=== PATIENT | male | born 1935 | race African-American/Black ===

== ENCOUNTER → 2018-07-13 10:18 | Outpatient (CLI) | payer MEDICARE, SELFPAY ==
[2018-07-13 10:59] LABS: Alanine Aminotransferase 21 IU/L (21-72); Albumin 4.2 g/dL (3.5-5.0); Albumin Globulin Ratio 1.3 (1.0-2.8); Alkaline Phosphatase 84 U/L (38-126); Aspartate Aminotransferase 20 IU/L (17-59); BUN Creatinine Ratio 16.1 (6-22); Bilirubin Total 0.6 mg/dL (0.2-1.3); Blood Urea Nitrogen 29 mg/dL (9-20); Calcium 9.1 mg/dL (8.4-10.2); Carbon Dioxide 26 mmol/L (22-32); Chloride 106 mmol/L (98-107); Cholesterol 191 mg/dL (140-199); Estimated Glomerular Filt Rate 36.4 mL/min (>60); Globulin 3.2 g/dL (1.7-4.1); Glucose 88 mg/dL (80-110); HDL Cholesterol 38 mg/dL (40-60); HEMOLYSIS < 15 (0-50); LDL Cholesterol Calculated 137 mg/dL (<100); Sodium 144 mmol/L (137-145); Total Protein 7.4 g/dL (6.3-8.2); Triglycerides 80 mg/dL (35-150); Uric Acid 8.7 mg/dL (3.5-8.5)
[2018-07-13 11:28] LABS: Add Manual Diff / Slide Review NO; Basophils Percent Auto 0.4 % (0-2); Eosinophils Percent Auto 4.3 % (2-4); Hematocrit 38.1 % (41-53); Hemoglobin 12.6 g/dL (13.5-17.5); Lymphocytes Percent Auto 30.1 % (25-40); Mean Corpuscular HGB Conc 33.1 % (30-36); Mean Corpuscular Hemoglobin 29.8 PG (26-34); Mean Corpuscular Volume 89.9 fL (80-100); Monocytes Percent Auto 12.2 % (3-14); Neutrophils Absolute Auto 3900 /uL (3000-5900); Platelet Count 164 X10^3/uL (150-400); Red Blood Cell Count 4.24 X10^6/uL (4.5-5.9); Red Cell Distribution Width 15.8 % (11.6-14.8); White Blood Cell Count 7.3 X10^3/uL (4.5-11.0)
[2018-07-13 11:34] LABS: Hemoglobin A1C% w Est Avg Glu 6.6 % (4.0-6.0)
== END ==
PROVIDERS: PCP Internal Medicine; Visit Provider Internal Medicine
DX: I10 Essential (primary) hypertension (principal); E78.5 Hyperlipidemia, unspecified; E11.65 Type 2 diabetes mellitus with hyperglycemia; M10.00 Idiopathic gout, unspecified site; R53.83 Other fatigue; Z12.5 Encounter for screening for malignant neoplasm of prostate
CPT/HCPCS: 36415; 80053; 80061; 83036; 84153; 84443; 84550; 85025

== ENCOUNTER 2018-08-31 10:48 | Inpatient (IN) | payer MEDICARE, SELFPAY ==
[2018-08-31] VITALS (10 sets, daily range): BP systolic 135–181; BP diastolic 66–97; PULSE 57–105; RESP 13–18; TEMP 36.6–36.7; O2SAT 97–100; BMI 33.7
--- NOTE | 2018-08-31 | DI.RAD.S_ITS ---
PROCEDURE: XR CHEST 1V INDICATIONS: CONGESTIVE HEART FAILURE TECHNIQUE: One view of the chest was acquired. COMPARISON: [facility], RG, XR CXR 2 VIEW, 10/07/2002, 1:48. [facility], CR, CHEST 1 VIEW, 03/17/2011, 18:49. FINDINGS: Surgical changes and devices: None. Lungs and pleura: No pleural effusions or pneumothorax. There is slight elevation of the right hemidiaphragm redemonstrated. No definite radiographic evidence of pulmonary edema. No focal consolidation. There is a small nonspecific nodular opacity in the left upper lung zone peripherally measuring approximately 0.9 cm. Mediastinum: Mediastinal contours appear unchanged. Heart size is borderline enlarged. Bones and chest wall: No suspicious bony lesions. Overlying soft tissues appear unremarkable. IMPRESSION: 1. No definite radiographic evidence of pulmonary edema. 2. Small peripheral indistinct nodular opacity in the left upper lung zone may represent confluence of vascular and bony structures, atelectasis, or a nonspecific pulmonary nodule. Recommend a dedicated PA and lateral study when clinically feasible for further evaluation. Dictated by: Dangelo Denney M.D. on 08/31/2018 at 18:11 Approved by: Dangelo Denney M.D. on 08/31/2018 at 18:13
--- NOTE | 2018-08-31 | DI.ECHO.S_ITS ---
[facility] +---------+ : : [address] [place] : : : : [id number] : : : : Phone: [phone] Echocardiogram Report + + :Name: IZZY CONTRERAS Study Date: 09/01/2018 Height: 70 in : :[facility] Exam Location: IS Weight: 242 lb : : Gender: Male BSA: 2.3 m2 : :: 1935 Age: 83 yrs BP: 148/84 mmHg: :Reason For Study: CHF : :Ordering Physician: Marino : :Hospitalist Performed By: Fanta Gaona : :Referring: SUMANTH BANG : + + Interpretation Summary There is mild concentric left ventricular hypertrophy. Left ventricular size is at the upper limits of normal. Left ventricular systolic function is severely reduced. The ejection fraction is estimated to be 25%. There is moderate to severe global hypokinesis of the left ventricle. The anterior and anterolateral appear to have the best augmentation while the inferior wall appears to be almost akinetic. The right ventricle is grossly normal size. Right ventricular systolic function is borderline reduced. Pulmonary artery pressures cannot be estimated because of the lack of a measurable TR jet velocity. The left atrium is mildly dilated. The right atrium is normal in size. There is mild to moderate mitral regurgitation. There is no other significant valvular heart disease. The aortic root is normal size. Procedure: A two-dimensional transthoracic echocardiogram with color flow and Doppler was performed. The study quality was technically adequate. Most of the acoustic windows were suboptimal, but the best imaging was obtained from the parasternal window. There is no prior echocardiogram noted for this patient. (Patient reports having echocardiogram's done at another location). Left Ventricle: There is mild concentric left ventricular hypertrophy. Left ventricular size is at the upper limits of normal. Left ventricular systolic function is severely reduced. Left ventricular ejection fraction is estimated to be 25%. There is moderate to severe global hypokinesis of the left ventricle. Right Ventricle: The right ventricle is grossly normal size. Right ventricular systolic function is borderline reduced. Atria: The left atrium is mildly dilated. The right atrium is normal in size. Mitral Valve: The mitral valve leaflets appear borderline thickened, but open well. There is mild to moderate mitral regurgitation. Aortic Valve: The aortic valve is trileaflet. The aortic valve opens well. There is mild aortic valve sclerosis. There is no hemodynamically significant valvular aortic stenosis. There is trace aortic regurgitation. Tricuspid Valve: The tricuspid valve is normal in structure and function. There is a trace or physiologic amount of tricuspid regurgitation. Pulmonary artery pressures cannot be estimated because of the lack of a measurable TR jet velocity. Pulmonic Valve: The pulmonic valve is normal in structure and function. There is a trace or physiologic amount of pulmonic regurgitation. There is no other significant valvular heart disease. Great Vessels: The aortic root is normal size. The ascending aorta is normal in size. The inferior vena cava was not visualized. Pericardium/ Pleura There is no pericardial effusion. There is no pleural effusion. MMode/2D Measurements & Calculations LVIDd: 5.7 cm LVOT diam: 2.1 cm LVIDs: 5.0 cm Ao root diam: 3.1 cm FS: 12.4 % asc Aorta Diam: 3.2 cm EPSS: 1.8 cm IVSd: 1.4 cm LVPWd: 1.4 cm LV lopes. diameter/BSA (cm/m^2): 2.5 LV sys. diameter/BSA (cm/m^2): 2.2 LA A2 area: 22.0 cm2 RA long axis: 3.9 cm LA A4 area: 26.3 cm2 RA area: 12.4 cm2 LA length (vol): 5.3 cm RA vol: 33.5 ml LA vol: 92.7 ml RA : 14.8 ml/m2 LA vol index: 40.9 ml/m2 TAPSE: 1.6 cm Doppler Measurements & Calculations Ao V2 max: 111.1 cm/sec LVOT Max Jose: 92.0 cm/sec Ao V2 mean: 85.1 cm/sec LV V1 max P.4 mmHg Ao max P.9 mmHg LV V1 VTI: 19.4 cm Ao mean P.0 mmHg JANIS(I,D): 2.7 cm2 Ao V2 VTI: 25.5 cm JANIS(V,D): 2.9 cm2 sev ratio: 0.76 JANIS indexed to BSA (cm^2/m^2): 1.2 MV E max jose: 91.8 cm/sec PA V2 max: 48.7 cm/sec MV A max jose: 86.8 cm/sec PA V2 mean: 33.0 cm/sec MV E/A: 1.1 PA mean P.50 mmHg MV dec time: 0.13 sec PA pr(Accel): -3.3 mmHg Reading Physician:YUSUF
--- NOTE | 2018-08-31 | DI.CT.S_ITS ---
PROCEDURE: CT HEAD/BRAIN WO CON INDICATIONS: DIZZY TECHNIQUE: Noncontrast 4.5 mm thick angled axial sections acquired from the foramen magnum to the vertex, with coronal and sagittal reformats. For radiation dose reduction, the following was used: automated exposure control, adjustment of mA and/or kV according to patient size. COMPARISON: None. FINDINGS: Image quality: Excellent. CSF spaces: Basal cisterns are patent. No extra-axial fluid collections. The ventricles are symmetric in size and shape. Brain: No intracranial bleeds or masses. There is cerebral volume loss for age, with resultant ventricular and sulcal prominence. There are periventricular and deep white matter chronic small vessel ischemic changes. There is intracranial internal carotid artery atherosclerosis. Skull and face: Calvarium and visualized facial bones appear intact, without suspicious lesions. Sinuses: Visualized sinuses and mastoids are clear. IMPRESSION: Normal for age, source of current symptoms is not seen. Dictated by: Michael Muro M.D. on 08/31/2018 at 11:32 Approved by: Michael Muro M.D. on 08/31/2018 at 11:35
--- NOTE | 2018-08-31 | DI.MRI.S_ITS ---
PROCEDURE: MR STROKE Pre- and post-contrast brain MRI, non-contrast brain MR angiogram, pre- and postcontrast neck MR angiogram INDICATIONS: acute ataxia, r/o CVA TECHNIQUE: Brain: Noncontrast axial T1 spin echo, axial T2 fast spin echo, sagittal and axial FLAIR, coronal T2 fast spin echo, axial gradient echo, axial diffusion and ADC through the brain. After the administration of contrast, axial 3D VIBE of the cranial vasculature and brain. Brain MRA: Non-contrast 3-D time of flight MR angiogram, with multiple tgnklpo-isqqgxerm-igrbgqxtwh (MIP) reformats performed. Neck MRA: Axial and sagittal TruFISP through the neck. Coronal dynamic MR angiogram during administration of contrast in the arterial and venous phases, with 3-dimenstional dgtognm-qbdgdsfuc-ftlttiehcd (MIP) reformats constructed from subtraction images. COMPARISON: [facility], CT, CT HEAD/BRAIN WO CON, 08/31/2018, 11:16. FINDINGS: Image quality: There is motion artifact limiting evaluation. CSF spaces: There is moderate cerebral volume loss with prominence of the ventricles and sulci. Basal cisterns are patent. No extra-axial fluid collections. Brain: Diffusion weighted images demonstrate no acute infarcts. No intracranial hemorrhage, mass, or mass effect. There are subcortical and periventricular foci of white matter T2 hyperintensity consistent with mild to moderate chronic small vessel ischemic changes. Brainstem appears normal. Normal intravascular flow voids are present. No abnormal intracranial enhancement. Skull and face: Calvarial marrow signal is normal. Orbits appear normal. Sinuses: Sinuses and mastoids are clear. BRAIN MR ANGIOGRAM: Anterior circulation: Intracranial internal carotid arteries are normal in size and patent bilaterally. The flow within the paired anterior cerebral arteries is symmetric and patent bilaterally. There are focal stenoses within the M1 segment of the middle cerebral arteries bilaterally with approximately 60 to 70% narrowing bilaterally. The anterior communicating artery is patent. No occlusions or aneurysms. Posterior circulation: There is a focal stenosis in the distal left vertebral artery at its junction with the basilar artery of approximately 70% or greater. 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 The flow within the posterior cerebral arteries appears grossly patent bilaterally. No occlusions or aneurysms. NECK MR ANGIOGRAM: Carotids: Great vessels demonstrate conventional anatomy as they arise from the aortic arch. The origins of the common carotid arteries appear patent. The calibers and courses of both common carotid arteries are normal. There are bilateral stenoses in the proximal carotid bulbs of greater than 70% on the left and approximately 60-70% on the right. The subsequent internal carotid arteries demonstrate normal course and caliber. Posterior circulation: The origins of the vertebral arteries appear patent. More superior portions of both vertebral arteries demonstrate normal course and caliber, and join to form a normal appearing basilar artery. Miscellaneous: Subclavian arteries appear patent. 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 Pre-contrast images through the neck demonstrate no soft tissue abnormalities. IMPRESSION: BRAIN MRI: 1. No evidence of infarct or other definite acute intracranial abnormality. 2. Moderate cerebral volume loss and mild to moderate chronic white matter small vessel ischemic changes. BRAIN MR ANGIOGRAM: 1. 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 Further evaluation may be obtained with a CT angiogram if clinically indicated. 2. Focal stenosis in the distal left vertebral artery at its junction with the basilar artery of approximately 70%. NECK MR ANGIOGRAM: 1. Bilateral narrowing in the proximal carotid bulbs of greater than 70% on the left and approximately 60-70% on the right. 2. 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 Dictated by: Dangelo Denney M.D. on 08/31/2018 at 18:27 Approved by: Dangelo Denney M.D. on 08/31/2018 at 18:43
--- NOTE | 2018-08-31 10:49 | ED.GENADULT ---
HPI - General Adult General Chief complaint: Neuro Symptoms/Deficit Stated complaint: unsteady on feet, dizzy, high BP Time Seen by Provider: 08/31/18 10:49 Source: patient Mode of arrival: ambulatory Limitations: no limitations History of Present Illness HPI narrative: Patient is an 83-year-old male here for evaluation of what he describes as lightheadedness and walking funny. Patient states that on Friday of last week he was at his normal state health. Woke up and stated that he was ?dizzy ?up this was not vertigo however does lightheadedness. He states that as he was walking to the bathroom he noticed that he was ?walking funny? he stated that as the day went on all of his symptoms improved. States that the ?walking funny? has been off and on since then. He states that he did not have a return of the ?dizziness? until this morning. He denies any other symptoms. He states he has been taking his insulin. Related Data Home Medications Medication Instructions Recorded Confirmed DM HYDROBROM/GG/PSE HCL (#GUIATUSS) 1 cap PO PRN PRN #0 03/17/11 08/31/18 furosemide 20 mg PO QDAY #0 11/26/16 08/31/18 metoprolol tartrate 37.5 mg PO DAILY #0 11/26/16 08/31/18 insulin NPH-regular 70-30 U-100 1 dose SUBCUT BID 04/29/18 08/31/18 insulin 100 unit/mL subcutaneous pen CoQ-10 1 cap PO DAILY 08/31/18 08/31/18 Oil Of Oregano 1 cap PO DAILY 08/31/18 08/31/18 Probiotic 1 cap PO DAILY 08/31/18 08/31/18 aspirin 81 mg PO DAILY 08/31/18 08/31/18 ezetimibe 1 tab PO DAILY 08/31/18 08/31/18 losartan 1 tab PO QPM 08/31/18 08/31/18 olive leaf extract 1 cap PO DAILY 08/31/18 08/31/18 Previous Rx's Medication Instructions Recorded colchicine 0.6 mg tablet 0.6 mg PO Q OTHER DAY #20 tab 04/29/18 Allergies Allergy/AdvReac Type Severity Reaction Status Date / Time allopurinol Allergy Intermediate rash Verified 04/29/18 14:06 No Known Allergies Allergy Uncoded 04/11/18 11:54 Review of Systems Constitutional Denies fatigue, Denies fever(s), Denies frequent falls and Denies headache(s) Eyes Denies blurry vision and Denies diplopia ENT Ears, Nose, Mouth, and Throat: Denies vertigo, Reports dizziness, Denies headache(s), Denies neck pain and Reports disequilibrium Cardiovascular Denies chest pain, Denies palpitations and Denies dyspnea Respiratory Denies cough and Denies dyspnea Gastrointestinal Gastrointestinal: Denies abdominal pain, Denies nausea and Denies vomiting Musculoskeletal Reports abnormal gait, Denies myalgias, Denies arthralgias, Denies neck pain and Denies tingling Integumentary/Breasts Denies lesions and Denies rash Neurologic Reports abnormal gait, Denies confusion, Denies vertigo, Reports dizziness, Denies frequent falls, Denies headache(s), Reports lack of coordination, Denies focal weakness, Denies tingling, Denies paresthesias and Reports disequilibrium Psychiatric Denies confusion Endocrine Denies fatigue and Denies palpitations Hematologic/Lymphatic Denies easy bleeding and Denies easy bruising [facility] Medical History Congestive heart failure (Acute) Coronary artery disease (Acute) Diabetes (Acute) Hypertension (Acute) Surgical History No pertinent past surgical history (Acute) Social History Smoking Status: Former smoker Exam Initial Vital Signs Initial Vital Signs: Vital Signs Temperature 97.8 F 08/31/18 10:50 Pulse Rate 102 H 08/31/18 10:50 Respiratory Rate 13 08/31/18 10:50 Blood Pressure 173/92 H 08/31/18 10:50 Pulse Oximetry 100 08/31/18 10:50 Const General: cooperative, healthy appearing, comfortable, well developed, well groomed and No acute distress Orientation: alert, awake and oriented x3 HENMT Head: normal to inspection and normocephalic Ears: hearing grossly normal bilaterally Face and sinus: normal facial exam Eyes Pupils: PERRL EOM: EOM intact bilaterally Resp Effort & Inspection: normal respiratory effort Auscultation: clear to auscultation bilaterally Cardio Rate: regular rate Rhythm: regular rhythm Pulses: radial pulses present GI Inspection: non-distended Palpation: soft, No firm and No tender Skin Lesions: no lesions Rashes: no rashes Neuro General: alert, awake and oriented x3 Cranial Nerves: CN's II-XI intact bilaterally Cognition: normal cognition Speech: speech normal Motor: muscle tone normal throughout Sensory Exam: no sensory deficits noted Extrem General: normal to inspection and capillary refill normal Psych Appearance: grossly normal and well kempt Course Orders Ordered: ED Orders 08/31/18 10:50 EKG-12 Lead Stat 08/31/18 11:36 B Type Natriuretic Peptide Stat Complete Blood Count AUTO DIFF Stat Comprehensive Metabolic Panel Stat Troponin I Stat Discontinued Medications Aspirin (Aspirin Chew) 324 mg PO NOW ONE Stop: 08/31/18 12:13 Last Admin: 08/31/18 12:22 Dose: 324 mg Vital Signs - 8 hr 08/31/18 10:50 08/31/18 11:24 08/31/18 11:58 Temperature 97.8 F Pulse Rate 102 H 105 H 92 H Respiratory Rate 13 18 18 Blood Pressure 173/92 H Blood Pressure [Left Arm] 173/92 H 163/97 H Pulse Oximetry 100 98 Medical Decision Making Lab Data Lab results reviewed: Yes I reviewed the patient's lab results. Result diagrams: 08/31/18 11:36 08/31/18 11:36 Lab Results 08/31/18 08/31/18 Range/Units 11:36 11:36 WBC 6.2 (4.5-11.0) X10^3/uL RBC 4.29 L (4.5-5.9) X10^6/uL Hgb 12.7 L (13.5-17.5) g/dL Hct 38.7 L (41-53) % MCV 90.3 (80-100) fL MCH 29.6 (26-34) PG MCHC 32.8 (30-36) % RDW 15.3 H (11.6-14.8) % Plt Count 144 L (150-400) X10^3/uL Neut % (Auto) 52.9 (50-75) % Lymph % (Auto) 30.3 (25-40) % Whitman % (Auto) 12.0 (3-14) % Eos % (Auto) 4.4 H (2-4) % Baso % (Auto) 0.4 (0-2) % Neut # (Auto) 3300 (5603-9180) /uL Sodium 141 (137-145) mmol/L Potassium 4.0 (3.4-5.1) mmol/L Chloride 103 (98-107) mmol/L Carbon Dioxide 25 (22-32) mmol/L BUN 26 H (9-20) mg/dL Creatinine 1.80 H (0.66-1.25) mg/dL Estimated GFR 36.4 L (>60) mL/min BUN/Creatinine Ratio 14.4 (6-22) Glucose 171 H (80-110) mg/dL Calcium 8.9 (8.4-10.2) mg/dL Total Bilirubin 0.6 (0.2-1.3) mg/dL AST 26 (17-59) IU/L ALT 25 (21-72) IU/L Alkaline Phosphatase 88 (38-126) U/L Troponin I 0.193 H* (0.01-0.034) ng/mL B-Natriuretic Peptide 691.0 H (<100) Total Protein 7.4 (6.3-8.2) g/dL Albumin 4.1 (3.5-5.0) g/dL Globulin 3.3 (1.7-4.1) g/dL Albumin/Globulin Ratio 1.2 (1.0-2.8) Point of Care Testing Glucose POC 136 Point of care testing: Point of Care Testing Glucose POC [address] scan - head: Radiologist's impression: [address] [address] [address] Scan Report Signed Patient: Thaddeus Chilel BMR#: [id number] : 7Acct:[id number] Age/Sex: 83 / MDate of Service: 08/31/18 Loc: ED Accession Number: [id number] Procedure: CT head/brain wo con Ordering Provider: James Buenrostro D.O. PROCEDURE: CT HEAD/BRAIN WO CON INDICATIONS: DIZZY TECHNIQUE: Noncontrast 4.5 mm thick angled axial sections acquired from the foramen magnum to the vertex, with coronal and sagittal reformats. For radiation dose reduction, the following was used: automated exposure control, adjustment of mA and/or kV according to patient size. COMPARISON: None. FINDINGS: Image quality: Excellent. CSF spaces: Basal cisterns are patent. No extra-axial fluid collections. The ventricles are symmetric in size and shape. Brain: No intracranial bleeds or masses. There is cerebral volume loss for age, with resultant ventricular and sulcal prominence. There are periventricular and deep white matter chronic small vessel ischemic changes. There is intracranial internal carotid artery atherosclerosis. Skull and face: Calvarium and visualized facial bones appear intact, without suspicious lesions. Sinuses: Visualized sinuses and mastoids are clear. IMPRESSION: Normal for age, source of current symptoms is not seen. Dictated by: Michael Muro M.D. on 08/31/2018 at 11:32 Approved by: Michael Muro M.D. on 08/31/2018 at 11:35 ECG Data Attestation: I personally reviewed and interpreted this ECG as follows: Prior ECG tracings: not available for review Interpretation: Sinus tachycardia Ventricular rate of 102 Normal axis Normal QRS Normal QTC Nonspecific ST T wave changes MDM Narrative Medical decision making narrative: Patient's head CT is unremarkable. He has a normal neurologic exam here in the emergency department. He was able to walk up and down the halls and did lean somewhat to the left while he walked but stated that he feels a whole lot better than when he did earlier today and has been feeling off and on for the past several days. He denies any chest pain. He is not clinically in heart failure. He does have an elevated troponin. He has never complained of any chest pain. I do not have an old troponin to compare this to. No fevers. Discussed the case with Dr. Fragoso with Internal Medicine who will admit the patient for continued workup of his lightheadedness to include an MRI stroke protocol and also trending of the troponins. I discussed the plan for admission with the patient. He expressed understanding and agreement with plan. Discharge Plan Departure Patient Disposition: Admitted As Inpatient Clinical Impression: Lightheadedness, Ataxia, Elevated troponin
[2018-08-31 11:45] LABS: Add Manual Diff / Slide Review NO; Basophils Percent Auto 0.4 % (0-2); Eosinophils Percent Auto 4.4 % (2-4); Hematocrit 38.7 % (41-53); Hemoglobin 12.7 g/dL (13.5-17.5); Lymphocytes Percent Auto 30.3 % (25-40); Mean Corpuscular HGB Conc 32.8 % (30-36); Mean Corpuscular Hemoglobin 29.6 PG (26-34); Mean Corpuscular Volume 90.3 fL (80-100); Neutrophils Absolute Auto 3300 /uL (3000-5900); Neutrophils Percent Auto 52.9 % (50-75); Platelet Count 144 X10^3/uL (150-400); Red Blood Cell Count 4.29 X10^6/uL (4.5-5.9); Red Cell Distribution Width 15.3 % (11.6-14.8); White Blood Cell Count 6.2 X10^3/uL (4.5-11.0)
[2018-08-31 11:58] LABS: Alanine Aminotransferase 25 IU/L (21-72); Albumin 4.1 g/dL (3.5-5.0); Albumin Globulin Ratio 1.2 (1.0-2.8); Alkaline Phosphatase 88 U/L (38-126); Aspartate Aminotransferase 26 IU/L (17-59); BUN Creatinine Ratio 14.4 (6-22); Bilirubin Total 0.6 mg/dL (0.2-1.3); Blood Urea Nitrogen 26 mg/dL (9-20); Calcium 8.9 mg/dL (8.4-10.2); Carbon Dioxide 25 mmol/L (22-32); Chloride 103 mmol/L (98-107); Estimated Glomerular Filt Rate 36.4 mL/min (>60); Globulin 3.3 g/dL (1.7-4.1); Glucose 171 mg/dL (80-110); HEMOLYSIS < 15 (0-50); Sodium 141 mmol/L (137-145); Total Protein 7.4 g/dL (6.3-8.2)
[2018-08-31 12:12] LABS: Troponin I 0.193 ng/mL (0.01-0.034)
[2018-08-31] MEDS: ASPIRIN 81 MG TAB 324 MG PO (12:22)
--- NOTE | 2018-08-31 16:48 | PM.HP.1 ---
History of Present Illness Date Patient Seen: 08/31/18 Time Patient Seen: 16:48 Chief complaint: dizzy,unsteady on feat,high blood pressure Narrative: Patient is an 83-year-old male with history of diabetes, hypertension, congestive heart failure presented to our emergency department with complaints of feeling dizzy and off-balance often on for the past 5 days. On last week he 1st noticed that he was dizzy and had difficulty maintaining his balance while walking. Symptoms have been intermittent since that time but worse today. He also noticed brief episode of shortness of breath and cough. He denies fever, chest pain, headache, loss of vision or double vision, unilateral weakness or numbness. He checked his blood sugar and it was running in his usual range. Head CT in the ER read as normal for age. However, his troponin was significantly elevated at 0.193. In regards to his CHF, patient states that it was diagnosed back in 2010 when he presented with a tachycardia but not atrial fibrillation. Symptoms have been well controlled since he was started on combination of diuretic, losartan and metoprolol. He denies history of [place]. He was set up to have a follow-up carotid duplex ultrasound in a couple of weeks ordered by his vacuum cleaner operator. He does report one important piece of history and that he realized he ran out of his metoprolol about 1 week ago. Patient History Medical History Congestive heart failure (Acute) Coronary artery disease (Acute) Diabetes (Acute) Hypertension (Acute) Surgical History No pertinent past surgical history (Acute) Family & Social History Family History: Reviewed 08/31/18 by Ulysses Fragoso MD Social History: household members spouse Prior Living Arrangements House Safety & Behavioral: Feels Safe in Current Yes Environment Been Physically Hurt or No Threatened By a Person Suicidal Ideation Description None Suicide Plan Description No Plan Tobacco & Substance use: Smoking Status Former smoker alcohol intake frequency other Substance Use Type does not use Meds Home Medications Medication Instructions Recorded Confirmed Type DM HYDROBROM/GG/PSE HCL (#GUIATUSS) 1 cap PO PRN PRN #0 03/17/11 08/31/18 History furosemide 20 mg PO QDAY #0 11/26/16 08/31/18 History metoprolol tartrate 37.5 mg PO DAILY #0 11/26/16 08/31/18 History colchicine 0.6 mg tablet 0.6 mg PO Q OTHER DAY #20 tab 04/29/18 08/31/18 Rx insulin NPH-regular 70-30 U-100 1 dose SUBCUT BID 04/29/18 08/31/18 History insulin 100 unit/mL subcutaneous pen CoQ-10 1 cap PO DAILY 08/31/18 08/31/18 History Oil Of Oregano 1 cap PO DAILY 08/31/18 08/31/18 History Probiotic 1 cap PO DAILY 08/31/18 08/31/18 History aspirin 81 mg PO DAILY 08/31/18 08/31/18 History ezetimibe 1 tab PO DAILY 08/31/18 08/31/18 History losartan 1 tab PO QPM 08/31/18 08/31/18 History olive leaf extract 1 cap PO DAILY 08/31/18 08/31/18 History Allergies Allergy/AdvReac Type Severity Reaction Status Date / Time allopurinol Allergy Intermediate rash Verified 04/29/18 14:06 No Known Allergies Allergy Uncoded 02/11/18 11:54 Review of Systems Review of Systems All systems reviewed & are unremarkable except as noted in HPI and below Exam Vital Signs (past 8 hours): - 08/31/18 10:50 08/31/18 11:24 08/31/18 11:58 Temperature 97.8 F Pulse Rate 102 H 105 H 92 H Respiratory Rate 13 18 18 Blood Pressure 173/92 H Blood Pressure [Left Arm] 173/92 H 163/97 H Pulse Oximetry 100 98 08/31/18 13:16 08/31/18 13:23 08/31/18 13:33 Temperature Pulse Rate 97 H 89 96 H Respiratory Rate 15 18 13 Blood Pressure Blood Pressure [Left Arm] 181/96 H 181/91 H 162/76 H Pulse Oximetry 100 100 100 08/31/18 15:28 Temperature 98.0 F Pulse Rate 57 L Respiratory Rate 18 Blood Pressure 135/71 Blood Pressure [Left Arm] Pulse Oximetry 97 Oxygen Delivery Method Room Air Narrative Exam Narrative: GENERAL: Alert, very cooperative male in no acute distress HEAD: Atraumatic. Normocephalic. EYES: Pupils equal, round and reactive. Extraocular motions intact. No nystagmus. No scleral icterus. No injection or drainage. OROPHARYNX: moist mucosa NECK: Trachea midline. No JVD or lymphadenopathy. No carotid bruit. CARDIOVASCULAR: Regular rate and rhythm without murmurs, gallops, or rubs. RESPIRATORY: Clear to auscultation bilaterally. GASTROINTESTINAL: Abdomen obese, soft, non-tender. No hepato-splenomegaly, or palpable masses. EXTREMITIES: No pretibial edema. NEUROLOGICAL: Fully oriented, speech is completely intact, normal bilateral upper and lower extremity strength and sensation, normal [id number] bilaterally, normal heel to li bilaterally, however he is mildly ataxic with ambulation SKIN: warm, dry, no rash Objective Imaging CT scan - head: Radiologist's impression: Normal for age, source of current symptoms is not seen. ECG: My impression: Sinus tachycardia, anteroseptal MN unlikely old, possible old inferior [place], nonspecific T-wave abnormality, no change verses EKG 03/07/2011 Labs Result Diagrams: 08/31/18 11:36 08/31/18 11:36 Labs: Laboratory Results - last 24 hr 08/31/18 08/31/18 11:36 11:36 WBC 6.2 RBC 4.29 L Hgb 12.7 L Hct 38.7 L MCV 90.3 MCH 29.6 MCHC 32.8 RDW 15.3 H Plt Count 144 L Neut % (Auto) 52.9 Lymph % (Auto) 30.3 [place] % (Auto) 12.0 Eos % (Auto) 4.4 H Baso % (Auto) 0.4 Neut # (Auto) 3300 Sodium 141 Potassium 4.0 Chloride 103 Carbon Dioxide 25 BUN 26 H Creatinine 1.80 H Estimated GFR 36.4 L BUN/Creatinine Ratio 14.4 Glucose 171 H Calcium 8.9 Total Bilirubin 0.6 AST 26 ALT 25 Alkaline Phosphatase 88 Troponin I 0.193 H* B-Natriuretic Peptide 691.0 H Total Protein 7.4 Albumin 4.1 Globulin 3.3 Albumin/Globulin Ratio 1.2 Assessment & Plan Plan: Assessment/Plan Narrative: 1. Acute ataxia suspicious for evolving stroke: Patient presents with several days of new ataxia. He has multiple stroke risk factors. Plan: Brain MR stroke protocol, transthoracic echo, telemetry, allow permissive hypertension, neuro check q.4 hours, PT consult 2. Acute [place]: Admission troponin 0.193 above acute [place] cut off. Likely this is type 2 or demand related ischemia due to history of running out of his metoprolol 1 week prior to admission. He did have a brief episode of shortness of breath a couple of days prior to admission. Plan: Repeat troponin at 8:00 p.m., telemetry. He is already on daily aspirin and metoprolol, resumed. 3. Congestive heart failure, chronic, unknown type: Note elevated BNP above 600 with stated history of CHF. Patient does not appear in overt heart failure. Check chest x-ray. He is followed by vacuum cleaner operator, Dr. Carla Lemus, at [facility] 4. Diabetes, insulin requiring: Stable, continue insulin similar to home routine 5. Chronic kidney disease, stage III: Creatinine 1.8 it appears at his baseline. Quality VTE Deep Vein Thrombosis/Pulmonary Embolism Present on Admission: No
--- NOTE | 2018-08-31 17:08 | P.HP_ITS ---
History of Present Illness Date Patient Seen: 08/31/18 Time Patient Seen: 16:48 Chief complaint: dizzy,unsteady on feat,high blood pressure Narrative: Patient is an 83-year-old male with history of diabetes, hypertension , congestive heart failure presented to our emergency department with complaints of feeling dizzy and off-balance often on for the past 5 days. On last week he 1st noticed that he was dizzy and had difficulty maintaining his balance while walking. Symptoms have been intermittent since that time but worse today. He also noticed brief episode of shortness of breath and cough. He denies fever, chest pain, headache, loss of vision or double vision, unilateral weakness or numbness. He checked his blood sugar and it was running in his usual range. Head CT in the ER read as normal for age. However, his troponin was significantly elevated at 0.193. In regards to his CHF, patient states that it was diagnosed back in 2010 when he presented with a tachycardia but not atrial fibrillation. Symptoms have been well controlled since he was started on combination of diuretic, losartan and metoprolol. He denies history of [place]. He was set up to have a follow-up carotid duplex ultrasound in a couple of weeks ordered by his geospatial intelligence analyst. He does report one important piece of history and that he realized he ran out of his metoprolol about 1 week ago. Patient History Medical History Congestive heart failure (Acute) Coronary artery disease (Acute) Diabetes (Acute) Hypertension (Acute) Surgical History No pertinent past surgical history (Acute) Family & Social History Family History: Reviewed 08/31/18 by Ulysses Fragoso MD Social History: household members spouse Prior Living Arrangements House Safety & Behavioral: Feels Safe in Current Yes Environment Been Physically Hurt or No Threatened By a Person Suicidal Ideation Description None Suicide Plan Description No Plan Tobacco & Substance use: Smoking Status Former smoker alcohol intake frequency other Substance Use Type does not use Meds Home Medications Medication Instructions Recorded Confirmed Type DM HYDROBROM/GG/PSE HCL (#GUIATUSS) 1 cap PO PRN PRN #0 03/17/11 08/31/18 History furosemide 20 mg PO QDAY #0 11/26/16 08/31/18 History metoprolol tartrate 37.5 mg PO DAILY #0 11/26/16 08/31/18 History colchicine 0.6 mg tablet 0.6 mg PO Q OTHER DAY #20 tab 04/29/18 08/31/18 Rx insulin NPH-regular 70-30 U-100 1 dose SUBCUT BID 04/29/18 08/31/18 History insulin 100 unit/mL subcutaneous pen CoQ-10 1 cap PO DAILY 08/31/18 08/31/18 History Oil Of Oregano 1 cap PO DAILY 08/31/18 08/31/18 History Probiotic 1 cap PO DAILY 08/31/18 08/31/18 History aspirin 81 mg PO DAILY 08/31/18 08/31/18 History ezetimibe 1 tab PO DAILY 08/31/18 08/31/18 History losartan 1 tab PO QPM 08/31/18 08/31/18 History olive leaf extract 1 cap PO DAILY 08/31/18 08/31/18 History Allergies Allergy/AdvReac Type Severity Reaction Status Date / Time allopurinol Allergy Intermediate rash Verified 04/29/18 14:06 No Known Allergies Allergy Uncoded 02/11/18 11:54 Review of Systems Review of Systems All systems reviewed & are unremarkable except as noted in HPI and below Exam Vital Signs (past 8 hours): - 08/31/18 10:50 08/31/18 11:24 08/31/18 11:58 Temperature 97.8 F Pulse Rate 102 H 105 H 92 H Respiratory Rate 13 18 18 Blood Pressure 173/92 H Blood Pressure [Left Arm] 173/92 H 163/97 H Pulse Oximetry 100 98 08/31/18 13:16 08/31/18 13:23 08/31/18 13:33 Temperature Pulse Rate 97 H 89 96 H Respiratory Rate 15 18 13 Blood Pressure Blood Pressure [Left Arm] 181/96 H 181/91 H 162/76 H Pulse Oximetry 100 100 100 08/31/18 15:28 Temperature 98.0 F Pulse Rate 57 L Respiratory Rate 18 Blood Pressure 135/71 Blood Pressure [Left Arm] Pulse Oximetry 97 Oxygen Delivery Method Room Air Narrative Exam Narrative: GENERAL: Alert, very cooperative male in no acute distress HEAD: Atraumatic. Normocephalic. EYES: Pupils equal, round and reactive. Extraocular motions intact. No nystagmus. No scleral icterus. No injection or drainage. OROPHARYNX: moist mucosa NECK: Trachea midline. No JVD or lymphadenopathy. No carotid bruit. CARDIOVASCULAR: Regular rate and rhythm without murmurs, gallops, or rubs. RESPIRATORY: Clear to auscultation bilaterally. GASTROINTESTINAL: Abdomen obese, soft, non-tender. No hepato-splenomegaly, or palpable masses. EXTREMITIES: No pretibial edema. NEUROLOGICAL: Fully oriented, speech is completely intact, normal bilateral upper and lower extremity strength and sensation, normal [id number] bilaterally, normal heel to li bilaterally, however he is mildly ataxic with ambulation SKIN: warm, dry, no rash Objective Imaging CT scan - head: Radiologist's impression: Normal for age, source of current symptoms is not seen. ECG: My impression: Sinus tachycardia, anteroseptal [place] unlikely old, possible old inferior [place], nonspecific T-wave abnormality, no change verses EKG 03/07/2011 Labs Result Diagrams: 08/31/18 11:36 08/31/18 11:36 Labs: Laboratory Results - last 24 hr 08/31/18 08/31/18 11:36 11:36 WBC 6.2 RBC 4.29 L Hgb 12.7 L Hct 38.7 L MCV 90.3 MCH 29.6 MCHC 32.8 RDW 15.3 H Plt Count 144 L Neut % (Auto) 52.9 Lymph % (Auto) 30.3 [place] % (Auto) 12.0 Eos % (Auto) 4.4 H Baso % (Auto) 0.4 Neut # (Auto) 3300 Sodium 141 Potassium 4.0 Chloride 103 Carbon Dioxide 25 BUN 26 H Creatinine 1.80 H Estimated GFR 36.4 L BUN/Creatinine Ratio 14.4 Glucose 171 H Calcium 8.9 Total Bilirubin 0.6 AST 26 ALT 25 Alkaline Phosphatase 88 Troponin I 0.193 H* B-Natriuretic Peptide 691.0 H Total Protein 7.4 Albumin 4.1 Globulin 3.3 Albumin/Globulin Ratio 1.2 Assessment & Plan Plan: Assessment/Plan Narrative: 1. Acute ataxia suspicious for evolving stroke: Patient presents with several days of new ataxia. He has multiple stroke risk factors. Plan: Brain MR stroke protocol, transthoracic echo, telemetry, allow permissive hypertension, neuro check q.4 hours, PT consult 2. Acute [place]: Admission troponin 0.193 above acute [place] cut off. Likely this is type 2 or demand related ischemia due to history of running out of his metoprolol 1 week prior to admission. He did have a brief episode of shortness of breath a couple of days prior to admission. Plan: Repeat troponin at 8:00 p.m., telemetry. He is already on daily aspirin and metoprolol, resumed. 3. Congestive heart failure, chronic, unknown type: Note elevated BNP above 600 with stated history of CHF. Patient does not appear in overt heart failure. Check chest x-ray. He is followed by geospatial intelligence analyst, Dr. Carla Lemus, at [facility] 4. Diabetes, insulin requiring: Stable, continue insulin similar to home routine 5. Chronic kidney disease, stage III: Creatinine 1.8 it appears at his baseline. Quality VTE Deep Vein Thrombosis/Pulmonary Embolism Present on Admission: No
[2018-08-31] MEDS: METOPROLOL IR 12.5 MG TABLET 37.5 MG PO (17:19)
[2018-08-31] MEDS: LOSARTAN 25 MG TABLET PO (17:20)
[2018-08-31] MEDS: INSULIN ASPART 100 UNIT/ML INSULN PEN SUBCUT ×3 (17:27→20:44)
[2018-08-31] MEDS: INSULIN GLARGINE 100 UNIT/ML 3ML PEN 18 UNIT SUBCUT (21:00)
[2018-08-31 21:18] LABS: Troponin I 0.208 ng/mL (0.01-0.034)
[2018-09-01] VITALS (7 sets, daily range): BP systolic 131–149; BP diastolic 60–84; PULSE 70–79; RESP 16–18; TEMP 36.6–37; O2SAT 97–100
--- NOTE | 2018-09-01 02:32 | PC.NURSE ---
Patient is alert and oriented. Breath sounds CTA with RA sat of 100%. HRR with telemetry reading of SR. Denies nausea. BT present and abdomen is soft. Denies dysuria, frequency, urgency or incontinence. Independent with bed mobility. NIH score is 0. Denies pain. Fall risk score is high related to hx of recent fall so bed alarm is activated; patient is calling for assistance appropriately.
[2018-09-01] MEDS: FUROSEMIDE 20 MG TABLET PO (08:09)
[2018-09-01] MEDS: INSULIN GLARGINE 100 UNIT/ML 3ML PEN 18 UNIT SUBCUT ×2 (08:09→21:36)
[2018-09-01] MEDS: EZETIMIBE 10 MG TABLET PO (08:09)
[2018-09-01] MEDS: ASPIRIN EC 81 MG TABLET PO (08:09)
[2018-09-01] MEDS: SODIUM CHLORIDE 0.9% FLUSH 10 ML IV ×2 (08:13→21:35)
[2018-09-01] MEDS: METOPROLOL 12.5 MG TABLET 37.5 MG PO (09:43)
[2018-09-01 10:11] LABS: Troponin I 0.186 ng/mL (0.01-0.034)
--- NOTE | 2018-09-01 10:15 | PC.NURSE ---
Pt up to chair from bed with RN at standby. Pt states he felt a little bit dizzy when he first stood up but denies dizziness at this time. 0800 BP was 131/71. Waited about 4-5 minutes and checked bp with Pt sitting with result of 138/76 hr 76. Had Pt stand and rechecked bp with result of 150/70 hr 88. Pt denies dizziness, headache, numbness, tingling, or pain at this time.
[2018-09-01] MEDS: INSULIN ASPART 100 UNIT/ML INSULN PEN SUBCUT ×5 (12:13→21:38)
--- NOTE | 2018-09-01 15:03 | CM.DANOTE ---
Discharge Planning/Care Management DCP: assessment: case received, EMR reviewed and spoke with PT Linsey. She had just worked with pt and had many concerns re his functional mobility needs. She recommended OT order/obtained. Met now with pt, briefly. Introduced self and role. Pt is an 83 year old male who admitted to care of the hospitalist team 08/31. Payer[facility] Medicare [facility] PCP: Dr. Tracy Cottrell/Gisella. Admission Status: changed form OBS to INPT: 09/01: confirmed by UR RAEANN Pierson. P: agreed to check in with pt as POC unfolds and d/c needs are identied. The expresses thankfulness for same. CM Discharge Assessment Start: 09/01/18 15:01 Freq: Status: Active Protocol: Document 09/01/18 15:02 ITV (Rec: 09/01/18 15:03 ITV [id number]) Discharge Planning Assessment Advance Directives? No History Provided By Patient Medical Record Prior Living Arrangements House Household Members spouse Is patient alert and oriented? Yes Whiteboard Updated in Patient Room with Yes name and ext. # of Track Repair Supervisor Review Status In Process Next Review Type Continued Stay Review
[2018-09-01] MEDS: LOSARTAN 25 MG TABLET PO (17:05)
--- NOTE | 2018-09-01 17:21 | PT.IPTN ---
Physical Therapy Treatment Note M2 PT-IP Current Condition Start: 09/01/18 12:59 Freq: Status: Active Protocol: Document 09/01/18 11:16 AB (Rec: 09/01/18 13:21 AB [id number]) Physical Therapy Current Condition Current Condition Evaluation Date 09/01/18 Treatment Diagnosis acute VT; difficulties in walking Onset Date 08/31/18 Precautions Other Precautions falls M3 PT-IP Subjective Start: 09/01/18 12:59 Freq: Status: Active Protocol: Document 09/01/18 17:20 AB (Rec: 09/01/18 17:21 AB [id number]) Subjective Physical Therapy Visit Type Type Patient Unavailable Notes Checked on pt for afternoon tx session but pt unavailable. pt having a procedure done with gis technician and nurses in room. will f/u tomorrow.
--- NOTE | 2018-09-01 18:11 | PM.PN.1 ---
Subjective Date Patient Seen: 09/01/18 Interval history: Patient has persistent ataxia with no improvement in gait since admission. Denies chest pain. Exam Vital Signs (past 8 hours): - 09/01/18 11:00 09/01/18 16:23 Temperature 97.9 F 98.6 F Pulse Rate 70 79 Respiratory Rate 16 18 Blood Pressure 148/84 H 136/70 Pulse Oximetry 97 100 Oxygen Delivery Method Room Air Oxygen Flow Rate 7 Narrative Exam Narrative: General: Alert, pleasant and in no acute distress Lungs: Breathing nonlabored Neurological: Fully oriented, speech normal, upper and lower extremity strength intact, however gait ataxic Skin: No rash Objective Labs Result Diagrams: 08/31/18 11:36 08/31/18 11:36 Labs: Laboratory Results - last 24 hr 08/31/18 09/01/18 20:21 08:28 Troponin I 0.208 H* 0.186 H* Assessment & Plan Plan: Assessment/Plan Narrative: 1. Acute ataxia suspicious for evolving ischemic stroke: Patient presented with several days of new ataxia. He has multiple stroke risk factors. Brain MRI showed chronic small vessel disease changes but no acute stroke. However, clinically he very much presents as acute posterior CVA and should be treated as such. 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 Plan: Continue PT. Carotid duplex ultrasound ordered. Continue daily 81 mg aspirin, metoprolol and losartan per home routine. BP is well controlled. He takes Zetia for cholesterol control. LDL is 154. He has history of statin intolerance. 2. Acute [place]: Admission troponin 0.193 above acute [place] cut off. Likely this is type 2 or demand related ischemia due to history of running out of his metoprolol 1 week prior to admission. He did have a brief episode of shortness of breath a couple of days prior to admission. Plan: Repeat troponin trending down. He is already on daily aspirin and metoprolol, resumed. Lexiscan MIBI arranged for tomorrow. 3. Congestive heart failure, chronic, unknown type: Note elevated BNP above 600 with stated history of CHF. Patient does not appear in overt heart failure. Echo ordered. He is followed by director of strategic marketing, Dr. Carla Lemus, at [facility] 4. Diabetes, insulin requiring: Stable, glucose 130-190 range, continue insulin similar to home routine 5. Chronic kidney disease, stage III: Creatinine 1.8 it appears at his baseline. Records are reviewed from his cardiology office. He had carotid duplex 07/22/2017 which showed moderate 50-69% right ICA stenosis and 50-69% left ICA stenosis. He had nuclear stress test 09/05/2016 which showed large inferior [place], no significant ischemia. He had echo 12/26/2015 which showed LV EF 45%, mild LVH, normal valve function. Back in 2010 he had severe LV systolic dysfunction with LV EF 17%, diffuse infarction on nuclear imaging, but no evidence of coronary occlusion. His metoprolol succinate ER dose is actually 75 mg twice daily. Reel Hooker started him on rosuvastatin 10 mg at bedtime at last visit. Not clear he is taking that. Also supposed to be on niacin 500 mg twice daily. I will discuss with patient whether he is willing to go back on statin therapy as most effective agent for his atherosclerotic disease. Quality VTE Deep Vein Thrombosis/Pulmonary Embolism Present on Admission: No
--- NOTE | 2018-09-01 18:38 | P.PN_ITS ---
Subjective Date Patient Seen: 09/01/18 Interval history: Patient has persistent ataxia with no improvement in gait since admission. Denies chest pain. Exam Vital Signs (past 8 hours): - 09/01/18 11:00 09/01/18 16:23 Temperature 97.9 F 98.6 F Pulse Rate 70 79 Respiratory Rate 16 18 Blood Pressure 148/84 H 136/70 Pulse Oximetry 97 100 Oxygen Delivery Method Room Air Oxygen Flow Rate 7 Narrative Exam Narrative: General: Alert, pleasant and in no acute distress Lungs: Breathing nonlabored Neurological: Fully oriented, speech normal, upper and lower extremity strength intact, however gait ataxic Skin: No rash Objective Labs Result Diagrams: 08/31/18 11:36 08/31/18 11:36 Labs: Laboratory Results - last 24 hr 08/31/18 09/01/18 20:21 08:28 Troponin I 0.208 H* 0.186 H* Assessment & Plan Plan: Assessment/Plan Narrative: 1. Acute ataxia suspicious for evolving ischemic stroke: Patient presented with several days of new ataxia. He has multiple stroke risk factors. Brain MRI showed chronic small vessel disease changes but no acute stroke. However, clinically he very much presents as acute posterior CVA and should be treated as such. 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 Plan: Continue PT. Carotid duplex ultrasound ordered. Continue daily 81 mg aspirin, metoprolol and losartan per home routine. BP is well controlled. He takes Zetia for cholesterol control. LDL is 154. He has history of statin intolerance. 2. Acute [place]: Admission troponin 0.193 above acute [place] cut off. Likely this is type 2 or demand related ischemia due to history of running out of his metoprolol 1 week prior to admission. He did have a brief episode of shortness of breath a couple of days prior to admission. Plan: Repeat troponin trending down. He is already on daily aspirin and metoprolol, resumed. Lexiscan MIBI arranged for tomorrow. 3. Congestive heart failure, chronic, unknown type: Note elevated BNP above 600 with stated history of CHF. Patient does not appear in overt heart failure. Echo ordered. He is followed by hardening machine operator helper, Dr. Carla Lemus, at [facility] 4. Diabetes, insulin requiring: Stable, glucose 130-190 range, continue insulin similar to home routine 5. Chronic kidney disease, stage III: Creatinine 1.8 it appears at his baseline. Records are reviewed from his cardiology office. He had carotid duplex 2016 which showed moderate 50-69% right ICA stenosis and 50-69% left ICA stenosis. He had nuclear stress test 09/05/2016 which showed large inferior [place] , no significant ischemia. He had echo 12/26/2015 which showed LV EF 45%, mild LVH, normal valve function. Back in 2010 he had severe LV systolic dysfunction with LV EF 17%, diffuse infarction on nuclear imaging, but no evidence of coronary occlusion. His metoprolol succinate ER dose is actually 75 mg twice daily. Railroad Car Checker started him on rosuvastatin 10 mg at bedtime at last visit. Not clear he is taking that. Also supposed to be on niacin 500 mg twice daily. I will discuss with patient whether he is willing to go back on statin therapy as most effective agent for his atherosclerotic disease. Quality VTE Deep Vein Thrombosis/Pulmonary Embolism Present on Admission: No
--- NOTE | 2018-09-01 20:19 | PC.NURSE ---
Student Nurse Note: Patient has adhered to bedrest order during shift. He is a high fall risk. I reminded him to call for a GIS ANALYST DEVELOPER to assist in ambulation to and from the bathroom but he doesn't seem to do that. He ate most of his evening meal. A physical assessment was performed by this student nurse. Exceptions to be noted: Fine crackles in the bilateral posterior lower lung sierra. Patient has DX of CHF. Also noted were hard to find pedal pulses. Patient was alert and oriented and in an upbeat mood. He went to sleep around 6:30pm and falls asleep easily. Patient had family visit and they brought him food because he told them when he was chatting with them on the phone that the food was crap. I informed the patient that the food was in the fridge for him and he acknowledged that and went back to sleep.
[2018-09-01] MEDS: METOPROLOL ER 25 MG TABLET 75 MG PO (21:35)
[2018-09-02] VITALS (9 sets, daily range): BP systolic 106–147; BP diastolic 53–75; PULSE 18–76; RESP 16–74; TEMP 36.3–36.7; O2SAT 96–99
--- NOTE | 2018-09-02 | DI.US.S_ITS ---
PROCEDURE: US CAROTID DOPPLER BI INDICATIONS: CVA, carotid stenosis TECHNIQUE: Color and pulse Doppler interrogation was performed of both carotid systems, with image documentation and velocity measurements. COMPARISON: None. FINDINGS: Stenosis calculations are based on SRU (Society of Radiologists in Ultrasound) criteria. Right side: Brachial blood pressure: n.a.. Common carotid artery peak systolic velocity: 83 cm/sec. Internal carotid artery peak systolic velocity: 103 cm/sec. Internal carotid artery end diastolic velocity: 16 cm/sec. External carotid artery peak systolic velocity: 71 cm/sec. ICA/CCA peak systolic ratio: 1.24. Nice scale imaging description: Density calcified plaques at the bifurcation Percent internal carotid artery stenosis: Less than 50%. Vertebral artery: Flow direction is antegrade. Left side: Brachial blood pressure: 139/73 mm Hg. Common carotid artery peak systolic velocity: 75 cm/sec. Internal carotid artery peak systolic velocity: 167 cm/sec. Internal carotid artery end diastolic velocity: 32 cm/sec. External carotid artery peak systolic velocity: 100 cm/sec. ICA/CCA peak systolic ratio: 2.23. Nice scale imaging description: 50-69% Percent internal carotid artery stenosis: Density calcified plaques in the bifurcation. Vertebral artery: Flow direction is antegrade. IMPRESSION: 1. 50-69% left internal carotid artery stenosis. 2. Less than 50% the right internal carotid artery stenosis. 3. Antegrade vertebral artery flow bilaterally. Dictated by: Heike Sumner M.D. on 09/02/2018 at 10:48 Approved by: Heike Sumner M.D. on 09/02/2018 at 10:51
--- NOTE | 2018-09-02 | DI.CT.S_ITS ---
PROCEDURE: CT HEAD/BRAIN WO CON INDICATIONS: POSSIBLE STROKE TECHNIQUE: Noncontrast 4.5 mm thick angled axial sections acquired from the foramen magnum to the vertex, with coronal and sagittal reformats. For radiation dose reduction, the following was used: automated exposure control, adjustment of mA and/or kV according to patient size. COMPARISON: [facility], CT, CT HEAD/BRAIN WO CON, 08/31/2018, 11:16. FINDINGS: Image quality: Excellent. CSF spaces: Basal cisterns are patent. No extra-axial fluid collections. The ventricles are symmetric in size and shape. Brain: No intracranial bleeds or masses. There is cerebral volume loss for age, with resultant ventricular and sulcal prominence. There are periventricular and deep white matter chronic small vessel ischemic changes. There is intracranial internal carotid artery atherosclerosis. Skull and face: Calvarium and visualized facial bones appear intact, without suspicious lesions. Sinuses: Visualized sinuses and mastoids are clear. IMPRESSION: Moderate microvascular atherosclerotic change the deep white matter of each hemisphere, but no evidence of mass or hemorrhage is found. An acute or subacute stroke is not seen. Dictated by: Michael Muro M.D. on 09/02/2018 at 15:01 Approved by: Michael Muro M.D. on 09/02/2018 at 15:01
--- NOTE | 2018-09-02 | DI.NM.S_ITS ---
PROCEDURE: NM DANIELA PERF SPECT R&S PHARM Rest and pharmacological stress myocardial perfusion SPECT with gated imaging and ejection fraction RADIOPHARMACEUTICAL: 25.2 mCi Tc-99m tetrafosmin IV at rest and 27.1 mCi Tc-99m tetrafosmin IV at peak effect of pharmacological stress. Oyj-nhw-grrznzwf was performed. INDICATIONS: myocardial infarction TECHNIQUE: Radiopharmaceutical was injected at peak stress test, and also at rest. SPECT images were obtained. SPECT myocardial perfusion images were displayed in short axis, horizontal long axis, and vertical long axis views. Gated images were reviewed using [email or web address] software. COMPARISON: None. CARDIAC STRESS: A pharmacologic stress test was performed under the supervision of an attending staff, using an infusion of lexiscan 0.4mg IV X1. Hemodynamic data: There is normal blood pressure and heart rate response to pharmacologic stress. Symptoms: The patient denied anginal chest pain. Aminophylline: none EKG: Resting ECG shows sinus rhythm with T wave inversions in the inferior and anterolateral leads. No diagnostic changes of ischemia with lexiscan; no ectopy. FINDINGS: Raw data: There is good myocardial uptake of radiotracer. No significant motion artifacts. Iepp-ba-wziab ratio is 0.45 (normal is less than 0.38 for tetrafosmin tracer). Left ventricle function: Gated images demonstrate global hypokinesis that is worse in the inferior wall and akinesis of the apical 1/3 of the myocardium. No transient ischemic dilation; TID is 1.04 (normal less than 1.3). Left ventricle resting end diastolic volume is 210 mL. Left ventricle stress ejection fraction is 20%; normal range is above 45%. Myocardial perfusion: There is fixed defect in the inferior wall. There is a moderately intense defect at the true apex that worsens in intensity and extends to the entire apical cap suggesting prior infarction with significant ischemia. SSS 23, SRS 11. No prone images obtained. IMPRESSION: Abnormal lexiscan nuclear stress test consistent with prior infarction and ischemia. 1) Abnormal nuclear stress consistent with prior infarction of the inferior wall and the apex and significant ischemia of the apical cap (apical inferior wall, apical septum, apical anterior wall, and the apical lateral wall). SSS 23, SRS 11. 2) Enlarged left ventricle with severely reduced systolic function (EF post stress 20%). Global hypokinesis that is worse in the inferior wall and akinesis of the apical 1/3 of the myocardium. 3) ECG non-diagnostic with lexiscan. 4) No angina during the study. 5) No prior nuclear stress test available for comparison. Dictated by: Kilo Connor MD on 09/03/2018 at 18:43 Approved by: Kilo Connor MD on 09/03/2018 at 18:51
[2018-09-02] MEDS: EZETIMIBE 10 MG TABLET PO (10:11)
[2018-09-02] MEDS: ASPIRIN EC 81 MG TABLET PO (10:11)
[2018-09-02] MEDS: FUROSEMIDE 20 MG TABLET PO (10:11)
[2018-09-02] MEDS: INSULIN GLARGINE 100 UNIT/ML 3ML PEN 18 UNIT SUBCUT ×2 (10:11→20:34)
[2018-09-02] MEDS: METOPROLOL ER 25 MG TABLET 75 MG PO ×2 (10:12→20:34)
[2018-09-02] MEDS: SODIUM CHLORIDE 0.9% FLUSH 10 ML IV ×2 (10:13→20:34)
--- NOTE | 2018-09-02 11:35 | PT.IPTN ---
Current Diagnoses Cerebral infarction, unspecified (08/31/18) Physical Therapy Treatment Note M2 PT-IP Current Condition Start: 09/01/18 12:59 Freq: Status: Active Protocol: Document 09/01/18 11:16 AB (Rec: 09/01/18 13:21 AB [id number]) Physical Therapy Current Condition Current Condition Evaluation Date 09/01/18 Treatment Diagnosis acute MN; difficulties in walking Onset Date 08/31/18 Precautions Other Precautions falls M3 PT-IP Subjective Start: 09/01/18 12:59 Freq: Status: Active Protocol: Document 09/02/18 11:41 GGD (Rec: 09/02/18 12:06 GGD [id number]) Subjective Physical Therapy Visit Type Type Treatment Note Visit Start Time 11:20 Visit Stop Time 11:35 Total Visit Minutes 15 Number of BEVERAGE SERVER Visits 1 Physical Therapy Visit Comments Patient Comments Pt states he willing to get up . M4 PT-IP Mobility and Gait Start: 09/01/18 12:59 Freq: Status: Active Protocol: Document 09/02/18 11:41 GGD (Rec: 09/02/18 12:06 GGD [id number]) PT-Bed Mobility Assessment Supine to Sit Supine to Sit Standby Assistance Sit to Supine Sit to Supine Standby Assistance Scooting Scooting to Edge of Bed Independent Scooting Up and Down in Bed Independent PT-Transfer Assessment Sit to and From Stand Sit to and from Stand Standby Assistance Equipment Transfer Assistive Device Gait Belt Orthotic/Prosthetic Devices or Brace: No Transfers Transfer Destination Bed Transfer Ability Level of Assist Standby Assistance Use of Upper Extremities Gait Assessment Gait Gait Assistance Required: Contact Guard Assist Minimum Assistance Distance (Feet) 140 Able to Maintain Weight Bearing Status Yes During Gait Assistive Devices Assistive Device None Gait Belt Front Wheeled Walker Orthotic/Prosthetic Devices or Brace: No Gait Deviations General Gait Pattern Wide Based Gait Factors Limiting Gait Function Factors Limiting Gait Function Decreased Activity Tolerance Decreased Strength Poor Balance Poor Safety Awareness Comments Gait Comments Ambulated with FWW x 100 feet with SBA, then 40 feet without assistive device with iNcole. M5 PT-IP Objective Assessments Start: 09/01/18 12:59 Freq: Status: Active Protocol: Document 09/01/18 11:16 AB (Rec: 09/01/18 13:21 AB [id number]) Orientation Orientation/Cognition Level of Alertness Alert Orientation Name Age Birthday Month Date Year Day of Week Place Situation Safety Awareness Decreased Safety Awareness Gross Range of Motion Lower Extremity ROM Assessment Within Functional Limits Strength Lower Extremity Strength Assessment Within Functional Limits Sensation Assessment Sensation Gross Sensation WNL Muscle Tone Muscle Tone WNL Yes M6 PT-IP Treatment Start: 09/01/18 12:59 Freq: Status: Active Protocol: Document 09/01/18 11:16 AB (Rec: 09/01/18 13:21 AB [id number]) Physical Therapy Treatment Education Education Provided Safety M7 PT-IP Assessment and Plan Start: 09/01/18 12:59 Freq: Status: Active Protocol: Document 09/02/18 11:41 GGD (Rec: 09/02/18 12:06 GGD [id number]) PT Summary Assessment and Plan Summary Assessment Summary Pt has improved stable with gait with FWW. He had mild unsteadiness and LOB with gait without AD. He is impulsive with mobility and need cues. Frequency of Treatment Frequency Of Treatment Twice a Day Treatment Plan Physical Therapy Treatment Plan Bed Mobility Training Transfer Training Gait Training Therapeutic Exercise Balance Retraining Discharge Planning Neuromuscular Re-ed Coordination Retraining Manual Therapy Other Recommendations and Next Treatment ambulation with SPC; standing Focus bal/debra Recommendations To Nursing Amount of Assist Needed 1 Person Assist Discharge Recommendations PT Discharge Recommendations Home with Assistance Home with 26/05 Assist Outpatient PT
--- NOTE | 2018-09-02 14:00 | OT.IP.TRT ---
Current Diagnoses Cerebral infarction, unspecified (08/31/18) Occupational Therapy Treatment Note M3 OT- IP Subjective and Pain Start: 09/02/18 14:49 Freq: Status: Active Protocol: Document 09/02/18 14:00 MARISSA (Rec: 09/02/18 14:50 PJ [id number]) OT- Subjective Occupational Therapy Visit Type Type Administrative Note Visit Start Time 14:00 Notes OT referral received. Attempted to see pt x2, but pt off floor both times at testing. Will attempt again as schedule permits. No charge.
--- NOTE | 2018-09-02 15:51 | CM.DPC ---
DCP Cont: Checked in with patient. Spouse in room. Patient awaiting results of his stress test. Patient could be discharged today. P: Patient could be discharged today. Marilyn Cheung RN/[place]
--- NOTE | 2018-09-02 16:06 | ED_ITS ---
HPI - Neuro Symptoms/Deficit General Chief Complaint: Neuro Symptoms/Deficit Stated Complaint: unsteady on feet, dizzy, high BP Time Seen by Provider: 08/31/18 10:49 Source: other ( nuclear medicine RN) Mode of arrival: other ( gurney) Limitations: altered mental status History of Present Illness HPI Narrative: This is an ER consult. The patient is inpatient under the care of Dr. Houston Fragoso. the patient was admitted 2 days ago with acute weakness. There was concern of an evolving stroke. Today, he was in nuclear Medicine for a nuclear cardiac evaluation. He had received contrast. Shortly after the nurse noted he was struggling. He complained of weakness. He was initially responsive, but collapsed and was unresponsive. Before going on conscious the nurse noted right -sided flaccidity. The ER was called. A gurney was taken he was rushed to the ER. I saw him in the nuclear medicine suite. He was unresponsive and flaccid at that time, but breathing. He was transferred [place] and brought to the ER. More months after arriving in the ER as I was evaluated him he awoke in greeted me. When he awoke he was oriented x3. He has no visual deficits, no slurred speech, and no motor or sensory deficits. He knows me personally from prior interactions. He greeted me by name. a head CT was obtained which shows no acute changes. Glucose was evaluated is normal. bradycardia occurred briefly while and nuclear medicine. He is normotensive, and a normal sinus rhythm here in the ER. His hospitalist physician, Dr. Fragoso was contacted and came to the ER to assume care of his patient. On Anticoagulants: No Related Data Home Medications Medication Instructions Recorded Confirmed DM HYDROBROM/GG/PSE HCL (#GUIATUSS) 1 cap PO PRN PRN #0 03/17/11 08/31/18 furosemide 20 mg PO QDAY #0 11/26/16 08/31/18 insulin NPH-regular 70-30 U-100 1 dose SUBCUT BID 04/29/18 08/31/18 insulin 100 unit/mL subcutaneous pen CoQ-10 1 cap PO DAILY 08/31/18 08/31/18 Oil Of Oregano 1 cap PO DAILY 08/31/18 08/31/18 Probiotic 1 cap PO DAILY 08/31/18 08/31/18 aspirin 81 mg PO DAILY 08/31/18 08/31/18 ezetimibe 1 tab PO DAILY 08/31/18 08/31/18 losartan 1 tab PO QPM 08/31/18 08/31/18 olive leaf extract 1 cap PO DAILY 08/31/18 08/31/18 metoprolol succinate 75 mg PO BID 09/01/18 09/01/18 Previous Rx's Medication Instructions Recorded colchicine 0.6 mg tablet 0.6 mg PO Q OTHER DAY #20 tab 04/29/18 Allergies Allergy/AdvReac Type Severity Reaction Status Date / Time allopurinol Allergy Intermediate rash Verified 04/29/18 14:06 Review of Systems Review of Systems unobtainable due to mental condition [facility] Medical History Congestive heart failure (Acute) Coronary artery disease (Acute) Diabetes (Acute) Hypertension (Acute) Surgical History No pertinent past surgical history (Acute) Social History household members: spouse Smoking Status: Former smoker Exam Initial Vital Signs Initial Vital Signs: Vital Signs Temperature 97.8 F 08/31/18 10:50 Pulse Rate 102 H 08/31/18 10:50 Respiratory Rate 13 08/31/18 10:50 Blood Pressure 173/92 H 08/31/18 10:50 Pulse Oximetry 100 08/31/18 10:50 Const General: other ( Initially obtained, but quickly alert and oriented without deficits. See HPI.) [facility] Head: normocephalic and atraumatic Mouth: oral mucosae normal and moist mucous membranes Teeth and gingiva: dentition normal Throat: posterior oropharynx normal Eyes General: appearance normal, both eyes and all related structures Eyelids: eyelids normal Conjunctivae: conjunctivae normal Sclera: sclerae normal Pupils: PERRL EOM: EOM intact bilaterally Neck Carotids: no bruits Resp Effort & Inspection: normal respiratory effort, able to speak in complete sentences, no respiratory distress and no use of accessory muscles Auscultation: clear to auscultation bilaterally, no rales, no rhonchi and no wheezes Cardio Rate: regular rate Rhythm: regular rhythm Heart Sounds: no click, no gallops, no murmurs and no rubs Pulses: normal peripheral pulses Skin General: no rashes or lesions noted, No jaundice and No petechiae Neuro General: alert, oriented x3 and gait normal Speech: speech normal Motor: muscle tone normal throughout Sensory Exam: no sensory deficits noted and other ( Cerebellar exam is intact. NIHSS is 0.) Course Orders Ordered: Aspirin (Aspirin Ec) 81 mg PO DAILY [facility] Last Admin: 09/02/18 10:11 Dose: 81 mg Admin: 09/01/18 08:09 Dose: 81 mg Dextrose (D50w) 25 gm IV PRN PRN; Protocol PRN Reason: Hypoglycemia Ezetimibe (Zetia) 10 mg PO DAILY [facility] Last Admin: 09/02/18 10:11 Dose: 10 mg Admin: 09/01/18 08:09 Dose: 10 mg Furosemide (Lasix) 20 mg PO DAILY [facility] Last Admin: 09/02/18 10:11 Dose: 20 mg Admin: 09/01/18 08:09 Dose: 20 mg Admin: 08/31/18 17:32 Dose: Not Given Insulin Aspart (Novolog Flexpen) 5 unit SUBCUT AC [facility] Last Admin: 09/02/18 13:19 Dose: Admin: 09/02/18 08:09 Dose: Admin: 09/01/18 17:07 Dose: 5 unit Admin: 09/01/18 12:13 Dose: 5 unit Admin: 08/31/18 20:44 Dose: 5 unit Admin: 08/31/18 17:27 Dose: 5 unit Insulin Aspart (Novolog Flexpen) 0 unit SUBCUT ACHS [facility]; Protocol Last Admin: 09/02/18 13:20 Dose: Not Given Admin: 09/02/18 08:05 Dose: Not Given Admin: 09/01/18 21:38 Dose: 2 unit Admin: 09/01/18 17:06 Dose: 3 unit Admin: 09/01/18 12:14 Dose: 1 unit Admin: 09/01/18 08:06 Dose: Not Given Admin: 08/31/18 20:42 Dose: Not Given Admin: 08/31/18 17:27 Dose: 3 unit Insulin Glargine (Lantus Solostar (Pen)) 18 unit SUBCUT BID [facility] Last Admin: 09/02/18 10:11 Dose: 18 unit Admin: 09/01/18 21:36 Dose: 18 unit Admin: 09/01/18 08:09 Dose: 18 unit Admin: 08/31/18 21:00 Dose: 18 unit Losartan Potassium (Cozaar) 25 mg PO QPM [facility] Last Admin: 09/01/18 17:05 Dose: 25 mg Admin: 08/31/18 17:20 Dose: 25 mg Metoprolol Succinate (Toprol Xl) 75 mg PO BID [facility] Last Admin: 09/02/18 10:12 Dose: 75 mg Admin: 09/01/18 21:35 Dose: 75 mg Stored In Pharmacy 0 each PO . [facility] Sodium Chloride (Normal Saline 0.9% Flush) 10 ml IV BID [facility] Last Admin: 09/02/18 10:13 Dose: 10 ml Admin: 09/01/18 21:35 Dose: 10 ml Admin: 09/01/18 08:13 Dose: 10 ml Sodium Chloride (Normal Saline 0.9% Flush) 10 ml IV PRN PRN PRN Reason: Flush Discontinued Medications Aspirin (Aspirin Chew) 324 mg PO NOW ONE Stop: 08/31/18 12:13 Last Admin: 08/31/18 12:22 Dose: 324 mg Metoprolol Tartrate (Lopressor) 37.5 mg PO DAILY [facility] Last Admin: 09/01/18 09:43 Dose: 37.5 mg Metoprolol Tartrate (Lopressor) 37.5 mg PO NOW ONE Stop: 08/31/18 16:29 Last Admin: 08/31/18 17:19 Dose: 37.5 mg Metoprolol Tartrate (Lopressor) 75 mg PO BID [facility] Vital Signs - 8 hr 09/02/18 08:27 09/02/18 15:22 Temperature 97.3 F L Respiratory Rate 20 Blood Pressure 126/53 L Pulse Oximetry 96 97 MDM - Neuro Symptoms/Deficit Lab Data Result diagrams: 08/31/18 11:36 08/31/18 11:36 Lab Results 08/31/18 08/31/18 08/31/18 Range/Units 11:36 11:36 20:21 WBC 6.2 (4.5-11.0) X10^3/uL RBC 4.29 L (4.5-5.9) X10^6/uL Hgb 12.7 L (13.5-17.5) g/dL Hct 38.7 L (41-53) % MCV 90.3 (80-100) fL MCH 29.6 (26-34) PG MCHC 32.8 (30-36) % RDW 15.3 H (11.6-14.8) % Plt Count 144 L (150-400) X10^3/uL Neut % (Auto) 52.9 (50-75) % Lymph % (Auto) 30.3 (25-40) % [place] % (Auto) 12.0 (3-14) % Eos % (Auto) 4.4 H (2-4) % Baso % (Auto) 0.4 (0-2) % Neut # (Auto) 3300 (7892-6423) /uL Sodium 141 (137-145) mmol/L Potassium 4.0 (3.4-5.1) mmol/L Chloride 103 (98-107) mmol/L Carbon Dioxide 25 (22-32) mmol/L BUN 26 H (9-20) mg/dL Creatinine 1.80 H (0.66-1.25) mg/dL Estimated GFR 36.4 L (>60) mL/min BUN/Creatinine Ratio 14.4 (6-22) Glucose 171 H (80-110) mg/dL Calcium 8.9 (8.4-10.2) mg/dL Total Bilirubin 0.6 (0.2-1.3) mg/dL AST 26 (17-59) IU/L ALT 25 (21-72) IU/L Alkaline Phosphatase 88 (38-126) U/L Troponin I 0.193 H* 0.208 H* (0.01-0.034) ng/mL B-Natriuretic Peptide 691.0 H (<100) Total Protein 7.4 (6.3-8.2) g/dL Albumin 4.1 (3.5-5.0) g/dL Globulin 3.3 (1.7-4.1) g/dL Albumin/Globulin Ratio 1.2 (1.0-2.8) 09/01/18 Range/Units 08:28 WBC (4.5-11.0) X10^3/uL RBC (4.5-5.9) X10^6/uL Hgb (13.5-17.5) g/dL Hct (41-53) % MCV (80-100) fL MCH (26-34) PG MCHC (30-36) % RDW (11.6-14.8) % Plt Count (150-400) X10^3/uL Neut % (Auto) (50-75) % Lymph % (Auto) (25-40) % [place] % (Auto) (3-14) % Eos % (Auto) (2-4) % Baso % (Auto) (0-2) % Neut # (Auto) (2903-3333) /uL Sodium (137-145) mmol/L Potassium (3.4-5.1) mmol/L Chloride (98-107) mmol/L Carbon Dioxide (22-32) mmol/L BUN (9-20) mg/dL Creatinine (0.66-1.25) mg/dL Estimated GFR (>60) mL/min BUN/Creatinine Ratio (6-22) Glucose (80-110) mg/dL Calcium (8.4-10.2) mg/dL Total Bilirubin (0.2-1.3) mg/dL AST (17-59) IU/L ALT (21-72) IU/L Alkaline Phosphatase (38-126) U/L Troponin I 0.186 H* (0.01-0.034) ng/mL B-Natriuretic Peptide (<100) Total Protein (6.3-8.2) g/dL Albumin (3.5-5.0) g/dL Globulin (1.7-4.1) g/dL Albumin/Globulin Ratio (1.0-2.8) Point of Care Testing Glucose POC [address] scan - head: Radiologist's impression: Moderate microvascular atherosclerotic changes in the deep white matter of each hemisphere but no evidence of mass or hemorrhage is found. There is no evidence of acute or subacute stroke. MDM Narrative Medical decision making narrative: Patient is already in an in-patient status. He was rushed to the ER following what appears to be a TIA a suffered during a nuclear stress test. He is now neurologically intact, and clinically stable. he will be returned to his inpatient room in the care of his attending , Dr. Fragoso. Discharge Plan Departure Patient Disposition: Admitted As Inpatient Clinical Impression: TIA (transient ischemic attack) Discharge Date/Time: 08/31/18 14:13 Interventions: ED Discharge Assessment Last Done: 08/31/18 14:11 Admit Date/Time: 08/31/18 13:14 Admit Provider: Ulysses Fragoso
--- NOTE | 2018-09-02 16:07 | PT.IPTN ---
Current Diagnoses Cerebral infarction, unspecified (08/31/18) Physical Therapy Treatment Note M2 PT-IP Current Condition Start: 09/01/18 12:59 Freq: Status: Active Protocol: Document 09/01/18 11:16 AB (Rec: 09/01/18 13:21 AB [id number]) Physical Therapy Current Condition Current Condition Evaluation Date 09/01/18 Treatment Diagnosis acute AR; difficulties in walking Onset Date 08/31/18 Precautions Other Precautions falls M3 PT-IP Subjective Start: 09/01/18 12:59 Freq: Status: Active Protocol: Document 09/02/18 16:06 GGD (Rec: 09/02/18 16:07 GGD [id number]) Subjective Physical Therapy Visit Type Notes Hold per RN, pt had a medical event during stress test. Discharge Recommendations PT Discharge Recommendations Home with Assistance Home with 24/ Assist Outpatient PT
--- NOTE | 2018-09-02 17:02 | SLP.IPNOTE ---
Patient has been an in-patient x 2 days for possible stroke/TIA. He was rushed to the ER following what appears to be a TIA a suffered during a nuclear stress test. He was seen in his room after after returning from the ER. He is now neurologically intact, and clinically stable. Nursing requested a speech swallow screen to determine if the pt needs a further evaluation. The pt was seated in his room with his present. his speech was clear without s/sx of dysarthria. He related the events of his stress test until he passed out. He reported no difficulty with word-finding nor inability to say his thoughts. he did report that his head felt fuzzy. His agreed that he seems to be back to himself. The pt was observed to swallow thin liquids without difficulty. He was encouraged to let nursing know immediately if he notices change in his speech/language or swallowing. Less that 15 minutes were spent with the pt. Non billable screen
[2018-09-02] MEDS: LOSARTAN 25 MG TABLET PO (18:02)
--- NOTE | 2018-09-02 19:06 | PM.PN.1 ---
Subjective Date Patient Seen: 09/02/18 Interval history: Patient had episode of unresponsiveness just after completion of his nuclear scan while still in the radiology department. He became acutely bradycardic. He was taken to the emergency department and ER doctor consulted until I arrived. His head CT showed nothing acute. Glucose was normal. Patient stated he needed to have a bowel movement just before he passed out. We decided it was vasovagal. He quickly recovered and has been fine since then. His post-stress imaging does show inferior wall and apex ischemia. The inferior wall abnormality is old and was noted on his previous outside stress test in September 2016. In regards to probable acute CVA, he remains very ataxic. Exam Vital Signs (past 8 hours): - 09/02/18 15:22 09/02/18 16:13 Temperature 97.3 F L Respiratory Rate 20 Blood Pressure 126/53 L Pulse Oximetry 97 96 Oxygen Delivery Method Room Air Oxygen Flow Rate 0 Narrative Exam Narrative: General: Alert, pleasant and in no acute distress Lungs: Breathing nonlabored Neurological: Fully oriented, speech normal, upper and lower extremity strength intact, however gait ataxic Skin: No rash Objective Labs Result Diagrams: 08/31/18 11:36 08/31/18 11:36 Assessment & Plan Plan: Assessment/Plan Narrative: 1. Acute ataxia suspicious for evolving ischemic stroke: Patient presented with several days of new ataxia. He has multiple stroke risk factors. Brain MRI showed chronic small vessel disease changes but no acute stroke. However, clinically he very much presents as acute posterior CVA and should be treated as such. 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 However, his carotid duplex study showed moderate bilateral ICA stenosis. Plan: Continue PT. Continue daily 81 mg aspirin, metoprolol and losartan per home routine. BP is well controlled. He has history of statin intolerance, refuses statin therapy, and takes Zetia for cholesterol control. LDL is 154. Most likely he will be able to discharge home with outpatient rehab. 2. Acute [place]: Lexiscan post-stress imaging shows inferior wall and apex defect. The large inferior wall defect was seen on his outside stress MIBI in September 2016. The apical defect may be new. He does not have history of cardiac catheterization. Admission troponin 0.193 above acute [place] cut off. Troponin trending down. Likely this is type 2 or demand related ischemia due to history of running out of his metoprolol 1 week prior to admission. He has not had any chest pain at any time. He did have a brief episode of shortness of breath a couple of days prior to admission. Plan: He is already on daily aspirin and metoprolol, resumed. Lexiscan resting study scheduled for a.m.. 3. Congestive heart failure, chronic systolic: Echo this admission with LVEF 25%. His LVEF was 45% on last outside echo 12/26/2015. Patient does not appear in overt heart failure. He is followed by software analyst, Dr. Carla Lemus, at [facility]. Consider increasing losartan for more afterload reduction with close monitoring of his serum potassium closely monitored with his renal disease. 4. Diabetes, insulin requiring: Stable, glucose 130-190 range, continue insulin similar to home routine 5. Chronic kidney disease, stage III: Creatinine 1.8 it appears at his baseline. 6. Vasovagal syncope on 09/02/2018: Monitor on telemetry. Records are reviewed from his cardiology office. He had carotid duplex 07/22/2017 which showed moderate 50-69% right ICA stenosis and 50-69% left ICA stenosis. He had nuclear stress test 09/05/2016 which showed large inferior [place], no significant ischemia. He had echo 12/26/2015 which showed LV EF 45%, mild LVH, normal valve function. Back in 2010 he had severe LV systolic dysfunction with LV EF 17%, diffuse infarction on nuclear imaging, but no evidence of coronary occlusion. His metoprolol succinate ER dose is actually 75 mg twice daily. Cushion Stuffer started him on rosuvastatin 10 mg at bedtime at last visit but patient has declined to take. Also supposed to be on niacin 500 mg twice daily which he states he has been taking. Quality VTE Deep Vein Thrombosis/Pulmonary Embolism Present on Admission: No
--- NOTE | 2018-09-02 19:19 | P.PN_ITS ---
Subjective Date Patient Seen: 09/02/18 Interval history: Patient had episode of unresponsiveness just after completion of his nuclear scan while still in the radiology department. He became acutely bradycardic. He was taken to the emergency department and ER doctor consulted until I arrived. His head CT showed nothing acute. Glucose was normal. Patient stated he needed to have a bowel movement just before he passed out. We decided it was vasovagal. He quickly recovered and has been fine since then. His post-stress imaging does show inferior wall and apex ischemia. The inferior wall abnormality is old and was noted on his previous outside stress test in September 2016. In regards to probable acute CVA, he remains very ataxic. Exam Vital Signs (past 8 hours): - 09/02/18 15:22 09/02/18 16:13 Temperature 97.3 F L Respiratory Rate 20 Blood Pressure 126/53 L Pulse Oximetry 97 96 Oxygen Delivery Method Room Air Oxygen Flow Rate 0 Narrative Exam Narrative: General: Alert, pleasant and in no acute distress Lungs: Breathing nonlabored Neurological: Fully oriented, speech normal, upper and lower extremity strength intact, however gait ataxic Skin: No rash Objective Labs Result Diagrams: 08/31/18 11:36 08/31/18 11:36 Assessment & Plan Plan: Assessment/Plan Narrative: 1. Acute ataxia suspicious for evolving ischemic stroke: Patient presented with several days of new ataxia. He has multiple stroke risk factors. Brain MRI showed chronic small vessel disease changes but no acute stroke. However, clinically he very much presents as acute posterior CVA and should be treated as such. 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 However, his carotid duplex study showed moderate bilateral ICA stenosis. Plan : Continue PT. Continue daily 81 mg aspirin, metoprolol and losartan per home routine. BP is well controlled. He has history of statin intolerance, refuses statin therapy, and takes Zetia for cholesterol control. LDL is 154. Most likely he will be able to discharge home with outpatient rehab. 2. Acute [place]: Lexiscan post-stress imaging shows inferior wall and apex defect. The large inferior wall defect was seen on his outside stress MIBI in September 2016. The apical defect may be new. He does not have history of cardiac catheterization. Admission troponin 0.193 above acute [place] cut off. Troponin trending down. Likely this is type 2 or demand related ischemia due to history of running out of his metoprolol 1 week prior to admission. He has not had any chest pain at any time. He did have a brief episode of shortness of breath a couple of days prior to admission. Plan: He is already on daily aspirin and metoprolol, resumed. Lexiscan resting study scheduled for a.m.. 3. Congestive heart failure, chronic systolic: Echo this admission with LVEF 25%. His LVEF was 45% on last outside echo 12/26/2015. Patient does not appear in overt heart failure. He is followed by appraiser personal property, Dr. Carla Lemus , at [facility]. Consider increasing losartan for more afterload reduction with close monitoring of his serum potassium closely monitored with his renal disease. 4. Diabetes, insulin requiring: Stable, glucose 130-190 range, continue insulin similar to home routine 5. Chronic kidney disease, stage III: Creatinine 1.8 it appears at his baseline. 6. Vasovagal syncope on 09/02/2018: Monitor on telemetry. Records are reviewed from his cardiology office. He had carotid duplex 2016 which showed moderate 50-69% right ICA stenosis and 50-69% left ICA stenosis. He had nuclear stress test 09/05/2016 which showed large inferior [place] , no significant ischemia. He had echo 12/26/2015 which showed LV EF 45%, mild LVH, normal valve function. Back in 2010 he had severe LV systolic dysfunction with LV EF 17%, diffuse infarction on nuclear imaging, but no evidence of coronary occlusion. His metoprolol succinate ER dose is actually 75 mg twice daily. Director Motion Picture started him on rosuvastatin 10 mg at bedtime at last visit but patient has declined to take. Also supposed to be on niacin 500 mg twice daily which he states he has been taking. Quality VTE Deep Vein Thrombosis/Pulmonary Embolism Present on Admission: No
[2018-09-02] MEDS: INSULIN ASPART 100 UNIT/ML INSULN PEN SUBCUT (20:37)
[2018-09-03] VITALS: BP 150/68; PULSE 76; RESP 20; TEMP 36.9; O2SAT 98
[2018-09-03 00:40] VITALS: O2SAT 98
[2018-09-03 02:35] VITALS: PULSE 68; RESP 18; TEMP 36.9; O2SAT 96
[2018-09-03 08:00] VITALS: BP 146/61; PULSE 71; RESP 17; TEMP 36.8; O2SAT 97
[2018-09-03 08:18] VITALS: O2SAT 97
--- NOTE | 2018-09-03 10:20 | PT.IPTN ---
Current Diagnoses Cerebral infarction, unspecified (08/31/18) Physical Therapy Treatment Note M2 PT-IP Current Condition Start: 09/01/18 12:59 Freq: Status: Active Protocol: Document 09/01/18 11:16 AB (Rec: 09/01/18 13:21 AB [id number]) Physical Therapy Current Condition Current Condition Evaluation Date 09/01/18 Treatment Diagnosis acute IL; difficulties in walking Onset Date 08/31/18 Precautions Other Precautions falls M3 PT-IP Subjective Start: 09/01/18 12:59 Freq: Status: Active Protocol: Document 09/03/18 10:20 GGD (Rec: 09/03/18 12:09 GGD [email or web address]) Subjective Physical Therapy Visit Type Type Treatment Note Visit Start Time 10:00 Visit Stop Time 10:20 Total Visit Minutes 20 Number of SECURITY COMPLIANCE ENGINEER Visits 2 Physical Therapy Visit Comments Patient Comments Pt states he is feeling better . M4 PT-IP Mobility and Gait Start: 09/01/18 12:59 Freq: Status: Active Protocol: Document 09/03/18 10:20 GGD (Rec: 09/03/18 12:09 GGD [email or web address]) PT-Transfer Assessment Sit to and From Stand Sit to and from Stand Standby Assistance Equipment Transfer Assistive Device Gait Belt Orthotic/Prosthetic Devices or Brace: No Transfers Transfer Destination Bed Transfer Ability Level of Assist Standby Assistance Use of Upper Extremities Comments Mobility Comments Pt stood at sink for self care and need UE support for balance. Gait Assessment Gait Gait Assistance Required: Contact Guard Assist Minimum Assistance Distance (Feet) 140 Able to Maintain Weight Bearing Status Yes During Gait Assistive Devices Assistive Device Gait Belt Small Based Quad Cane Front Wheeled Walker Orthotic/Prosthetic Devices or Brace: No Gait Deviations General Gait Pattern Ataxic Wide Based Gait Factors Limiting Gait Function Factors Limiting Gait Function Decreased Activity Tolerance Decreased Strength Poor Balance Poor Safety Awareness Comments Gait Comments Ambulated with FWW x 120 feet with SBA, then 20 feet with quad cane with min A. M5 PT-IP Objective Assessments Start: 09/01/18 12:59 Freq: Status: Active Protocol: Document 09/01/18 11:16 AB (Rec: 09/01/18 13:21 AB [id number]) Orientation Orientation/Cognition Level of Alertness Alert Orientation Name Age Birthday Month Date Year Day of Week Place Situation Safety Awareness Decreased Safety Awareness Gross Range of Motion Lower Extremity ROM Assessment Within Functional Limits Strength Lower Extremity Strength Assessment Within Functional Limits Sensation Assessment Sensation Gross Sensation WNL Muscle Tone Muscle Tone WNL Yes M6 PT-IP Treatment Start: 09/01/18 12:59 Freq: Status: Active Protocol: Document 09/01/18 11:16 AB (Rec: 09/01/18 13:21 AB [email or web address]) Physical Therapy Treatment Education Education Provided Safety M7 PT-IP Assessment and Plan Start: 09/01/18 12:59 Freq: Status: Active Protocol: Document 09/03/18 10:20 GGD (Rec: 09/03/18 12:09 GGD [email or web address]) PT Summary Assessment and Plan Summary Assessment Summary Pt unstable with quad cane, more stable with FWW. He had good safety awareness, will need a FWW at home. Frequency of Treatment Frequency Of Treatment Twice a Day Treatment Plan Physical Therapy Treatment Plan Bed Mobility Training Transfer Training Gait Training Therapeutic Exercise Balance Retraining Discharge Planning Neuromuscular Re-ed Coordination Retraining Manual Therapy Other Recommendations and Next Treatment ambulation; standing bal/debra Focus Recommendations To Nursing Amount of Assist Needed 1 Person Assist Discharge Recommendations PT Discharge Recommendations Home with Assistance Home with 26/05 Assist Outpatient PT
--- NOTE | 2018-09-03 10:37 | PM.DS.1 ---
History of Present Illness Date Patient Seen: 09/03/18 Time Patient Seen: 10:38 Chief complaint: dizzy,unsteady on feat,high blood pressure Narrative: He presented with subacute ataxia symptoms Discharge Providers Date of admission: 08/31/18 13:14 Primary care physician: Tracy Cottrell Consults: 08/31/18 17:01 Consult to Physical Therapy Evaluate & Treat Comment: Physician Instructions: Evaluate and Treat 09/01/18 15:00 Consult to Occupational Therapy Evaluate & Treat Comment: Physician Instructions: Evaluate and treat Discharge provider: Jessee Liao MD Discharge Date: 09/03/18 Summary Discharge Diagnosis: One. Acute CVA with new onset ataxia 2. Acute type 2 myocardial infarction 3. Chronic systolic heart failure 4. Diabetes type 2 5. Chronic kidney disease Six. Vasovagal syncope episode Seven. Nonsustained ventricular tachycardia Hospital Course: Patient initially admitted presented with new onset of ataxia the brain MRI showed chronic small vessel disease but no acute stroke. The patient had persistent symptoms and despite having no confirmation on imaging it was felt that he probably did have acute posterior CVA and was treated with physical therapy and we switched him from aspirin to clot clopidogrel. He does have moderate bilateral internal carotid artery stenosis by carotid duplex. And he has extensive cerebral and neck artery atherosclerosis by MRA. He was switched from aspirin to clopidogrel. Blood pressures been stable as diabetes has been stable. He is has been unable to take statin therapy so he is on Zetia for cholesterol. He seems to be a stable as far as mobility he is going to be needing a walker and I would suggest he see Neurology as an outpatient. Certainly possible that something else besides acute CVA could be causing this ataxia. The troponin had a mild elevation up to 0.2 and then came back down so probably type 2 myocardial infarction. He had run out of his metoprolol 1 week prior to coming in the hospital and this has been resumed. His heart failure seemed to be stable his ejection fraction was 25% on this admission he is followed by cardiology Dr. Lemus at [facility] and is instructed to follow up with him in the next week or 2 He did have an episode of syncope this was actually while he was doing the nuclear imaging for the stress test he was lying prone and he the patient described he had strong urge for using the restroom during the test and it was felt that he had a vasovagal episode the rhythm went bradycardic otherwise was stable. He has had no more symptoms since that episode on the . Telemetry of reports 1 episode of nonsustained ventricular tachycardia of about 7 or 8 beats that was of from last evening while the patient was resting comfortably. The patient has many chronic medical problems he needs close follow-up he will see his primary care physician this week and cardiology thereafter and then possibly referral to Neurology. Status at Discharge Cognitive/behavioral status at discharge: Awake alert Functional status at discharge: uses cane/walker Overall status at discharge: patient is progressing back to baseline Time Spent with Patient Greater than 30 minutes Exam Vital Signs (past 8 hours): - 09/03/18 08:00 09/03/18 08:18 Temperature 98.2 F Pulse Rate 71 Respiratory Rate 17 Blood Pressure 146/61 H Pulse Oximetry 97 97 Oxygen Delivery Method Room Air Oxygen Flow Rate 0 Narrative Exam Narrative: He is resting comfortably Lungs are clear Heart regular rhythm sinus rhythm by telemetry Neuro exam there is still some difficulty with balance and gait otherwise no focal deficits Objective Labs Result Diagrams: 08/31/18 11:36 08/31/18 11:36 Discharge Plan Discharge Plan Patient Disposition: Home Discharge comment: follow up with PCP next week. Discharge Med Rec/Prescriptions Prescriptions: New clopidogrel [Plavix] 75 mg Tablet 75 mg PO DAILY Qty: 30 RF: 6 Continue insulin NPH and regular human 100 unit/mL (70-30) Insulin Pen 1 dose SUBCUT BID RF: 0 colchicine 0.6 mg tablet 0.6 mg PO Q OTHER DAY Qty: 20 RF: 0 DM HYDROBROM/GG/PSE HCL (#GUIATUSS) 1 cap PO PRN PRN (Reason: Cough) Qty: 0 RF: 0 furosemide 20 MG tablet 20 mg PO QDAY Qty: 0 RF: 0 losartan 25 mg tablet 1 tab PO QPM RF: 0 ezetimibe 10 mg tablet 1 tab PO DAILY RF: 0 CoQ-10 1 cap PO DAILY RF: 0 Oil Of Oregano 1 cap PO DAILY RF: 0 Probiotic 1 cap PO DAILY RF: 0 olive leaf extract 1 cap PO DAILY RF: 0 metoprolol succinate 50 MG 75 mg PO BID RF: 0 Discontinued aspirin 81 mg Tablet,Delayed Release (Dr/Ec) 81 mg PO DAILY RF: 0 Follow up/Referrals: Tracy Sanchez [Primary Care Provider] - 3-5 Days Provider Discharge Instructions Diet: Carb-consistent/Diabetic, Low-sodium and Low-cholesterol Discharge Data Primary Care Provider: Tracy Sanchez Attending Provider: Ulysses Fragoso Admit Date/Time: 08/31/18 13:14 Quality VTE Deep Vein Thrombosis/Pulmonary Embolism Present on Admission: No
[2018-09-03 10:44] VITALS: BP 123/57; PULSE 68
[2018-09-03] MEDS: INSULIN GLARGINE 100 UNIT/ML 3ML PEN 18 UNIT SUBCUT (11:01)
[2018-09-03] MEDS: FUROSEMIDE 20 MG TABLET PO (11:04)
[2018-09-03] MEDS: CLOPIDOGREL 75 MG TABLET PO (11:04)
[2018-09-03] MEDS: METOPROLOL ER 25 MG TABLET 75 MG PO (11:04)
[2018-09-03] MEDS: EZETIMIBE 10 MG TABLET PO (11:05)
--- NOTE | 2018-09-03 11:25 | OT.IP.EVAL ---
Current Diagnoses Cerebral infarction, unspecified (08/31/18) Past Medical History (Last Reviewed 09/02/18 @ 16:23 by Osmin Esteves MD) Congestive heart failure (Acute) Coronary artery disease (Acute) Diabetes (Acute) Hypertension (Acute) Surgical History (Last Reviewed 09/02/18 @ 16:23 by Osmin Esteves MD) No pertinent past surgical history (Acute) Occupational Therapy Inpatient Evaluation/Re-Eval M1 PT/OT-IP Prior Functional Status Start: 09/01/18 12:59 Freq: Status: Active Protocol: Document 09/03/18 11:25 PJM (Rec: 09/03/18 17:22 [facility] [id number]) Medical Review Prior Functional Status Medical History Reviewed Yes Diet/Fluid Consistency Regular Communication WNL Mobility and Gait Pt stated that he is independent with all mobilities and ambulation without AD Activities of Daily Living and IADL's Pt independent with all self care, IADLS, drives to [place] daily for work. 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 Additional Social History Comment works M2 OT-IP Current Condition Start: 09/02/18 14:49 Freq: Status: Active Protocol: Document 09/03/18 11:25 PJM (Rec: 09/03/18 17:22 [facility] [id number]) Occupational Therapy Current Condition Current Condition Evaluation Date 09/03/18 Treatment Diagnosis assess self care for d/c after admit for ND, presumed [employer] stroke w/gait ataxia Diagnosis Onset Date 08/31/18 Post Operative Precautions Other Precautions fall risk M3 OT- IP Subjective and Pain Start: 09/02/18 14:49 Freq: Status: Active Protocol: Document 09/03/18 11:25 PJM (Rec: 09/03/18 17:22 [facility] [id number]) OT- Subjective Occupational Therapy Visit Type Type Initial Evaluation Visit Start Time 10:58 Visit Stop Time 11:25 Total Visit Minutes 28 Occupational Therapy Visit Comments Patient Comments My balance is still off, but everything else seems fine. Patient/Caregiver Goals to go home today and be able to drive and go back to work next week OT Pain Assessment Pain When Pain Assessed At Rest Pain Present Pain Present Denied Pain M4 OT- IP ADL's Start: 09/02/18 14:49 Freq: Status: Active Protocol: Document 09/03/18 11:25 PJM (Rec: 09/03/18 17:22 PJ [id number]) OT WAK-Ciwl-Clbivyq General Evaluation Diet Level for Self-Feeding regular Self-Feeding Ability Independent OT ADL-Grooming General Evaluation Grooming Ability Standby Assistance Comments OT Grooming Comments standing at sink with P.T. by pt report; pt leans on counter for stability OT ADL-Oral Care General Eval Oral Care Ability Standby Assistance Comments Oral Care Comments standing at sink with P.T. by pt report; pt leans on counter for stability OT ADL-Dressing General Eval Upper Body Dressing Ability Independent Lower Body Dressing Ability Independent Comments OT Dressing Comments pt seated in chair except when standing to pull pants over hips with no loss of balance noted; FWW in place but not used for standing balance during dressing OT ADL-Toileting General Evaluation Toileting Ability Independent OT ADL-Bathing Comments OT Bathing Comments Pt declined to shower here. Strongly recommended to pt that he sit to shower on built in seat, and use grab bars for standing. Recommend provide SBA initially. M5 OT- IP IADL's Start: 09/02/18 14:49 Freq: Status: Active Protocol: Document 09/03/18 11:25 PJM (Rec: 09/03/18 17:22 [facility] [id number]) OT-Instrumental Activities of Daily Living Deficits IADL Deficits Identified Deficits Home Safety Awareness Awareness of Need for Assistance at Home Good Awareness Ability to Problem Solve Emergency Able to Problem Solve Situations Medication Management Medication Management No Deficits Identified Money Management Money Management No Deficits Identified Meal Preparation Meal Preparation Caregiver Provides Assist Meal Preparation Comments to assist PRN; pt may have difficulty with standing meal prep due to decreased balance Surveillance Supervisor Surveillance Supervisor Caregiver Provides Assist Surveillance Supervisor Comments can assist until pt able Driving Driving Comments recommend pt have MD clearance before resuming driving M6 OT- IP Functional Cognition Start: 09/02/18 14:49 Freq: Status: Active Protocol: Document 09/03/18 11:25 PJM (Rec: 09/03/18 17:22 P[facility] [id number]) Cognitive Factors Limiting Selfcare Function Cognitive Ability Level of Alertness Alert Patient Orientation Name Age Birthday Month Date Year Day of Week Place Situation Attention Span Ability Capable of Focused Attention Capable of Sustained Attention Ability to Follow Commands Able to Follow One Step Commands Memory Description No Deficits Noted Safety Awareness Underestimates Need for Assistance Problem Solving Ability No deficits Noted Cognitive Comments Cognitive Assessment Comments Cognition appears WFL, but pt tends to minimize gait impairment and how it may affect function at home. OT- Vision and Hearing OT- Hearing Assessment OT- Hearing Assessment WFL OT- Vision Assessment Visual Acuity WFL Glasses All The Time Visual Attentiveness WFL Occular Pursuits WFL Visual [place] WFL Visual Spacial Neglect Not Applicable Vision Assessment Comments No new vision deficits identified. M7 OT- IP Mobility and Balance Start: 09/02/18 14:49 Freq: Status: Active Protocol: Document 09/03/18 11:25 PJM (Rec: 09/03/18 17:22 P[facility] [id number]) OT-Transfer Assessment Sit to and From Stand Sit to and from Stand Independent Devices Transfer Assistive Devices Front Wheeled Walker Comments Mobility Comments sit to stand for lower body dressing with FWW in front of pt but not needed for balance OT- Gait Assessment Comments Gait Ability Comments see P.T. notes OT- Balance Assessment Sitting Balance and Reactions Static Sitting Balance Ability Good Dynamic Sitting Balance Ability Good Comments Other Balance Tests/Deviations/Treatment see P.T. notes for further : details M8 OT- IP Objective Assessments Start: 09/02/18 14:49 Freq: Status: Active Protocol: Document 09/03/18 11:25 PJM (Rec: 09/03/18 17:22 PJM [id number]) OT Gross Range of Motion Upper Extremity Range of Motion Assessment Within Functional Limits OT Strength Upper Extremity Strength Assessment Within Functional Limits Hand Iap Displays Analyst Strength Hand Dominance Right Comments Strength Comments No focal weakness noted. OT- Coordination Assessment Comments Coordination Comments BUE WFL OT-Muscle Tone Assessment Muscle Tone WNL Yes OT Sensation Assessment Comments Summary Comments BUE sensation intact Edema Edema Absent M9 OT- IP Assessment and Plan Start: 09/02/18 14:49 Freq: Status: Active Protocol: Document 09/03/18 11:25 PJM (Rec: 09/03/18 17:22 [id number]) OT Summary Assessment and Plan Potential Rehabilitation Potential Good Analytic Complexity at Evaluation Low Summary OT Impairments Balance Progress Towards Goals Safe For Discharge Assessment Summary Low complexity OT assessment completed on this pt admitted with ND and presumed E[employer] stroke with primary residual deficit of decreased balance and gait ataxia. No new deficits identified in vision or BUE sensorimotor function. Pt independent in seated self care tasks,and with gait with FWW per discussion with P.T. not here for education as she is working per pt. Provided education to pt re: showering safety and he agreed to to shower seated on built in seat and has grab bars. Recommend pt not drive until clears pt. No OT goals identified for this admission. Frequency of Treatment Frequency Of Treatment Discharge Discharge Recommendations OT Discharge Recommendations Home with Assistance, out pt P.T. for balance Other Discharge Recommendations working can assist with IADLS and shower PRN per pt
--- NOTE | 2018-09-03 14:33 | PC.NURSE ---
Discharge pt denied pain. spoke with PT and they were able to provide pt with a FWW to take home with him at d/c. Family friend, Umu was present for d/c instructions. Notified to contact PCP and pharmacy analyst for f/u apts. aware to contact MD for any additional questions or concerns. PIV removed prior to d/c. pt states he took all belongings with him including his insulin from pharmacy, belongings from safe, and cell phone. pt left in w/c with RN escort to car.
== END 2018-09-03 14:25 | disposition home or self-care (01) | DRG 64 ==
LOC: ED 13:10 → AC 13:16
PROVIDERS: Admitting Provider Internal Medicine; Emergency Provider Emergency Medicine; PCP Internal Medicine; Visit Provider Internal Medicine
DX: I63.9 Cerebral infarction, unspecified (principal); I21.A1 Myocardial infarction type 2; I13.0 Hypertensive heart and chronic kidney disease with heart failure and stage 1 through stage 4 chronic kidney disease, or unspecified chronic kidney disease; I50.22 Chronic systolic (congestive) heart failure; I47.2 Ventricular tachycardia; R27.0 Ataxia, unspecified; N18.3 Chronic kidney disease, stage 3 (moderate); E11.22 Type 2 diabetes mellitus with diabetic chronic kidney disease; Z79.4 Long term (current) use of insulin; R55 Syncope and collapse; I67.2 Cerebral atherosclerosis; I65.23 Occlusion and stenosis of bilateral carotid arteries
CPT/HCPCS: 36415; 70450; 70553; 71045; 78452; 80053; 82962; 83880; 84484; 85025; 93005; 93016; 93017; 93018; 93306; 93880; 97116; 97162; 97165; 99283; 99285; 99291; A9502; A9579; J2785

== ENCOUNTER 2018-10-22 08:30 | Outpatient (RCR) | payer MEDICARE, SELFPAY ==
[2018-08-31 14:24] VITALS: BMI 33.7
== END 2018-10-22 14:29 ==
LOC: CAR 08:30
PROVIDERS: PCP Internal Medicine; Visit Provider Internal Medicine
DX: I21.4 Non-ST elevation (NSTEMI) myocardial infarction (principal)
CPT/HCPCS: 93798

== ENCOUNTER 2018-10-24 15:00 | Emergency (ER) | payer MEDICARE, SELFPAY ==
[2018-08-31 14:24] VITALS: BMI 33.7
[2018-10-24 15:16] VITALS: BP 153/75; PULSE 112; RESP 30; TEMP 36.6; O2SAT 93; BMI 32.9
--- NOTE | 2018-10-24 15:16 | DI.RAD.S_ITS ---
PROCEDURE: XR CHEST 1V INDICATIONS: SOB TECHNIQUE: One view of the chest was acquired. COMPARISON: [facility], CR, XR CHEST 1V, 08/31/2018, 17:01. FINDINGS: Surgical changes and devices: None. Lungs and pleura: There is an overall appearance of increased pulmonary vascularity. Patchy opacities are present within the lungs bilaterally. Mediastinum: Mediastinal contours appear normal. Heart size is normal. Bones and chest wall: No suspicious bony lesions. Overlying soft tissues appear unremarkable. IMPRESSION: Increased vascularity with bilateral patchy pulmonary opacities. This is suspected to represent widespread edema. However, underlying areas of pneumonia and/or atelectasis cannot be excluded. Dictated by: Ashley Da Silva M.D. on 10/24/2018 at 16:47 Approved by: Ashley Da Silva M.D. on 10/24/2018 at 16:48
--- NOTE | 2018-10-24 15:24 | ED_ITS ---
HPI - SOB/Dyspnea General Chief Complaint: Shortness of Breath/Dyspnea Stated Complaint: SOB,SENT BY WALK IN WITH VAGUE INFO Time Seen by Provider: 10/24/18 15:19 Source: patient and family Mode of arrival: ambulatory Limitations: no limitations History of Present Illness 83-year-old male with extensive medical history including myocardial infarction , stroke, kidney disease presents with his for evaluation of shortness of breath and fatigue for the past 2 days. He is significantly short of breath with any exertion and this improves with rest. He denies any chest pain and is not dizzy or lightheaded. He denies orthopnea or swelling of his lower extremities. She initially went to the walk-in clinic but was sent here due to the complexity of his medical history. He was recently admitted for generalized weakness and was discharged with diagnosis of TIA, NSTEMI (max 0.208 on 08/31) and echo noting EF 25%. His mortgage protection specialist is in [place] and just saw him on Friday, increasing his Metoprolol. MD Complaint: shortness of breath Onset (ago): day(s) Severity: moderate Consistency/Duration: constant Relieving factors: rest Exacerbating factors: movement Known history of: congestive heart failure and diabetes Treatment prior to arrival: none Related Data Home oxygen amount: none Home Medications Medication Instructions Recorded Confirmed DM HYDROBROM/GG/PSE HCL (#GUIATUSS) 1 cap PO PRN PRN #0 03/17/11 08/31/18 furosemide 20 mg PO QDAY #0 11/26/16 08/31/18 insulin NPH-regular 70-30 U-100 1 dose SUBCUT BID 04/29/18 08/31/18 insulin 100 unit/mL subcutaneous pen CoQ-10 1 cap PO DAILY 08/31/18 08/31/18 Oil Of Oregano 1 cap PO DAILY 08/31/18 08/31/18 Probiotic 1 cap PO DAILY 08/31/18 08/31/18 ezetimibe 1 tab PO DAILY 08/31/18 08/31/18 losartan 1 tab PO QPM 08/31/18 08/31/18 olive leaf extract 1 cap PO DAILY 08/31/18 08/31/18 metoprolol succinate 75 mg PO BID 09/01/18 09/01/18 Previous Rx's Medication Instructions Recorded colchicine 0.6 mg tablet 0.6 mg PO Q OTHER DAY #20 tab 04/29/18 clopidogrel [Plavix] 75 mg PO DAILY #30 tab 09/03/18 Allergies Allergy/AdvReac Type Severity Reaction Status Date / Time allopurinol Allergy Intermediate rash Verified 10/24/18 15:15 Review of Systems Review of Systems All systems reviewed & are unremarkable except as noted in HPI and below Constitutional Denies chills, Denies fever(s), Denies lethargy and Denies weakness Eyes Denies change in vision, Denies eye discharge, Denies irritation and Denies loss of vision ENT Ears, Nose, Mouth, and Throat: Denies change in voice, Denies neck pain and Denies sore throat Cardiovascular Denies chest pain, Denies irregular heart rhythm, Denies lightheadedness, Denies palpitations, Reports dyspnea, Reports dyspnea on exertion and Denies orthopnea Respiratory Denies cough, Reports dyspnea, Reports dyspnea on exertion and Denies wheezing Gastrointestinal Gastrointestinal: Denies abdominal pain, Denies change in bowel habits, Denies diarrhea, Denies nausea and Denies vomiting Genitourinary Denies hematuria, Denies flank pain, Denies urinary incontinence and Denies urinary urgency Musculoskeletal Denies neck pain Integumentary/Breasts Denies pruritus, Denies erythema, Denies rash and Denies wounds Neurologic Denies confusion, Denies loss of vision and Denies weakness Psychiatric Denies anxiety, Denies confusion, Denies depression, Denies homicidal ideation and Denies suicidal ideation Endocrine Denies palpitations Hematologic/Lymphatic Denies easy bruising Allergic/Immunologic Denies wheezing PFSH Medical History Congestive heart failure (Acute) Coronary artery disease (Acute) Diabetes (Acute) Hypertension (Acute) Surgical History No pertinent past surgical history (Acute) Social History household members: spouse Smoking Status: Former smoker Exam Narrative Exam Narrative: Chronically ill 83-year-old male presents with and is in obvious moderate distress, visibly short of breath, belly breathing Initial Vital Signs Initial Vital Signs: Vital Signs Temperature 97.9 F 10/24/18 15:16 Pulse Rate 112 H 10/24/18 15:16 Respiratory Rate 30 H 10/24/18 15:16 Blood Pressure 153/75 H 10/24/18 15:16 Pulse Oximetry 93 10/24/18 15:16 Const General: cooperative Nutritional Appearance: obese Orientation: alert, awake and oriented x3 HENMT Head: normocephalic and atraumatic Ears: external ears normal Nose: external nose normal Face and sinus: sinuses nontender, face symmetric and no sinus tenderness Mouth: moist mucous membranes Teeth and gingiva: dentition normal Throat: tonsils normal and uvula midline Eyes General: appearance normal, both eyes and all related structures Eyelids: eyelids normal Conjunctivae: conjunctivae normal Sclera: sclerae normal Pupils: PERRL EOM: EOM intact bilaterally Neck Neck: normal visual inspection, trachea midline, No lymphadenopathy, No midline deformity and No JVD Lymphatic: No lymphedema Chest Chest: normal inspection of the chest Resp Effort & Inspection: normal respiratory effort, able to speak in complete sentences, respiratory distress and uses accessory muscles Auscultation: crackles, diminished lung sounds, rales, no rhonchi and no wheezes Cardio Rate: tachycardic Rhythm: regular rhythm Heart Sounds: no click, no gallops, no murmurs and no rubs Pulses: normal peripheral pulses GI Inspection: non-distended Palpation: soft, no hepatosplenomegaly, No guarding, No pulsatile mass and No tender Auscultation: normal bowel sounds Back/Spine/Pelvis Back: No CVA tenderness Cervical Spine: cervical ROM normal and No pain with cervical ROM Thoracic/Lumbar Spine: thoracic and lumbar spine normal to inspection Skin General: no rashes or lesions noted, No jaundice and No petechiae Neuro General: alert, awake and oriented x3 Cranial Nerves: CN's II-XI intact bilaterally Sensory Exam: no sensory deficits noted Extrem Right lower extremity: no edema Left lower extremity: no edema Psych Appearance: grossly normal and well kempt Course Orders Ordered: ED Orders 10/24/18 15:00 EKG-12 Lead Stat 10/24/18 15:16 XR chest 1V Stat 10/24/18 15:55 B Type Natriuretic Peptide Stat Basic Metabolic Panel Stat Blood Culture Stat Complete Blood Count AUTO DIFF Stat Lactate (Lactic Acid) Stat Magnesium Stat Procalcitonin Stat Troponin & CK Cardiac Panel Stat 10/24/18 16:58 EKG-12 Lead Stat Discontinued Medications Furosemide (Lasix) 40 mg IV NOW ONE Stop: 10/24/18 16:50 Last Admin: 10/24/18 17:07 Dose: Furosemide (Lasix) 80 mg IV NOW ONE Stop: 10/24/18 17:25 Last Admin: 10/24/18 17:28 Dose: 80 mg Consultations Consultation #1: discussion with Dr. Lund ([facility]) whom recommends medical management and focus on CHF with large doses of IV lasix and likely DC transition to Torsemide. Call to local hospitalist whom suggests that this is not appropriate facility given lack of cardiology, true ICU, access to Echo. She requests transfer Call to hospitalist at [facility] (Dr. Hubbard) whom is happy to accept. Vital Signs - 8 hr 10/24/18 15:16 10/24/18 16:01 10/24/18 16:37 Temperature 97.9 F Pulse Rate 112 H 108 H 108 H Respiratory Rate 30 H 28 H 27 H Blood Pressure 153/75 H Blood Pressure [Right Arm] 156/77 H 151/69 H Pulse Oximetry 93 100 99 10/24/18 17:33 10/24/18 18:02 Temperature Pulse Rate 112 H 112 H Respiratory Rate 24 14 Blood Pressure Blood Pressure [Right Arm] 168/93 H 157/72 H Pulse Oximetry 92 MDM - SOB/Dyspnea Medical Records Attestation: I reviewed the patient's medical records. Lab Data Attestation: I reviewed the patient's lab results. Result diagrams: 10/24/18 15:55 10/24/18 15:55 Lab Results 10/24/18 10/24/18 10/24/18 Range/Units 15:55 15:55 15:55 WBC 11.5 H (4.5-11.0) X10^3/uL RBC 3.74 L (4.5-5.9) X10^6/uL Hgb 11.1 L (13.5-17.5) g/dL Hct 34.0 L (41-53) % MCV 90.9 (80-100) fL MCH 29.7 (26-34) PG MCHC 32.6 (30-36) % RDW 14.8 (11.6-14.8) % Plt Count 190 (150-400) X10^3/uL Neut % (Auto) 68.6 (50-75) % Lymph % (Auto) 16.9 L (25-40) % [place] % (Auto) 13.7 (3-14) % Eos % (Auto) 0.2 L (2-4) % Baso % (Auto) 0.6 (0-2) % Neut # (Auto) 7900 H (5905-5136) /uL Sodium 141 (137-145) mmol/L Potassium 4.5 (3.4-5.1) mmol/L Chloride 104 (98-107) mmol/L Carbon Dioxide 23 (22-32) mmol/L BUN 34 H (9-20) mg/dL Creatinine 2.00 H (0.66-1.25) mg/dL Estimated GFR 32.2 L (>60) mL/min BUN/Creatinine Ratio 17.0 (6-22) Glucose 208 H (80-110) mg/dL Lactate (0.7-2.1) mmol/L Calcium 8.8 (8.4-10.2) mg/dL Magnesium 1.9 (1.6-2.3) mg/dL Total Creatine Kinase 190 H (55-170) U/L CK-MB (CK-2) 5.53 H (<2.37) ng/mL CK-MB (CK-2) Rel Index 2.9 (1.5-5.0) % Troponin I 1.440 H* (0.01-0.034) ng/mL B-Natriuretic Peptide (<100) Procalcitonin 0.64 H (<0.5) ng/mL 10/24/18 Range/Units 15:55 WBC (4.5-11.0) X10^3/uL RBC (4.5-5.9) X10^6/uL Hgb (13.5-17.5) g/dL Hct (41-53) % MCV (80-100) fL MCH (26-34) PG MCHC (30-36) % RDW (11.6-14.8) % Plt Count (150-400) X10^3/uL Neut % (Auto) (50-75) % Lymph % (Auto) (25-40) % [place] % (Auto) (3-14) % Eos % (Auto) (2-4) % Baso % (Auto) (0-2) % Neut # (Auto) (6880-7928) /uL Sodium (137-145) mmol/L Potassium (3.4-5.1) mmol/L Chloride (98-107) mmol/L Carbon Dioxide (22-32) mmol/L BUN (9-20) mg/dL Creatinine (0.66-1.25) mg/dL Estimated GFR (>60) mL/min BUN/Creatinine Ratio (6-22) Glucose (80-110) mg/dL Lactate 1.4 (0.7-2.1) mmol/L Calcium (8.4-10.2) mg/dL Magnesium (1.6-2.3) mg/dL Total Creatine Kinase (55-170) U/L CK-MB (CK-2) (<2.37) ng/mL CK-MB (CK-2) Rel Index (1.5-5.0) % Troponin I (0.01-0.034) ng/mL B-Natriuretic Peptide (<100) Procalcitonin (<0.5) ng/mL Discharge Plan Departure Patient Disposition: [facility] Clinical Impression: CHF exacerbation Prescriptions: No Action insulin NPH and regular human 100 unit/mL (70-30) Insulin Pen 1 dose SUBCUT BID RF: 0 colchicine 0.6 mg tablet 0.6 mg PO Q OTHER DAY Qty: 20 RF: 0 DM HYDROBROM/GG/PSE HCL (#GUIATUSS) 1 cap PO PRN PRN (Reason: Cough) Qty: 0 RF: 0 furosemide 20 MG tablet 20 mg PO QDAY Qty: 0 RF: 0 losartan 25 mg tablet 1 tab PO QPM RF: 0 ezetimibe 10 mg tablet 1 tab PO DAILY RF: 0 CoQ-10 1 cap PO DAILY RF: 0 Oil Of Oregano 1 cap PO DAILY RF: 0 Probiotic 1 cap PO DAILY RF: 0 olive leaf extract 1 cap PO DAILY RF: 0 metoprolol succinate 50 MG 75 mg PO BID RF: 0 clopidogrel [Plavix] 75 mg Tablet 75 mg PO DAILY Qty: 30 RF: 6
[2018-10-24 16:01] VITALS: BP 156/77; PULSE 108; RESP 28; O2SAT 100
[2018-10-24 16:08] LABS: Add Manual Diff / Slide Review NO; Basophils Percent Auto 0.6 % (0-2); Eosinophils Percent Auto 0.2 % (2-4); Hemoglobin 11.1 g/dL (13.5-17.5); Lymphocytes Percent Auto 16.9 % (25-40); Mean Corpuscular HGB Conc 32.6 % (30-36); Mean Corpuscular Hemoglobin 29.7 PG (26-34); Mean Corpuscular Volume 90.9 fL (80-100); Monocytes Percent Auto 13.7 % (3-14); Neutrophils Absolute Auto 7900 /uL (1500-7000); Neutrophils Percent Auto 68.6 % (50-75); Platelet Count 190 X10^3/uL (150-400); Red Blood Cell Count 3.74 X10^6/uL (4.5-5.9); Red Cell Distribution Width 14.8 % (11.6-14.8); White Blood Cell Count 11.5 X10^3/uL (4.5-11.0)
[2018-10-24 16:37] VITALS: BP 151/69; PULSE 108; RESP 27; O2SAT 99
[2018-10-24 16:42] LABS: Blood Urea Nitrogen 34 mg/dL (9-20); Calcium 8.8 mg/dL (8.4-10.2); Carbon Dioxide 23 mmol/L (22-32); Chloride 104 mmol/L (98-107); Creatine Kinase 190 U/L (55-170); Estimated Glomerular Filt Rate 32.2 mL/min (>60); Glucose 208 mg/dL (80-110); HEMOLYSIS < 15 (0-50); Magnesium 1.9 mg/dL (1.6-2.3); Potassium 4.5 mmol/L (3.4-5.1); Sodium 141 mmol/L (137-145)
[2018-10-24 16:57] LABS: CKMB % Relative Index 2.9 % (1.5-5.0); Creatine Kinase MB 5.53 ng/mL (<2.37)
[2018-10-24 17:02] LABS: Lactate (Lactic Acid) 1.4 mmol/L (0.7-2.1)
[2018-10-24 17:24] LABS: Procalcitonin 0.64 ng/mL (<0.5)
[2018-10-24] MEDS: FUROSEMIDE 100 MG/10 ML VIAL 80 MG IV (17:28)
[2018-10-24 17:33] VITALS: BP 168/93; PULSE 112; RESP 24; O2SAT 92
[2018-10-24 18:02] VITALS: BP 157/72; PULSE 112; RESP 14
[2018-10-24 18:30] VITALS: BP 183/83; PULSE 124; PULSE 126; RESP 20; RESP 34; O2SAT 97
[2018-10-24 19:30] LABS: Bacteria Urine Moderate (10-30); Culture Indicated Urine Specimen Cultured; RBC Urine 0-1/HPF (0-5/HPF); Squamous Epithelial Cell Urine None Seen; WBC Urine 10-30/HPF (0-5/HPF)
== END 2018-10-24 19:31 | disposition short-term general hospital (02) ==
PROVIDERS: Emergency Provider Emergency Medicine; PCP Internal Medicine
DX: I50.9 Heart failure, unspecified (principal)
CPT/HCPCS: 36591; 71045; 80048; 81003; 81015; 82550; 82553; 83605; 83735; 83880; 84145; 84484; 85025; 87040; 87077; 87086; 87186; 93005; 93041; 96374; 99285; J1940

== ENCOUNTER → 2018-11-04 08:54 | Outpatient (CLI) | payer MEDICARE, SELFPAY ==
[2018-08-31 14:24] VITALS: BMI 33.7
[2018-11-04 09:43] LABS: BUN Creatinine Ratio 19.3 (6-22); Blood Urea Nitrogen 52 mg/dL (9-20); Calcium 9.3 mg/dL (8.4-10.2); Carbon Dioxide 26 mmol/L (22-32); Chloride 103 mmol/L (98-107); Estimated Glomerular Filt Rate 22.8 mL/min (>60); Glucose 112 mg/dL (80-110); HEMOLYSIS < 15 (0-50); Potassium 4.7 mmol/L (3.4-5.1); Sodium 140 mmol/L (137-145)
[2018-11-04 09:55] LABS: B Type Natriuretic Peptide 1040 (<100)
== END ==
PROVIDERS: PCP Internal Medicine; Visit Provider Internal Medicine Cardiovascular Disease
DX: I50.23 Acute on chronic systolic (congestive) heart failure (principal); N18.3 Chronic kidney disease, stage 3 (moderate)
CPT/HCPCS: 36415; 80048; 83880

== ENCOUNTER → 2018-11-12 13:24 | Outpatient (CLI) | payer MEDICARE, SELFPAY ==
[2018-08-31 14:24] VITALS: BMI 33.7
[2018-11-12 14:35] LABS: Albumin 3.9 g/dL (3.5-5.0); Blood Urea Nitrogen 44 mg/dL (9-20); Calcium 9.2 mg/dL (8.4-10.2); Carbon Dioxide 19 mmol/L (22-32); Chloride 102 mmol/L (98-107); Estimated Glomerular Filt Rate 30.5 mL/min (>60); Glucose 177 mg/dL (80-110); HEMOLYSIS 25 (0-50); Potassium 5.2 mmol/L (3.4-5.1); Sodium 135 mmol/L (137-145)
[2018-11-12 14:36] LABS: B Type Natriuretic Peptide 734 (<100)
== END ==
PROVIDERS: Family Provider Internal Medicine Endocrinology, Diabetes & Metabolism; PCP Internal Medicine; Visit Provider Internal Medicine Cardiovascular Disease
DX: N18.3 Chronic kidney disease, stage 3 (moderate) (principal)
CPT/HCPCS: 36415; 80069; 83880

== ENCOUNTER → 2018-12-01 08:22 | Outpatient (CLI) | payer MEDICARE, SELFPAY ==
[2018-08-31 14:24] VITALS: BMI 33.7
[2018-12-01 09:24] LABS: Albumin 4.1 g/dL (3.5-5.0); Blood Urea Nitrogen 48 mg/dL (9-20); Calcium 9.1 mg/dL (8.4-10.2); Carbon Dioxide 26 mmol/L (22-32); Chloride 100 mmol/L (98-107); Estimated Glomerular Filt Rate 26.1 mL/min (>60); Glucose 90 mg/dL (80-110); HEMOLYSIS < 15 (0-50); Phosphorous 4.1 mg/dL (2.3-3.7); Potassium 4.6 mmol/L (3.4-5.1); Sodium 138 mmol/L (137-145)
[2018-12-01 09:56] LABS: B Type Natriuretic Peptide 917 (<100)
== END ==
PROVIDERS: Family Provider Internal Medicine Endocrinology, Diabetes & Metabolism; PCP Internal Medicine; Visit Provider Internal Medicine Cardiovascular Disease
DX: I50.22 Chronic systolic (congestive) heart failure (principal); N18.3 Chronic kidney disease, stage 3 (moderate)
CPT/HCPCS: 36415; 80048; 80069; 83880

== ENCOUNTER → 2019-02-05 11:34 | Outpatient (CLI) | payer MEDICARE, SELFPAY ==
[2018-08-31 14:24] VITALS: BMI 33.7
[2019-02-05 13:03] LABS: BUN Creatinine Ratio 19.6 (6-22); Blood Urea Nitrogen 51 mg/dL (9-20); Calcium 9.6 mg/dL (8.4-10.2); Carbon Dioxide 24 mmol/L (22-32); Chloride 107 mmol/L (98-107); Estimated Glomerular Filt Rate 23.8 mL/min (>60); Glucose 193 mg/dL (80-110); HEMOLYSIS < 15 (0-50); Sodium 144 mmol/L (137-145)
[2019-02-05 13:05] LABS: Potassium 5.6 mmol/L (3.4-5.1)
== END ==
PROVIDERS: Family Provider Internal Medicine Endocrinology, Diabetes & Metabolism; PCP Internal Medicine; Visit Provider Internal Medicine Cardiovascular Disease
DX: E11.9 Type 2 diabetes mellitus without complications (principal); I50.22 Chronic systolic (congestive) heart failure; I25.5 Ischemic cardiomyopathy
CPT/HCPCS: 36415; 80048; 83036

== ENCOUNTER → 2019-11-24 14:56 | Outpatient (CLI) | payer MEDICARE, SELFPAY ==
[2018-08-31 14:24] VITALS: BMI 33.7
--- NOTE | 2019-11-24 | DI.ECHO.S_ITS ---
[place] [facility]---------+ [facility] +---------+ : : [address] : : : : [id number] : : : : Phone: [phone] Echocardiogram Report + + :Name: IZZY CONTRERAS Study Date: 11/24/2019 Height: 71 in : :[facility] Weight: 238 lb : : Gender: Male BSA: 2.3 m2 : :: 1935 Age: 84 yrs BP: 140/78 mmHg: :Reason For Study: CHF : :Ordering Physician: Carla LemusPerformed By: Jose Ritter : :Referring: CARLA LEMUS : + + Interpretation Summary 1) Normal left ventricular size with severely reduced systolic function (EF 20-25%). 2) Normal right ventricular size and function. 3) No significant valvular abnormalities. 4) Compared to the Echo done 09/01/2018, LVEF remains reduced on this study. Procedure: A two-dimensional transthoracic echocardiogram with color flow and Doppler was performed. The study quality was technically difficult. The apical views were difficult to obtain and are suboptimal in quality. Prior echo performed 09/01/18. Left Ventricle: The left ventricle is normal in size. There is mild concentric left ventricular hypertrophy. Left ventricular systolic function is severely reduced. The ejection fraction is estimated to be 20-25%. There is severe global hypokinesis of the left ventricle. Right Ventricle: The right ventricle is normal in size and function. Atria: The left atrium is not well visualized. Right atrium not well visualized. The interatrial septum is intact with no evidence for an atrial septal defect. Mitral Valve: The mitral valve leaflets appear mildly thickened, but open well. There is trace mitral regurgitation. Aortic Valve: There is mild aortic valve sclerosis. The aortic valve is trileaflet. The aortic valve opens well. No aortic regurgitation is present. Tricuspid Valve: The tricuspid valve is normal in structure and function. There is trace tricuspid regurgitation. Pulmonary artery pressures cannot be estimated because of the lack of a measurable TR jet velocity. Pulmonic Valve: The pulmonic valve is not well visualized. There is trace pulmonic regurgitation. Great Vessels: The aortic root is normal size. The dimensions of the ascending aorta are normal. The pulmonary artery is normal size. The inferior vena cava was not visualized. Pericardium/ Pleura There is no pericardial effusion. There is no pleural effusion. MMode/2D Measurements & Calculations LVIDd: 4.8 cm LVOT diam: 2.2 cm LVIDs: 4.1 cm Ao root diam: 2.9 cm FS: 14.1 % asc Aorta Diam: 3.1 cm EPSS: 1.4 cm IVSd: 1.3 cm LVPWd: 1.2 cm LV lopes. diameter/BSA (cm/m^2): 2.1 LV sys. diameter/BSA (cm/m^2): 1.8 Doppler Measurements & Calculations PA V2 max: 66.0 cm/sec PA V2 mean: 50.5 cm/sec PA mean P.1 mmHg PA Accel Time: 0.10 sec Reading Physician:04:07 PM
== END ==
PROVIDERS: Family Provider Internal Medicine Endocrinology, Diabetes & Metabolism; PCP Internal Medicine; Visit Provider Internal Medicine Cardiovascular Disease
DX: I35.8 Other nonrheumatic aortic valve disorders (principal); I50.22 Chronic systolic (congestive) heart failure
CPT/HCPCS: 93306

== ENCOUNTER → 2020-04-17 08:18 | Outpatient (CLI) | payer MEDICARE, SELFPAY ==
[2018-08-31 14:24] VITALS: BMI 33.7
[2020-04-17 09:51] LABS: Add Manual Diff / Slide Review NO; Basophils Absolute Auto 0 /uL (0-100); Basophils Percent Auto 0.4 % (0-2); Eosinophils Absolute Auto 300 /uL (0-450); Eosinophils Percent Auto 4.5 % (2-4); Hematocrit 34.5 % (41-53); Hemoglobin 11.5 g/dL (13.5-17.5); Lymphocytes Absolute Auto 2500 /uL (1100-4500); Lymphocytes Percent Auto 34.1 % (25-40); Mean Corpuscular HGB Conc 33.2 % (30-36); Mean Corpuscular Hemoglobin 30.3 PG (26-34); Mean Corpuscular Volume 91.2 fL (80-100); Monocytes Absolute Auto 900 /uL (0-900); Monocytes Percent Auto 12.2 % (3-14); Neutrophils Absolute Auto 3600 /uL (1500-7000); Neutrophils Percent Auto 48.8 % (50-75); Platelet Count 159 X10^3/uL (150-400); Red Blood Cell Count 3.78 X10^6/uL (4.5-5.9); Red Cell Distribution Width 15.1 % (11.6-14.8); White Blood Cell Count 7.3 X10^3/uL (4.5-11.0)
[2020-04-17 10:02] LABS: Alanine Aminotransferase 9 IU/L (<50); Albumin 3.9 g/dL (3.5-5.0); Albumin Globulin Ratio 1.2 (1.0-2.8); Alkaline Phosphatase 77 U/L (38-126); Aspartate Aminotransferase 20 IU/L (17-59); BUN Creatinine Ratio 17.6 (6-22); Bilirubin Total 0.4 mg/dL (0.2-1.3); Blood Urea Nitrogen 36 mg/dL (9-20); Carbon Dioxide 25 mmol/L (22-32); Chloride 107 mmol/L (98-107); Cholesterol 186 mg/dL (140-199); Estimated Glomerular Filt Rate 31.4 mL/min (>60); Globulin 3.3 g/dL (1.7-4.1); Glucose 94 mg/dL (80-110); HDL Cholesterol 27 mg/dL (40-60); HEMOLYSIS < 15 (0-50); LDL Cholesterol Calculated 128 mg/dL (<100); Potassium 4.1 mmol/L (3.4-5.1); Sodium 139 mmol/L (137-145); Total Protein 7.2 g/dL (6.3-8.2); Triglycerides 153 mg/dL (35-150); VLDL Cholesterol Calculated 31 mg/dL (2-30)
[2020-04-17 10:03] LABS: Hemoglobin A1C% w Est Avg Glu 7.7 % (4.0-6.0)
[2020-04-17 10:32] LABS: Prostate Specific Antigen 1.73 ng/mL (0.10-4.00)
[2020-04-17 10:34] LABS: Testosterone 256 ng/dL (71.8-623)
[2020-04-17 11:09] LABS: Thyroid Stimulating Hormone 4.86 uIU/mL (0.47-4.68)
== END ==
PROVIDERS: Family Provider Internal Medicine Endocrinology, Diabetes & Metabolism; PCP Internal Medicine; Referring Provider Internal Medicine; Visit Provider Internal Medicine
DX: Z12.5 Encounter for screening for malignant neoplasm of prostate (principal); E11.65 Type 2 diabetes mellitus with hyperglycemia; I10 Essential (primary) hypertension; E78.5 Hyperlipidemia, unspecified; N18.9 Chronic kidney disease, unspecified; D64.9 Anemia, unspecified; R35.1 Nocturia; R53.83 Other fatigue
CPT/HCPCS: 36415; 80053; 80061; 83036; 84153; 84403; 84443; 85025

== ENCOUNTER → 2020-09-23 10:03 | Outpatient (CLI) | payer MEDICARE, SELFPAY ==
[2018-08-31 14:24] VITALS: BMI 33.7
[2020-09-23 11:37] LABS: Add Manual Diff / Slide Review NO; Basophils Absolute Auto 0 /uL (0-100); Basophils Percent Auto 0.6 % (0-2); Eosinophils Absolute Auto 300 /uL (0-450); Eosinophils Percent Auto 5.4 % (2-4); Hemoglobin 12.1 g/dL (13.5-17.5); Lymphocytes Absolute Auto 2500 /uL (1100-4500); Lymphocytes Percent Auto 39.5 % (25-40); Mean Corpuscular HGB Conc 32.7 % (30-36); Mean Corpuscular Hemoglobin 30.1 PG (26-34); Mean Corpuscular Volume 92.1 fL (80-100); Monocytes Absolute Auto 700 /uL (0-900); Monocytes Percent Auto 11.5 % (3-14); Neutrophils Absolute Auto 2700 /uL (1500-7000); Platelet Count 145 X10^3/uL (150-400); Red Blood Cell Count 4.01 X10^6/uL (4.5-5.9); Red Cell Distribution Width 14.8 % (11.6-14.8); White Blood Cell Count 6.3 X10^3/uL (4.5-11.0)
[2020-09-23 11:42] LABS: Hemoglobin A1C% w Est Avg Glu 8.5 % (4.0-6.0)
[2020-09-23 12:11] LABS: Alanine Aminotransferase 12 IU/L (<50); Albumin 4.1 g/dL (3.5-5.0); Albumin Globulin Ratio 1.2 (1.0-2.8); Alkaline Phosphatase 78 U/L (38-126); Aspartate Aminotransferase 23 IU/L (17-59); BUN Creatinine Ratio 17.6 (6-22); Bilirubin Total 0.4 mg/dL (0.2-1.3); Blood Urea Nitrogen 37 mg/dL (9-20); Calcium 9.4 mg/dL (8.4-10.2); Carbon Dioxide 28 mmol/L (22-32); Chloride 108 mmol/L (98-107); Estimated Glomerular Filt Rate 30.3 mL/min (>60); Globulin 3.5 g/dL (1.7-4.1); Glucose 130 mg/dL (80-110); HEMOLYSIS < 15 (0-50); Potassium 4.7 mmol/L (3.4-5.1); Sodium 142 mmol/L (137-145); Total Protein 7.6 g/dL (6.3-8.2)
[2020-09-23 12:12] LABS: Free T3, Triiodothyronine Free 3.64 pg/mL (2.77-5.27); Free T4, Direct Thyroxine 0.88 ng/dL (0.78-2.19)
[2020-09-23 12:14] LABS: High Sensitivity CRP - Cardiac 3.1 mg/L (1.0-3.0)
[2020-09-23 12:26] LABS: Thyroid Stimulating Hormone 3.98 uIU/mL (0.47-4.68)
== END ==
PROVIDERS: Family Provider Internal Medicine Endocrinology, Diabetes & Metabolism; PCP Internal Medicine; Referring Provider Internal Medicine; Visit Provider Internal Medicine
DX: N18.9 Chronic kidney disease, unspecified (principal); E11.65 Type 2 diabetes mellitus with hyperglycemia; E78.5 Hyperlipidemia, unspecified; D68.9 Coagulation defect, unspecified; E03.9 Hypothyroidism, unspecified
CPT/HCPCS: 36415; 80053; 83036; 84439; 84443; 84481; 85025; 86140

== ENCOUNTER → 2021-02-06 13:28 | Outpatient (CLI) | payer MEDICARE, SELFPAY ==
[2018-08-31 14:24] VITALS: BMI 33.7
[2021-02-06 14:56] LABS: Add Manual Diff / Slide Review NO; Basophils Absolute Auto 0 /uL (0-100); Basophils Percent Auto 0.4 % (0-2); Eosinophils Absolute Auto 500 /uL (0-450); Eosinophils Percent Auto 6.8 % (2-4); Hemoglobin 11.5 g/dL (13.5-17.5); Lymphocytes Absolute Auto 2400 /uL (1100-4500); Lymphocytes Percent Auto 36.7 % (25-40); Mean Corpuscular HGB Conc 32.8 % (30-36); Mean Corpuscular Hemoglobin 30.6 PG (26-34); Mean Corpuscular Volume 93.2 fL (80-100); Monocytes Absolute Auto 800 /uL (0-900); Neutrophils Absolute Auto 2900 /uL (1500-7000); Neutrophils Percent Auto 44.1 % (50-75); Platelet Count 137 X10^3/uL (150-400); Red Blood Cell Count 3.75 X10^6/uL (4.5-5.9); Red Cell Distribution Width 15.4 % (11.6-14.8); White Blood Cell Count 6.7 X10^3/uL (4.5-11.0)
[2021-02-06 17:15] LABS: HEMOLYSIS < 15 (0-50)
[2021-02-06 17:24] LABS: Alanine Aminotransferase 12 IU/L (<50); Albumin 4.1 g/dL (3.5-5.0); Albumin Globulin Ratio 1.2 (1.0-2.8); Alkaline Phosphatase 78 U/L (38-126); Aspartate Aminotransferase 28 IU/L (17-59); BUN Creatinine Ratio 14.1 (6-22); Bilirubin Total 0.4 mg/dL (0.2-1.3); Blood Urea Nitrogen 28 mg/dL (9-20); Calcium 9.4 mg/dL (8.4-10.2); Carbon Dioxide 21 mmol/L (22-32); Chloride 112 mmol/L (98-107); Cholesterol 216 mg/dL (140-199); Estimated Glomerular Filt Rate 32.3 mL/min (>60); Globulin 3.3 g/dL (1.7-4.1); Glucose 147 mg/dL (80-110); HDL Cholesterol 39 mg/dL (40-60); Potassium 4.2 mmol/L (3.4-5.1); Sodium 143 mmol/L (137-145); Total Protein 7.4 g/dL (6.3-8.2); Triglycerides 170 mg/dL (35-150)
[2021-02-06 17:25] LABS: LDL Cholesterol Calculated 143 mg/dL (<100)
[2021-02-06 17:27] LABS: High Sensitivity CRP - Cardiac 9.6 mg/L (1.0-3.0)
[2021-02-06 17:54] LABS: Thyroid Stimulating Hormone 3.33 uIU/mL (0.47-4.68)
[2021-02-06 18:28] LABS: Folate 11.6 ng/mL (2.76-20.0); Vitamin B12 366 pg/mL (239-931)
[2021-02-07 14:12] LABS: Homocysteine 23.1 umol/L (0.0-21.3)
[2021-02-08 13:36] LABS: Lipoprotein (a) 338.1 nmol/L (<75.0)
== END ==
PROVIDERS: Family Provider Internal Medicine Endocrinology, Diabetes & Metabolism; PCP Internal Medicine; Referring Provider Internal Medicine; Visit Provider Internal Medicine
DX: E11.65 Type 2 diabetes mellitus with hyperglycemia (principal); R94.6 Abnormal results of thyroid function studies; E78.5 Hyperlipidemia, unspecified; D51.8 Other vitamin B12 deficiency anemias; R53.83 Other fatigue; N18.9 Chronic kidney disease, unspecified; I12.9 Hypertensive chronic kidney disease with stage 1 through stage 4 chronic kidney disease, or unspecified chronic kidney disease; D64.9 Anemia, unspecified
CPT/HCPCS: 36415; 80053; 80061; 82607; 82746; 83036; 83090; 83695; 84443; 85025; 86140

== ENCOUNTER 2021-03-29 13:49 | Emergency (ER) | payer MEDICARE, SELFPAY ==
[2018-08-31 14:24] VITALS: BMI 33.7
[2021-03-29] VITALS (29 sets, daily range): BP systolic 115–216; BP diastolic 55–103; PULSE 91–134; RESP 5–48; TEMP 31–36.9; O2SAT 80–100; BMI 34.9
--- NOTE | 2021-03-29 14:42 | ED_ITS ---
HPI - General Adult General Chief complaint: Shortness of Breath/Dyspnea Stated complaint: Brought Down By [facility], Cough Time Seen by Provider: 03/29/21 14:34 Source: patient Mode of arrival: Family Vehicle Limitations: no limitations History of Present Illness HPI narrative: Patient is an 85-year-old male with a history of ischemic cardiomyopathy and CHF. Was sent to the emergency department from the walk-in clinic after he went to the facility for an increase in shortness of breath and cough. No fevers. He is not on anticoagulation. He is an insulin-dependent diabetic. He is on 20 mg of Lasix on a daily basis. He denies any chest discomfort. No fevers. It is a productive cough. No abdominal pain. No rashes. Does have a chronic cough however his symptoms have started to worsen over the past day or so. He is not on oxygen at baseline. Related Data Home Medications Medication Instructions Recorded Confirmed DM HYDROBROM/GG/PSE HCL (#GUIATUSS) 1 cap PO PRN PRN #0 03/17/11 08/31/18 furosemide 20 mg PO QDAY #0 11/26/16 08/31/18 insulin NPH-regular 70-30 U-100 1 dose SUBCUT BID 04/29/18 08/31/18 insulin 100 unit/mL subcutaneous pen CoQ-10 1 cap PO DAILY 08/31/18 08/31/18 Oil Of Oregano 1 cap PO DAILY 08/31/18 08/31/18 Probiotic 1 cap PO DAILY 08/31/18 08/31/18 ezetimibe 1 tab PO DAILY 08/31/18 08/31/18 losartan 1 tab PO QPM 08/31/18 08/31/18 olive leaf extract 1 cap PO DAILY 08/31/18 08/31/18 metoprolol succinate 75 mg PO BID 09/01/18 09/01/18 Previous Rx's Medication Instructions Recorded colchicine 0.6 mg tablet 0.6 mg PO Q OTHER DAY #20 tab 04/29/18 clopidogrel [Plavix] 75 mg PO DAILY #30 tab 09/03/18 Allergies Allergy/AdvReac Type Severity Reaction Status Date / Time allopurinol Allergy Intermediate rash Verified 03/29/21 19:06 Review of Systems Constitutional Constitutional: Denies fever(s) and Denies headache(s) Eyes Eyes: Reports system reviewed and no additional complaints, except as documented ENT Ears, Nose, Mouth, and Throat: Denies headache(s) and Denies sore throat Cardiovascular Cardiovascular: Denies chest pain and Reports dyspnea Respiratory Respiratory: Reports cough and Reports dyspnea Gastrointestinal Gastrointestinal: Denies abdominal pain, Denies nausea and Denies vomiting Genitourinary Genitourinary: Denies dysuria Genitourinary: Denies dysuria Musculoskeletal Musculoskeletal: Reports system reviewed and no additional complaints, except as documented Integumentary/Breasts Skin/Breast: Denies lesions and Denies rash Neurologic Neurologic: Reports system reviewed and no additional complaints, except as documented and Denies headache(s) Psychiatric Psychiatric: Reports system reviewed and no additional complaints, except as documented Endocrine Endocrine: Reports system reviewed and no additional complaints, except as documented Hematologic/Lymphatic On Anticoagulants: No Allergic/Immunologic Allergic/Immunologic: Reports system reviewed and no additional complaints, except as documented Patient History Medical History (Updated 03/29/21 @ 19:22 by James Buenrostro DO) Congestive heart failure Coronary artery disease Diabetes Hypertension Surgical History No pertinent past surgical history Social History household members: spouse Smoking Status: Former smoker Smoking Status: Former smoker alcohol intake frequency: other Substance Use Type: does not use Exam Initial Vital Signs Initial Vital Signs: Vital Signs Pulse Rate 116 H 03/29/21 14:13 Blood Pressure 133/99 H 03/29/21 14:13 Pulse Oximetry 87 L 03/29/21 14:13 Const General: ill appearing Limitations: mental status not altered [facility] Head: normal to inspection and normocephalic Ears: hearing grossly normal bilaterally Eyes General: appearance normal, both eyes and all related structures Chest Chest: No tenderness Resp Effort & Inspection: respiratory distress and tachypneic Auscultation: rales and rhonchi Cardio Rate: tachycardic Rhythm: regular rhythm GI Inspection: non-distended Palpation: soft External: normal external exam Back/Spine/Pelvis Back: normal to inspection Skin Lesions: no lesions Rashes: no rashes Neuro General: patient alert, patient awake and patient oriented x3 Cognition: normal cognition Speech: speech normal Extrem General: normal to inspection and capillary refill normal Psych Appearance: grossly normal and well kempt Scores GCS Wilberto coma scale eye opening: Spontaneous Wilberto coma scale verbal response: Orientated [place] coma scale motor response: Obey commands Wilberto coma scale total score: 15 Course Orders Ordered: ED Orders 03/29/21 14:23 EKG-12 Lead Stat 03/29/21 14:40 XR chest 1V Stat 03/29/21 14:50 Complete Blood Count AUTO DIFF Stat Comprehensive Metabolic Panel Stat Lactate (Lactic Acid) Stat NT-proBNP (BNP-Adult 18+) Stat Procalcitonin Stat Troponin & CK Cardiac Panel Stat 03/29/21 15:00 COVID19 - ADMIT ([employer] swab/PCR) Stat 03/29/21 15:35 CT angio chest PE protocol Stat 03/29/21 15:54 Blood Culture Stat 03/29/21 17:44 Arterial Blood Gas Routine Heparin Sodium/Dextrose (Heparin Drip) 25,000 unit in 500 mls @ 27.226 mls/hr IV CONT LEWIS; Protocol Last Admin: 03/29/21 17:27 Dose: 12 units/kg/hr, 27.226 mls/hr Documented by: DIDI Discontinued Medications Diltiazem HCl (Diltiazem 5 Mg/Ml Sdv) 10 mg IV NOW ONE Stop: 03/29/21 15:56 Last Admin: 03/29/21 16:14 Dose: 10 mg Documented by: DIDI Furosemide (Furosemide 100 Mg/10 Ml Vial) 60 mg IV NOW ONE Stop: 03/29/21 14:42 Last Admin: 03/29/21 15:02 Dose: 60 mg Documented by: DIDI Heparin Sodium (Porcine) (Heparin 5,000 Unit/Ml Vial) 5,000 unit IV NOW ONE Stop: 03/29/21 16:30 Last Admin: 03/29/21 17:23 Dose: 5,000 unit Documented by: DIDI Levofloxacin (Levaquin) 500 mg in 100 mls @ 100 mls/hr IV NOW ONE Stop: 03/29/21 16:31 Last Infusion: 03/29/21 17:23 Dose: 0 mls/hr Documented by: Admin: 03/29/21 16:18 Dose: 100 mls/hr Documented by: DIDI Nitroglycerin (Nitroglycerin Oint 1 Inch/Gm Oint...G.) 1 inch TOP NOW ONE Stop: 03/29/21 16:44 Last Admin: 03/29/21 17:05 Dose: 1 inch Documented by: DIDI Vital Signs Vital signs: Vital Signs - 8 hr 03/29/21 14:13 03/29/21 14:15 03/29/21 14:30 Temperature 98.4 F Pulse Rate 116 H 116 H 109 H Respiratory Rate 29 H 33 H Blood Pressure 133/99 H 133/99 H Pulse Oximetry 87 L 88 L 96 03/29/21 15:00 03/29/21 15:13 03/29/21 15:30 Temperature Pulse Rate 119 H 127 H 129 H Respiratory Rate 32 H 48 H 35 H Blood Pressure 215/100 H Pulse Oximetry 91 80 L 90 L 03/29/21 16:00 03/29/21 16:01 03/29/21 16:14 Temperature Pulse Rate 132 H 132 H 134 H Respiratory Rate 40 H 37 H Blood Pressure 216/103 H 216/103 H Pulse Oximetry 91 91 03/29/21 16:22 03/29/21 16:30 03/29/21 17:00 Temperature Pulse Rate 110 H 105 H 97 H Respiratory Rate 35 H 35 H 31 H Blood Pressure 173/81 H 163/74 H Pulse Oximetry 88 L 93 95 03/29/21 17:01 03/29/21 17:05 03/29/21 17:30 Temperature Pulse Rate 96 H 93 H 91 H Respiratory Rate 30 H 27 H Blood Pressure 115/55 L 115/55 L Pulse Oximetry 95 99 03/29/21 17:46 03/29/21 18:00 03/29/21 18:30 Temperature Pulse Rate 92 H 96 H 94 H Respiratory Rate 28 H 5 L 23 Blood Pressure 119/63 131/65 131/67 Pulse Oximetry 83 L 100 99 03/29/21 19:00 Temperature Pulse Rate 96 H Respiratory Rate 23 Blood Pressure 134/76 Pulse Oximetry 98 Medical Decision Making Medical Records Medical records reviewed: Yes I reviewed the patient's medical records. Lab Data Lab results reviewed: Yes I reviewed the patient's lab results. Result diagrams: 03/29/21 14:50 03/29/21 14:50 Labs: Lab Results 03/29/21 03/29/21 03/29/21 Range/Units 14:50 14:50 14:50 WBC 9.9 (4.5-11.0) X10^3/uL RBC 3.62 L (4.5-5.9) X10^6/uL Hgb 11.3 L (13.5-17.5) g/dL Hct 34.0 L (41-53) % MCV 94.0 (80-100) fL MCH 31.2 (26-34) PG MCHC 33.2 (30-36) % RDW 15.3 H (11.6-14.8) % Plt Count 177 (150-400) X10^3/uL Neut % (Auto) 77.0 H (50-75) % Lymph % (Auto) 11.2 L (25-40) % [place] % (Auto) 11.4 (3-14) % Eos % (Auto) 0.1 L (2-4) % Baso % (Auto) 0.3 (0-2) % Neut # (Auto) 7600 H (6995-4786) /uL Lymph # (Auto) 1100 (0961-1952) /uL [place] # (Auto) 1100 H (0-900) /uL Eos # (Auto) 0 (0-450) /uL Baso # (Auto) 0 (0-100) /uL ABG pH (7.35-7.45) ABG pCO2 (35-45) mmHg ABG pO2 (80-100) mmHg ABG HCO3 (22-26) mmol/L ABG Total CO2 (21-31) mmol/L ABG O2 Saturation (95-100) % ABG Base Excess (-2-2) mmol/L FiO2 Sodium 140 (137-145) mmol/L Potassium 4.9 (3.4-5.1) mmol/L Chloride 108 H (98-107) mmol/L Carbon Dioxide 22 (22-32) mmol/L BUN 47 H (9-20) mg/dL Creatinine 2.40 H (0.66-1.25) mg/dL Estimated GFR 26.0 L (>60) mL/min BUN/Creatinine Ratio 19.6 (6-22) Glucose 194 H (80-110) mg/dL Lactate 1.8 (0.7-2.1) mmol/L Calcium 9.9 (8.4-10.2) mg/dL Total Bilirubin 0.7 (0.2-1.3) mg/dL AST 60 H (17-59) IU/L ALT 15 (<50) IU/L Alkaline Phosphatase 67 (38-126) U/L Total Creatine Kinase (55-170) U/L CK-MB (CK-2) (<2.37) ng/mL CK-MB (CK-2) Rel Index (1.5-5.0) % Troponin I (0.01-0.034) ng/mL NT-Pro-B Natriuret Pep (<450) pg/mL Total Protein 7.9 (6.3-8.2) g/dL Albumin 4.2 (3.5-5.0) g/dL Globulin 3.7 (1.7-4.1) g/dL Albumin/Globulin Ratio 1.1 (1.0-2.8) Procalcitonin (<0.5) ng/mL SARS-CoV-2 (PCR) (Negative) 03/29/21 03/29/21 03/29/21 Range/Units 14:50 14:50 14:50 WBC (4.5-11.0) X10^3/uL RBC (4.5-5.9) X10^6/uL Hgb (13.5-17.5) g/dL Hct (41-53) % MCV (80-100) fL MCH (26-34) PG MCHC (30-36) % RDW (11.6-14.8) % Plt Count (150-400) X10^3/uL Neut % (Auto) (50-75) % Lymph % (Auto) (25-40) % [place] % (Auto) (3-14) % Eos % (Auto) (2-4) % Baso % (Auto) (0-2) % Neut # (Auto) (9008-0286) /uL Lymph # (Auto) (2368-0847) /uL [place] # (Auto) (0-900) /uL Eos # (Auto) (0-450) /uL Baso # (Auto) (0-100) /uL ABG pH (7.35-7.45) ABG pCO2 (35-45) mmHg ABG pO2 (80-100) mmHg ABG HCO3 (22-26) mmol/L ABG Total CO2 (21-31) mmol/L ABG O2 Saturation (95-100) % ABG Base Excess (-2-2) mmol/L FiO2 Sodium (137-145) mmol/L Potassium (3.4-5.1) mmol/L Chloride (98-107) mmol/L Carbon Dioxide (22-32) mmol/L BUN (9-20) mg/dL Creatinine (0.66-1.25) mg/dL Estimated GFR (>60) mL/min BUN/Creatinine Ratio (6-22) Glucose (80-110) mg/dL Lactate (0.7-2.1) mmol/L Calcium (8.4-10.2) mg/dL Total Bilirubin (0.2-1.3) mg/dL AST (17-59) IU/L ALT (<50) IU/L Alkaline Phosphatase (38-126) U/L Total Creatine Kinase 566 H (55-170) U/L CK-MB (CK-2) 24.30 H (<2.37) ng/mL CK-MB (CK-2) Rel Index 4.3 (1.5-5.0) % Troponin I 3.890 H* (0.01-0.034) ng/mL NT-Pro-B Natriuret Pep 97470 H (<450) pg/mL Total Protein (6.3-8.2) g/dL Albumin (3.5-5.0) g/dL Globulin (1.7-4.1) g/dL Albumin/Globulin Ratio (1.0-2.8) Procalcitonin 0.15 (<0.5) ng/mL SARS-CoV-2 (PCR) (Negative) 03/29/21 03/29/21 Range/Units 15:00 17:44 WBC (4.5-11.0) X10^3/uL RBC (4.5-5.9) X10^6/uL Hgb (13.5-17.5) g/dL Hct (41-53) % MCV (80-100) fL MCH (26-34) PG MCHC (30-36) % RDW (11.6-14.8) % Plt Count (150-400) X10^3/uL Neut % (Auto) (50-75) % Lymph % (Auto) (25-40) % [place] % (Auto) (3-14) % Eos % (Auto) (2-4) % Baso % (Auto) (0-2) % Neut # (Auto) (6974-0992) /uL Lymph # (Auto) (4576-7409) /uL [place] # (Auto) (0-900) /uL Eos # (Auto) (0-450) /uL Baso # (Auto) (0-100) /uL ABG pH 7.34 L (7.35-7.45) ABG pCO2 33.3 L (35-45) mmHg ABG pO2 82 (80-100) mmHg ABG HCO3 18 L (22-26) mmol/L ABG Total CO2 19 L (21-31) mmol/L ABG O2 Saturation 95 (95-100) % ABG Base Excess -8.0 L (-2-2) mmol/L FiO2 50 Sodium (137-145) mmol/L Potassium (3.4-5.1) mmol/L Chloride (98-107) mmol/L Carbon Dioxide (22-32) mmol/L BUN (9-20) mg/dL Creatinine (0.66-1.25) mg/dL Estimated GFR (>60) mL/min BUN/Creatinine Ratio (6-22) Glucose (80-110) mg/dL Lactate (0.7-2.1) mmol/L Calcium (8.4-10.2) mg/dL Total Bilirubin (0.2-1.3) mg/dL AST (17-59) IU/L ALT (<50) IU/L Alkaline Phosphatase (38-126) U/L Total Creatine Kinase (55-170) U/L CK-MB (CK-2) (<2.37) ng/mL CK-MB (CK-2) Rel Index (1.5-5.0) % Troponin I (0.01-0.034) ng/mL NT-Pro-B Natriuret Pep (<450) pg/mL Total Protein (6.3-8.2) g/dL Albumin (3.5-5.0) g/dL Globulin (1.7-4.1) g/dL Albumin/Globulin Ratio (1.0-2.8) Procalcitonin (<0.5) ng/mL SARS-CoV-2 (PCR) Negative (Negative) Imaging Data Chest x-ray: Radiologist's Impression: [facility] [place] [id number] ReportSigned Patient: Thaddeus Chilel BMR#: [id number]: [id number]/Sex: 85 / MDate of Service: 03/29/21Loc: EDAccession Number: [id number] Procedure: XR chest 1V Ordering Provider: James Buenrostro D.O. PROCEDURE: XR CHEST 1V INDICATIONS: SOB TECHNIQUE: One view of the chest was acquired. COMPARISON: [facility], CR, XR CHEST 1V, 10/24/2018, 16:52. [facility], CR, XR CHEST 1V, 08/31/2018, 17:01. FINDINGS: Surgical changes and devices: None. Lungs and pleura: There is moderate multifocal patchy bilateral upper lung and right lower lung airspace opacity. No pleural effusions or pneumothorax. Mediastinum: Mediastinal contours appear normal. Heart size is normal. Bones and chest wall: No suspicious bony lesions. Overlying soft tissues appear unremarkable. IMPRESSION: Bilateral multifocal pneumonia. Dictated by: Coy Montoya M.D. on 03/29/2021 at 15:17 Approved by: Coy Montoya M.D. on 03/29/2021 at 15:17 ECG Data Attestation: I personally reviewed and interpreted this ECG as follows: Prior ECG tracings: not available for review Interpretation: Sinus tachycardia Ventricular rate of 109 Frequent PVCs QRS 116 milliseconds QTC 479 milliseconds Left bundle branch block appearing changes Comparison EKG from 2018 appears similar to today's [facility] Narrative Medical decision making narrative: Upon arrival patient was hypoxic. He is placed on 2 L of nasal cannula which did increase his oxygen saturations. He has crackles bilaterally. Patient tachycardic. Appears to be sinus tachycardi a. EKG appears similar to prior. I did discuss the case with Dr. beckman with Cardiology was able to review today's EKG in prior EKG who agrees that it was a left bundle-branch block appearing not a ST-elevation LA. patient denies chest pain. Chest x-ray is concerning for pneumonia so patient was given antibiotics given his presentation and also his increased sputum production. However I feel that his symptoms more likely related to CHF rather than pneumonia given his lack of leukocytosis, normal procalcitonin, normal lactate and his other physical exam presentation. His BNP also elevated. Troponin is elevated. He was started on heparin. He was given Lasix and eventually did start to diurese. His kidney function is at baseline. Patient's respiratory status started to decrease. He was placed on non-rebreather. Was given nitro paste. Had multiple discussions with him regarding his wishes with regard to intubation in he clearly stated that he did not want intubated. He did express that this could potentially lead to his and he expressed understanding of this. He is placed on BiPAP. Afterwards patient's respiratory status improved and he stated that he felt much better. Our hospital does not have any ICU beds. Contacted [facility], [facility], [facility] and there were no bed availability. I did discuss the case with Dr. Alvarez with Internal Medicine at [facility] who accepts the patient for transport. Patient is stable for transfer. I did discuss with him the need for transport and he expressed understanding of that. Critical Care Time Critical Care Time Critical Care Time: Yes Total Critical Care Time: 45 Attestation: The high probability of a clinically significant, sudden or life threatening deterioration of the respiratory, cardiovascular system(s) required my full and direct attention, intervention and personal management. The aggregate critical c are time was 45 minutes. This time is in addition to time spent performing reported procedures but includes the following: [X] Data Review and interpretation [X] Patient assessment and monitoring of vital signs [X] Documentation [X] Medication orders and management Discharge Plan Departure Patient Disposition: [facility] Clinical Impression: Acute exacerbation of CHF (congestive heart failure), Hypoxia, Non-ST elevation LA (NSTEMI) Prescriptions: No Action insulin NPH and regular human 100 unit/mL (70-30) Insulin Pen 1 dose SUBCUT BID RF: 0 colchicine 0.6 mg tablet 0.6 mg PO Q OTHER DAY Qty: 20 RF: 0 DM HYDROBROM/GG/PSE HCL (#GUIATUSS) 1 cap PO PRN PRN (Reason: Cough) Qty: 0 RF: 0 furosemide 20 MG tablet 20 mg PO QDAY Qty: 0 RF: 0 losartan 25 mg tablet 1 tab PO QPM RF: 0 ezetimibe 10 mg tablet 1 tab PO DAILY RF: 0 CoQ-10 1 cap PO DAILY RF: 0 Oil Of Oregano 1 cap PO DAILY RF: 0 Probiotic 1 cap PO DAILY RF: 0 olive leaf extract 1 cap PO DAILY RF: 0 metoprolol succinate 50 MG 75 mg PO BID RF: 0 clopidogrel [Plavix] 75 mg Tablet 75 mg PO DAILY Qty: 30 RF: 6 Referrals: Tracy Sanchez MD [Primary Care Provider] -
[2021-03-29 14:59] LABS: Add Manual Diff / Slide Review NO; Basophils Absolute Auto 0 /uL (0-100); Basophils Percent Auto 0.3 % (0-2); Eosinophils Absolute Auto 0 /uL (0-450); Eosinophils Percent Auto 0.1 % (2-4); Hemoglobin 11.3 g/dL (13.5-17.5); Lymphocytes Absolute Auto 1100 /uL (1100-4500); Lymphocytes Percent Auto 11.2 % (25-40); Mean Corpuscular HGB Conc 33.2 % (30-36); Mean Corpuscular Hemoglobin 31.2 PG (26-34); Monocytes Absolute Auto 1100 /uL (0-900); Monocytes Percent Auto 11.4 % (3-14); Neutrophils Absolute Auto 7600 /uL (1500-7000); Platelet Count 177 X10^3/uL (150-400); Red Blood Cell Count 3.62 X10^6/uL (4.5-5.9); Red Cell Distribution Width 15.3 % (11.6-14.8); White Blood Cell Count 9.9 X10^3/uL (4.5-11.0)
[2021-03-29] MEDS: FUROSEMIDE 100 MG/10 ML VIAL 60 MG IV (15:02)
[2021-03-29 15:18] LABS: Alanine Aminotransferase 15 IU/L (<50); Albumin 4.2 g/dL (3.5-5.0); Albumin Globulin Ratio 1.1 (1.0-2.8); Alkaline Phosphatase 67 U/L (38-126); Aspartate Aminotransferase 60 IU/L (17-59); BUN Creatinine Ratio 19.6 (6-22); Bilirubin Total 0.7 mg/dL (0.2-1.3); Blood Urea Nitrogen 47 mg/dL (9-20); Calcium 9.9 mg/dL (8.4-10.2); Carbon Dioxide 22 mmol/L (22-32); Chloride 108 mmol/L (98-107); Globulin 3.7 g/dL (1.7-4.1); Glucose 194 mg/dL (80-110); HEMOLYSIS < 15 (0-50); Lactate (Lactic Acid) 1.8 mmol/L (0.7-2.1); Potassium 4.9 mmol/L (3.4-5.1); Sodium 140 mmol/L (137-145); Total Protein 7.9 g/dL (6.3-8.2)
--- NOTE | 2021-03-29 15:30 | PC.NURSE ---
CALL CENTER RECRUITER notified me of patient feeling worse, nauseated, o2 sat dropping. arrived in room with dr. montague to find patient sitting up with oxygen disconnected. patient sats 80%, placed on non rebreather at 15l.
[2021-03-29 15:49] LABS: Creatine Kinase 566 U/L (55-170)
[2021-03-29 16:05] LABS: Procalcitonin 0.15 ng/mL (<0.5)
[2021-03-29 16:09] LABS: COVID19 - ADMIT (NP swab/PCR) Negative (Negative)
[2021-03-29] MEDS: dilTIAZem 5 MG/ML SDV 10 MG IV (16:14)
[2021-03-29] MEDS: ONDANSETRON 4 MG/2 ML INJ (16:15)
[2021-03-29] MEDS: levoFLOXacin 500 MG/100 ML PIGGYBACK 100 MG IV (16:18)
[2021-03-29 16:19] LABS: CKMB % Relative Index 4.3 % (1.5-5.0)
[2021-03-29] MEDS: NITROGLYCERIN OINT 1 INCH/GM OINT...G. TOP (17:05)
[2021-03-29] MEDS: HEPARIN 5,000 UNIT/ML VIAL 5000 UNIT IV (17:23)
[2021-03-29] MEDS: HEPARIN DRIP 25,000 UNIT/500 ML IV.SOLN 27.226 UNIT IV (17:27)
--- NOTE | 2021-03-29 17:31 | PC.NURSE ---
called to place line for pt via US. [employer] Midline 20g 8cm cath placed upper rt arm basilic veil, good blood return and flushes well. Report to Flores CARY.
[2021-03-29 17:36] LABS: NT-proBNP (BNP-Adult 18+) 24800 pg/mL (<450)
[2021-03-29 17:51] LABS: Fractionated Inspired Oxygen 50; HCO3 ABG 18 mmol/L (22-26); Oxygen Saturation ABG 95 % (95-100); PCO2 ABG 33.3 mmHg (35-45); PO2 ABG 82 mmHg (80-100); TCO2 ABG 19 mmol/L (21-31); pH ABG 7.34 (7.35-7.45)
--- NOTE | 2021-03-29 18:46 | PC.NURSE ---
bipap 12/6, 50 percent Fio2. after abg drawn and pt stood up. right midline cath. occluded . would not flush. pt was holding his arm flexed after abg.multiple attempts to reposition, flush, change dressing. midline remained occluded. removed. dressing applied. heparin switched to left ac peripheral heplock
[2021-03-29] MEDS: FUROSEMIDE 40 MG/4 ML VIAL IV (19:45)
== END 2021-03-29 21:45 | disposition short-term general hospital (02) ==
PROVIDERS: Emergency Provider Emergency Medicine; Family Provider Internal Medicine; PCP Internal Medicine
DX: I50.9 Heart failure, unspecified (principal); I21.4 Non-ST elevation (NSTEMI) myocardial infarction; R09.02 Hypoxemia; R05 Cough; Z20.822 Contact with and (suspected) exposure to COVID-19
CPT/HCPCS: 36415; 36600; 51798; 71045; 80053; 82550; 82553; 82805; 83605; 83880; 84145; 84484; 85025; 87040; 87635; 93005; 94660; 96365; 96366; 96367; 96375; 96376; 99285; 99291; C9803; J1644; J1940; J1956; J2405

== ENCOUNTER → 2021-07-16 09:13 | Outpatient (CLI) | payer MEDICARE, SELFPAY ==
[2018-08-31 14:24] VITALS: BMI 33.7
[2021-03-29 18:59] VITALS: PULSE 96; RESP 24; O2SAT 99
[2021-07-16 10:59] LABS: Add Manual Diff / Slide Review NO; Basophils Absolute Auto 0 /uL (0-100); Basophils Percent Auto 0.5 % (0-2); Eosinophils Absolute Auto 300 /uL (0-450); Hematocrit 33.5 % (41-53); Lymphocytes Absolute Auto 1600 /uL (1100-4500); Lymphocytes Percent Auto 25.8 % (25-40); Mean Corpuscular HGB Conc 32.9 % (30-36); Mean Corpuscular Hemoglobin 30.6 PG (26-34); Mean Corpuscular Volume 92.9 fL (80-100); Monocytes Absolute Auto 700 /uL (0-900); Monocytes Percent Auto 11.6 % (3-14); Neutrophils Absolute Auto 3700 /uL (1500-7000); Neutrophils Percent Auto 58.1 % (50-75); Platelet Count 147 X10^3/uL (150-400); Red Blood Cell Count 3.61 X10^6/uL (4.5-5.9); Red Cell Distribution Width 16.4 % (11.6-14.8); White Blood Cell Count 6.4 X10^3/uL (4.5-11.0)
[2021-07-16 11:12] LABS: Hemoglobin A1C% w Est Avg Glu 6.7 % (4.0-6.0)
[2021-07-16 11:30] LABS: Albumin 3.8 g/dL (3.5-5.0); BUN Creatinine Ratio 22.1 (6-22); Blood Urea Nitrogen 53 mg/dL (9-20); Calcium 9.3 mg/dL (8.4-10.2); Carbon Dioxide 15 mmol/L (22-32); Chloride 118 mmol/L (98-107); Estimated Glomerular Filt Rate 25.9 mL/min (>60); Glucose 139 mg/dL (80-110); HEMOLYSIS < 15 (0-50); Phosphorous 3.4 mg/dL (2.3-3.7); Sodium 141 mmol/L (137-145)
[2021-07-16 11:38] LABS: Potassium 5.8 mmol/L (3.4-5.1)
[2021-07-16 13:04] LABS: Appearance Urine UA CLEAR; Bilirubin Urine UA NEGATIVE (NEGATIVE); Color Urine UA YELLOW; Glucose Urine UA NEGATIVE (Negative); Ketones Urine UA NEGATIVE (NEGATIVE); Leukocyte Esterase Urine UA TRACE (NEGATIVE); Nitrite Urine UA NEGATIVE (Negative); Occult Blood Urine UA TRACE-LYSED (Negative); Protein Urine UA NEGATIVE (Negative); Specific Gravity Urine UA 1.015 (1.000-1.035); Urobilinogen Urine UA 0.2 E.U./dL (0.2)
[2021-07-16 13:22] LABS: RBC Urine 0-1/HPF (0-5/HPF); WBC Urine 1-5/HPF (0-5/HPF)
[2021-07-16 13:23] LABS: Amorphous Sediment Urine 1+; Bacteria Urine Occasional (0-1); Culture Indicated Urine Specimen Cultured; Squamous Epithelial Cell Urine 0-1 /HPF (0-5/HPF)
[2021-07-16 15:49] LABS: Creatinine Urine Random 96.7 mg/dL; Protein (Total) Urine Random 13 mg/dL (0-12); Protein Creatinine Ratio Urine 0.13 GRAM/24H
== END ==
PROVIDERS: Family Provider Internal Medicine; PCP Family Medicine; Referring Provider Physician Assistant; Visit Provider Physician Assistant
DX: E11.9 Type 2 diabetes mellitus without complications (principal); N18.32 Chronic kidney disease, stage 3b; R06.02 Shortness of breath; Z82.49 Family history of ischemic heart disease and other diseases of the circulatory system
CPT/HCPCS: 36415; 80069; 81001; 82570; 83036; 84156; 85025; 87086

== ENCOUNTER 2021-07-18 08:30 | Outpatient (RCR) | payer MEDICARE, SELFPAY ==
[2018-08-31 14:24] VITALS: BMI 33.7
== END 2021-07-18 10:30 ==
LOC: CAR 08:30
PROVIDERS: Family Provider Internal Medicine; PCP Internal Medicine; Referring Provider Internal Medicine Cardiovascular Disease; Visit Provider Internal Medicine Cardiovascular Disease
DX: I50.22 Chronic systolic (congestive) heart failure (principal)
CPT/HCPCS: 93798

== ENCOUNTER 2021-08-10 19:00 | Emergency (ER) | payer MEDICARE, SELFPAY ==
[2018-08-31 14:24] VITALS: BMI 33.7
[2021-03-29 18:59] VITALS: PULSE 96; RESP 24; O2SAT 99
--- NOTE | 2021-08-10 19:14 | DI.RAD.S_ITS ---
PROCEDURE: XR CHEST 2V INDICATIONS: SOB last night TECHNIQUE: 2 views of the chest were acquired. COMPARISON: [facility], CR, XR CHEST 1V, 03/29/2021, 14:57. FINDINGS: Surgical changes and devices: None. Lungs and pleura: Moderate diffuse reticulonodular pulmonary opacity. No pleural effusions or pneumothorax. Mediastinum: Mediastinal contours are normal. Heart size is normal. Bones and chest wall: No suspicious bony abnormalities. Soft tissues appear unremarkable. IMPRESSION: Moderate bilateral pneumonia. Dictated by: Coy Montoya M.D. on 08/10/2021 at 20:11 Approved by: Coy Montoya M.D. on 08/10/2021 at 20:12
[2021-08-10 19:17] VITALS: BP 199/85; PULSE 87; RESP 22; TEMP 36.7; O2SAT 98; BMI 33.5
--- NOTE | 2021-08-10 19:38 | ED.URI ---
HPI - URI/Sore Throat General Chief Complaint: Shortness of Breath/Dyspnea Stated Complaint: CHF EXCERBATION Time Seen by Provider: 08/10/21 19:31 Source: patient and RN notes reviewed Mode of arrival: Family Vehicle Limitations: no limitations History of Present Illness HPI Narrative: Patient sent here from urgent care for evaluation for congestive heart failure/dyspnea. However, patient states he is here because of productive white cough the started yesterday. Last night. He could not sleep. Denies denies any chest pain. Denies any swelling to his limbs or chest or abdomen or face. He states does not feel like congestive heart failure. He did have COVID vaccine with the booster as well. Denies any sick contacts. However complains of chills, no fever. Patient had taken off of his diuretic by his pigs feet cleaner July 16, 2021. About 2 or 3 weeks ago. Has been doing well. It was removed due to high creatinine levels. No changes in urination. Patient denies any leg pain or chest pain or palpitations. Denies any worsening with walking or lying flat. COVID swab was done at Urgent Care in is negative. He is agreeable for respiratory panel swab. Denies any weight gain. He states his weight is actually down. Related Data Home Medications Medication Instructions Recorded Confirmed insulin NPH-regular 70-30 U-100 1 dose SUBCUT BID 04/29/18 07/11/21 insulin 100 unit/mL subcutaneous pen CoQ-10 1 cap PO DAILY 08/31/18 07/11/21 Oil Of Oregano 1 cap PO DAILY 08/31/18 07/11/21 Probiotic 1 cap PO DAILY 08/31/18 07/11/21 olive leaf extract 1 cap PO DAILY 08/31/18 07/11/21 metoprolol succinate 75 mg PO BID 09/01/18 07/11/21 magnesium PO 07/11/21 sacubitril 24 mg-valsartan 26 mg 1 tab PO BID 07/11/21 07/11/21 tablet (Entresto) Previous Rx's Medication Instructions Recorded colchicine 0.6 mg tablet 0.6 mg PO Q OTHER DAY #20 tab 04/29/18 clopidogrel 75 mg tablet (Plavix) 75 mg PO DAILY #30 tab 09/03/18 Allergies Allergy/AdvReac Type Severity Reaction Status Date / Time allopurinol Allergy Intermediate rash Verified 08/10/21 19:21 Review of Systems Review of Systems Narrative: GENERAL: Denies chills, fatigue, malaise, fever, sweats. HEENT: Denies sinus pain, ear pain, sore throat RESPIRATORY: Denies dyspnea, positive for productive cough CARDIOVASCULAR: Denies chest pain, palpitations, denies any peripheral edema GASTROINTESTINAL: Denies nausea, vomiting, abdominal pain : Denies dysuria, frequency, hematuria MUSCULOSKELETAL: denies muscle or bony pain SKIN: Denies rash, skin lesions NEUROLOGIC: Denies weakness, numbness ROS Unobtainable: All systems reviewed & are unremarkable except as noted in HPI and below Patient History Medical History CKD (chronic kidney disease) Congestive heart failure Coronary artery disease Diabetes Hypertension Surgical History No pertinent past surgical history Social History household members: spouse Smoking Status: Former smoker Smoking Status: Former smoker alcohol intake frequency: other Substance Use Type: does not use Exam Narrative Exam Narrative: GENERAL: in no distress, not toxic not dyspneic HEAD: Normocephalic. EYES: Pupils equal round No scleral icterus. No injection no discharge ENT: Mucous membranes moist. NECK: Trachea midline. CARDIOVASCULAR: Regular rate and rhythm without murmurs RESPIRATORY: Clear to auscultation. Breath sounds equal bilaterally. No wheezes, rales, or rhonchi. No respiratory distress. Speaking full sentences. GASTROINTESTINAL: Abdomen soft, non-tender EXTREMITIES: No gross deformities. 1+ edema at the sock line. Bilateral. No calf tenderness. BACK: No flank tenderness. NEURO: AOx4. SKIN: Warm and dry PSYCH: Not anxious, is cooperative Initial Vital Signs Initial Vital Signs: Vital Signs Temperature 98.0 F 08/10/21 19:17 Pulse Rate 87 08/10/21 19:17 Respiratory Rate 22 08/10/21 19:17 Blood Pressure 199/85 H 08/10/21 19:17 Pulse Oximetry 98 08/10/21 19:17 Course Course Course Narrative: No new issues during course of stay Orders Ordered: Discontinued Medications Benzonatate (Benzonatate 100 Mg Capsule) 100 mg PO NOW ONE Stop: 08/10/21 19:44 Last Admin: 08/10/21 19:48 Dose: 100 mg Documented by: CHERYLE Reevaluation(s) Reevaluation #1: Reviewed with patient laboratory studies and imaging. They are concerning abnormal results for troponin and renal function. As well as BNP. Being off of the diuretics could be helping the kidneys however at the cause of the heart and lungs. Implored with patient stay. He states he has to go to work tomorrow morning. He refuses stay. Reviewed with patient risk of leaving against medical advice including heart attack kidney failure respiratory failure per min injury. Benefits include for observation and Cardiology consult and services. He is awake alert or x4. Symptoms and x-ray results could be pneumonia however could also be CHF Time: 21:39 Vital Signs Vital signs: Vital Signs - 8 hr 08/10/21 19:17 08/10/21 21:43 08/10/21 21:47 Temperature 98.0 F Pulse Rate 87 105 H 97 H Respiratory Rate 22 26 H 28 H Blood Pressure 199/85 H 197/84 H Pulse Oximetry 98 98 MDM - URI/Sore Throat Differential Diagnosis Differential diagnosis: Likely upper respiratory infection and other (Non-STEMI/STEMI/CHF exacerbation/pneumonia/acute on chronic renal injury) Lab Data Result diagrams: 08/10/21 20:01 08/10/21 20:01 Labs: Lab Results 08/10/21 08/10/21 08/10/21 Range/Units 19:41 20:01 20:01 WBC 9.4 (4.5-11.0) X10^3/uL RBC 3.38 L (4.5-5.9) X10^6/uL Hgb 10.4 L (13.5-17.5) g/dL Hct 31.7 L (41-53) % MCV 93.9 (80-100) fL MCH 30.7 (26-34) PG MCHC 32.7 (30-36) % RDW 16.4 H (11.6-14.8) % Plt Count 143 L (150-400) X10^3/uL Neut % (Auto) 59.7 (50-75) % Lymph % (Auto) 22.8 L (25-40) % [place] % (Auto) 12.4 (3-14) % Eos % (Auto) 4.4 H (2-4) % Baso % (Auto) 0.7 (0-2) % Neut # (Auto) 5600 (6343-7638) /uL Lymph # (Auto) 2200 (9489-0847) /uL [place] # (Auto) 1200 H (0-900) /uL Eos # (Auto) 400 (0-450) /uL Baso # (Auto) 100 (0-100) /uL Sodium 137 (137-145) mmol/L Potassium 5.2 H (3.4-5.1) mmol/L Chloride 110 H (98-107) mmol/L Carbon Dioxide 20 L (22-32) mmol/L BUN 28 H (9-20) mg/dL Creatinine 2.12 H (0.66-1.25) mg/dL Estimated GFR 29.9 L (>60) mL/min BUN/Creatinine Ratio 13.2 (6-22) Glucose 72 L (80-110) mg/dL Calcium 9.2 (8.4-10.2) mg/dL Magnesium 1.5 L (1.6-2.3) mg/dL Total Bilirubin 0.7 (0.2-1.3) mg/dL AST 39 (17-59) IU/L ALT 13 (<50) IU/L Alkaline Phosphatase 64 (38-126) U/L Total Creatine Kinase 312 H (55-170) U/L CK-MB (CK-2) 5.32 H (<2.37) ng/mL CK-MB (CK-2) Rel Index 1.7 (1.5-5.0) % Troponin I 1.420 H* (0.01-0.034) ng/mL NT-Pro-B Natriuret Pep 44769 H (<450) pg/mL Total Protein 7.6 (6.3-8.2) g/dL Albumin 4.1 (3.5-5.0) g/dL Globulin 3.5 (1.7-4.1) g/dL Albumin/Globulin Ratio 1.2 (1.0-2.8) Lipase 39 (23-300) U/L Chlamy pneumoniae PCR Not detected (Not Detect) Adenovirus (PCR) Not detected (Not Detect) B. pertussis DNA (PCR) Not detected (Not Detecte) B.parapertussis DNA PCR Not detected (Not Detecte) Coronavirus OC43 (PCR) Not detected (Not Detect) Coronavirus HKU1 (PCR) Not detected (Not Detect) Coronavirus 229E (PCR) Not detected (Not Detect) SARS-CoV-2 (PCR) Not detected (Not Detecte) Coronavirus NL63 (PCR) Not detected (Not Detect) Human Metapneumovir PCR Not detected (Not Detect) Influenza Type A (PCR) Not detected (Not Detect) Influenza Type B (PCR) Not detected (Not Detect) M. pneumoniae (PCR) Not detected (Not Detect) Parainfluenza 1 (PCR) Not detected (Not Detect) Parainfluenza 2 (PCR) Not detected (Not Detect) Parainfluenza 3 (PCR) Not detected (Not Detect) Parainfluenza 4 (PCR) Not detected (Not Detect) RSV (PCR) Not detected (Not Detect) Entero/Rhino (PCR) Not detected (Not Detect) Imaging Data Chest x-ray: Radiologist's Impression: [address] [address] XRay Report Signed Patient: Thaddeus Chilel MR#: [id number] : 1935 Acct:[id number] Age/Sex: 86 / M Date of Service: 08/10/21 Loc: Accession Number: [id number] ?? Procedure: XR chest 2V Ordering Provider: Eitan Patton MD PROCEDURE:? XR CHEST 2V ? INDICATIONS:? SOB last night ? TECHNIQUE:? 2 views of the chest were acquired.? ? COMPARISON:? [facility], , XR CHEST 1V, 03/29/2021, 14:57. ? FINDINGS:? ? Surgical changes and devices:? None.? ? Lungs and pleura:? Moderate diffuse reticulonodular pulmonary opacity.? No pleural effusions or pneumothorax.? ? Mediastinum:? Mediastinal contours are normal.? Heart size is normal.? ? Bones and chest wall:? No suspicious bony abnormalities.? Soft tissues appear unremarkable.? ? IMPRESSION:? Moderate bilateral pneumonia. ? ? Dictated by: Coy Montoya M.D. on 08/10/2021 at 20:11 ? ? Approved by: Coy Montoya M.D. on 08/10/2021 at 20:12 ? ECG Data Interpretation: Sinus rhythm with occasional PVC. Rate 98. Possible lateral subendocardial injury. MDM Narrative Medical decision making narrative: Implored with patient to be admitted or transferred for findings on x-ray as well as blood studies. Reviewed with patient risk of leaving against medical advise including heart attack permanent injury kidney failure/CHF exacerbation/respiratory failure. He is awake alert oriented x4. Discharge Plan Departure Patient Disposition: Left Against Medical Advice Clinical Impression: Cough, Non-ST elevated myocardial infarction (non-STEMI) CKD (chronic kidney disease) Qualifiers: Chronic kidney disease stage: unspecified stage Qualified Code(s): N18.9 - Chronic kidney disease, unspecified Congestive heart failure Qualifiers: Heart failure type: unspecified Heart failure chronicity: unspecified Qualified Code(s): I50.9 - Heart failure, unspecified Activity Restrictions/Additional Instructions: Return immediately if you change your mind to be admitted Prescriptions: No Action insulin NPH and regular human 100 unit/mL (70-30) Insulin Pen 1 dose SUBCUT BID RF: 0 colchicine 0.6 mg tablet 0.6 mg PO Q OTHER DAY Qty: 20 RF: 0 magnesium PO RF: 0 Entresto 24-26 mg tablet 1 tab PO BID RF: 0 CoQ-10 1 cap PO DAILY RF: 0 Oil Of Oregano 1 cap PO DAILY RF: 0 Probiotic 1 cap PO DAILY RF: 0 olive leaf extract 1 cap PO DAILY RF: 0 metoprolol succinate 50 MG 75 mg PO BID RF: 0 clopidogrel [Plavix] 75 mg Tablet 75 mg PO DAILY Qty: 30 RF: 6 Referrals: Henrik Salcedo MD [Primary Care Provider] - Stand Alone Forms: Against Medical Advice
[2021-08-10] MEDS: BENZONATATE 100 MG CAPSULE PO (19:48)
[2021-08-10 20:17] LABS: Add Manual Diff / Slide Review NO; Basophils Absolute Auto 100 /uL (0-100); Basophils Percent Auto 0.7 % (0-2); Eosinophils Absolute Auto 400 /uL (0-450); Eosinophils Percent Auto 4.4 % (2-4); Hematocrit 31.7 % (41-53); Hemoglobin 10.4 g/dL (13.5-17.5); Lymphocytes Absolute Auto 2200 /uL (1100-4500); Lymphocytes Percent Auto 22.8 % (25-40); Mean Corpuscular HGB Conc 32.7 % (30-36); Mean Corpuscular Hemoglobin 30.7 PG (26-34); Mean Corpuscular Volume 93.9 fL (80-100); Monocytes Absolute Auto 1200 /uL (0-900); Monocytes Percent Auto 12.4 % (3-14); Neutrophils Absolute Auto 5600 /uL (1500-7000); Neutrophils Percent Auto 59.7 % (50-75); Platelet Count 143 X10^3/uL (150-400); Red Blood Cell Count 3.38 X10^6/uL (4.5-5.9); Red Cell Distribution Width 16.4 % (11.6-14.8); White Blood Cell Count 9.4 X10^3/uL (4.5-11.0)
[2021-08-10 20:21] LABS: Alanine Aminotransferase 13 IU/L (<50); Albumin 4.1 g/dL (3.5-5.0); Albumin Globulin Ratio 1.2 (1.0-2.8); Alkaline Phosphatase 64 U/L (38-126); Aspartate Aminotransferase 39 IU/L (17-59); BUN Creatinine Ratio 13.2 (6-22); Bilirubin Total 0.7 mg/dL (0.2-1.3); Blood Urea Nitrogen 28 mg/dL (9-20); Calcium 9.2 mg/dL (8.4-10.2); Carbon Dioxide 20 mmol/L (22-32); Chloride 110 mmol/L (98-107); Creatine Kinase 312 U/L (55-170); Estimated Glomerular Filt Rate 29.9 mL/min (>60); Globulin 3.5 g/dL (1.7-4.1); Glucose 72 mg/dL (80-110); Lipase 39 U/L (23-300); Magnesium 1.5 mg/dL (1.6-2.3); Sodium 137 mmol/L (137-145); Total Protein 7.6 g/dL (6.3-8.2)
[2021-08-10 20:22] LABS: HEMOLYSIS 87 (0-50); Potassium 5.2 mmol/L (3.4-5.1)
[2021-08-10 20:36] LABS: CKMB % Relative Index 1.7 % (1.5-5.0); Creatine Kinase MB 5.32 ng/mL (<2.37)
[2021-08-10 20:46] LABS: NT-proBNP (BNP-Adult 18+) 40900 pg/mL (<450)
[2021-08-10 21:07] LABS: Adenovirus Not Detected (Not Detect); B. parapertussis Not Detected (Not Detecte); Bordetella pertussis Not Detected (Not Detecte); Chlamydophila pneumoniae Not Detected (Not Detect); Coronavirus 229E Not Detected (Not Detect); Coronavirus HKU1 Not Detected (Not Detect); Coronavirus NL 63 Not Detected (Not Detect); Coronavirus OC43 Not Detected (Not Detect); Human Metapneumovirus Not Detected (Not Detect); Human Rhinovirus/Enterovirus Not Detected (Not Detect); Influenza A Not Detected (Not Detect); Influenza B Not Detected (Not Detect); Mycoplasma pneumoniae Not Detected (Not Detect); Parainfluenza Virus 1 Not Detected (Not Detect); Parainfluenza Virus 2 Not Detected (Not Detect); Parainfluenza Virus 3 Not Detected (Not Detect); Parainfluenza Virus 4 Not Detected (Not Detect); Respiratory Syncytial Virus Not Detected (Not Detect); SARS- CoV-2 Not Detected (Not Detecte)
[2021-08-10 21:43] VITALS: PULSE 105; RESP 26
[2021-08-10 21:47] VITALS: BP 197/84; PULSE 97; RESP 28; O2SAT 98
== END 2021-08-10 21:59 | disposition left against medical advice (07) ==
PROVIDERS: Emergency Provider Emergency Medicine; Family Provider Internal Medicine; PCP Family Medicine
DX: I21.4 Non-ST elevation (NSTEMI) myocardial infarction (principal); N18.9 Chronic kidney disease, unspecified; I50.9 Heart failure, unspecified; R05.9 Cough, unspecified; R06.00 Dyspnea, unspecified; Z20.822 Contact with and (suspected) exposure to COVID-19
CPT/HCPCS: 36415; 71046; 80053; 82550; 82553; 83690; 83735; 83880; 84484; 85025; 87633; 87635; 93005; 99283; 99284

== ENCOUNTER 2021-08-11 15:09 | Emergency (ER) | payer MEDICARE, SELFPAY ==
[2018-08-31 14:24] VITALS: BMI 33.7
[2021-03-29 18:59] VITALS: PULSE 96; RESP 24; O2SAT 99
[2021-08-11] VITALS (31 sets, daily range): BP systolic 150–183; BP diastolic 74–86; PULSE 85–102; RESP 20–30; TEMP 36.6; O2SAT 98–100; BMI 33.5
--- NOTE | 2021-08-11 15:29 | ED_ITS ---
HPI - SOB/Dyspnea <Amelia Palumbo, - Last Filed: 08/16/21 00:08> General Chief Complaint: Shortness of Breath/Dyspnea Stated Complaint: pneumonia/told to check back in Time Seen by Provider: 08/11/21 15:11 Source: patient and family () Mode of arrival: Ambulatory Limitations: no limitations History of Present Illness HPI Narrative: This is a 86-year-old male who comes emergency department with complaint of shortness of breath. Patient has had shortness of breath for several days. He has had a cough with some clearish whitish sputum. He has been afebrile. He has shortness for breath particularly with exertion but even when seated. He has mild shortness of breath at this time. He denies any chest pain or pressure at any point. Patient states he has had swelling in his lower extremities and he had increasing weight gain from 229 lb to 140 lb over approximately 3 weeks from July 16 2 about a week ago. He does have a known cardiac history he has known cardiomyopathy with a prior EF of 20-25% severe global hypokinesis on echo in November of 2019. Patient states he has never had a cardiac catheterization he was transferred in March to [facility] he states that was not offered but they did adjust his medications. He recently had his medications adjusted secondary to decrease in his renal function including sacubitril/valsartan and torsemide. Patient states as when he developed his weight gain. He is on Plavix daily, he takes metoprolol, he use an injectable statin, he is on insulin for his glucose and notes his sugar is elevated today. He has an allergy to allopurinol. Quit smoking in 1984, rare alcohol, no illicit. His PCP is Dr. Cherry and his capacity planning manager is Dr. Aguirre with [facility] [place]. Related Data Home Medications Medication Instructions Recorded Confirmed insulin NPH-regular 70-30 U-100 See Rx Instructions .ROUTE .COMPLEX 04/29/18 08/11/21 insulin 100 unit/mL subcutaneous pen sacubitril 24 mg-valsartan 26 mg 1 tab PO BID 07/11/21 08/11/21 tablet (Entresto) Lactobacillus 1 cap PO DAILY 08/11/21 08/11/21 acidophilus-Bifidobac.animalis 2.5 billion cell capsule (Daily Probiotic) alirocumab 75 mg/mL subcutaneous 75 mg SUBCUT Q2W 08/11/21 08/11/21 pen injector (Praluent Pen) coQ10 (ubiquinol) 100 mg capsule 100 mg PO DAILY 08/11/21 08/11/21 metoprolol succinate 100 mg 100 mg PO DAILY 08/11/21 08/11/21 tablet,extended release 24 hr Previous Rx's Medication Instructions Recorded clopidogrel 75 mg tablet (Plavix) 75 mg PO DAILY #30 tab 09/03/18 Allergies Allergy/AdvReac Type Severity Reaction Status Date / Time allopurinol Allergy Intermediate rash Verified 08/11/21 15:24 Review of Systems <Amelia Palumbo DO - Last Filed: 08/16/21 00:08> Review of Systems ROS Unobtainable: All systems reviewed & are unremarkable except as noted in HPI and below Patient History <Amelia Palumbo DO - Last Filed: 08/16/21 00:08> Medical History CKD (chronic kidney disease) Congestive heart failure Coronary artery disease Diabetes Hypertension Surgical History No pertinent past surgical history Social History household members: spouse Smoking Status: Former smoker Smoking Status: Former smoker alcohol intake frequency: other Substance Use Type: does not use Exam <Amelia Palumbo DO - Last Filed: 08/16/21 00:08> Narrative Exam Narrative: GENERAL: Alert and oriented x three, male in mild distress HEENT: Head normocephalic, atraumatic, EOMI, pupils reactive, face symmetric, moist mucous membranes NECK: Supple, full range of motion CARDIOVASCULAR: Regular rate and rhythm without murmurs, rubs or gallops. RESPIRATORY: Breath sounds equal bilaterally, no wheezes rales or rhonchi. ABDOMEN: Soft, nontender. Normoactive bowel sounds all 4 quadrants. No guarding or rebound, rigidity, no mass : No CVA tenderness EXTREMITIES: Normal range of motion, no clubbing or edema. Neurovascularly intact NEUROLOGICAL: Cranial nerves II through XII grossly intact. Moving all extremities SKIN: Warm, dry, no petechiae, no rashes or lesions. Initial Vital Signs Initial Vital Signs: Vital Signs Blood Pressure 158/74 H 08/11/21 15:19 <Edmund Schmitt DO - Last Filed: 08/11/21 22:47> Initial Vital Signs Initial Vital Signs: Vital Signs Blood Pressure 158/74 H 08/11/21 15:19 Course <Amelia C DO [place] - Last Filed: 08/16/21 00:08> Orders Ordered: Discontinued Medications Aspirin (Aspirin 81 Mg Chew Tab) 324 mg PO NOW ONE Stop: 08/11/21 15:31 Last Admin: 08/11/21 16:05 Dose: 324 mg Documented by: JR Atorvastatin Calcium (Atorvastatin 20 Mg Tablet) 80 mg PO NOW ONE Stop: 08/11/21 17:50 Last Admin: 08/11/21 18:14 Dose: 80 mg Documented by: JR Furosemide (Furosemide 100 Mg/10 Ml Vial) 80 mg IV NOW ONE Stop: 08/11/21 17:15 Last Admin: 08/11/21 17:23 Dose: 80 mg Documented by: JR Heparin Sodium (Porcine) (Heparin 5,000 Unit/Ml Vial) 5,000 unit IV NOW ONE Stop: 08/11/21 17:15 Last Admin: 08/11/21 17:23 Dose: 5,000 unit Documented by: JR Heparin Sodium/Dextrose (Heparin Drip) 25,000 unit in 500 mls @ 26.127 mls/hr IV CONT LEWIS; Protocol Last Infusion: 08/11/21 23:19 Dose: 0 units/kg/hr, 0 mls/hr Documented by: Admin: 08/11/21 17:29 Dose: 12 units/kg/hr, 26.127 mls/hr Documented by: JR Nitroglycerin (Nitroglycerin) 50 mg in 250 mls @ 1.5 mls/hr IV TITRATE LEWIS; Protocol Last Titration: 08/11/21 23:20 Dose: 0 mcg/min, 0 mls/hr Documented by: Titration: 08/11/21 21:17 Dose: 15 mcg/min, 4.5 mls/hr Documented by: Titration: 08/11/21 19:50 Dose: 10 mcg/min, 3 mls/hr Documented by: Titration: 08/11/21 18:49 Dose: 7.5 mcg/min, 2.25 mls/hr Documented by: Admin: 08/11/21 18:00 Dose: 5 mcg/min, 1.5 mls/hr Documented by: JR Reevaluation(s) Reevaluation #1: Patient is chest pain free. Time: 17:46 Consultations Consultation #1: Cardiology in [place], [facility]. Consultation #2: Dr. Cash, [facility] cardiology. Recommend continue heparin, nitro, diuresis despite renal function. Beta-juan, aspirin 325 mg. Plavix 75 mg but without loading dose and a statin. Time: 17:49 Vital Signs Vital signs: Vital Signs - 8 hr 08/11/21 15:19 08/11/21 15:20 08/11/21 15:24 Temperature 97.8 F Pulse Rate 102 H Respiratory Rate 26 H Blood Pressure 158/74 H 158/74 H Pulse Oximetry 98 99 08/11/21 15:30 08/11/21 16:00 08/11/21 16:01 Temperature Pulse Rate 96 H 92 H 92 H Respiratory Rate 30 H 28 H 28 H Blood Pressure 152/74 H 150/76 H Pulse Oximetry 100 100 100 08/11/21 16:30 08/11/21 16:45 08/11/21 17:00 Temperature Pulse Rate 90 88 88 Respiratory Rate 26 H 25 H 26 H Blood Pressure 171/86 H 174/83 H Pulse Oximetry 100 100 100 08/11/21 17:15 08/11/21 17:30 08/11/21 17:45 Temperature Pulse Rate 85 91 H 88 Respiratory Rate 26 H 27 H 24 Blood Pressure 183/83 H 176/81 H Pulse Oximetry 100 100 100 08/11/21 18:00 08/11/21 18:15 08/11/21 18:30 Temperature Pulse Rate 87 91 H 91 H Respiratory Rate 27 H 20 24 Blood Pressure 168/77 H 169/79 H 172/79 H Pulse Oximetry 100 100 100 08/11/21 18:45 08/11/21 19:00 08/11/21 19:15 Temperature Pulse Rate 90 90 85 Respiratory Rate 26 H 23 24 Blood Pressure 170/75 H 174/80 H 165/75 H Pulse Oximetry 100 100 100 08/11/21 19:30 08/11/21 19:45 08/11/21 20:00 Temperature Pulse Rate 87 86 91 H Respiratory Rate 21 26 H 28 H Blood Pressure 173/80 H 169/79 H 173/77 H Pulse Oximetry 100 100 100 08/11/21 20:15 08/11/21 20:30 08/11/21 20:45 Temperature Pulse Rate 93 H 91 H 92 H Respiratory Rate 27 H 22 23 Blood Pressure 183/82 H 181/80 H 183/81 H Pulse Oximetry 100 100 100 08/11/21 21:01 08/11/21 21:15 08/11/21 21:25 Temperature Pulse Rate 96 H 93 H 91 H Respiratory Rate 30 H 25 H 25 H Blood Pressure 162/74 H Pulse Oximetry 100 100 100 <Edmund Schmitt DO - Last Filed: 08/11/21 22:47> Course Course Narrative: Patient signed out to me from Dr. Palumbo, I performed an independent history and physical exam and have no significant additions. The patient continues to rest comfortably and shows no sign of pain or increasing shortness of breath. He requires no supplemental oxygen and is resting comfortably. He understands the need and agrees with transfer Orders Ordered: Discontinued Medications Aspirin (Aspirin 81 Mg Chew Tab) 324 mg PO NOW ONE Stop: 08/11/21 15:31 Last Admin: 08/11/21 16:05 Dose: 324 mg Documented by: JR Atorvastatin Calcium (Atorvastatin 20 Mg Tablet) 80 mg PO NOW ONE Stop: 08/11/21 17:50 Last Admin: 08/11/21 18:14 Dose: 80 mg Documented by: JR Furosemide (Furosemide 100 Mg/10 Ml Vial) 80 mg IV NOW ONE Stop: 08/11/21 17:15 Last Admin: 08/11/21 17:23 Dose: 80 mg Documented by: JR Heparin Sodium (Porcine) (Heparin 5,000 Unit/Ml Vial) 5,000 unit IV NOW ONE Stop: 08/11/21 17:15 Last Admin: 08/11/21 17:23 Dose: 5,000 unit Documented by: JR Heparin Sodium/Dextrose (Heparin Drip) 25,000 unit in 500 mls @ 26.127 mls/hr IV CONT LEWIS; Protocol Last Infusion: 08/11/21 23:19 Dose: 0 units/kg/hr, 0 mls/hr Documented by: Admin: 08/11/21 17:29 Dose: 12 units/kg/hr, 26.127 mls/hr Documented by: JR Nitroglycerin (Nitroglycerin) 50 mg in 250 mls @ 1.5 mls/hr IV TITRATE LEWIS; Protocol Last Titration: 08/11/21 23:20 Dose: 0 mcg/min, 0 mls/hr Documented by: Titration: 08/11/21 21:17 Dose: 15 mcg/min, 4.5 mls/hr Documented by: Titration: 08/11/21 19:50 Dose: 10 mcg/min, 3 mls/hr Documented by: Titration: 08/11/21 18:49 Dose: 7.5 mcg/min, 2.25 mls/hr Documented by: Admin: 08/11/21 18:00 Dose: 5 mcg/min, 1.5 mls/hr Documented by: JR Consultations Consultation #3: cardiology from [place] has called back and very quick to accept patient Vital Signs Vital signs: Vital Signs - 8 hr 08/11/21 15:19 08/11/21 15:20 08/11/21 15:24 Temperature 97.8 F Pulse Rate 102 H Respiratory Rate 26 H Blood Pressure 158/74 H 158/74 H Pulse Oximetry 98 99 08/11/21 15:30 08/11/21 16:00 08/11/21 16:01 Temperature Pulse Rate 96 H 92 H 92 H Respiratory Rate 30 H 28 H 28 H Blood Pressure 152/74 H 150/76 H Pulse Oximetry 100 100 100 08/11/21 16:30 08/11/21 16:45 08/11/21 17:00 Temperature Pulse Rate 90 88 88 Respiratory Rate 26 H 25 H 26 H Blood Pressure 171/86 H 174/83 H Pulse Oximetry 100 100 100 08/11/21 17:15 08/11/21 17:30 08/11/21 17:45 Temperature Pulse Rate 85 91 H 88 Respiratory Rate 26 H 27 H 24 Blood Pressure 183/83 H 176/81 H Pulse Oximetry 100 100 100 08/11/21 18:00 08/11/21 18:15 08/11/21 18:30 Temperature Pulse Rate 87 91 H 91 H Respiratory Rate 27 H 20 24 Blood Pressure 168/77 H 169/79 H 172/79 H Pulse Oximetry 100 100 100 08/11/21 18:45 08/11/21 19:00 08/11/21 19:15 Temperature Pulse Rate 90 90 85 Respiratory Rate 26 H 23 24 Blood Pressure 170/75 H 174/80 H 165/75 H Pulse Oximetry 100 100 100 08/11/21 19:30 08/11/21 19:45 08/11/21 20:00 Temperature Pulse Rate 87 86 91 H Respiratory Rate 21 26 H 28 H Blood Pressure 173/80 H 169/79 H 173/77 H Pulse Oximetry 100 100 100 08/11/21 20:15 08/11/21 20:30 08/11/21 20:45 Temperature Pulse Rate 93 H 91 H 92 H Respiratory Rate 27 H 22 23 Blood Pressure 183/82 H 181/80 H 183/81 H Pulse Oximetry 100 100 100 08/11/21 21:01 08/11/21 21:15 08/11/21 21:25 Temperature Pulse Rate 96 H 93 H 91 H Respiratory Rate 30 H 25 H 25 H Blood Pressure 162/74 H Pulse Oximetry 100 100 100 MDM - SOB/Dyspnea <Amelia Palumbo, - Last Filed: 08/16/21 00:08> Lab Data Result diagrams: 08/11/21 16:10 08/11/21 16:10 Labs: Lab Results 08/11/21 08/11/21 08/11/21 Range/Units 15:51 16:10 16:10 WBC 10.1 (4.5-11.0) X10^3/uL RBC 3.12 L (4.5-5.9) X10^6/uL Hgb 9.6 L (13.5-17.5) g/dL Hct 29.5 L (41-53) % MCV 94.4 (80-100) fL MCH 30.8 (26-34) PG MCHC 32.6 (30-36) % RDW 16.2 H (11.6-14.8) % Plt Count 148 L (150-400) X10^3/uL Neut % (Auto) 71.7 (50-75) % Lymph % (Auto) 14.0 L (25-40) % [place] % (Auto) 12.7 (3-14) % Eos % (Auto) 0.2 L (2-4) % Baso % (Auto) 1.4 (0-2) % Neut # (Auto) 7200 H (0991-7079) /uL Lymph # (Auto) 1400 (0922-3407) /uL [place] # (Auto) 1300 H (0-900) /uL Eos # (Auto) 0 (0-450) /uL Baso # (Auto) 100 (0-100) /uL PT 13.7 H (10.1-12.7) SECONDS INR 1.2 (0.9-1.3) APTT 34 (26.4-36.2) SECONDS Sodium (137-145) mmol/L Potassium (3.4-5.1) mmol/L Chloride (98-107) mmol/L Carbon Dioxide (22-32) mmol/L BUN (9-20) mg/dL Creatinine (0.66-1.25) mg/dL Estimated GFR (>60) mL/min BUN/Creatinine Ratio (6-22) Glucose (80-110) mg/dL Calcium (8.4-10.2) mg/dL Total Bilirubin (0.2-1.3) mg/dL AST (17-59) IU/L ALT (<50) IU/L Alkaline Phosphatase (38-126) U/L Total Creatine Kinase (55-170) U/L CK-MB (CK-2) (<2.37) ng/mL CK-MB (CK-2) Rel Index (1.5-5.0) % Troponin I (0.01-0.034) ng/mL NT-Pro-B Natriuret Pep (<450) pg/mL Total Protein (6.3-8.2) g/dL Albumin (3.5-5.0) g/dL Globulin (1.7-4.1) g/dL Albumin/Globulin Ratio (1.0-2.8) Lipase (23-300) U/L SARS-CoV-2 (PCR) Negative (Negative) 08/11/21 Range/Units 16:10 WBC (4.5-11.0) X10^3/uL RBC (4.5-5.9) X10^6/uL Hgb (13.5-17.5) g/dL Hct (41-53) % MCV (80-100) fL MCH (26-34) PG MCHC (30-36) % RDW (11.6-14.8) % Plt Count (150-400) X10^3/uL Neut % (Auto) (50-75) % Lymph % (Auto) (25-40) % [place] % (Auto) (3-14) % Eos % (Auto) (2-4) % Baso % (Auto) (0-2) % Neut # (Auto) (2885-8313) /uL Lymph # (Auto) (7617-4656) /uL [place] # (Auto) (0-900) /uL Eos # (Auto) (0-450) /uL Baso # (Auto) (0-100) /uL PT (10.1-12.7) SECONDS INR (0.9-1.3) APTT (26.4-36.2) SECONDS Sodium 135 L (137-145) mmol/L Potassium 5.8 H (3.4-5.1) mmol/L Chloride 106 (98-107) mmol/L Carbon Dioxide 20 L (22-32) mmol/L BUN 35 H (9-20) mg/dL Creatinine 2.72 H (0.66-1.25) mg/dL Estimated GFR 22.4 L (>60) mL/min BUN/Creatinine Ratio 12.9 (6-22) Glucose 236 H D (80-110) mg/dL Calcium 9.0 (8.4-10.2) mg/dL Total Bilirubin 1.0 (0.2-1.3) mg/dL AST 83 H (17-59) IU/L ALT 17 (<50) IU/L Alkaline Phosphatase 64 (38-126) U/L Total Creatine Kinase 670 H D (55-170) U/L CK-MB (CK-2) 30.80 H D (<2.37) ng/mL CK-MB (CK-2) Rel Index 4.6 (1.5-5.0) % Troponin I 15.000 H* (0.01-0.034) ng/mL NT-Pro-B Natriuret Pep 02443 H (<450) pg/mL Total Protein 7.2 (6.3-8.2) g/dL Albumin 4.0 (3.5-5.0) g/dL Globulin 3.2 (1.7-4.1) g/dL Albumin/Globulin Ratio 1.3 (1.0-2.8) Lipase 25 (23-300) U/L SARS-CoV-2 (PCR) (Negative) Imaging Data Chest x-ray: Radiologist's Impression: [facility] [place] [id number] ReportSigned Patient: Thaddeus Chilel BMR#: [id number]: 1935cct:[id number]/Sex: 86 / MDate of Service: 08/11/21Loc: EDAccession Number: [id number] Procedure: XR chest 1V Ordering Provider: Amelia Palumbo D.O. PROCEDURE: XR CHEST 1V INDICATIONS: nstemi yesterday. TECHNIQUE: One view of the chest was acquired. COMPARISON: [facility], CR, XR CHEST 1V, 10/24/2018, 16:52. [facility], CR, XR CHEST 1V, 03/29/2021, 14:57. [facility], CR, XR CHEST 2V, 08/10/2021, 19:10. FINDINGS: Surgical changes and devices: None. Lungs and pleura: Low lung volumes are noted. This causes a crowded appearance to the lung markings and limits evaluation. Mild generalized interstitial prominence can be seen. No large pneumothorax or large pleural effusions are seen. Mediastinum: Mediastinal contours appear normal. Heart size is mildly enlarged. Atherosclerotic calcification of the aortic arch is noted. Bones and chest wall: No suspicious bony lesions. Age-appropriate bony degenerative changes are seen. Overlying soft tissues appear unremarkable. IMPRESSION: Generalized interstitial prominence can be seen, which is improved compared to the prior examination. Given the history, mild, improving pulmonary edema is suspected. There is mild cardiomegaly. Dictated by: Peter Riggs M.D. on 08/11/2021 at 14:40 Approved by: Peter Riggs M.D. on 08/11/2021 at 14:42 ECG Data Attestation: I personally reviewed and interpreted this ECG as follows: Prior ECG tracings: available for review Interpretation: Sinus rhythm occasional PVCs. ST changes with persistent elevation depression in 2 3 AVF with depression in lateral leads and V1 through 3. Changes are actually noted on EKG from yesterday when patient is here as well as prior EKGs from March. Patient had positive troponins on both of those visits as well. MDM Narrative Medical decision making narrative: This is an 86-year-old male who comes in after leaving Against Medical Advice yesterday with an STEMI. Patient has elevations on his EKG but these are persistent over several months to years. With no acute new EKG changes his troponin was 1.4 yesterday. In March was 3.9. Patient did have adjustment of his medications leading to weight gain and likely worsening of his known congestive heart failure. He has an EF of 20 25% but per patient and family he has never had a heart catheterization. No prior stents. Patient's chest x-ray was also concerning for possible pneumonia although he seems to be more fluid overloaded. Patient does have known CKD with mild improvement from priors yesterday. Aspirin, heparin initiated. Patient given aspirin 324. High-dose atorvastatin given. Spoke with cardiology at [facility] they gave their recommendations which were relayed to Dr. Schmitt. Page out to cardiology at [place] is pending. Plan for transfer we are currently searching for bed. Signed out to Dr. Schmitt while awaiting. <Edmund Schmitt DO - Last Filed: 08/11/21 22:47> Lab Data Labs: Lab Results 08/11/21 08/11/21 08/11/21 Range/Units 15:51 16:10 16:10 WBC 10.1 (4.5-11.0) X10^3/uL RBC 3.12 L (4.5-5.9) X10^6/uL Hgb 9.6 L (13.5-17.5) g/dL Hct 29.5 L (41-53) % MCV 94.4 (80-100) fL MCH 30.8 (26-34) PG MCHC 32.6 (30-36) % RDW 16.2 H (11.6-14.8) % Plt Count 148 L (150-400) X10^3/uL Neut % (Auto) 71.7 (50-75) % Lymph % (Auto) 14.0 L (25-40) % [place] % (Auto) 12.7 (3-14) % Eos % (Auto) 0.2 L (2-4) % Baso % (Auto) 1.4 (0-2) % Neut # (Auto) 7200 H (8379-6999) /uL Lymph # (Auto) 1400 (6106-3515) /uL [place] # (Auto) 1300 H (0-900) /uL Eos # (Auto) 0 (0-450) /uL Baso # (Auto) 100 (0-100) /uL PT 13.7 H (10.1-12.7) SECONDS INR 1.2 (0.9-1.3) APTT 34 (26.4-36.2) SECONDS Sodium (137-145) mmol/L Potassium (3.4-5.1) mmol/L Chloride (98-107) mmol/L Carbon Dioxide (22-32) mmol/L BUN (9-20) mg/dL Creatinine (0.66-1.25) mg/dL Estimated GFR (>60) mL/min BUN/Creatinine Ratio (6-22) Glucose (80-110) mg/dL Calcium (8.4-10.2) mg/dL Total Bilirubin (0.2-1.3) mg/dL AST (17-59) IU/L ALT (<50) IU/L Alkaline Phosphatase (38-126) U/L Total Creatine Kinase (55-170) U/L CK-MB (CK-2) (<2.37) ng/mL CK-MB (CK-2) Rel Index (1.5-5.0) % Troponin I (0.01-0.034) ng/mL NT-Pro-B Natriuret Pep (<450) pg/mL Total Protein (6.3-8.2) g/dL Albumin (3.5-5.0) g/dL Globulin (1.7-4.1) g/dL Albumin/Globulin Ratio (1.0-2.8) Lipase (23-300) U/L SARS-CoV-2 (PCR) Negative (Negative) 08/11/21 Range/Units 16:10 WBC (4.5-11.0) X10^3/uL RBC (4.5-5.9) X10^6/uL Hgb (13.5-17.5) g/dL Hct (41-53) % MCV (80-100) fL MCH (26-34) PG MCHC (30-36) % RDW (11.6-14.8) % Plt Count (150-400) X10^3/uL Neut % (Auto) (50-75) % Lymph % (Auto) (25-40) % [place] % (Auto) (3-14) % Eos % (Auto) (2-4) % Baso % (Auto) (0-2) % Neut # (Auto) (6575-2382) /uL Lymph # (Auto) (4538-0308) /uL [place] # (Auto) (0-900) /uL Eos # (Auto) (0-450) /uL Baso # (Auto) (0-100) /uL PT (10.1-12.7) SECONDS INR (0.9-1.3) APTT (26.4-36.2) SECONDS Sodium 135 L (137-145) mmol/L Potassium 5.8 H (3.4-5.1) mmol/L Chloride 106 (98-107) mmol/L Carbon Dioxide 20 L (22-32) mmol/L BUN 35 H (9-20) mg/dL Creatinine 2.72 H (0.66-1.25) mg/dL Estimated GFR 22.4 L (>60) mL/min BUN/Creatinine Ratio 12.9 (6-22) Glucose 236 H D (80-110) mg/dL Calcium 9.0 (8.4-10.2) mg/dL Total Bilirubin 1.0 (0.2-1.3) mg/dL AST 83 H (17-59) IU/L ALT 17 (<50) IU/L Alkaline Phosphatase 64 (38-126) U/L Total Creatine Kinase 670 H D (55-170) U/L CK-MB (CK-2) 30.80 H D (<2.37) ng/mL CK-MB (CK-2) Rel Index 4.6 (1.5-5.0) % Troponin I 15.000 H* (0.01-0.034) ng/mL NT-Pro-B Natriuret Pep 11438 H (<450) pg/mL Total Protein 7.2 (6.3-8.2) g/dL Albumin 4.0 (3.5-5.0) g/dL Globulin 3.2 (1.7-4.1) g/dL Albumin/Globulin Ratio 1.3 (1.0-2.8) Lipase 25 (23-300) U/L SARS-CoV-2 (PCR) (Negative) Critical Care Time <Amelia Mariya Shermansherrie, DO - Last Filed: 08/16/21 00:08> Critical Care Time Critical Care Time: Yes Attestation: The high probability of a clinically significant, sudden or life threatening d eterioration of the [cardiac, pulm] system(s) required my full and direct attention, intervention and personal management. The aggregate critical care time was [] minutes. This time is in addition to time spent performing reported procedures but includes the following: [x] Data Review and interpretation [x] Patient assessment and monitoring of vital signs [x] Documentation [x] Medication orders and management <Edmund Schmitt, DO - Last Filed: 08/11/21 22:47> Critical Care Time Total Critical Care Time: 45 Attestation: The high probability of a clinically significant, sudden or life threatening deterioration of the [cardiac, pulm] system(s) required my full and direct attention, intervention and personal management. The aggregate critical care time was [45] minutes. This time is in addition to time spent performing reported procedures but includes the following: [x] Data Review and interpretation [x] Patient assessment and monitoring of vital signs [x] Documentation [x] Medication orders and management Discharge Plan Departure Patient Disposition: [facility] Clinical Impression: Non-ST elevation [place] (NSTEMI) Prescriptions: No Action insulin NPH and regular human 100 unit/mL (70-30) Insulin Pen See Rx Instructions .ROUTE .COMPLEX RF: 0 Entresto 24-26 mg tablet 1 tab PO BID RF: 0 clopidogrel [Plavix] 75 mg Tablet 75 mg PO DAILY Qty: 30 RF: 6 metoprolol succinate 100 mg tablet extended release 24 hr 100 mg PO DAILY RF: 0 coQ10 (ubiquinol) 100 mg capsule 100 mg PO DAILY RF: 0 Praluent Pen 75 mg/mL pen injector 75 mg SUBCUT Q2W RF: 0 Daily Probiotic 2.5 billion cell Capsule 1 cap PO DAILY RF: 0 Referrals: Henrik Salcedo MD [Primary Care Provider] -
[2021-08-11] MEDS: ASPIRIN 81 MG CHEW TAB 324 MG PO (16:05)
[2021-08-11 16:29] LABS: Add Manual Diff / Slide Review NO; Basophils Absolute Auto 100 /uL (0-100); Basophils Percent Auto 1.4 % (0-2); Eosinophils Absolute Auto 0 /uL (0-450); Eosinophils Percent Auto 0.2 % (2-4); Hematocrit 29.5 % (41-53); Hemoglobin 9.6 g/dL (13.5-17.5); Lymphocytes Absolute Auto 1400 /uL (1100-4500); Mean Corpuscular HGB Conc 32.6 % (30-36); Mean Corpuscular Hemoglobin 30.8 PG (26-34); Mean Corpuscular Volume 94.4 fL (80-100); Monocytes Absolute Auto 1300 /uL (0-900); Monocytes Percent Auto 12.7 % (3-14); Neutrophils Absolute Auto 7200 /uL (1500-7000); Neutrophils Percent Auto 71.7 % (50-75); Platelet Count 148 X10^3/uL (150-400); Red Blood Cell Count 3.12 X10^6/uL (4.5-5.9); Red Cell Distribution Width 16.2 % (11.6-14.8); White Blood Cell Count 10.1 X10^3/uL (4.5-11.0)
[2021-08-11 16:35] LABS: INR 1.2 (0.9-1.3); Prothrombin Time 13.7 SECONDS (10.1-12.7)
[2021-08-11 16:37] LABS: PTT Partial Thromboplastin Tim 34 SECONDS (26.4-36.2)
[2021-08-11 16:50] LABS: COVID19 - ADMIT (NP swab/PCR) Negative (Negative)
[2021-08-11 16:59] LABS: Alanine Aminotransferase 17 IU/L (<50); Albumin Globulin Ratio 1.3 (1.0-2.8); Alkaline Phosphatase 64 U/L (38-126); Aspartate Aminotransferase 83 IU/L (17-59); BUN Creatinine Ratio 12.9 (6-22); Blood Urea Nitrogen 35 mg/dL (9-20); Carbon Dioxide 20 mmol/L (22-32); Chloride 106 mmol/L (98-107); Creatine Kinase 670 U/L (55-170); Estimated Glomerular Filt Rate 22.4 mL/min (>60); Globulin 3.2 g/dL (1.7-4.1); Glucose 236 mg/dL (80-110); HEMOLYSIS < 15 (0-50); Lipase 25 U/L (23-300); Sodium 135 mmol/L (137-145); Total Protein 7.2 g/dL (6.3-8.2)
[2021-08-11 17:10] LABS: Potassium 5.8 mmol/L (3.4-5.1)
[2021-08-11 17:14] LABS: CKMB % Relative Index 4.6 % (1.5-5.0)
[2021-08-11] MEDS: HEPARIN 5,000 UNIT/ML VIAL 5000 UNIT IV (17:23)
[2021-08-11] MEDS: FUROSEMIDE 100 MG/10 ML VIAL 80 MG IV (17:23)
[2021-08-11 17:24] LABS: NT-proBNP (BNP-Adult 18+) 85300 pg/mL (<450)
[2021-08-11] MEDS: HEPARIN DRIP 25,000 UNIT/500 ML IV.SOLN 26.127 UNIT IV (17:29)
[2021-08-11] MEDS: NITROGLYCERIN 50 MG/250 ML INFUS..BTL IV (18:00)
[2021-08-11] MEDS: ATORVASTATIN 20 MG TABLET 80 MG PO (18:14)
--- NOTE | 2021-08-11 18:46 | PC.NURSE ---
Addendum entered by Lita Nagel CNA 08/11/21 21:58: [facility] accepted pt at 2020, EMS eta 2250 Called all hospitals to remove him from wait list Original Note: Patient was needing to be transferred. Notified by provider at 17:25 Called [facility] at 17:30 for cardiology consult and placed patient on wait list. Called [facility] at 17:45 and placed patient on waiting list Called [facility] at 17:51 and placed on waiting list Called [facility] at 18:05 and placed on waiting list Called [facility] 18:10 they are not accepting patients from non critical access hospitals. Called [facility] at 18:18 and placed patient on wait list. Called [facility] at 18:[address] patient on their list to look placement of this patient.
--- NOTE | 2021-08-12 10:05 | PC.NURSE ---
Pt's called and was updated on transfer and reason for transfer to higher level of care.
== END 2021-08-11 23:02 | disposition short-term general hospital (02) ==
PROVIDERS: Emergency Medicine; Emergency Provider Emergency Medicine; Family Provider Internal Medicine; PCP Family Medicine
DX: I21.4 Non-ST elevation (NSTEMI) myocardial infarction (principal); R05.9 Cough, unspecified; Z20.822 Contact with and (suspected) exposure to COVID-19
CPT/HCPCS: 36415; 71045; 80053; 82550; 82553; 83690; 83880; 84484; 85025; 85610; 85730; 87635; 93005; 96365; 96366; 96368; 96375; 99284; 99291; C9803; J1644; J1940

== ENCOUNTER → 2021-08-23 10:21 | Outpatient (CLI) | payer MEDICARE, SELFPAY ==
[2018-08-31 14:24] VITALS: BMI 33.7
[2021-03-29 18:59] VITALS: PULSE 96; RESP 24; O2SAT 99
[2021-08-23 12:54] LABS: Alanine Aminotransferase 17 IU/L (<50); Albumin 3.6 g/dL (3.5-5.0); Albumin Globulin Ratio 1.2 (1.0-2.8); Alkaline Phosphatase 61 U/L (38-126); Aspartate Aminotransferase 24 IU/L (17-59); BUN Creatinine Ratio 17.8 (6-22); Bilirubin Total 0.6 mg/dL (0.2-1.3); Blood Urea Nitrogen 55 mg/dL (9-20); Calcium 9.3 mg/dL (8.4-10.2); Carbon Dioxide 21 mmol/L (22-32); Chloride 111 mmol/L (98-107); Estimated Glomerular Filt Rate 19.4 mL/min (>60); Globulin 2.9 g/dL (1.7-4.1); Glucose 85 mg/dL (80-110); HEMOLYSIS < 15 (0-50); Potassium 4.8 mmol/L (3.4-5.1); Sodium 144 mmol/L (137-145); Total Protein 6.5 g/dL (6.3-8.2)
== END ==
PROVIDERS: Family Provider Internal Medicine; PCP Family Medicine; Referring Provider Family Medicine; Visit Provider Family Medicine
DX: I10 Essential (primary) hypertension (principal); I21.4 Non-ST elevation (NSTEMI) myocardial infarction; I50.9 Heart failure, unspecified; N18.9 Chronic kidney disease, unspecified
CPT/HCPCS: 36415; 80053

== ENCOUNTER → 2021-09-13 09:39 | Outpatient (CLI) | payer MEDICARE, SELFPAY ==
[2021-09-07 12:39] VITALS: PULSE 96; RESP 24; O2SAT 99; BMI 33.7
--- NOTE | 2021-09-13 09:40 | DI.RAD.S_ITS ---
PROCEDURE: XR CHEST 2V INDICATIONS: cough, SOB TECHNIQUE: 2 views of the chest were acquired. COMPARISON: [facility], CR, XR CHEST 1V, 08/11/2021, 15:34. FINDINGS: Surgical changes and devices: None. Lungs and pleura: No consolidation, pleural effusions or pneumothorax. No overt pulmonary edema. Mediastinum: Mediastinal contours are normal. Heart size is normal. Bones and chest wall: No suspicious bony abnormalities. Soft tissues appear unremarkable. Persistent elevation of the right diaphragm. IMPRESSION: No acute cardiopulmonary abnormality. Dictated by: Shai Murphy M.D. on 09/13/2021 at 12:08 Approved by: Shai Murphy M.D. on 09/13/2021 at 12:11
[2021-09-13 10:52] LABS: Hematocrit 31.2 % (41-53); Hemoglobin 10.1 g/dL (13.5-17.5); Mean Corpuscular HGB Conc 32.3 % (30-36); Mean Corpuscular Hemoglobin 31.4 PG (26-34); Mean Corpuscular Volume 97.2 fL (80-100); Red Blood Cell Count 3.21 X10^6/uL (4.5-5.9); Red Cell Distribution Width 15.3 % (11.6-14.8); White Blood Cell Count 10.7 X10^3/uL (4.5-11.0)
[2021-09-13 10:53] LABS: Add Manual Diff / Slide Review YES
[2021-09-13 11:03] LABS: Albumin 4.3 g/dL (3.5-5.0); Albumin Globulin Ratio 1.3 (1.0-2.8); Alkaline Phosphatase 174 U/L (38-126); Aspartate Aminotransferase 639 IU/L (17-59); Bilirubin Total 1.3 mg/dL (0.2-1.3); Blood Urea Nitrogen 105 mg/dL (9-20); Calcium 9.2 mg/dL (8.4-10.2); Carbon Dioxide 16 mmol/L (22-32); Chloride 103 mmol/L (98-107); Estimated Glomerular Filt Rate 10.5 mL/min (>60); Globulin 3.4 g/dL (1.7-4.1); Glucose 115 mg/dL (80-110); Potassium 5.2 mmol/L (3.4-5.1); Sodium 139 mmol/L (137-145); Total Protein 7.7 g/dL (6.3-8.2)
[2021-09-13 11:17] LABS: Macrocytosis 2+; Neutrophils Absolute Manual 7062 /uL (3000-5900); Nucleated Red Blood Cells 9 #/Diff; Polychromasia 2+; Total Cells Counted 100
[2021-09-13 11:19] LABS: Platelet Count 114 X10^3/uL (150-400)
[2021-09-13 11:23] LABS: HEMOLYSIS 30 (0-50)
[2021-09-13 11:30] LABS: Alanine Aminotransferase 938 IU/L (<50)
== END ==
PROVIDERS: Family Provider Internal Medicine; PCP Family Medicine; Referring Provider Family Medicine; Visit Provider Family Medicine
DX: N18.9 Chronic kidney disease, unspecified (principal); I12.9 Hypertensive chronic kidney disease with stage 1 through stage 4 chronic kidney disease, or unspecified chronic kidney disease; I25.10 Atherosclerotic heart disease of native coronary artery without angina pectoris; R06.02 Shortness of breath; R05.9 Cough, unspecified
CPT/HCPCS: 36415; 71046; 80053; 85007; 85025

== ENCOUNTER 2021-09-13 12:40 | Inpatient (IN) | payer MEDICARE, SELFPAY ==
[2021-09-07 12:39] VITALS: PULSE 96; RESP 24; O2SAT 99; BMI 33.7
[2021-09-13] VITALS (23 sets, daily range): BP systolic 127–169; BP diastolic 57–73; PULSE 49–62; RESP 12–28; TEMP 36.1; O2SAT 90–100; BMI 32.1
--- NOTE | 2021-09-13 12:59 | ED.RECABL ---
HPI - Recheck/Abnormal Lab/Rx General Chief Complaint: Weakness Stated Complaint: Sent by after lab results Time Seen by Provider: 09/13/21 12:57 Source: patient and family Mode of arrival: Wheelchair Limitations: no limitations History of Present Illness HPI narrative: Patient is a 86-year-old male with history of chronic kidney disease, and STEMI in August 2021, diabetes, hypertension presenting today with generalized weakness and abnormal blood work Ms. primary care provider. He was diagnosed with congestive heart failure an NSTEMI back in August transfer to [facility] [place]. He was released from hospital says that he was doing okay until about 2 weeks ago he has had a slow and steady decline is since then. He just feels generally weak and fatigued. He is having some increasing shortness of breath as well as which is worse with exertion and lying down. He denies any fever or chills. He has also started having multiple episodes of loose watery diarrhea daily in fact yesterday he had 7. He has no abdominal pain no nausea or vomiting. He had outpatient blood work today which showed an elevation in creatinine 5.25, baseline is previously 2-3. He is also noted to have elevated liver enzymes. He does weigh himself daily he says his weight has been steady he is right around 230 which is what he was when he was released from hospital. also states that he was unable to urinate this morning. He has no suprapubic pain. Related Data Home Medications Medication Instructions Recorded Confirmed Lactobacillus 1 cap PO DAILY 08/11/21 08/11/21 acidophilus-Bifidobac.animalis 2.5 billion cell capsule (Daily Probiotic) alirocumab 75 mg/mL subcutaneous 75 mg SUBCUT Q2W 08/11/21 08/11/21 pen injector (Praluent Pen) coQ10 (ubiquinol) 100 mg capsule 100 mg PO DAILY 08/11/21 08/11/21 metoprolol succinate 100 mg 100 mg PO DAILY 08/11/21 08/11/21 tablet,extended release 24 hr insulin NPH-regular 70-30 U-100 See Rx Instructions .ROUTE .COMPLEX 09/13/21 09/13/21 insulin 100 unit/mL subcutaneous pen Previous Rx's Medication Instructions Recorded clopidogrel 75 mg tablet (Plavix) 75 mg PO DAILY #30 tab 09/03/18 sacubitril 24 mg-valsartan 26 mg 1 tab PO BID #180 tab 09/13/21 tablet (Entresto) torsemide 5 mg tablet 5 mg PO DAILY #60 tab 09/13/21 Allergies Allergy/AdvReac Type Severity Reaction Status Date / Time allopurinol Allergy Intermediate rash Verified 08/11/21 15:24 Review of Systems Review of Systems ROS Unobtainable: All systems reviewed & are unremarkable except as noted in HPI and below Constitutional Constitutional: Denies body ache(s), Denies chills, Reports fatigue, Denies fever(s), Denies headache(s) and Reports weakness Eyes Eyes: Denies blurry vision ENT Ears, Nose, Mouth, and Throat: Denies headache(s) and Denies neck pain Cardiovascular Cardiovascular: Denies chest pain, Denies syncope, Denies irregular heart rhythm, Reports dyspnea on exertion and Reports orthopnea Respiratory Respiratory: Denies as per HPI, Reports cough, Denies hemoptysis, Denies pain with cough and Reports dyspnea on exertion Gastrointestinal Gastrointestinal: Reports loose stools, Denies nausea and Denies vomiting Musculoskeletal Musculoskeletal: Denies back pain and Denies neck pain Integumentary/Breasts Skin/Breast: Denies rash Neurologic Neurologic: Denies syncope, Denies headache(s) and Reports weakness Endocrine Endocrine: Reports fatigue Patient History Medical History CKD (chronic kidney disease) Congestive heart failure Coronary artery disease Diabetes Hypertension Surgical History No pertinent past surgical history Social History household members: spouse Smoking Status: Former smoker Smoking Status: Former smoker alcohol intake frequency: other Substance Use Type: does not use Exam Initial Vital Signs Initial Vital Signs: Vital Signs Temperature 96.9 F L 09/13/21 12:55 Pulse Rate 52 L 09/13/21 12:55 Respiratory Rate 18 09/13/21 12:55 Blood Pressure 153/60 H 09/13/21 12:55 Pulse Oximetry 97 09/13/21 12:55 GENERAL: Very pleasant alert 86-year-old male appears not feel well but no acute distress HEENT: Head atraumatic,EOMI, pupils reactive, face symmetric, moist mucous membranes CARDIOVASCULAR: Regular rate and rhythm without murmurs, rubs or gallops. RESPIRATORY: Breath sounds equal bilaterally, no wheezes rales or rhonchi. ABDOMEN: Soft, nontender. Normoactive bowel sounds all 4 quadrants. No guarding or rebound. No right upper quadrant pain : No CVA tenderness EXTREMITIES: Normal range of motion, no clubbing or edema. Neurovascularly intact NEUROLOGICAL: Alert and oriented x4.Normal gait and speech. Cranial nerves II through XII grossly intact. SKIN: Warm, dry, no laceration, no petechiae, no rashes or lesions. Course Orders Ordered: ED Orders 09/13/21 13:12 EKG-12 Lead Stat 09/13/21 13:29 Respiratory Panel (Film Array) Stat 09/13/21 13:44 US abdomen limited Stat 09/13/21 14:32 Complete Blood Count AUTO DIFF Stat Comprehensive Metabolic Panel Stat Lactate (Lactic Acid) Stat Magnesium Stat NT-proBNP (BNP-Adult 18+) Stat Troponin & CK Cardiac Panel Stat 09/13/21 15:25 Blood Culture Stat 09/13/21 16:56 Arterial Blood Gas Routine 09/13/21 18:08 US renal complete Stat 09/13/21 18:24 Basic Metabolic Panel Stat Sodium Chloride (Normal Saline 0.9%) 1,000 mls @ 100 mls/hr IV CONT LEWIS Last Infusion: 09/13/21 16:55 Dose: 100 mls/hr Documented by: Infusion: 09/13/21 15:20 Dose: 0 mls/hr Documented by: Admin: 09/13/21 14:48 Dose: 100 mls/hr Documented by: JR Discontinued Medications Dextrose (Dextrose 50 % In Water 25 Gm/50 Ml Syringe) 25 gm IV NOW ONE Stop: 09/13/21 15:53 Last Admin: 09/13/21 17:01 Dose: 25 gm Documented by: JR Insulin Human Regular (Insulin Regular 100 Unit/Ml 3 Ml Vial) 5 unit IV NOW ONE Stop: 09/13/21 15:53 Last Admin: 09/13/21 16:59 Dose: 5 unit Documented by: JR Cosigned by: DAPHNE Insulin Human Regular (Insulin Regular 100 Unit/Ml 3 Ml Vial) 5 unit SUBCUT NOW ONE Stop: 09/13/21 16:00 Last Admin: 09/13/21 16:04 Dose: 5 unit Documented by: JR Cosigned by: CHESTER Vital Signs Vital signs: Vital Signs - 8 hr 09/13/21 12:55 09/13/21 13:34 09/13/21 14:00 Temperature 96.9 F L Pulse Rate 52 L 51 L 50 L Respiratory Rate 18 22 22 Blood Pressure 153/60 H Pulse Oximetry 97 96 09/13/21 14:30 09/13/21 15:00 09/13/21 15:30 Temperature Pulse Rate 50 L 50 L 49 L Respiratory Rate 19 25 H 13 Blood Pressure Pulse Oximetry 93 99 92 09/13/21 16:00 09/13/21 16:30 09/13/21 16:40 Temperature Pulse Rate 49 L 49 L 49 L Respiratory Rate 20 16 26 H Blood Pressure 150/64 H Pulse Oximetry 99 99 96 09/13/21 17:00 09/13/21 17:02 09/13/21 17:30 Temperature Pulse Rate 49 L 49 L 49 L Respiratory Rate 27 H 20 26 H Blood Pressure 169/73 H Pulse Oximetry 90 L 93 95 09/13/21 17:31 09/13/21 18:00 09/13/21 18:01 Temperature Pulse Rate 49 L 50 L 50 L Respiratory Rate 24 28 H 19 Blood Pressure 163/68 H 136/60 Pulse Oximetry 95 97 100 09/13/21 18:30 Temperature Pulse Rate 49 L Respiratory Rate 22 Blood Pressure Pulse Oximetry MDM - Recheck/Abnormal Lab/Rx Lab Data Result diagrams: 09/13/21 14:32 09/13/21 18:24 Labs: Lab Results 09/13/21 09/13/21 09/13/21 Range/Units 13:29 14:32 14:32 WBC 8.6 (4.5-11.0) X10^3/uL RBC 2.89 L (4.5-5.9) X10^6/uL Hgb 9.1 L (13.5-17.5) g/dL Hct 27.7 L (41-53) % MCV 95.9 (80-100) fL MCH 31.3 (26-34) PG MCHC 32.6 (30-36) % RDW 15.4 H (11.6-14.8) % Plt Count 104 L (150-400) X10^3/uL Neut % (Auto) Not Reportable Lymph % (Auto) Not Reportable [place]verick % (Auto) Not Reportable Eos % (Auto) Not Reportable Baso % (Auto) Not Reportable Lymph # (Auto) Not Reportable [place] # (Auto) Not Reportable Baso # (Auto) Not Reportable Total Counted 100 Seg Neutrophils % 59.0 (38-70) % Band Neutrophils % 7.0 (3-7) % Lymphocytes % (Manual) 23.0 L (25-45) % Atypical Lymphs % 1.0 H ( - 0) % Monocytes % (Manual) 9.0 (2-11) % Eosinophils % (Manual) 1.0 L (2-4) % Neutrophils # (Manual) 5676 (7708-0558) /uL Nucleated RBCs 9 H ( - 0) #/Diff RBC Morphology Not Reportable Polychromasia 2+ H Macrocytosis 2+ H ABG pH (7.35-7.45) ABG pCO2 (35-45) mmHg ABG pO2 (80-100) mmHg ABG HCO3 (22-26) mmol/L ABG Total CO2 (21-31) mmol/L ABG O2 Saturation (95-100) % ABG Base Excess (-2-2) mmol/L FiO2 Sodium (137-145) mmol/L Potassium (3.4-5.1) mmol/L Chloride (98-107) mmol/L Carbon Dioxide (22-32) mmol/L BUN (9-20) mg/dL Creatinine (0.66-1.25) mg/dL Estimated GFR (>60) mL/min BUN/Creatinine Ratio (6-22) Glucose (80-110) mg/dL Lactate (0.7-2.1) mmol/L Calcium (8.4-10.2) mg/dL Magnesium 2.5 H (1.6-2.3) mg/dL Total Bilirubin (0.2-1.3) mg/dL AST (17-59) IU/L ALT (<50) IU/L Alkaline Phosphatase (38-126) U/L Total Creatine Kinase 276 H (55-170) U/L CK-MB (CK-2) 2.60 H (<2.37) ng/mL CK-MB (CK-2) Rel Index 0.9 L (1.5-5.0) % Troponin I 0.344 H* (0.01-0.034) ng/mL NT-Pro-B Natriuret Pep 45962 H (<450) pg/mL Total Protein (6.3-8.2) g/dL Albumin (3.5-5.0) g/dL Globulin (1.7-4.1) g/dL Albumin/Globulin Ratio (1.0-2.8) Chlamy pneumoniae PCR Not detected (Not Detect) Adenovirus (PCR) Not detected (Not Detect) B. pertussis DNA (PCR) Not detected (Not Detecte) B.parapertussis DNA PCR Not detected (Not Detecte) Coronavirus OC43 (PCR) Not detected (Not Detect) Coronavirus HKU1 (PCR) Not detected (Not Detect) Coronavirus 229E (PCR) Not detected (Not Detect) SARS-CoV-2 (PCR) Detected H (Not Detecte) Coronavirus NL63 (PCR) Not detected (Not Detect) Human Metapneumovir PCR Not detected (Not Detect) Influenza Type A (PCR) Not detected (Not Detect) Influenza Type B (PCR) Not detected (Not Detect) M. pneumoniae (PCR) Not detected (Not Detect) Parainfluenza 1 (PCR) Not detected (Not Detect) Parainfluenza 2 (PCR) Not detected (Not Detect) Parainfluenza 3 (PCR) Not detected (Not Detect) Parainfluenza 4 (PCR) Not detected (Not Detect) RSV (PCR) Not detected (Not Detect) Entero/Rhino (PCR) Not detected (Not Detect) 09/13/21 09/13/21 09/13/21 Range/Units 14:32 14:32 16:56 WBC (4.5-11.0) X10^3/uL RBC (4.5-5.9) X10^6/uL Hgb (13.5-17.5) g/dL Hct (41-53) % MCV (80-100) fL MCH (26-34) PG MCHC (30-36) % RDW (11.6-14.8) % Plt Count (150-400) X10^3/uL Neut % (Auto) Lymph % (Auto) Maverick % (Auto) Eos % (Auto) Baso % (Auto) Lymph # (Auto) [place] # (Auto) Baso # (Auto) Total Counted Seg Neutrophils % (38-70) % Band Neutrophils % (3-7) % Lymphocytes % (Manual) (25-45) % Atypical Lymphs % ( - 0) % Monocytes % (Manual) (2-11) % Eosinophils % (Manual) (2-4) % Neutrophils # (Manual) (0228-8694) /uL Nucleated RBCs ( - 0) #/Diff RBC Morphology Polychromasia Macrocytosis ABG pH 7.46 H (7.35-7.45) ABG pCO2 23.1 L* (35-45) mmHg ABG pO2 83 (80-100) mmHg ABG HCO3 16 L (22-26) mmol/L ABG Total CO2 17 L (21-31) mmol/L ABG O2 Saturation 97 (95-100) % ABG Base Excess -7.0 L (-2-2) mmol/L FiO2 21 Sodium 137 (137-145) mmol/L Potassium 5.7 H (3.4-5.1) mmol/L Chloride 102 (98-107) mmol/L Carbon Dioxide 20 L (22-32) mmol/L BUN 104 H (9-20) mg/dL Creatinine 5.29 H (0.66-1.25) mg/dL Estimated GFR 10.4 L (>60) mL/min BUN/Creatinine Ratio 19.7 (6-22) Glucose 175 H (80-110) mg/dL Lactate 2.5 H (0.7-2.1) mmol/L Calcium 9.3 (8.4-10.2) mg/dL Magnesium (1.6-2.3) mg/dL Total Bilirubin 1.1 (0.2-1.3) mg/dL AST 575 H (17-59) IU/L ALT 851 H (<50) IU/L Alkaline Phosphatase 167 H (38-126) U/L Total Creatine Kinase (55-170) U/L CK-MB (CK-2) (<2.37) ng/mL CK-MB (CK-2) Rel Index (1.5-5.0) % Troponin I (0.01-0.034) ng/mL NT-Pro-B Natriuret Pep (<450) pg/mL Total Protein 7.0 (6.3-8.2) g/dL Albumin 3.9 (3.5-5.0) g/dL Globulin 3.1 (1.7-4.1) g/dL Albumin/Globulin Ratio 1.3 (1.0-2.8) Chlamy pneumoniae PCR (Not Detect) Adenovirus (PCR) (Not Detect) B. pertussis DNA (PCR) (Not Detecte) B.parapertussis DNA PCR (Not Detecte) Coronavirus OC43 (PCR) (Not Detect) Coronavirus HKU1 (PCR) (Not Detect) Coronavirus 229E (PCR) (Not Detect) SARS-CoV-2 (PCR) (Not Detecte) Coronavirus NL63 (PCR) (Not Detect) Human Metapneumovir PCR (Not Detect) Influenza Type A (PCR) (Not Detect) Influenza Type B (PCR) (Not Detect) M. pneumoniae (PCR) (Not Detect) Parainfluenza 1 (PCR) (Not Detect) Parainfluenza 2 (PCR) (Not Detect) Parainfluenza 3 (PCR) (Not Detect) Parainfluenza 4 (PCR) (Not Detect) RSV (PCR) (Not Detect) Entero/Rhino (PCR) (Not Detect) 09/13/21 09/13/21 Range/Units 18:24 18:24 WBC (4.5-11.0) X10^3/uL RBC (4.5-5.9) X10^6/uL Hgb (13.5-17.5) g/dL Hct (41-53) % MCV (80-100) fL MCH (26-34) PG MCHC (30-36) % RDW (11.6-14.8) % Plt Count (150-400) X10^3/uL Neut % (Auto) Lymph % (Auto) Maverick % (Auto) Eos % (Auto) Baso % (Auto) Lymph # (Auto) Maverick # (Auto) Baso # (Auto) Total Counted Seg Neutrophils % (38-70) % Band Neutrophils % (3-7) % Lymphocytes % (Manual) (25-45) % Atypical Lymphs % ( - 0) % Monocytes % (Manual) (2-11) % Eosinophils % (Manual) (2-4) % Neutrophils # (Manual) (6616-7544) /uL Nucleated RBCs ( - 0) #/Diff RBC Morphology Polychromasia Macrocytosis ABG pH (7.35-7.45) ABG pCO2 (35-45) mmHg ABG pO2 (80-100) mmHg ABG HCO3 (22-26) mmol/L ABG Total CO2 (21-31) mmol/L ABG O2 Saturation (95-100) % ABG Base Excess (-2-2) mmol/L FiO2 Sodium 140 (137-145) mmol/L Potassium 4.8 (3.4-5.1) mmol/L Chloride 105 (98-107) mmol/L Carbon Dioxide 18 L (22-32) mmol/L BUN 105 H (9-20) mg/dL Creatinine 5.20 H (0.66-1.25) mg/dL Estimated GFR 10.6 L (>60) mL/min BUN/Creatinine Ratio 20.2 (6-22) Glucose 156 H (80-110) mg/dL Lactate 4.3 H* (0.7-2.1) mmol/L Calcium 9.1 (8.4-10.2) mg/dL Magnesium (1.6-2.3) mg/dL Total Bilirubin (0.2-1.3) mg/dL AST (17-59) IU/L ALT (<50) IU/L Alkaline Phosphatase (38-126) U/L Total Creatine Kinase (55-170) U/L CK-MB (CK-2) (<2.37) ng/mL CK-MB (CK-2) Rel Index (1.5-5.0) % Troponin I (0.01-0.034) ng/mL NT-Pro-B Natriuret Pep (<450) pg/mL Total Protein (6.3-8.2) g/dL Albumin (3.5-5.0) g/dL Globulin (1.7-4.1) g/dL Albumin/Globulin Ratio (1.0-2.8) Chlamy pneumoniae PCR (Not Detect) Adenovirus (PCR) (Not Detect) B. pertussis DNA (PCR) (Not Detecte) B.parapertussis DNA PCR (Not Detecte) Coronavirus OC43 (PCR) (Not Detect) Coronavirus HKU1 (PCR) (Not Detect) Coronavirus 229E (PCR) (Not Detect) SARS-CoV-2 (PCR) (Not Detecte) Coronavirus NL63 (PCR) (Not Detect) Human Metapneumovir PCR (Not Detect) Influenza Type A (PCR) (Not Detect) Influenza Type B (PCR) (Not Detect) M. pneumoniae (PCR) (Not Detect) Parainfluenza 1 (PCR) (Not Detect) Parainfluenza 2 (PCR) (Not Detect) Parainfluenza 3 (PCR) (Not Detect) Parainfluenza 4 (PCR) (Not Detect) RSV (PCR) (Not Detect) Entero/Rhino (PCR) (Not Detect) Point of Care Testing Glucose POC 160 Urine Dip Bedside Urine Glucose Negative Bedside Urine Bilirubin - Negative Bedside Urine Ketone - Negative Urine Specific [place] 1.025 Bedside Urine Occult Blood - Negative Bedside Urine pH 5.5 Bedside Urine Protein - Negative Bedside Urine Urobilinogen - Negative Bedside Urine Nitrite - Negative Bedside Urine Leukocytes - Negative Esterase Imaging Data Chest x-ray: Radiologist's Impression: PROCEDURE:? XR CHEST 2V ? INDICATIONS:? cough, SOB ? TECHNIQUE:? 2 views of the chest were acquired.? ? COMPARISON:? [facility], CR, XR CHEST 1V, 08/11/2021, 15:34. ? FINDINGS:? ? Surgical changes and devices:? None.? ? Lungs and pleura:? No consolidation, pleural effusions or pneumothorax.? No overt pulmonary edema. ? Mediastinum:? Mediastinal contours are normal.? Heart size is normal.? ? Bones and chest wall:? No suspicious bony abnormalities.? Soft tissues appear unremarkable.? Persistent elevation of the right diaphragm. ? IMPRESSION:? No acute cardiopulmonary abnormality. ? ? Dictated by: Shai Murphy M.D. on 09/13/2021 at 12:08 ?? US - abdomen: Radiologist's Impression: PROCEDURE: US ABDOMEN LIMITED ? INDICATIONS:? RUQ PAIN ? TECHNIQUE:? Real-time focused scanning was performed of the abdomen, with image documentation.? ? COMPARISON:? None. ? FINDINGS:? The liver is poorly seen, yet grossly appears unremarkable, with normal size. ? The gallbladder is also poorly seen.? No findings of gallstones or sludge are seen.? The gallbladder wall is not thickened, measuring 3 mm or less.? No specific pericholecystic fluid is seen.? The sonographic Wakefield sign is negative. ? There is no biliary dilatation, the common bile duct measures 5 mm.? ? This study is limited by body habitus.? ? ? IMPRESSION:? Limited study, without significant abnormality of the gallbladder or biliary ducts seen. ? ? Dictated by: Peter Riggs M.D. on 09/13/2021 at 13:08? US Renal: Radiologist's Impression: PROCEDURE:? US RENAL COMPLETE ? INDICATIONS:? acute renal failure ? TECHNIQUE:? Real-time scanning was performed of the kidneys and bladder, with image documentation.? ? COMPARISON:? [facility], , RENAL COMPLETE, 01/05/2013, 10:19. ? FINDINGS:? ? Kidneys:? Kidneys are normal in size.? Right kidney measures 8.1 cm long; left kidney measures 9.1 cm long.? Right renal cortical thickness is 1.2 cm; left renal cortical thickness is 1.1 cm.? Renal cortical echotexture is normal.? No hydronephrosis or nephrolithiasis.? No suspicious solid mass lesions.? ? Bladder:? Pre-void bladder volume is 591 mL.? Post-void residual is not obtainable at the time of the examination.? Pre-void images demonstrate no intraluminal masses or stones.? On pre-void images, neither of the ureteral jets are noted with color Doppler interrogation.? (Of note, ureteral jets may not be detectable in up to 25% of cases due to insufficient differences in specific gravity between ureteral and bladder urine).? ? Miscellaneous:? No free pelvic fluid.? ? IMPRESSION:? ? Distended bladder ? No hydronephrosis ? Dictated by: Mikhail Longo M.D. on 09/13/2021 at 18:59? ECG Data Attestation: I personally reviewed and interpreted this ECG as follows: Interpretation: Sinus rhythm rate 52 DE interval 198 QRS [address] changes MDM Narrative Medical decision making narrative: Patient is having episodes of diarrhea and shortness of breath. He actually does not sound wet he is currently not hypoxic. He is found to be COVID positive. His creatinine is also found to be elevated from his baseline at 5.29 potassium is rising up from 5.3 to 5.7. He is treated for hyperkalemia with IV fluids and insulin and dextrose. He has a continuous glucose monitor and he has been monitoring his glucose in the ED. initially tried to transfer patient to [facility] for acute on chronic renal failure and COVID however patient actually does not want dialysis. His potassium has improved with treatment. He is not requiring oxygen at this time for his COVID pneumonia, at this time does not necessarily meet criteria for transfer. I have discussed at length with patient capabilities of this hospital. We do not have Cardiology bleeding not Nephrology. Very limited intervention at this time which would be monitoring his renal function slow IV rehydration. He is grateful for that. He continues to be D and are he indicates possible intubation. I reviewed records from [place] which are scanned in to this EMR she those records report no invasive procedures and DNR as well. Patient had Gregg catheter placed 700 mL of urine out. Acute on chronic renal failure may be both pre and post renal. Dr. Curry updated on patients code status, symptoms and test results. Discharge Plan Departure Patient Disposition: Admitted As Inpatient Clinical Impression: Acute on chronic kidney failure, COVID-19
--- NOTE | 2021-09-13 13:44 | DI.US.S_ITS ---
PROCEDURE: US ABDOMEN LIMITED INDICATIONS: RUQ PAIN TECHNIQUE: Real-time focused scanning was performed of the abdomen, with image documentation. COMPARISON: None. FINDINGS: The liver is poorly seen, yet grossly appears unremarkable, with normal size. The gallbladder is also poorly seen. No findings of gallstones or sludge are seen. The gallbladder wall is not thickened, measuring 3 mm or less. No specific pericholecystic fluid is seen. The sonographic Wakefield sign is negative. There is no biliary dilatation, the common bile duct measures 5 mm. This study is limited by body habitus. IMPRESSION: Limited study, without significant abnormality of the gallbladder or biliary ducts seen. Dictated by: ePter Riggs M.D. on 09/13/2021 at 13:08 Approved by: Peter Riggs M.D. on 09/13/2021 at 13:09
[2021-09-13 14:34] LABS: Adenovirus Not Detected (Not Detect); B. parapertussis Not Detected (Not Detecte); Bordetella pertussis Not Detected (Not Detecte); Chlamydophila pneumoniae Not Detected (Not Detect); Coronavirus 229E Not Detected (Not Detect); Coronavirus HKU1 Not Detected (Not Detect); Coronavirus NL 63 Not Detected (Not Detect); Coronavirus OC43 Not Detected (Not Detect); Human Metapneumovirus Not Detected (Not Detect); Human Rhinovirus/Enterovirus Not Detected (Not Detect); Influenza A Not Detected (Not Detect); Influenza B Not Detected (Not Detect); Mycoplasma pneumoniae Not Detected (Not Detect); Parainfluenza Virus 1 Not Detected (Not Detect); Parainfluenza Virus 2 Not Detected (Not Detect); Parainfluenza Virus 3 Not Detected (Not Detect); Parainfluenza Virus 4 Not Detected (Not Detect); Respiratory Syncytial Virus Not Detected (Not Detect)
[2021-09-13 14:35] LABS: SARS- CoV-2 Detected (Not Detecte)
[2021-09-13] MEDS: SODIUM CHLORIDE 0.9% 1,000 ML 100 ML IV (14:48)
[2021-09-13 15:13] LABS: Add Manual Diff / Slide Review YES; Hematocrit 27.7 % (41-53); Hemoglobin 9.1 g/dL (13.5-17.5); Mean Corpuscular HGB Conc 32.6 % (30-36); Mean Corpuscular Hemoglobin 31.3 PG (26-34); Mean Corpuscular Volume 95.9 fL (80-100); Platelet Count 104 X10^3/uL (150-400); Red Blood Cell Count 2.89 X10^6/uL (4.5-5.9); Red Cell Distribution Width 15.4 % (11.6-14.8); Total Cells Counted 100
[2021-09-13 15:14] LABS: Neutrophils Absolute Manual 5676 /uL (3000-5900); Nucleated Red Blood Cells 9 #/Diff; Polychromasia 2+
[2021-09-13 15:15] LABS: Macrocytosis 2+; White Blood Cell Count 8.6 X10^3/uL (4.5-11.0)
[2021-09-13 15:26] LABS: Lactate (Lactic Acid) 2.5 mmol/L (0.7-2.1)
[2021-09-13 15:27] LABS: Creatine Kinase 276 U/L (55-170); Magnesium 2.5 mg/dL (1.6-2.3)
[2021-09-13 15:28] LABS: Albumin 3.9 g/dL (3.5-5.0); Albumin Globulin Ratio 1.3 (1.0-2.8); Alkaline Phosphatase 167 U/L (38-126); Aspartate Aminotransferase 575 IU/L (17-59); BUN Creatinine Ratio 19.7 (6-22); Bilirubin Total 1.1 mg/dL (0.2-1.3); Blood Urea Nitrogen 104 mg/dL (9-20); Calcium 9.3 mg/dL (8.4-10.2); Carbon Dioxide 20 mmol/L (22-32); Chloride 102 mmol/L (98-107); Estimated Glomerular Filt Rate 10.4 mL/min (>60); Globulin 3.1 g/dL (1.7-4.1); Glucose 175 mg/dL (80-110); HEMOLYSIS < 15 (0-50); Sodium 137 mmol/L (137-145)
[2021-09-13 15:36] LABS: Potassium 5.7 mmol/L (3.4-5.1)
[2021-09-13 15:37] LABS: Alanine Aminotransferase 851 IU/L (<50)
[2021-09-13 15:42] LABS: CKMB % Relative Index 0.9 % (1.5-5.0)
[2021-09-13 15:52] LABS: NT-proBNP (BNP-Adult 18+) 92900 pg/mL (<450)
[2021-09-13] MEDS: INSULIN REGULAR 100 UNIT/ML 3 ML VIAL SUBCUT (16:04)
[2021-09-13 16:07] LABS: Troponin I 0.344 ng/mL (0.01-0.034)
[2021-09-13 16:18] LABS: pH ABG 7.46 (7.35-7.45)
[2021-09-13 16:19] LABS: Fractionated Inspired Oxygen 21; HCO3 ABG 16 mmol/L (22-26); Oxygen Saturation ABG 97 % (95-100); PCO2 ABG 23.1 mmHg (35-45); PO2 ABG 83 mmHg (80-100); TCO2 ABG 17 mmol/L (21-31)
[2021-09-13] MEDS: INSULIN REGULAR 100 UNIT/ML 3 ML VIAL IV (16:59)
[2021-09-13 17:01] LABS: Reflexed Lactate in 2 Hours Y
[2021-09-13] MEDS: DEXTROSE 50 % IN WATER 25 GM/50 ML SYRINGE IV (17:01)
--- NOTE | 2021-09-13 18:08 | DI.US.S_ITS ---
PROCEDURE: US RENAL COMPLETE INDICATIONS: acute renal failure TECHNIQUE: Real-time scanning was performed of the kidneys and bladder, with image documentation. COMPARISON: [facility], , RENAL COMPLETE, 01/05/2013, 10:19. FINDINGS: Kidneys: Kidneys are normal in size. Right kidney measures 8.1 cm long; left kidney measures 9.1 cm long. Right renal cortical thickness is 1.2 cm; left renal cortical thickness is 1.1 cm. Renal cortical echotexture is normal. No hydronephrosis or nephrolithiasis. No suspicious solid mass lesions. Bladder: Pre-void bladder volume is 591 mL. Post-void residual is not obtainable at the time of the examination. Pre-void images demonstrate no intraluminal masses or stones. On pre-void images, neither of the ureteral jets are noted with color Doppler interrogation. (Of note, ureteral jets may not be detectable in up to 25% of cases due to insufficient differences in specific gravity between ureteral and bladder urine). Miscellaneous: No free pelvic fluid. IMPRESSION: Distended bladder No hydronephrosis Dictated by: Mikhail Longo M.D. on 09/13/2021 at 18:59 Approved by: Mikhail Longo M.D. on 09/13/2021 at 19:00
[2021-09-13 18:45] LABS: BUN Creatinine Ratio 20.2 (6-22); Blood Urea Nitrogen 105 mg/dL (9-20); Calcium 9.1 mg/dL (8.4-10.2); Carbon Dioxide 18 mmol/L (22-32); Chloride 105 mmol/L (98-107); Estimated Glomerular Filt Rate 10.6 mL/min (>60); Glucose 156 mg/dL (80-110); HEMOLYSIS < 15 (0-50); Potassium 4.8 mmol/L (3.4-5.1); Sodium 140 mmol/L (137-145)
[2021-09-13 18:56] LABS: Lactate 2HR (Lactic Acid Rflx) 4.3 mmol/L (0.7-2.1)
--- NOTE | 2021-09-13 22:08 | P.HP_ITS ---
History of Present Illness History of Present Illness Date Patient Seen: 09/13/21 Time Patient Seen: 22:08 Chief complaint: Sent by after lab results Narrative: The patient is an 86-year-old male with a history of chronic kidney disease, congestive heart failure, coronary artery disease, status post recent NSTEMI, type 2 diabetes, and hypertension who reports feeling ill for the past week. Patient reported feelings of shortness of breath, cough, difficulty sleeping. He was COVID tested by Dr. Cherry which was initially negative. The patient has been vaccinated and also has received his booster. He noted about 6 days ago developing diarrhea. He had up to 6 loose stools per day. He had no nausea vomiting hematemesis or melena. Patient states he has been urinating as normal. Today however he noted decreased urine output. In addition he co mplains of decreased taste and smell. He notes that since arriving to the hospital his shortness of breath has improved. He has had a cough with productive sputum. He has had no chest pain. And no palpitations. The patient was feeling poorly and went to see Dr. tavarez today for evaluation. Laboratory studies were significant for worsening renal insufficiency. Patient does have baseline chronic renal failure with a creatinine of around 2.5. Today he was found to have a markedly elevated creatinine of 5.2 with a BUN of 105. In addition the patient had an elevated lactate of 4.3. His LFTs were elevated including an AST of 575 ALT of 851 alk-phos of 167. His CPK MB was 2.6. Troponin I was 0.3 [place] [address]. Patient is SARs COVID 2 positive. Patient further workup in the emergency room which included a renal ultrasound. This revealed a distended bladder but no hydronephrosis. Bladder volume was calculated at 591. The catheter was placed and 700 cc of urine was obtained. The patient also underwent an abdominal ultrasound, the results revealed no significant abnormality of the gallbladder or biliary system. The patient is not hypoxic. He is admitted to the hospital for evaluation of 1. Acute renal failure, diarrhea, elevated troponin, and COVID pneumonia. Patient reports he is DNR DNI. He would like treatment including IV fluids. The patient is clear he would not want hemodialysis if indicated. Patient is admitted to the hospital at this time for further evaluation and treatment of his medical conditions as outlined above. Patient History Medical History CKD (chronic kidney disease) Congestive heart failure Coronary artery disease Diabetes Hypertension Surgical History No pertinent past surgical history Family & Social History Family History (Updated 09/13/21 @ 22:29 by Padmini Curry MD) Father Diabetes mellitus Sister CAD (coronary artery disease) Son Myocardial infarction Brother Myocardial infarction Social History: household members spouse Safety & Behavioral: Feels Safe in Current Yes Environment Been Physically Hurt or No Threatened By a Person Tobacco & Substance use: Smoking Status Former smoker alcohol intake frequency other Substance Use Type does not use Meds Home Medications and Allergies Home Medications Medication Instructions Recorded Confirmed Type clopidogrel 75 mg tablet (Plavix) 75 mg PO DAILY #30 tab 09/03/18 08/11/21 Rx Lactobacillus 1 cap PO DAILY 08/11/21 08/11/21 History acidophilus-Bifidobac.animalis 2.5 billion cell capsule (Daily Probiotic) alirocumab 75 mg/mL subcutaneous 75 mg SUBCUT Q2W 08/11/21 08/11/21 History pen injector (Praluent Pen) coQ10 (ubiquinol) 100 mg capsule 100 mg PO DAILY 08/11/21 08/11/21 History metoprolol succinate 100 mg 100 mg PO DAILY 08/11/21 08/11/21 History tablet,extended release 24 hr insulin NPH-regular 70-30 U-100 See Rx Instructions .ROUTE .COMPLEX 09/13/21 09/13/21 History insulin 100 unit/mL subcutaneous pen sacubitril 24 mg-valsartan 26 mg 1 tab PO BID #180 tab 09/13/21 09/13/21 Rx tablet (Entresto) torsemide 5 mg tablet 5 mg PO DAILY #60 tab 09/13/21 09/13/21 Rx Allergies Allergy/AdvReac Type Severity Reaction Status Date / Time allopurinol Allergy Intermediate rash Verified 08/11/21 15:24 Review of Systems Review of Systems Narrative: 10 point review of systems is negative except as above Exam Vital Signs (past 8 hours): - 09/13/21 14:30 09/13/21 15:00 09/13/21 15:30 Pulse Rate 50 L 50 L 49 L Respiratory Rate 19 25 H 13 Blood Pressure Pulse Oximetry 93 99 92 09/13/21 16:00 09/13/21 16:30 09/13/21 16:40 Pulse Rate 49 L 49 L 49 L Respiratory Rate 20 16 26 H Blood Pressure 150/64 H Pulse Oximetry 99 99 96 09/13/21 17:00 09/13/21 17:02 09/13/21 17:30 Pulse Rate 49 L 49 L 49 L Respiratory Rate 27 H 20 26 H Blood Pressure 169/73 H Pulse Oximetry 90 L 93 95 09/13/21 17:31 09/13/21 18:00 09/13/21 18:01 Pulse Rate 49 L 50 L 50 L Respiratory Rate 24 28 H 19 Blood Pressure 163/68 H 136/60 Pulse Oximetry 95 97 100 09/13/21 18:30 09/13/21 18:56 09/13/21 19:00 Pulse Rate 49 L 50 L 51 L Respiratory Rate 22 19 28 H Blood Pressure 154/68 H Pulse Oximetry 98 96 09/13/21 19:30 09/13/21 20:00 09/13/21 20:30 Pulse Rate 50 L 50 L 49 L Respiratory Rate 28 H 12 27 H Blood Pressure Pulse Oximetry 98 95 94 Oxygen Delivery Method Room Air Narrative Exam Narrative: Pleasant elderly male lying in bed in no obvious distress [facility] Other: HEENT: Normocephalic atraumatic, extraocular muscles are intact, oropharynx reveals moist mucous membranes neck is supple without adenopathy or thyromegaly Eyes Other: Sclerae anicteric, extraocular muscles are intact no conjunctival injection Resp Other: Lungs decreased breath sounds but otherwise clear to auscultation Cardio Other: Cardiac exam: Regular rate rhythm normal S1-S2 GI Other: Abdomen: Soft nontender nondistended no hepatosplenomegaly Other: No tenderness over the urinary bladder Skin Other: No lesions noted Neuro Other: Cranial nerves 2-12 are intact, strength is symmetric and equal, sensation is grossly intact, reflexes are equal, gait is not assessed Extrem Other: 1+ pedal edema bilaterally Psych Other: Patient has no evidence of confusion, thought disorder, or abnormal thought content, he has normal judgment, no evidence of hallucinations, no abnormalities of speech or movement Objective ECG Impression: Sinus bradycardia, no acute ST T wave abnormalities Labs Result Diagrams: 09/13/21 14:32 09/13/21 18:24 Labs: Laboratory Results - last 24 hr 09/13/21 09/13/21 09/13/21 13:29 14:32 14:32 WBC 8.6 RBC 2.89 L Hgb 9.1 L Hct 27.7 L MCV 95.9 MCH 31.3 MCHC 32.6 RDW 15.4 H Plt Count 104 L Neut % (Auto) Not Reportable Lymph % (Auto) Not Reportable Jennings % (Auto) Not Reportable Eos % (Auto) Not Reportable Baso % (Auto) Not Reportable Lymph # (Auto) Not Reportable Jennings # (Auto) Not Reportable Baso # (Auto) Not Reportable Total Counted 100 Seg Neutrophils % 59.0 Band Neutrophils % 7.0 Lymphocytes % (Manual) 23.0 L Atypical Lymphs % 1.0 H Monocytes % (Manual) 9.0 Eosinophils % (Manual) 1.0 L Neutrophils # (Manual) 5676 Nucleated RBCs 9 H RBC Morphology Not Reportable Polychromasia 2+ H Macrocytosis 2+ H ABG pH ABG pCO2 ABG pO2 ABG HCO3 ABG Total CO2 ABG O2 Saturation ABG Base Excess FiO2 Sodium Potassium Chloride Carbon Dioxide BUN Creatinine Estimated GFR BUN/Creatinine Ratio Glucose Lactate Calcium Magnesium 2.5 H Total Bilirubin AST ALT Alkaline Phosphatase Total Creatine Kinase 276 H CK-MB (CK-2) 2.60 H CK-MB (CK-2) Rel Index 0.9 L Troponin I 0.344 H* NT-Pro-B Natriuret Pep 11264 H Total Protein Albumin Globulin Albumin/Globulin Ratio Chlamy pneumoniae PCR Not detected Adenovirus (PCR) Not detected B. pertussis DNA (PCR) Not detected B.parapertussis DNA PCR Not detected Coronavirus OC43 (PCR) Not detected Coronavirus HKU1 (PCR) Not detected Coronavirus 229E (PCR) Not detected SARS-CoV-2 (PCR) Detected H Coronavirus NL63 (PCR) Not detected Human Metapneumovir PCR Not detected Influenza Type A (PCR) Not detected Influenza Type B (PCR) Not detected M. pneumoniae (PCR) Not detected Parainfluenza 1 (PCR) Not detected Parainfluenza 2 (PCR) Not detected Parainfluenza 3 (PCR) Not detected Parainfluenza 4 (PCR) Not detected RSV (PCR) Not detected Entero/Rhino (PCR) Not detected 09/13/21 09/13/21 09/13/21 14:32 14:32 16:56 WBC RBC Hgb Hct MCV MCH MCHC RDW Plt Count Neut % (Auto) Lymph % (Auto) Jennings % (Auto) Eos % (Auto) Baso % (Auto) Lymph # (Auto) Jennings # (Auto) Baso # (Auto) Total Counted Seg Neutrophils % Band Neutrophils % Lymphocytes % (Manual) Atypical Lymphs % Monocytes % (Manual) Eosinophils % (Manual) Neutrophils # (Manual) Nucleated RBCs RBC Morphology Polychromasia Macrocytosis ABG pH 7.46 H ABG pCO2 23.1 L* ABG pO2 83 ABG HCO3 16 L ABG Total CO2 17 L ABG O2 Saturation 97 ABG Base Excess -7.0 L FiO2 21 Sodium 137 Potassium 5.7 H Chloride 102 Carbon Dioxide 20 L BUN 104 H Creatinine 5.29 H Estimated GFR 10.4 L BUN/Creatinine Ratio 19.7 Glucose 175 H Lactate 2.5 H Calcium 9.3 Magnesium Total Bilirubin 1.1 AST 575 H ALT 851 H Alkaline Phosphatase 167 H Total Creatine Kinase CK-MB (CK-2) CK-MB (CK-2) Rel Index Troponin I NT-Pro-B Natriuret Pep Total Protein 7.0 Albumin 3.9 Globulin 3.1 Albumin/Globulin Ratio 1.3 Chlamy pneumoniae PCR Adenovirus (PCR) B. pertussis DNA (PCR) B.parapertussis DNA PCR Coronavirus OC43 (PCR) Coronavirus HKU1 (PCR) Coronavirus 229E (PCR) SARS-CoV-2 (PCR) Coronavirus NL63 (PCR) Human Metapneumovir PCR Influenza Type A (PCR) Influenza Type B (PCR) M. pneumoniae (PCR) Parainfluenza 1 (PCR) Parainfluenza 2 (PCR) Parainfluenza 3 (PCR) Parainfluenza 4 (PCR) RSV (PCR) Entero/Rhino (PCR) 09/13/21 09/13/21 18:24 18:24 WBC RBC Hgb Hct MCV MCH MCHC RDW Plt Count Neut % (Auto) Lymph % (Auto) Jennings % (Auto) Eos % (Auto) Baso % (Auto) Lymph # (Auto) Jennings # (Auto) Baso # (Auto) Total Counted Seg Neutrophils % Band Neutrophils % Lymphocytes % (Manual) Atypical Lymphs % Monocytes % (Manual) Eosinophils % (Manual) Neutrophils # (Manual) Nucleated RBCs RBC Morphology Polychromasia Macrocytosis ABG pH ABG pCO2 ABG pO2 ABG HCO3 ABG Total CO2 ABG O2 Saturation ABG Base Excess FiO2 Sodium 140 Potassium 4.8 Chloride 105 Carbon Dioxide 18 L BUN 105 H Creatinine 5.20 H Estimated GFR 10.6 L BUN/Creatinine Ratio 20.2 Glucose 156 H Lactate 4.3 H* Calcium 9.1 Magnesium Total Bilirubin AST ALT Alkaline Phosphatase Total Creatine Kinase CK-MB (CK-2) CK-MB (CK-2) Rel Index Troponin I NT-Pro-B Natriuret Pep Total Protein Albumin Globulin Albumin/Globulin Ratio Chlamy pneumoniae PCR Adenovirus (PCR) B. pertussis DNA (PCR) B.parapertussis DNA PCR Coronavirus OC43 (PCR) Coronavirus HKU1 (PCR) Coronavirus 229E (PCR) SARS-CoV-2 (PCR) Coronavirus NL63 (PCR) Human Metapneumovir PCR Influenza Type A (PCR) Influenza Type B (PCR) M. pneumoniae (PCR) Parainfluenza 1 (PCR) Parainfluenza 2 (PCR) Parainfluenza 3 (PCR) Parainfluenza 4 (PCR) RSV (PCR) Entero/Rhino (PCR) Assessment & Plan Assessment & Plan narrative: 86-year-old male admitted to the hospital with a history of NSTEMI, ischemic heart disease, chronic systolic heart failure, chronic kidney disease stage 3, type 2 diabetes, and gout admitted to the hospital with: * Acute renal failure * Patient's baseline creatinine is 2.5, current BUN 105, creatinine 5.25 * Acute renal failure likely multifactorial -patient with urinary retention, Gregg catheter placed and 700 cc of urine output noted-post renal cause -patient also with an element of prerenal azotemia likely related to diarrhea and continued diuretics and Entresto use -suspect diarrhea related to new diagnosis of [id number] however this is leading to increasing dehydration, will check Cdiff for completeness * Patient is clear he would not want hemodialysis, also reports he is DNR DNI * Will continue gentle IV hydration, discontinue Entresto at this time, follow renal function closely * Repeat electrolytes in the morning * Avoid nephrotoxic agents * Monitor pulmonary status closely Chronic congestive heart failure secondary to systolic dysfunction * Patient reports shortness of breath earlier this week, he is no longer short of breath * Patient had oxygen saturation of 90%, now on room air 95% or higher * Despite known systolic dysfunction will need to hold torsemide given his pre renal azotemia * Will hold Entresto at this time, resume once renal function improved * Patient reiterates he does not want intubation, will manage volume status closely * ProBNP markedly elevated at 92,000, echocardiogram November 2019 reveals an ejection fraction of 20-25% Ischemic heart disease * Patient with an elevated troponin of 0.344, patient denies chest pain, EKG reveals no evidence of ST T wave abnormality * Patient declined cardiac catheterization during prior hospitalization for NSTEMI * Will follow serial troponins, continue Plavix, defer heparinization at this time suspect this is related to demand ischemia but will follow troponins and clinical symptoms closely Anemia * Suspect anemia of chronic disease, secondary to chronic renal failure * Hemoglobin 9, HCT 27/7 no indication for transfusion * Will check iron studies * Consider IV iron, EPO Metabolic acidosis * Multifactorial, likely related to underlying renal failure, and lactic acidosis * Despite serum lactate of 4, no evidence to suggest sepsis * Will continue to trend lactate closely Elevated liver function tests * Abdominal ultrasound negative * Suspect passive congestion of the liver related to chronic systolic heart failure * Will continue to monitor LFTs closely Type 2 diabetes * Will continue usual home insulin dose Hypertension * Continue metoprolol Patient will be placed on subcu heparin for DVT prophylaxis He reports his is his surrogate decision maker Patient indicates he wishes to be DNR DNI and will note that his record accordingly I have used all available resources to review update and confirm current medications Patient will be admitted to the hospital as an inpatient COVID-19 COVID-19 status: Positive Result date/Date tested (Pos, Neg/Pending): 09/13/21 Time Spent With Patient Critical Care time: I spent a total of [] minutes of critical care time on this patient's care today; this time is exclusive of procedural time.
[2021-09-14] VITALS (8 sets, daily range): BP systolic 126–159; BP diastolic 43–60; PULSE 52–74; RESP 20–24; TEMP 36.2–36.4; O2SAT 95–100
[2021-09-14] MEDS: LACTATED RINGERS 1,000 ML 100 ML IV (00:25)
[2021-09-14] MEDS: HEPARIN 5,000 UNIT/ML VIAL 5000 UNIT SUBCUT ×3 (00:26→21:59)
[2021-09-14] MEDS: INSULIN NPH/REG 70-30 100 UNIT/ML 3ML VIAL 25 UNIT SUBCUT (09:51)
[2021-09-14] MEDS: INSULIN LISPRO 100 UNIT/ML 3ML VIAL SUBCUT ×2 (09:51→12:48)
[2021-09-14] MEDS: CLOPIDOGREL 75 MG TABLET PO (09:54)
--- NOTE | 2021-09-14 17:00 | P.PN_ITS ---
Subjective Subjective Date Patient Seen: 09/14/21 Time Patient Seen: 17:00 Interval history: Denies shortness of breath, chest pain. Feels weak, tired. Falls asleep easily. Exam Vital Signs (past 8 hours): - 09/14/21 09:13 09/14/21 12:37 09/14/21 15:00 Temperature 97.5 F L 97.2 F L Pulse Rate 53 L 74 Respiratory Rate 21 20 Blood Pressure 159/54 H 126/43 L Pulse Oximetry 96 100 100 Oxygen Delivery Method Nasal Cannula Oxygen Flow Rate 2 Narrative Exam Narrative: ?Pleasant elderly male lying in bed in no obvious distress [facility] Other:?HEENT:? Normocephalic atraumatic, extraocular muscles are intact, oropharynx reveals moist mucous membranes neck is supple without adenopathy or thyromegaly Eyes Other:?Sclerae anicteric, extraocular muscles are intact no conjunctival injection Resp Other:?Lungs decreased breath sounds but otherwise clear to auscultation Cardio Other:?Cardiac exam:? Regular rate rhythm normal S1-S2 GI Other:?Abdomen:? Soft nontender nondistended no hepatosplenomegaly Skin Other:?No lesions noted Neuro Other:?Cranial nerves 2-12 are intact, strength is symmetric and equal, gait is not assessed. Awake, falls asleep easily. Extrem Other:?1+ pedal edema bilaterally, no joint effusions Objective Labs Result Diagrams: 09/13/21 14:32 09/13/21 18:24 Labs: Laboratory Results - last 24 hr 09/13/21 09/13/21 18:24 18:24 Sodium 140 Potassium 4.8 Chloride 105 Carbon Dioxide 18 L BUN 105 H Creatinine 5.20 H Estimated GFR 10.6 L BUN/Creatinine Ratio 20.2 Glucose 156 H Lactate 4.3 H* Calcium 9.1 PFSH Medical History CKD (chronic kidney disease) Congestive heart failure Coronary artery disease Diabetes Hypertension Surgical History No pertinent past surgical history Family History (Updated 09/13/21 @ 22:29 by Padmini Curry MD) Father Diabetes mellitus Sister CAD (coronary artery disease) Son Myocardial infarction Brother Myocardial infarction Social History household members: spouse Smoking Status: Former smoker Assessment & Plan Assessment & Plan narrative: 86-year-old male admitted to the hospital with a history of NSTEMI, ischemic heart disease, chronic systolic heart failure, chronic kidney disease stage 3, type 2 diabetes, and gout admitted to the hospital with 1. Acute renal failure -Patient's baseline creatinine is 2.5, current BUN 105, creatinine around 5.2. Repeat labs today have been difficult to obtain. -Acute renal failure likely multifactorial -patient with urinary retention, Gregg catheter placed and 700 cc of urine output noted-post renal cause -patient also with an element of prerenal azotemia likely related to diarrhea and continued diuretics and Entresto use -suspect diarrhea related to new diagnosis of [id number] however this is leading to increasing dehydration, Cdiff ordered for completeness however no further diarrhea today. -Patient is clear he would not want hemodialysis, also reports he is DNR DNI -developed mild hypoxia with IVF, will discontinue. Continue to check electro lytes daily. - Avoid nephrotoxic agents - Monitor pulmonary status closely 2. Chronic congestive heart failure secondary to systolic dysfunction -Despite known systolic dysfunction will need to hold torsemide given his pre renal azotemia -Will hold Entresto at this time, resume once renal function improved -Patient reiterates he does not want intubation, will manage volume status closely -ProBNP markedly elevated at 92,000, echocardiogram November 2019 reveals an ejection fraction of 20-25% 3. Ischemic heart disease -Patient with an elevated troponin of 0.344, patient denies chest pain, EKG reveals no evidence of ST T wave abnormality -Patient declined cardiac catheterization during prior hospitalization for NSTEMI -Will follow serial troponins, continue Plavix, defer heparinization at this time suspect this is related to demand ischemia but will follow troponins and clinical symptoms closely 4. Anemia -Suspect anemia of chronic disease, secondary to chronic renal failure -Hemoglobin 9, HCT 27/7 no indication for transfusion -Will check iron studies -Consider IV iron, EPO 5. Metabolic acidosis -Multifactorial, likely related to underlying renal failure, and lactic aci dosis -Despite serum lactate of 4, no evidence to suggest sepsis -Will continue to trend lactate closely 6. Elevated liver function tests - Abdominal ultrasound negative - Suspect passive congestion of the liver related to chronic systolic heart failure or possibly hypoperfusion in setting of dehydration from diarrhea. - Will continue to monitor LFTs closely 7. Type 2 diabetes - Will continue usual home insulin dose 8. Hypertension - Continue metoprolol 9. Hypoxia, resolved - patient with transient hypoxia this AM after IV fluids. Suspect related to heart failure. Improved later in the day quickly without need for active diuresis. subcu heparin for DVT prophylaxis He reports his is his surrogate decision maker Patient indicates he wishes to be DNR DNI and will note that his record accordingly Time Spent With Patient Critical Care time: I spent a total of [] minutes of critical care time on this patient's care today; this time is exclusive of procedural time. Quality VTE Deep Vein Thrombosis/Pulmonary Embolism Present on Admission: No
--- NOTE | 2021-09-14 17:06 | CM.DANOTE ---
DCP Assessment: patient is a 86 yr old male who was for Covid +, Vaccinated, CHF, now on 2L per NC. called room PT unavailable at time of CM call patients room but patient was did not answered- brief assessment done from records. Cm attempted to call patients and LVM- I: [employer] and self pay Plan: DC home with when medically stable- Vs home with HH or SNF- unable to reach family or patient to disscuss plan however per MD note patient is a DNR, DNI but is oxygenating well so home is most likely the plan. CM departement to follow and will attempt to contact patient again via phone tomorrow. Fernanda Lemus RNmanager search engine Discharge Planning/Care Management CM Discharge Assessment Start: 09/14/21 16:45 Freq: Status: Active Protocol: Document 09/14/21 16:45 HS (Rec: 09/14/21 17:02 HS [id number]) Discharge Planning Assessment Assigned Hand Blocker Fernanda Lemus RNroll former DPOA/Assigned Designee Name Kirk Chilel () Contact Information [phone] Advance Directives? No History Provided By Patient,Medical Record Has Patient been admitted in last 30 Yes days? Prior Living Arrangements House Household Members spouse Independent with ADL's Yes Is patient alert and oriented? Yes Barriers to Discharge No Discharge Plan Home Whiteboard Updated in Patient Room with Yes name and ext. # of Hand Blocker Review Status In Process Next Review Type Continued Stay Review
--- NOTE | 2021-09-14 18:33 | PC.NURSE ---
Pt received lying in bed on 2 L 02 saturation 90's improving to 100%, weaned to RA. He is A&OX3, very poor intake not able to eat more than a few bites of each meal. Aggreeable to ice tea. Gregg catheter with 375 medium clear yellow urine this shift. Midline infiltrated and DI nurse notified, he was able to replace L UE and place RUE midline 20 gauge. However neither would draw, lab notified of RN inablity to draw. Phlebotomy attempted to draw patient x1, then patient declined lab draw. MD aware. He tolerates RA well however remains in bed and becomes hypoxic with SOB with minimal activity of repositioning. He denies any pain. Metoprolol held due to bradycardia on telemetry. Pt wanting to rest today. Declines out of bed. VSS, afebrile.
[2021-09-15] VITALS (8 sets, daily range): BP systolic 103–143; BP diastolic 44–97; PULSE 53–61; RESP 16–22; TEMP 35.9–36.4; O2SAT 92–100
[2021-09-15] MEDS: CLOPIDOGREL 75 MG TABLET PO (10:03)
[2021-09-15] MEDS: METOPROLOL ER 50 MG TABLET 100 MG PO (10:03)
[2021-09-15] MEDS: HEPARIN 5,000 UNIT/ML VIAL 5000 UNIT SUBCUT ×2 (10:04→20:28)
[2021-09-15] MEDS: INSULIN NPH/REG 70-30 100 UNIT/ML 3ML VIAL 25 UNIT SUBCUT (10:05)
[2021-09-15] MEDS: INSULIN LISPRO 100 UNIT/ML 3ML VIAL SUBCUT (13:05)
--- NOTE | 2021-09-15 13:54 | PC.NURSE ---
Noted 1153 tele reading was V-tach. Called ICU and spoke with Aura CARY who states the patient had 9 beats of V-tach and Dr Jackson is aware. No further orders received at this time.
--- NOTE | 2021-09-15 16:27 | PM.PN.1 ---
Subjective Subjective Date Patient Seen: 09/15/21 Time Patient Seen: 16:27 Interval history: Denies shortness of breath, chest pain. No complaints today, feels improved. Exam Vital Signs (past 8 hours): - 09/15/21 11:00 09/15/21 13:32 09/15/21 15:00 Temperature 96.6 F L 97.6 F Pulse Rate 57 L 55 L Respiratory Rate 20 16 Blood Pressure 133/49 L 103/54 L Pulse Oximetry 100 99 98 Oxygen Delivery Method Nasal Cannula Oxygen Flow Rate 0 Narrative Exam Narrative: ?Pleasant elderly male lying in bed in no obvious distress [facility] Other:?HEENT:? Normocephalic atraumatic, extraocular muscles are intact, oropharynx reveals moist mucous membranes neck is supple without adenopathy or thyromegaly Eyes Other:?Sclerae anicteric, extraocular muscles are intact no conjunctival injection Resp Other:?Lungs decreased breath sounds but otherwise clear to auscultation Cardio Other:?Cardiac exam:? Regular rate rhythm normal S1-S2 GI Other:?Abdomen:? Soft nontender nondistended no hepatosplenomegaly Skin Other:?No lesions noted Neuro Other:?Cranial nerves 2-12 are intact, strength is symmetric and equal, gait is not assessed. Awake, falls asleep easily. Extrem Other:?1+ pedal edema bilaterally, no joint effusions Objective Labs Result Diagrams: 09/13/21 14:32 09/15/21 16:00 [facility] Medical History CKD (chronic kidney disease) Congestive heart failure Coronary artery disease Diabetes Hypertension Surgical History No pertinent past surgical history Family History (Updated 09/13/21 @ 22:29 by Padmini Curry MD) Father Diabetes mellitus Sister CAD (coronary artery disease) Son Myocardial infarction Brother Myocardial infarction Social History household members: spouse Smoking Status: Former smoker Assessment & Plan Assessment & Plan narrative: 86-year-old male admitted to the hospital with a history of NSTEMI, ischemic heart disease, chronic systolic heart failure, chronic kidney disease stage 3, type 2 diabetes, and gout admitted to the hospital with 1. Acute renal failure ?-Patient's baseline creatinine is 2.5, current BUN 105, creatinine around 5.2. Repeat labs today have been difficult to obtain but finally showed improvment to 4 today. ?-Acute renal failure likely multifactorial -patient with urinary retention, Gregg catheter placed and 700 cc of urine output noted-post renal cause -patient also with an element of prerenal azotemia likely related to diarrhea and continued diuretics and Entresto use -suspect diarrhea related to new diagnosis of [id number] however this is leading to increasing dehydration, Cdiff ordered for completeness however no further diarrhea today. ?-Patient is clear he would not want hemodialysis, also reports he is DNR DNI ?-developed mild hypoxia with IVF, which was then discontinued. - Avoid nephrotoxic agents - Monitor pulmonary status closely 2. Chronic congestive heart failure secondary to systolic dysfunction ?-Despite known systolic dysfunction will need to hold torsemide given his pre renal azotemia. Still appears euvolemic at this time. ?-Will hold Entresto at this time, resume once renal function improved ?-Patient reiterates he does not want intubation, will manage volume status closely ?-ProBNP markedly elevated at 92,000, echocardiogram November 2019 reveals an ejection fraction of 20-25% 3. Ischemic heart disease ?-Patient with an elevated troponin of 0.344, patient denies chest pain, EKG reveals no evidence of ST T wave abnormality ?-Patient declined cardiac catheterization during prior hospitalization for NSTEMI ?- deferred heparinization at this time suspect this is related to demand ischemia but will depend on repeat result currently pending. 4. Anemia ?-Suspect anemia of chronic disease, secondary to chronic renal failure ?-Hemoglobin 9, HCT 27/7 no indication for transfusion ?-Will check iron studies ?-Consider IV iron, EPO 5. Metabolic acidosis ?-Multifactorial, likely related to underlying renal failure, and lactic acidosis ?-Despite serum lactate of 4, no evidence to suggest sepsis -consider oral bicarb tomorrow if CO2 remains low despite improved creatinine. 6. Elevated liver function tests - Abdominal ultrasound negative - Suspect passive congestion of the liver related to chronic systolic heart failure or possibly hypoperfusion in setting of dehydration from diarrhea. - labs have been difficult to 7. Type 2 diabetes ?- Will continue usual home insulin dose 8. Hypertension ?- Continue metoprolol 9. Hypoxia, resolved ?- patient with transient hypoxia this AM after IV fluids. Suspect related to heart failure. Improved later in the day quickly without need for active diuresis. subcu heparin for DVT prophylaxis He reports his is his surrogate decision maker Patient indicates he wishes to be DNR DNI and will note that his record accordingly Time Spent With Patient Critical Care time: I spent a total of [] minutes of critical care time on this patient's care today; this time is exclusive of procedural time. Quality VTE Deep Vein Thrombosis/Pulmonary Embolism Present on Admission: No
[2021-09-15 16:38] LABS: BUN Creatinine Ratio 25.4 (6-22); Blood Urea Nitrogen 105 mg/dL (9-20); Calcium 8.7 mg/dL (8.4-10.2); Carbon Dioxide 17 mmol/L (22-32); Chloride 110 mmol/L (98-107); Estimated Glomerular Filt Rate 13.9 mL/min (>60); Glucose 84 mg/dL (80-110); HEMOLYSIS 34 (0-50); Potassium 5.4 mmol/L (3.4-5.1); Sodium 142 mmol/L (137-145)
[2021-09-15 16:52] LABS: Troponin I 0.178 ng/mL (0.01-0.034)
--- NOTE | 2021-09-15 18:20 | PC.NURSE ---
Patient is doing well, he denies pain and has no complaints this evening. His troponin level was 0.179 and is aware.
[2021-09-16] VITALS (8 sets, daily range): BP systolic 125–147; BP diastolic 33–78; PULSE 55–72; RESP 18–22; TEMP 35.6–36.6; O2SAT 90–100
[2021-09-16 06:35] LABS: Hematocrit 29.8 % (41-53); Hemoglobin 9.5 g/dL (13.5-17.5); Mean Corpuscular HGB Conc 31.9 % (30-36); Mean Corpuscular Hemoglobin 31.5 PG (26-34); Platelet Count 109 X10^3/uL (150-400); Red Blood Cell Count 3.01 X10^6/uL (4.5-5.9); Red Cell Distribution Width 15.9 % (11.6-14.8); White Blood Cell Count 8.9 X10^3/uL (4.5-11.0)
[2021-09-16 06:37] LABS: Add Manual Diff / Slide Review YES
[2021-09-16 06:41] LABS: Alanine Aminotransferase 606 IU/L (<50); Albumin 3.4 g/dL (3.5-5.0); Albumin Globulin Ratio 1.1 (1.0-2.8); Alkaline Phosphatase 153 U/L (38-126); Aspartate Aminotransferase 264 IU/L (17-59); BUN Creatinine Ratio 24.5 (6-22); Blood Urea Nitrogen 97 mg/dL (9-20); Calcium 8.5 mg/dL (8.4-10.2); Carbon Dioxide 22 mmol/L (22-32); Chloride 111 mmol/L (98-107); Estimated Glomerular Filt Rate 14.5 mL/min (>60); Globulin 3.1 g/dL (1.7-4.1); Glucose 140 mg/dL (80-110); HEMOLYSIS < 15 (0-50); Potassium 5.7 mmol/L (3.4-5.1); Sodium 146 mmol/L (137-145); Total Protein 6.5 g/dL (6.3-8.2)
[2021-09-16 06:51] LABS: Neutrophils Absolute Manual 6052 /uL (3000-5900); Nucleated Red Blood Cells 1 #/Diff; Total Cells Counted 100
[2021-09-16 06:52] LABS: Anisocytosis 1+
[2021-09-16] MEDS: METOPROLOL ER 50 MG TABLET 100 MG PO (08:23)
[2021-09-16] MEDS: CLOPIDOGREL 75 MG TABLET PO (08:23)
[2021-09-16] MEDS: HEPARIN 5,000 UNIT/ML VIAL 5000 UNIT SUBCUT ×2 (08:23→22:54)
[2021-09-16] MEDS: SODIUM CHLORIDE 0.9% 500 ML 1000 ML IV (08:26)
[2021-09-16] MEDS: INSULIN LISPRO 100 UNIT/ML 3ML VIAL SUBCUT ×3 (09:12→16:37)
[2021-09-16] MEDS: INSULIN NPH/REG 70-30 100 UNIT/ML 3ML VIAL 25 UNIT SUBCUT (09:14)
--- NOTE | 2021-09-16 12:08 | PM.PN.1 ---
Subjective Subjective Date Patient Seen: 09/16/21 Time Patient Seen: 12:08 Interval history: Denies shortness of breath, chest pain. No complaints today, feels improved. Exam Vital Signs (past 8 hours): - 09/16/21 05:40 09/16/21 08:53 09/16/21 08:59 Temperature 96.7 F L Pulse Rate 61 58 L 59 L Respiratory Rate 18 22 Blood Pressure 125/44 L 139/43 L Pulse Oximetry 98 100 Oxygen Delivery Method Room Air Oxygen Flow Rate 0 Narrative Exam Narrative: Pleasant elderly male lying in bed in no obvious distress [facility] Other:?HEENT:? Normocephalic atraumatic, extraocular muscles are intact, oropharynx reveals moist mucous membranes neck is supple without adenopathy or thyromegaly Eyes Other:?Sclerae anicteric, extraocular muscles are intact no conjunctival injection Resp Other:?Lungs decreased breath sounds but otherwise clear to auscultation Cardio Other:?Cardiac exam:? Regular rate rhythm normal S1-S2 GI Other:?Abdomen:? Soft nontender nondistended no hepatosplenomegaly Skin Other:?No lesions noted Neuro Other:?Cranial nerves 2-12 are intact, strength is symmetric and equal, gait is not assessed. Extrem Other:?trace pedal edema bilaterally, no joint effusions Objective Labs Result Diagrams: 09/16/21 06:14 09/16/21 06:14 Labs: Laboratory Results - last 24 hr 09/15/21 09/15/21 09/16/21 16:00 16:00 06:14 WBC 8.9 RBC 3.01 L Hgb 9.5 L Hct 29.8 L MCV 99.0 D MCH 31.5 MCHC 31.9 RDW 15.9 H Plt Count 109 L Neut % (Auto) Not Reportable Lymph % (Auto) Not Reportable [place] % (Auto) Not Reportable Eos % (Auto) Not Reportable Baso % (Auto) Not Reportable Lymph # (Auto) Not Reportable [place] # (Auto) Not Reportable Baso # (Auto) Not Reportable Total Counted 100 Seg Neutrophils % 68.0 Lymphocytes % (Manual) 20.0 L Monocytes % (Manual) 9.0 Eosinophils % (Manual) 3.0 Neutrophils # (Manual) 6052 H Nucleated RBCs 1 H Plt Morphology Comment . RBC Morphology See below Anisocytosis 1+ H Sodium 142 Potassium 5.4 H Chloride 110 H Carbon Dioxide 17 L BUN 105 H Creatinine 4.13 H Estimated GFR 13.9 L BUN/Creatinine Ratio 25.4 H Glucose 84 Calcium 8.7 Total Bilirubin AST ALT Alkaline Phosphatase Troponin I 0.178 H* Total Protein Albumin Globulin Albumin/Globulin Ratio 09/16/21 06:14 WBC RBC Hgb Hct MCV MCH MCHC RDW Plt Count Neut % (Auto) Lymph % (Auto) [place] % (Auto) Eos % (Auto) Baso % (Auto) Lymph # (Auto) [place] # (Auto) Baso # (Auto) Total Counted Seg Neutrophils % Lymphocytes % (Manual) Monocytes % (Manual) Eosinophils % (Manual) Neutrophils # (Manual) Nucleated RBCs Plt Morphology Comment RBC Morphology Anisocytosis Sodium 146 H Potassium 5.7 H Chloride 111 H Carbon Dioxide 22 BUN 97 H Creatinine 3.96 H Estimated GFR 14.5 L BUN/Creatinine Ratio 24.5 H Glucose 140 H Calcium 8.5 Total Bilirubin 1.0 AST 264 H ALT 606 H Alkaline Phosphatase 153 H Troponin I Total Protein 6.5 Albumin 3.4 L Globulin 3.1 Albumin/Globulin Ratio 1.1 PFSH Medical History CKD (chronic kidney disease) Congestive heart failure Coronary artery disease Diabetes Hypertension Surgical History No pertinent past surgical history Family History (Updated 09/13/21 @ 22:29 by Padmini Curry MD) Father Diabetes mellitus Sister CAD (coronary artery disease) Son Myocardial infarction Brother Myocardial infarction Social History household members: spouse Smoking Status: Former smoker Assessment & Plan Assessment & Plan narrative: 86-year-old male admitted to the hospital with a history of NSTEMI, ischemic heart disease, chronic systolic heart failure, chronic kidney disease stage 3, type 2 diabetes, and gout admitted to the hospital with 1. Acute renal failure with hyperkalemia ?-Patient's baseline creatinine is 2.5, current BUN 105, creatinine >5 on admit, but now improved creatinine at 3.96, only slightly better than yesterday. ?-Acute renal failure likely multifactorial -patient with urinary retention, Gregg catheter placed and 700 cc of urine output noted-post renal cause -patient also with an element of prerenal azotemia likely related to diarrhea and continued diuretics and Entresto use -suspect diarrhea related to new diagnosis of [id number] however this is leading to increasing dehydration, Cdiff ordered for completeness however no further diarrhea today. ?-Patient is clear he would not want hemodialysis, also reports he is DNR DNI ?-developed mild hypoxia with IVF, which was then discontinued. - Avoid nephrotoxic agents - Monitor pulmonary status closely - developed hyperkalemia, continue telemetry, mild and asymptomatic. No EKG T wave abnormalities. Gave 1x dose kayexalate. 2. Chronic congestive heart failure secondary to systolic dysfunction ?-Despite known systolic dysfunction will need to hold torsemide given his pre renal azotemia. Still appears euvolemic at this time. ?-Will hold Entresto at this time, resume once renal function improved ?-Patient reiterates he does not want intubation, will manage volume status closely ?-ProBNP markedly elevated at 92,000, echocardiogram November 2019 reveals an ejection fraction of 20-25%. 3. Ischemic heart disease ?-Patient with an elevated troponin of 0.344 which improved yesterday to 0.178. patient denies chest pain, EKG reveals no evidence of ST T wave abnormality ?-Patient declined cardiac catheterization during prior hospitalization for NSTEMI ?- deferred heparinization at this time suspect this is related to demand ischemia 4. Anemia ?-Suspect anemia of chronic disease, secondary to chronic renal failure ?-Hemoglobin 9, HCT 27/7 no indication for transfusion -hg has been stable, no need to follow further at this imte. 5. Metabolic acidosis, resolved ?-Multifactorial, likely related to underlying renal failure, and lactic acidosis ?-Despite serum lactate of 4, no evidence to suggest sepsis ?-improved today. 6. Elevated liver function tests - Abdominal ultrasound negative - Suspect hypoperfusion in setting of dehydration from diarrhea. - gradual improvement thus far. 7. Type 2 diabetes ?- Will continue usual home insulin dose 8. Hypertension ?- Continue metoprolol 9. Hypoxia, resolved ?- patient with transient hypoxia this AM after IV fluids. Suspect related to heart failure. Improved later in the day quickly without need for active diuresis. subcu heparin for DVT prophylaxis He reports his is his surrogate decision maker Patient indicates he wishes to be DNR DNI and will note that his record accordingly Time Spent With Patient Critical Care time: I spent a total of [] minutes of critical care time on this patient's care today; this time is exclusive of procedural time. Quality VTE Deep Vein Thrombosis/Pulmonary Embolism Present on Admission: No
[2021-09-17] VITALS (12 sets, daily range): BP systolic 100–167; BP diastolic 51–76; PULSE 64–72; RESP 16–25; TEMP 36.4–37.3; O2SAT 94–100
--- NOTE | 2021-09-17 06:54 | PC.NURSE ---
alert, oriented. voices needs. 1pa bed mobility, able to pull self up in bed w/ verbal cues. smith patent, draining clear seha urine to gravity. HS snacks offered, accepted. desats occassionaly after exertion, down to 88%, recovers fairly quickly. IS brought to room, reviewed w/ patient how to use this. NPC, hacking, dry. tolerating RA. patient verbalized how he would like to get OOB today, im bored in this room. anticipate PT/OT to get OOB. continues w/ isolation. 0630: lab attempted to draw his CBC via hand, unable to do so. gonsalo is on the floor, asked him to try to get CBC. call light w/in reach.
[2021-09-17 07:31] LABS: Alanine Aminotransferase 477 IU/L (<50); Albumin 3.4 g/dL (3.5-5.0); Albumin Globulin Ratio 1.1 (1.0-2.8); Alkaline Phosphatase 138 U/L (38-126); Aspartate Aminotransferase 168 IU/L (17-59); BUN Creatinine Ratio 26.3 (6-22); Bilirubin Total 1.1 mg/dL (0.2-1.3); Blood Urea Nitrogen 85 mg/dL (9-20); Calcium 8.2 mg/dL (8.4-10.2); Carbon Dioxide 19 mmol/L (22-32); Chloride 110 mmol/L (98-107); Estimated Glomerular Filt Rate 18.4 mL/min (>60); Globulin 3.2 g/dL (1.7-4.1); Glucose 218 mg/dL (80-110); Sodium 139 mmol/L (137-145); Total Protein 6.6 g/dL (6.3-8.2)
[2021-09-17 07:33] LABS: HEMOLYSIS 55 (0-50)
[2021-09-17] MEDS: CLOPIDOGREL 75 MG TABLET PO (10:08)
[2021-09-17] MEDS: METOPROLOL ER 50 MG TABLET 100 MG PO (10:08)
[2021-09-17] MEDS: HEPARIN 5,000 UNIT/ML VIAL 5000 UNIT SUBCUT ×2 (10:09→21:59)
[2021-09-17] MEDS: INSULIN NPH/REG 70-30 100 UNIT/ML 3ML VIAL 25 UNIT SUBCUT (10:10)
[2021-09-17] MEDS: INSULIN LISPRO 100 UNIT/ML 3ML VIAL SUBCUT ×2 (12:22→18:57)
--- NOTE | 2021-09-17 12:43 | PM.PN.1 ---
Subjective Subjective Interval history: The patient reports feeling overall well this morning. He denies any continued episodes of diarrhea. He inquired when his indwelling Gregg catheter can be removed. He denies having issues with urination currently or in the past. Exam Vital Signs (past 8 hours): - 09/17/21 06:04 09/17/21 08:26 09/17/21 08:50 Temperature 97.5 F L 97.5 F L Pulse Rate 66 69 72 Respiratory Rate 18 21 20 Blood Pressure 132/65 139/55 L Pulse Oximetry 98 97 98 09/17/21 10:08 09/17/21 11:25 Temperature Pulse Rate 72 Respiratory Rate Blood Pressure 139/55 L 139/55 L Pulse Oximetry Oxygen Delivery Method Room Air Oxygen Flow Rate 0 Const Other: Patient sitting up in bed upon my entering the room, in no apparent acute distress. Eyes Other: No scleral icterus appreciated. Resp Other: Diminished breath sounds bilaterally and no adventitious breath sounds appreciated. Cardio Other: Regular rate and rhythm. S1 and S2 heart sounds auscultated, with no extra heart sounds or murmurs appreciated. No peripheral edema noted. GI Other: Soft, non-distended, non-tender. Bowel sounds present. Skin Other: No gross skin lesions appreciated throughout body habitus. Objective Labs Result Diagrams: 09/16/21 06:14 09/17/21 07:05 Labs: Laboratory Results - last 24 hr 09/17/21 07:05 Sodium 139 Potassium 6.0 H Chloride 110 H Carbon Dioxide 19 L BUN 85 H Creatinine 3.23 H Estimated GFR 18.4 L BUN/Creatinine Ratio 26.3 H Glucose 218 H Calcium 8.2 L Total Bilirubin 1.1 AST 168 H ALT 477 H Alkaline Phosphatase 138 H Total Protein 6.6 Albumin 3.4 L Globulin 3.2 Albumin/Globulin Ratio 1.1 [facility] Medical History CKD (chronic kidney disease) Congestive heart failure Coronary artery disease Diabetes Hypertension Surgical History No pertinent past surgical history Family History (Updated 09/13/21 @ 22:29 by Padmini Curry MD) Father Diabetes mellitus Sister CAD (coronary artery disease) Son Myocardial infarction Brother Myocardial infarction Social History household members: spouse Smoking Status: Former smoker Assessment & Plan Assessment & Plan narrative: Assessment: 1. COVID-19 related diarrhea, resolved 2. JESS on CKD, likely pre-renal, improving 3. Hx of CKD stage III, stable 4. Hyperkalemia, likely due to JESS on CKD 5. Anemia of CKD, stable 6. Metabolic acidosis, likely due to progressing renal failure 7. Type II DM 8. HFrEF (EF 20-25%), likely ischemic etiology 9. Hx of CAD 10. Hx of hyperlipidemia Plan: 1. Diarrhea has since resolved since admission. Respiratory status is at baseline. 2. Likely brought on by problem 1. Cr continues to improve with holding of nephrotoxic medications, along with interruption of diuresis. 3. Baseline Cr appears to be around 2. Patient improving toward baseline. He is DNR/DNI, and does not wish to pursue dialysis in the long-term. 4. No EKG changes appreciated. Holding home Entresto for now. Will likely have to hold on discharge as well. Patient will need close PCP follow-up, with likely repeat BMP. Will give another dose of Kayexalate today. 5. Hemoglobin is holding stable. Patient will need close PCP follow-up, and likely nephrology referral by PCP if he does not have one already. 6. As per problem 5. 7. Patient taking insulin at home. It is likely contributing greatly to his worsening renal status. 8. No deshawn signs of decompensation as of now, likely due to volume losses from diarrhea. Holding home torsemide for now, given problem 1. Can likely resume tomorrow. Holding Entresto due to problem 2 and 4. Toprol on-board. 9. Patient on Plavix for cardioprotection, and outpatient IV injections for problem 10. 10. On outpatient alirocumab bi-weekly. VTE prophylaxis: Heparin 5000 units bid Time Spent With Patient Critical Care time: I spent a total of [] minutes of critical care time on this patient's care today; this time is exclusive of procedural time. Quality VTE Deep Vein Thrombosis/Pulmonary Embolism Present on Admission: No
--- NOTE | 2021-09-17 15:36 | PT.IIE ---
Current Diagnoses COVID-19 (09/13/21) Medical History (Last Reviewed 09/13/21 @ 22:26 by Padmini Curry MD) CKD (chronic kidney disease) Congestive heart failure Coronary artery disease Diabetes Hypertension Physical Therapy Inpatient Evaluation/Re-Eval M1 PT/OT-IP Prior Functional Status Start: 09/17/21 11:08 Freq: NEEDED Status: Active Protocol: Document 09/17/21 15:36 AW (Rec: 09/17/21 16:13 AW [id number]) Medical Review Prior Functional Status Medical History Reviewed Yes Mobility and Gait Independent without assistive device. Pt states he could walk up to 1/2 mile before getting winded. Activities of Daily Living and IADL's Independent with ADL's. Pt and his spouse share cooking and cleaning responsibilities. Social History Household Members spouse Living Arrangements House Number of Floors (Floors) One Floor Number of Stairs To Enter/Railing? 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 They have a son and a daughter who also live in [place]. 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 M2 PT-IP Current Condition Start: 09/17/21 11:08 Freq: NEEDED Status: Active Protocol: Document 09/17/21 15:36 AW (Rec: 09/17/21 16:13 AW [id number]) Physical Therapy Current Condition Current Condition Evaluation Date 09/17/21 Treatment Diagnosis COVID (+); CHF; impaired mobility and gait Onset Date 09/14/21 M3 PT-IP Subjective Start: 09/17/21 11:08 Freq: NEEDED Status: Active Protocol: Document 09/17/21 15:36 AW (Rec: 09/17/21 16:13 AW [id number]) Subjective Physical Therapy Visit Type Type Initial Evaluation Visit Start Time 15:10 Visit Stop Time 15:36 Total Visit Minutes 26 Number of PUBLIC FINANCE SPECIALIST Visits 0 Physical Therapy Visit Comments Patient Comments Pt is willing to participate with PT Patient Goals Pt hopes to return home with family support Therapy Pain Assessment Pain When Pain Assessed During Mobility Pain Present Pain Present Denied Pain M4 PT-IP Mobility and Gait Start: 09/17/21 11:08 Freq: NEEDED Status: Active Protocol: Document 09/17/21 15:36 AW (Rec: 09/17/21 16:13 AW [id number]) PT-Transfer Assessment Sit to and From Stand Sit to and from Stand Contact Guard Assistance,Use of Upper Extremities Equipment Transfer Assistive Device Gait Belt,Front Wheeled Walker Orthotic/Prosthetic Devices or Brace: No Transfers Transfer Destination Chair Transfer Technique pt ambulated with FWW Transfer Ability Level of Assist Contact Guard Assistance Comments Mobility Comments Pt was sitting up in the chair as PT arrived. He had just transferred with CLIENT RETENTION SPECIALIST. He stood from the chair CGA and used the FWW to ambulate around the room a total of 40 feet. SpO2 was stable 95-100% throughout . Pt was SOB and coughing but SpO2 was steady. Pt declined bed mobility assessment, stating he wanted to stay up in the chair. He was left with call light and tray table in reach. Gait Assessment Gait Gait Assistance Required: Contact Guard Assist Distance (Feet) 40 Assistive Devices Assistive Device Gait Belt,Front Wheeled Walker Orthotic/Prosthetic Devices or Brace: No Gait Deviations General Gait Pattern Decreased Stride Length, Decreased Feet Clearance,Wide Based Gait Factors Limiting Gait Function Factors Limiting Gait Function Decreased Activity Tolerance, Decreased Strength,Poor Balance,Poor Safety Awareness, Respiratory Distress Comments Gait Comments Pt ambulated in the room using FWW. He walked with wide SIMA and needed assist for obstacle navigation with FWW. Stair Climbing Assessment Comments Stair Climbing Comments Not assessed. No stairs at home per pt. PT-Balance Assessment Sitting Balance and Reactions Static Sitting Balance Ability Normal Dynamic Sitting Balance Ability Normal Standing Balance and Reactions Static Standing Balance Ability Good Dynamic Standing Balance Ability Fair Device Used FWW M5 PT-IP Objective Assessments Start: 09/17/21 11:08 Freq: NEEDED Status: Active Protocol: Document 09/17/21 15:36 AW (Rec: 09/17/21 16:13 AW [id number]) Orientation Orientation/Cognition Level of Alertness Alert Orientation Name,Day of Week,Place, Situation Language Function Ability Hard of Hearing Safety Awareness Decreased Safety Awareness Comments Pt waxes and wanes in alertness during conversation this encounter. When asked a question, he would occasionally roll his eyes back and appear to fall asleep , startling with tactile stimulation, and then carrying on. RN informed. Gross Range of Motion Lower Extremity ROM Assessment Within Functional Limits Strength Lower Extremity Strength Assessment Bilaterally Impaired Hip 4/5 Knee 4+/5 Ankle 4+/5 Muscle Tone Muscle Tone WNL Yes M6 PT-IP Treatment Start: 09/17/21 11:08 Freq: NEEDED Status: Active Protocol: Document 09/17/21 15:36 AW (Rec: 09/17/21 16:13 AW [id number]) Physical Therapy Treatment Education Education Provided Safety Other Treatments Other Treatment Performed Educated pt on PT plan of care , recommendation for FWW at this time, and energy conservation techniques. M7 PT-IP Assessment and Plan Start: 09/17/21 11:08 Freq: NEEDED Status: Active Protocol: Document 09/17/21 15:36 AW (Rec: 09/17/21 16:13 AW [id number]) PT Summary Assessment and Plan Potential Rehabilitation Potential Good Status of Condition at Evaluation Evolving Summary Impairments Strength,Balance,Bed Mobility, Transfers,Gait,Activity Tolerance Assessment Summary Thaddeus is an 86 yo man admitted with COVID-related symptoms and acute renal failure. He has history of CHF . Pt reports independent mobility at baseline. On assessment, pt required CGA - min assist with short bout ambulation with FWW. His SpO2 was stable 95-100% but he was SOB with activity. Depending on progress during this hospital stay and his family's ability to provide assist at home, pt may be safe to discharge home with assist and home health. PT will continue to assess for safe discharge plan. Goals Bed Mobility Goal Independent Transfer Goal Independent,Front Wheeled Walker Gait Goal Independent,Front Wheel Walker Gait Distance 100 Other Goals - improve transfers and ambulation to independent with LRAD Days to Meet Goals 5 Frequency of Treatment Frequency Of Treatment Once a Day Treatment Plan Physical Therapy Treatment Plan Bed Mobility Training,Transfer Training,Gait Training, Therapeutic Exercise,Balance Retraining,Discharge Planning Other Recommendations and Next Treatment assess bed mobility; transfer Focus and gait training with FWW or LRAD Recommendations To Nursing Amount of Assist Needed 1 Person Assist Discharge Recommendations PT Discharge Recommendations Home with Assistance,Home Health,Home vs SNF Transportation Needs at Discharge Private Vehicle,Wheelchair/ Cabulance
--- NOTE | 2021-09-17 16:29 | CM.DPC ---
DCP/continued: Reviewed chart. Patient seen by PT this afternoon. Current recommendation is home with supportive family. CM team will contact patient and spouse in AM to discuss d/c plan. P: Anticipate home when medically stable. MINOR
--- NOTE | 2021-09-17 18:43 | PC.NURSE ---
BM and void X1 in toilet with 1-asst, gait belt, and fww to bathroom; dyspnea and desat into mid-80's with exertion; 1+ edema to BLLEs; LS diminished; pain with dry cough; pt drank nearly all of a blueberry protein smoothie; IV morphine at 1850 for pain related to cough
--- NOTE | 2021-09-17 23:25 | PC.NURSE ---
patient seems drowsy, his eyes are not as bright as they were last night. i'm tired he says. tolerated OOB to chair, walked around room. his RR is 22/min, shallow breaths. seems more lethargic this shift. poor PO intake, HS glucose 91. RUE midline is difficult to flush, dressing changed on it, no change. Kelli Longo on floor, notified of above.
[2021-09-18 04:00] VITALS: BP 161/71; PULSE 71; RESP 23; TEMP 36.8; O2SAT 100
[2021-09-18 08:00] VITALS: BP 173/69; PULSE 84; RESP 22; TEMP 37.3; O2SAT 100
[2021-09-18 09:37] VITALS: BP 173/69; PULSE 84
[2021-09-18] MEDS: CLOPIDOGREL 75 MG TABLET PO (09:37)
[2021-09-18] MEDS: METOPROLOL ER 50 MG TABLET 100 MG PO (09:37)
[2021-09-18] MEDS: HEPARIN 5,000 UNIT/ML VIAL 5000 UNIT SUBCUT (09:38)
[2021-09-18] MEDS: INSULIN NPH/REG 70-30 100 UNIT/ML 3ML VIAL 25 UNIT SUBCUT (09:42)
[2021-09-18] MEDS: SODIUM CHLORIDE 0.9% FLUSH 10 ML IV (09:43)
--- NOTE | 2021-09-18 10:24 | PC.NURSE ---
Patient sitting up in chair; no c/o pain. Pt with intermittent cough while in room. States coughs up clear mucous. Covid nasal swab collected and sent to lab. Per patient report, plan is to go home today. Awaiting orders. PERLA ernst occluded. Talked to Jackie on phone. She is aware of pt possible d/c today. Case management or this RN will update her with information once discharge order is in.
[2021-09-18 11:02] LABS: COVID19 -Nasal RAPID Negative (Negative)
[2021-09-18 12:46] VITALS: BP 124/64; PULSE 68; RESP 21; TEMP 37.2; O2SAT 100
[2021-09-18] MEDS: INSULIN LISPRO 100 UNIT/ML 3ML VIAL SUBCUT (13:33)
--- NOTE | 2021-09-18 13:51 | CM.DPC ---
DCP/continued: Reviewed chart. Patient underwent COVID test today which was negative. Spoke with provider whom reports that patient medically stable to d/c home today. Spoke with spouse/Kirk via the phone. Spouse requesting HH for PT/OT/RN/POWER REGULATOR. Spoke with provider and he is in agreement. F2F completed and signed. Patient and spouse have no preference in HH agencies. Therefore, placed call to Pearl at [facility] and she reports that they can accept referral. RN updated and given brochure for HH to include with d/c instructions. No additional needs identified. P: Home today with HH through [facility]. MINOR
--- NOTE | 2021-09-18 14:29 | P.PN_ITS ---
Subjective Subjective Interval history: The patient denies any acute complaints this morning. He reports good PO intake. Denies any issues with urination or bowel movements. He reports wanting to go home as feels back to his baseline health. Exam Vital Signs (past 8 hours): - 09/18/21 08:00 09/18/21 09:37 09/18/21 12:46 Temperature 99.1 F 98.9 F Pulse Rate 84 84 68 Respiratory Rate 22 21 Blood Pressure 173/69 H 173/69 H 124/64 Pulse Oximetry 100 100 Oxygen Delivery Method Room Air Oxygen Flow Rate 0 Narrative Exam Narrative: Const Other: Patient sitting up in bed upon my entering the room, in no apparent acute distress. Eyes Other: No scleral icterus appreciated. Resp Other: Diminished breath sounds bilaterally and no adventitious breath sounds appreciated. Cardio Other: Regular rate and rhythm. S1 and S2 heart sounds auscultated, with no extra heart sounds or murmurs appreciated. No peripheral edema noted. GI Other: Soft, non-distended, non-tender. Bowel sounds present. Skin Other: No gross skin lesions appreciated throughout body habitus. Objective Labs Result Diagrams: 09/16/21 06:14 09/17/21 07:05 Labs: Laboratory Results - last 24 hr 09/18/21 10:17 SARS-CoV-2 (PCR) Negative FOR[facility], [facility] Medical History CKD (chronic kidney disease) Congestive heart failure Coronary artery disease Diabetes Hypertension Surgical History No pertinent past surgical history Family History (Updated 09/13/21 @ 22:29 by Padmini Curry MD) Father Diabetes mellitus Sister CAD (coronary artery disease) Son Myocardial infarction Brother Myocardial infarction Social History household members: spouse Smoking Status: Former smoker Assessment & Plan Assessment & Plan narrative: Assessment: 1. COVID-19 related diarrhea, resolved 2. JESS on CKD, likely pre-renal, improving 3. Hx of CKD stage III, stable 4. Hyperkalemia, likely due to JESS on CKD 5. Anemia of CKD, stable 6. Metabolic acidosis, likely due to progressing renal failure 7. Type II DM 8. HFrEF (EF 20-25%), likely ischemic etiology 9. Hx of CAD 10. Hx of hyperlipidemia Plan: 1. Diarrhea has since resolved since admission. Respiratory status is at baseline. 2. Likely brought on by problem 1. Cr continues to improve with holding of nephrotoxic medications, along with interruption of diuresis. Will resume home torsemide so as to avoid re-accumulation of fluid. 3. Baseline Cr appears to be around 2. Patient improving toward baseline. He is DNR/DNI, and does not wish to pursue dialysis in the long-term. I discussed with him that worsening kidney function typically causes worsening heart failure, and vice versa.? 4. No EKG changes appreciated. Holding home Entresto for now. Will likely have to hold on discharge as well. Patient will need close PCP follow-up, with likely repeat BMP. Will give another dose of Kayexalate today. 5. Hemoglobin is holding stable. Patient will need close PCP follow-up, and likely nephrology referral by PCP if he does not have one already. 6. As per problem 5. 7. Patient taking insulin at home. DM II is likely contributing to his worsening renal status. 8. No deshawn signs of decompensation as of now, likely due to volume losses from diarrhea. Will resume home torsemide today, per problem 2. Holding Entresto due to problem 2 and 4. Toprol on-board. 9. Patient on Plavix for cardioprotection, and outpatient IV injections for p roblem 10. 10. On outpatient alirocumab bi-weekly. VTE prophylaxis: Heparin 5000 units bid Disposition: Home with close PCP follow-up Time Spent With Patient Critical Care time: I spent a total of [] minutes of critical care time on this patient's care today; this time is exclusive of procedural time. Quality VTE Deep Vein Thrombosis/Pulmonary Embolism Present on Admission: No
[2021-09-18] MEDS: SODIUM POLYSTYRENE SULFON/SORB 15 GM/60 ML CUP PO (15:36)
[2021-09-18] MEDS: TORSEMIDE 10 MG TABLET 5 MG PO (15:36)
--- NOTE | 2021-09-18 16:06 | PC.NURSE ---
Discharged home in care of , Covid nasal swab was negative x 1. has been vaccinated. Tele and IV discontinued. Reviewed discharge instructions for Covid, heart failure. Instructed pt on meds to continue and discontinue. Wheeled to car in wheelchair. All belongings with patient.
--- NOTE | 2021-09-18 16:27 | PT-IP ANOTE ---
Attempted to see pt at 16:20, but pt already d/c.
--- NOTE | 2021-09-18 23:05 | PM.DS.1 ---
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 COVID-19 related diarrhea, resolved 2. JESS on CKD, likely pre-renal, improving 3. Hx of CKD stage III, stable 4. Hyperkalemia, likely due to JESS on CKD 5. Anemia of CKD, stable 6. Metabolic acidosis, likely due to progressing renal failure 7. Type II DM 8. HFrEF (EF 20-25%), likely ischemic etiology 9. Hx of CAD 10. Hx of hyperlipidemia Hospital Course: Elderly patient that presented in a state of volume overload, due to the problems listed above. He improved with diuresis. Patient was informed that his heart failure and kidney failure are likely to continue to progress, and that unfortunately, his prognosis is poor. He was also informed that due to the above, he might not be a dialysis candidate, if and when he reaches that point. Patient and his understood this thoroughly, and all of their questions were answered to their apparent satisfaction. Exam Vital Signs (past 8 hours): Oxygen Delivery Method Room Air Oxygen Flow Rate 0 Objective Labs Result Diagrams: 09/16/21 06:14 09/17/21 07:05 [facility] Medical History CKD (chronic kidney disease) Congestive heart failure Coronary artery disease Diabetes Hypertension Surgical History No pertinent past surgical history Family History (Updated 09/13/21 @ 22:29 by Padmini Curry MD) Father Diabetes mellitus Sister CAD (coronary artery disease) Son Myocardial infarction Brother Myocardial infarction Social History household members: spouse Smoking Status: Former smoker Discharge Assessment & Plan Assessment and Plan Assessment: 1. COVID-19 related diarrhea, resolved 2. JESS on CKD, likely pre-renal, improving 3. Hx of CKD stage III, stable 4. Hyperkalemia, likely due to JESS on CKD 5. Anemia of CKD, stable 6. Metabolic acidosis, likely due to progressing renal failure 7. Type II DM 8. HFrEF (EF 20-25%), likely ischemic etiology 9. Hx of CAD 10. Hx of hyperlipidemia Plan of Treatment: 1. Diarrhea has since resolved since admission. Respiratory status is at baseline. 2. Likely brought on by problem 1. Cr continues to improve with holding of nephrotoxic medications, along with interruption of diuresis. Will resume home torsemide so as to avoid re-accumulation of fluid. 3. Baseline Cr appears to be around 2. Patient improving toward baseline. He is DNR/DNI, and does not wish to pursue dialysis in the long-term. I discussed with him that worsening kidney function typically causes worsening heart failure, and vice versa.? 4. No EKG changes appreciated. Holding home Entresto for now. Will likely have to hold on discharge as well. Patient will need close PCP follow-up, with likely repeat BMP. Will give another dose of Kayexalate today. 5. Hemoglobin is holding stable. Patient will need close PCP follow-up, and likely nephrology referral by PCP if he does not have one already. 6. As per problem 5. 7. Patient taking insulin at home. DM II is likely contributing to his worsening renal status. 8. No deshawn signs of decompensation as of now, likely due to volume losses from diarrhea. Will resume home torsemide today, per problem 2. Holding Entresto due to problem 2 and 4. Toprol on-board. 9. Patient on Plavix for cardioprotection, and outpatient IV injections for problem 10. 10. On outpatient alirocumab bi-weekly. Discharge Plan Discharge Plan Patient Disposition: Home Health Service Provider Discharge Comment: I discussed with the patient and his at bedside that home Entresto should be held until they can follow-up with his PCP or [employer] mainframe systems programmer and have repeat BMP to assess his potassium level. I also discussed with the patient and his at bedside the need to resume home torsemide, and to give an extra tablet if on a particular day, the patient develops worsening peripheral edema, SOB, or weight gain. Discharge orders & Medications Prescriptions: Continued insulin NPH and regular human 100 unit/mL (70-30) insulin pen See Rx Instructions .ROUTE .COMPLEX 0RF Label Comments: 25 units am Rx Instructions: 25 units am torsemide 5 mg tablet 5 mg PO DAILY Qty: 60 0RF clopidogrel [Plavix] 75 mg Tablet 75 mg PO DAILY Qty: 30 6RF metoprolol succinate 100 mg tablet extended release 24 hr 100 mg PO DAILY 0RF coQ10 (ubiquinol) 100 mg capsule 100 mg PO DAILY 0RF Label Comments: 1 tab a day Praluent Pen 75 mg/mL pen injector 75 mg SUBCUT Q2W 0RF Label Comments: 1 subcutaneously every two weeks Daily Probiotic 2.5 billion cell Capsule 1 cap PO DAILY 0RF Discontinued Entresto 24-26 mg tablet 1 tab PO BID Qty: 180 1RF Rx Instructions: 1/2 tab BID Follow up/Referrals: Henrik Salcedo MD [Primary Care Provider] - Visit Report/Discharge Packet Instructions: DI for Heart Failure, DI for COVID-19 (Suspected or Confirmed ) Discharge Data Primary Care Provider: Henrik Salcedo Quality VTE Deep Vein Thrombosis/Pulmonary Embolism Present on Admission: No
--- NOTE | 2021-09-19 12:13 | CM.DPNOTE ---
Late entry: called and asked about HH aide and what the HH plan was. I spoke to Ninfa who asked me to have [facility] team contact pt. . I spoke to Pearl who sent a message to her team to contact . Vinita Mosley CM Asst.
== END 2021-09-18 16:06 | disposition home health service (06) | DRG 178 ==
LOC: ED 19:07 → AC 20:14
PROVIDERS: Internal Medicine; Student in an Organized Health Care Education/Training Program; Admitting Provider Internal Medicine; Emergency Provider Emergency Medicine; Family Provider Internal Medicine; PCP Family Medicine; Referring Provider Emergency Medicine; Visit Provider Internal Medicine
DX: U07.1 COVID-19 (principal); N17.9 Acute kidney failure, unspecified; I13.0 Hypertensive heart and chronic kidney disease with heart failure and stage 1 through stage 4 chronic kidney disease, or unspecified chronic kidney disease; I50.22 Chronic systolic (congestive) heart failure; E87.2 Acidosis; I24.8 Other forms of acute ischemic heart disease; R33.9 Retention of urine, unspecified; R74.01 Elevation of levels of liver transaminase levels; E87.5 Hyperkalemia; D63.1 Anemia in chronic kidney disease; R19.7 Diarrhea, unspecified; N18.30 Chronic kidney disease, stage 3 unspecified; Z66 Do not resuscitate; Z87.891 Personal history of nicotine dependence; I25.10 Atherosclerotic heart disease of native coronary artery without angina pectoris; R06.02 Shortness of breath; R05.9 Cough, unspecified
CPT/HCPCS: 36415; 36600; 71046; 76705; 76770; 80048; 80053; 81003; 82550; 82553; 82805; 82962; 83605; 83735; 83880; 84484; 85007; 85025; 87040; 87633; 87635; 93005; 93010; 94760; 94762; 96361; 96372; 96374; 96375; 97162; 99284; C9803; J1642; J1644; J1815; J2270

== ENCOUNTER → 2021-10-09 09:35 | Outpatient (CLI) | payer MEDICARE, SELFPAY ==
[2021-09-07 12:39] VITALS: PULSE 96; RESP 24; O2SAT 99
[2021-09-13 22:54] VITALS: BMI 32.1
[2021-10-09 10:06] LABS: Add Manual Diff / Slide Review NO; Basophils Absolute Auto 0 /uL (0-100); Basophils Percent Auto 0.7 % (0-2); Eosinophils Absolute Auto 300 /uL (0-450); Eosinophils Percent Auto 5.4 % (2-4); Hematocrit 30.2 % (41-53); Hemoglobin 9.8 g/dL (13.5-17.5); Lymphocytes Absolute Auto 1700 /uL (1100-4500); Lymphocytes Percent Auto 28.9 % (25-40); Mean Corpuscular HGB Conc 32.5 % (30-36); Mean Corpuscular Hemoglobin 30.7 PG (26-34); Mean Corpuscular Volume 94.5 fL (80-100); Monocytes Absolute Auto 900 /uL (0-900); Monocytes Percent Auto 14.9 % (3-14); Neutrophils Absolute Auto 3000 /uL (1500-7000); Neutrophils Percent Auto 50.1 % (50-75); Platelet Count 174 X10^3/uL (150-400); Red Cell Distribution Width 15.7 % (11.6-14.8); White Blood Cell Count 5.9 X10^3/uL (4.5-11.0)
[2021-10-09 10:20] LABS: Alanine Aminotransferase 26 IU/L (<50); Albumin 3.8 g/dL (3.5-5.0); Albumin Globulin Ratio 1.2 (1.0-2.8); Alkaline Phosphatase 97 U/L (38-126); Aspartate Aminotransferase 33 IU/L (17-59); BUN Creatinine Ratio 13.8 (6-22); Bilirubin Total 0.5 mg/dL (0.2-1.3); Blood Urea Nitrogen 35 mg/dL (9-20); Calcium 9.2 mg/dL (8.4-10.2); Carbon Dioxide 25 mmol/L (22-32); Chloride 101 mmol/L (98-107); Estimated Glomerular Filt Rate 24.4 mL/min (>60); Globulin 3.2 g/dL (1.7-4.1); Glucose 149 mg/dL (80-110); HEMOLYSIS < 15 (0-50); Potassium 4.8 mmol/L (3.4-5.1); Sodium 134 mmol/L (137-145)
== END ==
PROVIDERS: Family Provider Internal Medicine; PCP Family Medicine; Referring Provider Internal Medicine Cardiovascular Disease; Visit Provider Internal Medicine Cardiovascular Disease
DX: I50.23 Acute on chronic systolic (congestive) heart failure (principal); I10 Essential (primary) hypertension; I25.10 Atherosclerotic heart disease of native coronary artery without angina pectoris; I50.9 Heart failure, unspecified; N18.9 Chronic kidney disease, unspecified
CPT/HCPCS: 36415; 80053; 81001; 85025; 87086

== ENCOUNTER 2021-11-04 12:56 | Inpatient (IN) | payer MEDICARE, SELFPAY ==
[2021-09-07 12:39] VITALS: PULSE 96; RESP 24; O2SAT 99
[2021-09-13 22:54] VITALS: BMI 32.1
[2021-11-04] VITALS (8 sets, daily range): BP systolic 105–143; BP diastolic 39–67; PULSE 54–64; RESP 16–30; TEMP 36.4–36.6; O2SAT 97–100; BMI 31.5; BMI 31.1
--- NOTE | 2021-11-04 13:04 | DI.RAD.S_ITS ---
PROCEDURE: XR CHEST 2V INDICATIONS: shortness of breath TECHNIQUE: 2 views of the chest were acquired. COMPARISON: , CR, XR CHEST 2V, 09/13/2021, 9:45. FINDINGS: Surgical changes and devices: None. Lungs and pleura: Increased, moderate bilateral mid and lower lung airspace opacity. No pleural effusions or pneumothorax. Mediastinum: Mediastinal contours are normal. Heart size is normal. Bones and chest wall: No suspicious bony abnormalities. Soft tissues appear unremarkable. IMPRESSION: Bilateral pneumonia. Dictated by: Coy Montoya M.D. on 11/04/2021 at 13:28 Approved by: Coy Montoya M.D. on 11/04/2021 at 13:29
--- NOTE | 2021-11-04 13:38 | PC.NURSE ---
pt with labored shallow breathing and 2+pitting edema to BLE. pt with generalized weakness and states he feels like unable to take a deep breath.
--- NOTE | 2021-11-04 13:46 | ED_ITS ---
HPI - General Adult General Chief complaint: Weakness Stated complaint: DIFFICULTY BREATHING/EATING, FEET SWELLING Time Seen by Provider: 11/04/21 13:45 Source: patient and family Mode of arrival: Wheelchair History of Present Illness HPI narrative: 86-year-old gentleman with history of coronary artery disease recent non STEMI, type 2 diabetes, hypertension, chronic kidney disease with congestive heart failure and recent COVID diagnosis is brought in by his noting significantly increased fatigue for the last week, decreased p.o. intake, no weight changes he has been taking his usual 5 mg of torsemide, she is concerned that he is overall weaker and is worried that he is developing a pneumonia. Patient himself has no complaints states that he is cognitively altered. His notes that he has not had any fevers, his chronic cough after discharge from the hospital in September after COVID has been stable and if anything less over the last week. He has had diarrhea over the last couple of days, he does not complain of headaches chest pain or palpitations. Related Data Home Medications Medication Instructions Recorded Confirmed Lactobacillus 1 cap PO DAILY 08/11/21 10/09/21 acidophilus-Bifidobac.animalis 2.5 billion cell capsule (Daily Probiotic) coQ10 (ubiquinol) 100 mg capsule 100 mg PO DAILY 08/11/21 10/09/21 metoprolol succinate 100 mg 100 mg PO DAILY 08/11/21 10/09/21 tablet,extended release 24 hr insulin NPH-regular 70-30 U-100 See Rx Instructions .ROUTE .COMPLEX 09/13/21 10/09/21 insulin 100 unit/mL subcutaneous pen hydralazine 10 mg tablet 10 mg PO BID 10/09/21 10/09/21 isosorbide dinitrate 10 mg tablet 10 mg PO BID 10/09/21 10/09/21 Previous Rx's Medication Instructions Recorded clopidogrel 75 mg tablet (Plavix) 75 mg PO DAILY #30 tab 09/03/18 torsemide 5 mg tablet 5 mg PO DAILY #60 tab 09/13/21 colchicine 0.6 mg tablet 0.6 mg PO Q OTHER DAY #180 tab 10/09/21 trazodone 50 mg tablet 50 mg PO BEDTIME PRN #30 tab 10/09/21 Allergies Allergy/AdvReac Type Severity Reaction Status Date / Time allopurinol Allergy Intermediate rash Verified 11/04/21 13:18 Review of Systems Review of Systems Narrative: Remainder of complete review of systems is otherwise unremarkable except for that included in the HPI. Patient History Medical History (Updated 11/04/21 @ 18:12 by Jodi Burch MD) Acute on chronic kidney failure CKD (chronic kidney disease) Congestive heart failure Coronary artery disease COVID-19 Diabetes Hypertension Surgical History No pertinent past surgical history Family History Father Diabetes mellitus Sister CAD (coronary artery disease) Son Myocardial infarction Brother Myocardial infarction Social History household members: spouse Smoking Status: Former smoker Smoking Status: Former smoker alcohol intake frequency: holidays/special occasions only Substance Use Type: does not use Exam Narrative Exam Narrative: General: in no acute distress. Slightly confused and the majority of history is offered by his . HEENT: Moist mucous membranes, normal sclera with reactive pupils, Neck: +JVD, supple Respiratory: Lungs are clear to auscultation, no wheezing no rales no rhonchi. Mild tachypnea but no accessory muscle use Cardiac: Regular rate and rhythm no murmurs no bruits Abdomen: Soft, nontender, good bowel tones, no flank pain Skin: Pale, Warm and dry, no rashes Neurologic: Globally weak but Grossly neurologically intact with no obvious asymmetries or abnormalities Extremities: No trauma, well perfused, 3+ bilateral lower extremity edema Psych: Cooperative, mild cognitive slowing Initial Vital Signs Initial Vital Signs: Vital Signs Temperature 97.6 F 11/04/21 13:18 Pulse Rate 64 11/04/21 13:18 Respiratory Rate 18 11/04/21 13:18 Blood Pressure 143/67 H 11/04/21 13:18 Pulse Oximetry 100 11/04/21 13:18 Course Orders Ordered: ED Orders 11/04/21 12:55 EKG-12 Lead Stat 11/04/21 13:04 XR chest 2V Stat Measure peak expiratory flow ONCE RT Consult Eval and Treat Now 11/04/21 13:30 Complete Blood Count AUTO DIFF Stat Lactate (Lactic Acid) Stat 11/04/21 13:50 COVID19 - ADMIT (AUTO FINANCE SALES REP swab/PCR) Stat 11/04/21 14:15 BNP [NT-proBNP (BNP-Adult 18+)] Stat Comprehensive Metabolic Panel Stat Trop I [Troponin I] Stat 11/04/21 15:21 Respiratory Panel (Film Array) Stat Discontinued Medications Piperacillin Sod/Tazobactam (Sod 4.5 gm/ Sodium Chloride) 100 mls @ 200 mls/hr IV NOW ONE Stop: 11/04/21 15:22 Last Infusion: 11/04/21 16:06 Dose: 200 mls/hr Documented by: Admin: 11/04/21 15:35 Dose: 200 mls/hr Documented by: DORI Sodium Chloride (Normal Saline 0.9%) 1,000 mls @ 500 mls/hr IV BOLUS ONE Stop: 11/04/21 17:20 Last Infusion: 11/04/21 17:50 Dose: 500 mls/hr Documented by: Admin: 11/04/21 16:04 Dose: 500 mls/hr Documented by: DORI Vancomycin HCl/Dextrose (Vancomycin) 1,500 mg in 300 mls @ 200 mls/hr IV NOW ONE Stop: 11/04/21 17:29 Last Infusion: 11/04/21 17:49 Dose: 200 mls/hr Documented by: Admin: 11/04/21 16:09 Dose: 200 mls/hr Documented by: DORI Vancomycin HCl (Vancomycin Per Pharmacy) 1 request MISC NOW ONE Stop: 11/04/21 15:22 Last Admin: 11/04/21 16:54 Dose: Not Given Documented by: DORI Vital Signs Vital signs: Vital Signs - 8 hr 11/04/21 13:18 11/04/21 13:26 11/04/21 13:30 Temperature 97.6 F Pulse Rate 64 64 63 Respiratory Rate 18 30 H 29 H Blood Pressure 143/67 H 143/67 H Pulse Oximetry 100 98 99 11/04/21 14:00 Temperature Pulse Rate 63 Respiratory Rate 30 H Blood Pressure Pulse Oximetry 99 Medical Decision Making Lab Data Result diagrams: 11/04/21 13:30 11/04/21 14:15 Labs: Lab Results 11/04/21 11/04/21 11/04/21 Range/Units 13:30 13:30 13:50 WBC 7.7 (4.5-11.0) X10^3/uL RBC 2.87 L (4.5-5.9) X10^6/uL Hgb 8.7 L (13.5-17.5) g/dL Hct 26.8 L (41-53) % MCV 93.4 (80-100) fL MCH 30.2 (26-34) PG MCHC 32.3 (30-36) % RDW 17.7 H (11.6-14.8) % Plt Count 207 (150-400) X10^3/uL Neut % (Auto) 69.8 (50-75) % Lymph % (Auto) 17.1 L (25-40) % [place] % (Auto) 11.0 (3-14) % Eos % (Auto) 1.3 L (2-4) % Baso % (Auto) 0.8 (0-2) % Neut # (Auto) 5400 (6054-6968) /uL Lymph # (Auto) 1300 (4387-5173) /uL [place] # (Auto) 900 (0-900) /uL Eos # (Auto) 100 (0-450) /uL Baso # (Auto) 100 (0-100) /uL Sodium (137-145) mmol/L Potassium (3.4-5.1) mmol/L Chloride (98-107) mmol/L Carbon Dioxide (22-32) mmol/L BUN (9-20) mg/dL Creatinine (0.66-1.25) mg/dL Estimated GFR (>60) mL/min BUN/Creatinine Ratio (6-22) Glucose (80-110) mg/dL Lactate 4.0 H (0.7-2.1) mmol/L Calcium (8.4-10.2) mg/dL Total Bilirubin (0.2-1.3) mg/dL AST (17-59) IU/L ALT (<50) IU/L Alkaline Phosphatase (38-126) U/L Troponin I (0.01-0.034) ng/mL NT-Pro-B Natriuret Pep (<450) pg/mL Total Protein (6.3-8.2) g/dL Albumin (3.5-5.0) g/dL Globulin (1.7-4.1) g/dL Albumin/Globulin Ratio (1.0-2.8) SARS-CoV-2 (PCR) Negative (Negative) 11/04/21 11/04/21 11/04/21 Range/Units 14:15 14:15 16:35 WBC (4.5-11.0) X10^3/uL RBC (4.5-5.9) X10^6/uL Hgb (13.5-17.5) g/dL Hct (41-53) % MCV (80-100) fL MCH (26-34) PG MCHC (30-36) % RDW (11.6-14.8) % Plt Count (150-400) X10^3/uL Neut % (Auto) (50-75) % Lymph % (Auto) (25-40) % [place] % (Auto) (3-14) % Eos % (Auto) (2-4) % Baso % (Auto) (0-2) % Neut # (Auto) (5909-8020) /uL Lymph # (Auto) (6394-6791) /uL [place] # (Auto) (0-900) /uL Eos # (Auto) (0-450) /uL Baso # (Auto) (0-100) /uL Sodium 135 L (137-145) mmol/L Potassium 4.7 (3.4-5.1) mmol/L Chloride 100 (98-107) mmol/L Carbon Dioxide 25 (22-32) mmol/L BUN 75 H (9-20) mg/dL Creatinine 3.54 H (0.66-1.25) mg/dL Estimated GFR 16.6 L (>60) mL/min BUN/Creatinine Ratio 21.2 (6-22) Glucose 210 H (80-110) mg/dL Lactate 1.9 (0.7-2.1) mmol/L Calcium 9.4 (8.4-10.2) mg/dL Total Bilirubin 1.0 (0.2-1.3) mg/dL AST 45 (17-59) IU/L ALT 35 (<50) IU/L Alkaline Phosphatase 88 (38-126) U/L Troponin I 0.036 H (0.01-0.034) ng/mL NT-Pro-B Natriuret Pep 61646 H (<450) pg/mL Total Protein 7.6 (6.3-8.2) g/dL Albumin 3.8 (3.5-5.0) g/dL Globulin 3.8 (1.7-4.1) g/dL Albumin/Globulin Ratio 1.0 (1.0-2.8) SARS-CoV-2 (PCR) (Negative) Imaging Data Chest x-ray: Radiologist's Impression: FINDINGS:? ? Surgical changes and devices:? None.? ? Lungs and pleura:? Increased, moderate bilateral mid and lower lung airspace opacity.? No pleural effusions or pneumothorax.? ? Mediastinum:? Mediastinal contours are normal.? Heart size is normal.? ? Bones and chest wall:? No suspicious bony abnormalities.? Soft tissues appear unremarkable.? ? IMPRESSION:? Bilateral pneumonia. ? ? Dictated by: Coy Montoya M.D. on 11/04/2021 at 13:28 ? ? ECG Data Interpretation: Sinus rhythm at a rate of 65 Nonspecific intraventricular conduction delay ST T wave nonspecific abnormalities without overt ischemia MDM Narrative Medical decision making narrative: 86-year-old gentleman with progressive weakness for the last week and his describes altered mental status today. No fevers and minimal cough but increased lower extremity edema without orthopnea or weight increase. Troponin and BMP are currently pending Chest x-ray shows bilateral pneumonia. He has been hospitalized multiple times over the last number of months so will be again broad-spectrum antibiotics with Zosyn and vancomycin. Respiratory panel is pending. That his acute renal failure had quite a bit of urinary retention with his last visit. Currently has a little over 600 cc in his bladder and is trying to void. Will follow up with a postvoid residual to see if he needs Gregg catheter. Fluid status is going to be a fine line. With this congestive heart failure and signs of fluid overload I certainly do not want to give him too much however with his elevated lactic acid and acute renal failure would like to make sure that he has a small bolus. Will re-evaluate. Will begin looking for hospital bed Space is now available [facility]. Care is reviewed with hospitalist serv ice and patient is transferred to the floor Discharge Plan Departure Patient Disposition: Admitted As Inpatient Clinical Impression: Bilateral pneumonia, CKD (chronic kidney disease), Acute CHF (congestive heart failure), Acute urinary retention, Acute kidney injury Admit Date/Time: 01/02/22 17:28 Admit Provider: Marilee Hernandez
[2021-11-04 14:20] LABS: Add Manual Diff / Slide Review NO; Basophils Absolute Auto 100 /uL (0-100); Basophils Percent Auto 0.8 % (0-2); Eosinophils Absolute Auto 100 /uL (0-450); Eosinophils Percent Auto 1.3 % (2-4); Hematocrit 26.8 % (41-53); Hemoglobin 8.7 g/dL (13.5-17.5); Lymphocytes Absolute Auto 1300 /uL (1100-4500); Lymphocytes Percent Auto 17.1 % (25-40); Mean Corpuscular HGB Conc 32.3 % (30-36); Mean Corpuscular Hemoglobin 30.2 PG (26-34); Mean Corpuscular Volume 93.4 fL (80-100); Monocytes Absolute Auto 900 /uL (0-900); Neutrophils Absolute Auto 5400 /uL (1500-7000); Neutrophils Percent Auto 69.8 % (50-75); Platelet Count 207 X10^3/uL (150-400); Red Blood Cell Count 2.87 X10^6/uL (4.5-5.9); Red Cell Distribution Width 17.7 % (11.6-14.8); White Blood Cell Count 7.7 X10^3/uL (4.5-11.0)
[2021-11-04 14:47] LABS: Alanine Aminotransferase 35 IU/L (<50); Albumin 3.8 g/dL (3.5-5.0); Alkaline Phosphatase 88 U/L (38-126); Aspartate Aminotransferase 45 IU/L (17-59); BUN Creatinine Ratio 21.2 (6-22); Blood Urea Nitrogen 75 mg/dL (9-20); Calcium 9.4 mg/dL (8.4-10.2); Carbon Dioxide 25 mmol/L (22-32); Chloride 100 mmol/L (98-107); Estimated Glomerular Filt Rate 16.6 mL/min (>60); Globulin 3.8 g/dL (1.7-4.1); Glucose 210 mg/dL (80-110); HEMOLYSIS < 15 (0-50); Potassium 4.7 mmol/L (3.4-5.1); Sodium 135 mmol/L (137-145); Total Protein 7.6 g/dL (6.3-8.2)
[2021-11-04 14:50] LABS: COVID19 - ADMIT (NP swab/PCR) Negative (Negative)
[2021-11-04 15:32] LABS: Troponin I 0.036 ng/mL (0.01-0.034)
[2021-11-04] MEDS: PIPERACILLIN/TAZO 4.5 GM in SODIUM CHLORIDE 0.9% 100 ML 200 ML IV (15:35)
[2021-11-04 15:45] LABS: NT-proBNP (BNP-Adult 18+) 81900 pg/mL (<450)
[2021-11-04] MEDS: SODIUM CHLORIDE 0.9% 1,000 ML 500 ML IV (16:04)
[2021-11-04] MEDS: VANCOMYCIN 1,500 MG/300 ML PIGGYBACK 200 MG IV (16:09)
[2021-11-04 16:16] LABS: Reflexed Lactate in 2 Hours Y
[2021-11-04 16:57] LABS: Lactate 2HR (Lactic Acid Rflx) 1.9 mmol/L (0.7-2.1)
--- NOTE | 2021-11-04 17:50 | PC.NURSE ---
Pt to floor RM 211. Fluids on hold from ED
[2021-11-04 19:35] LABS: Adenovirus Not Detected (Not Detect); B. parapertussis Not Detected (Not Detecte); Bordetella pertussis Not Detected (Not Detecte); Chlamydophila pneumoniae Not Detected (Not Detect); Coronavirus 229E Not Detected (Not Detect); Coronavirus HKU1 Not Detected (Not Detect); Coronavirus NL 63 Not Detected (Not Detect); Coronavirus OC43 Not Detected (Not Detect); Human Metapneumovirus Not Detected (Not Detect); Human Rhinovirus/Enterovirus Not Detected (Not Detect); Influenza A Not Detected (Not Detect); Influenza B Not Detected (Not Detect); Mycoplasma pneumoniae Not Detected (Not Detect); Parainfluenza Virus 1 Not Detected (Not Detect); Parainfluenza Virus 2 Not Detected (Not Detect); Parainfluenza Virus 3 Not Detected (Not Detect); Parainfluenza Virus 4 Not Detected (Not Detect); Respiratory Syncytial Virus Not Detected (Not Detect); SARS- CoV-2 Not Detected (Not Detecte)
--- NOTE | 2021-11-04 20:27 | PM.HP.1 ---
History of Present Illness History of Present Illness Date Patient Seen: 11/04/21 Time Patient Seen: 20:28 Chief complaint: DIFFICULTY BREATHING/EATING, FEET SWELLING Narrative: Thaddeus Chilel is an 86-year-old male with history of coronary artery disease, recent NSTEMI hospitalized at [facility] in August 2021, type 2 diabetes, hypertension, Stage IV chronic kidney disease, congestive heart failure and recent COVID diagnosis is brought in by his noting significantly increased fatigue for the last week, decreased p.o. intake, no weight changes he has been taking his usual 5 mg of torsemide, she is concerned that he is overall weaker and is worried that he is developing a pneumonia.? Per his nurse who is also his across the street neighbor, he refused to have EMS bring him in today, but negotatiated her bringing him in via private vehicle necessitating the crew having to dig out their car from the snow. Patient states he was discharged on October 09 for COVID pneumonia and has been having home health seeing him daily. He states he was doing well until they discharged him 2 days ago. He states they were working on his ambulation and doing balance exercises which he states he continued. He says he understands he has a pneumonia. He endorses having a cough which is sometimes productive with yellow sputum, Denies fever or chills, he does endorse having no appetite and having no sense of taste. During his COVID episode he lost his sense of taste for week and then it came back. He denies difficulty swallowing, chest pain, nausea or vomiting, abdominal pain, dysuria, diarrhea or constipation, or lower extremity swelling. Chest x-ray ordered in the emergency department indicated bilateral pneumonia. He is afebrile, blood pressure 119/39, heart rate 57, respiratory rate 16, oxygen saturation of 97% on room air, he weighs 102 kg with a BMI of 31.1. He is mildly anemic with a hemoglobin and hematocrit of 8.7 and 26.8 which is lower than his baseline, platelet count 207, sodium 135, creatinine is 3.54 which is close to his baseline with the EGFR of 16.6, glucose 210 though spot reading while was in the room was 162, his troponin was 0.036 which is also close [place] [address] which appears to be common for him. Viral PCR is negative including COVID-19 PCR. Patient has a recent hospitalization history most notable for having had a STEMI for which he was seen in August 10 2021. He left Against Medical Advice and returned to the emergency department 2 days later where he was determined to be having an active STEMI initiated on a heparin drip and transferred over to [facility] in [place] on August 12, 2021. There were several mentions of a need for cardiac catheterization but given his high level of chronic kidney disease is likely they would not have been able to perform the procedure. He was evaluated at [facility] and per their notes was noted to have a LE VF of 17-42% and previously had been 20%. At that time he was taking and traced 0 as well as torsemide as needed. He then returned to the hospital in September, was COVID positive and admitted for an acute kidney injury and at that time the Entresto was discontinued. He was also determined to have developed pre-renal azotemia related to diarrhea, diuretics and use of Entresto. 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 In early September he was seen by Dr. Hidalgo, animal tech in [place] who recommended scheduled torsemide, initially at 10 mg and now has been reduced to 5 mg daily. Patient is adamant about not undergoing hemodialysis. Patient History Medical History Acute on chronic kidney failure CKD (chronic kidney disease) Congestive heart failure Coronary artery disease COVID-19 Diabetes Hypertension Surgical History No pertinent past surgical history Family & Social History Family History Father Diabetes mellitus Sister CAD (coronary artery disease) Son Myocardial infarction Brother Myocardial infarction Social History: household members spouse Prior Living Arrangements House Safety & Behavioral: Feels Safe in Current Yes Environment Been Physically Hurt or No Threatened By a Person Suicidal Ideation Description None Suicide Plan Description No Plan Tobacco & Substance use: Tobacco type cigarettes Smoking Status Former smoker alcohol intake frequency holiday/special occasion Substance Use Type does not use Meds Home Medications and Allergies Home Medications Medication Instructions Recorded Confirmed Type clopidogrel 75 mg tablet (Plavix) 75 mg PO DAILY #30 tab 09/03/18 11/04/21 Rx Lactobacillus 1 cap PO DAILY 08/11/21 11/04/21 History acidophilus-Bifidobac.animalis 2.5 billion cell capsule (Daily Probiotic) coQ10 (ubiquinol) 100 mg capsule 100 mg PO BID 08/11/21 11/04/21 History metoprolol succinate 100 mg 100 mg PO DAILY 08/11/21 11/04/21 History tablet,extended release 24 hr insulin NPH-regular 70-30 U-100 See Rx Instructions .ROUTE .COMPLEX 09/13/21 11/04/21 History insulin 100 unit/mL subcutaneous pen torsemide 5 mg tablet 5 mg PO DAILY #60 tab 09/13/21 11/04/21 Rx colchicine 0.6 mg tablet 0.6 mg PO Q OTHER DAY #180 tab 10/09/21 11/04/21 Rx hydralazine 10 mg tablet 25 mg PO BID 10/09/21 11/04/21 History isosorbide dinitrate 10 mg tablet 10 mg PO BID 10/09/21 11/04/21 History calcium carbonate-vitamin D3 5,000 units PO BID 11/04/21 11/04/21 History trazodone 50 mg tablet 100 mg PO BEDTIME PRN 11/04/21 11/04/21 History Allergies Allergy/AdvReac Type Severity Reaction Status Date / Time allopurinol Allergy Intermediate rash Verified 11/04/21 13:18 Review of Systems Review of Systems ROS: Yes All systems reviewed with the patient and are negative except as otherwise documented Exam Vital Signs (past 8 hours): - 11/04/21 13:18 11/04/21 13:26 11/04/21 13:30 Temperature 97.6 F Pulse Rate 64 64 63 Respiratory Rate 18 30 H 29 H Blood Pressure 143/67 H 143/67 H Pulse Oximetry 100 98 99 11/04/21 14:00 11/04/21 17:47 11/04/21 18:05 Temperature 98 F 97.6 F Pulse Rate 63 54 L 57 L Respiratory Rate 30 H 26 H 16 Blood Pressure 114/56 L 119/39 L Pulse Oximetry 99 100 97 Oxygen Delivery Method Room Air Oxygen Flow Rate 0 Narrative Exam Narrative: Gen: Alert, oriented moderately obese 86 y.o. male, appears chronically ill HEENT: normocephalic, atraumatic, conjunctiva clear, sclera non-icteric, oral mucosa pink and moist Neck: supple, full ROM, no JVD, trachea is midline Resp: Lungs CTA, but appears to become dypneac with speaking CV: RRR, no murmur or rubs Abd: soft, non-tender, normoactive BTs Skin: bronzed color, no lesions or rashes, dry and intact Neuro: Alert and oriented X 4 w/no focal deficits. Speech clear and coherent. Extremities: no edema noted, moves all 4 extremities, gait not assessed, negative Steph?s sign Psyche: normal mood and affect. Objective Labs Result Diagrams: 11/04/21 13:30 11/04/21 14:15 Labs: Laboratory Results - last 24 hr 11/04/21 11/04/21 11/04/21 13:30 13:30 13:50 WBC 7.7 RBC 2.87 L Hgb 8.7 L Hct 26.8 L MCV 93.4 MCH 30.2 MCHC 32.3 RDW 17.7 H Plt Count 207 Neut % (Auto) 69.8 Lymph % (Auto) 17.1 L Madison % (Auto) 11.0 Eos % (Auto) 1.3 L Baso % (Auto) 0.8 Neut # (Auto) 5400 Lymph # (Auto) 1300 Madison # (Auto) 900 Eos # (Auto) 100 Baso # (Auto) 100 Sodium Potassium Chloride Carbon Dioxide BUN Creatinine Estimated GFR BUN/Creatinine Ratio Glucose Lactate 4.0 H Calcium Total Bilirubin AST ALT Alkaline Phosphatase Troponin I NT-Pro-B Natriuret Pep Total Protein Albumin Globulin Albumin/Globulin Ratio Chlamy pneumoniae PCR Adenovirus (PCR) B. pertussis DNA (PCR) B.parapertussis DNA PCR Coronavirus OC43 (PCR) Coronavirus HKU1 (PCR) Coronavirus 229E (PCR) SARS-CoV-2 (PCR) Negative Coronavirus NL63 (PCR) Human Metapneumovir PCR Influenza Type A (PCR) Influenza Type B (PCR) M. pneumoniae (PCR) Parainfluenza 1 (PCR) Parainfluenza 2 (PCR) Parainfluenza 3 (PCR) Parainfluenza 4 (PCR) RSV (PCR) Entero/Rhino (PCR) 11/04/21 11/04/21 11/04/21 14:15 14:15 16:35 WBC RBC Hgb Hct MCV MCH MCHC RDW Plt Count Neut % (Auto) Lymph % (Auto) Madison % (Auto) Eos % (Auto) Baso % (Auto) Neut # (Auto) Lymph # (Auto) Madison # (Auto) Eos # (Auto) Baso # (Auto) Sodium 135 L Potassium 4.7 Chloride 100 Carbon Dioxide 25 BUN 75 H Creatinine 3.54 H Estimated GFR 16.6 L BUN/Creatinine Ratio 21.2 Glucose 210 H Lactate 1.9 Calcium 9.4 Total Bilirubin 1.0 AST 45 ALT 35 Alkaline Phosphatase 88 Troponin I 0.036 H NT-Pro-B Natriuret Pep 93585 H Total Protein 7.6 Albumin 3.8 Globulin 3.8 Albumin/Globulin Ratio 1.0 Chlamy pneumoniae PCR Adenovirus (PCR) B. pertussis DNA (PCR) B.parapertussis DNA PCR Coronavirus OC43 (PCR) Coronavirus HKU1 (PCR) Coronavirus 229E (PCR) SARS-CoV-2 (PCR) Coronavirus NL63 (PCR) Human Metapneumovir PCR Influenza Type A (PCR) Influenza Type B (PCR) M. pneumoniae (PCR) Parainfluenza 1 (PCR) Parainfluenza 2 (PCR) Parainfluenza 3 (PCR) Parainfluenza 4 (PCR) RSV (PCR) Entero/Rhino (PCR) 11/04/21 18:15 WBC RBC Hgb Hct MCV MCH MCHC RDW Plt Count Neut % (Auto) Lymph % (Auto) Madison % (Auto) Eos % (Auto) Baso % (Auto) Neut # (Auto) Lymph # (Auto) Madison # (Auto) Eos # (Auto) Baso # (Auto) Sodium Potassium Chloride Carbon Dioxide BUN Creatinine Estimated GFR BUN/Creatinine Ratio Glucose Lactate Calcium Total Bilirubin AST ALT Alkaline Phosphatase Troponin I NT-Pro-B Natriuret Pep Total Protein Albumin Globulin Albumin/Globulin Ratio Chlamy pneumoniae PCR Not detected Adenovirus (PCR) Not detected B. pertussis DNA (PCR) Not detected B.parapertussis DNA PCR Not detected Coronavirus OC43 (PCR) Not detected Coronavirus HKU1 (PCR) Not detected Coronavirus 229E (PCR) Not detected SARS-CoV-2 (PCR) Not detected Coronavirus NL63 (PCR) Not detected Human Metapneumovir PCR Not detected Influenza Type A (PCR) Not detected Influenza Type B (PCR) Not detected M. pneumoniae (PCR) Not detected Parainfluenza 1 (PCR) Not detected Parainfluenza 2 (PCR) Not detected Parainfluenza 3 (PCR) Not detected Parainfluenza 4 (PCR) Not detected RSV (PCR) Not detected Entero/Rhino (PCR) Not detected Assessment & Plan Assessment & Plan narrative: Thaddeus Riggins will be admitted to the hospital with a history of NSTEMI, ischemic heart disease, chronic systolic heart failure, chronic kidney disease stage 3, type 2 diabetes, and gout admitted to the hospital with 1. Bilateral pneumonia Patient was administered IV vancomycin and Zosyn likely coverage for hospital-acquired pneumonia He has been changed to IV ceftriaxone 1 g daily Monitor pulmonary status closely 2. . CKD stage IV, chronic Patient's baseline creatinine is 2.5, current BUN 75, creatinine on admission,ceatinine at 3.54, close to his baseline ?patient with urinary retention, Gregg catheter placed, continue monitoring daily output Patient is clear he would not want hemodialysis, also reports he is DNR DNI Avoid nephrotoxic agents Back Up Worker recommended 60 gram dietary protein restriction 3. Chronic congestive heart failure secondary to systolic dysfunction, CHADS 2 Vasc 8 Appears euvolemic at this time. Patient reiterates he does not want intubation, will manage volume status closely ProBNP markedly elevated at 81,900, echocardiogram done at [facility] indicated LE VF ranging from 17-42% 4. Ischemic heart disease, chronic ?Patient with an elevated troponin of 0.036 though this is the lowest it has ever been. Likely due to renal disease 5. Anemia of chronic disease Secondary to chronic renal failure Hemoglobin 8.7, HCT 26.8 no indication for transfusion unless his Hgb falls below 7 ? 6. Type 2 diabetes, chronic Normally uses units daily and will put on subQ Lantus 25 units daily with intermediate correctional insulin dosing 8. Hypertension Continue home dose of metoprolol succinate 100 mg po daily VTE Prophylaxis: Wells risk score 1.5 X Bilateral SCDs subQ heparin 5000 mg bid Patient is admitted to the inpatient service due to the severity of disease, risks of further disease progression and this stay is expected to exceed 2 midnights. FEN: IV fluids: saline lock, diet: carb controlled diet w/protein restriction, labs: CBC, C/BMP, liver enzymes, Mag Consultants None Dispo: Patient may benefit from rehab, but suspect he will decline. Code status: Initially informed by the nurse that his informed her that he wanted CPR. When I discussed this with the patient he was very adamant about not wanting CPR, defibrillation, or intubation and to ?let me go?. Patient will be DNR/DNI. plans to bring an advanced directive and POLST forms. Recommend palliative care consult if available as he may benefit from home hospice rather than HHN. [X] I have utilized all available immediate resources to obtain, update, or review of the patient's current medications COVID-19 COVID-19 status: Negative Result date/Date tested (Pos, Neg/Pending): 11/04/21 Time Spent With Patient Critical Care time: I spent a total of [] minutes of critical care time on this patient's care today; this time is exclusive of procedural time. Scores CHADS-VASc Congestive heart failure: yes Hypertension: yes Age 75 years or older: yes Diabetes mellitus: yes Stroke, TIA, or TE: yes Vascular disease: yes Age 65 to 74 years: no Sex category (female): Male CHADS-VASc Score: 8 Quality VTE Deep Vein Thrombosis/Pulmonary Embolism Present on Admission: No MIPS - Admit I confirm the patient?s Advance Care Plan is present, Code status is documented, Surrogate decision maker is in patient?s record [If Yes, STOP here]: Yes MIPS - DC The patient has current or prior documentation of left ventricular ejection fraction (LVEF) less than 40%, or moderate or severely depressed left ventricular systolic function.: Yes A. The patient was prescribed or already taking an Angiotensin-Converting Enzyme (AJIT) Inhibitor, or Angiotensin Receptor Noreen (ARB).: No B. The patient was prescribed or already taking a beta-noreen. [If Yes to Both A & B, STOP here]: Yes Patient not prescribed/taking AJIT or ARB for medical/patient/system reason(s) including (ex: allergy, intolerance, contraindication).: Advanced renal disease
[2021-11-04] MEDS: HEPARIN 5,000 UNIT/ML VIAL 5000 UNIT SUBCUT (21:12)
[2021-11-04] MEDS: HYDRALAZINE 10 MG TABLET 25 MG PO (21:12)
[2021-11-04] MEDS: SODIUM CHLORIDE 0.9% FLUSH 10 ML IV (21:14)
[2021-11-04] MEDS: ISOSORBIDE DINITRATE 10 MG TABLET PO (21:14)
[2021-11-04] MEDS: TRAZODONE 50 MG TABLET 100 MG PO (21:25)
[2021-11-04 21:53] LABS: Magnesium 2.7 mg/dL (1.6-2.3)
--- NOTE | 2021-11-04 21:54 | PC.NURSE ---
Patient is alert and oriented and recognized RN as his neighbor. Breath sounds CTA but is tachypneic with conversation although denies SOB at rest or on exertion. RA sat was 97% at time of admission and is currently on continous oximetry with sat of 100% at rest. Does have intermittent cough. HRR but bradycardic into 50's and was placed on telemetry and reading not yet documented. Denies nausea. BT present and abdomen is soft. Indwelling catheter placed in ER for urinary retention is patent. Patient is able to move himself in bed. Gait not assessed at this time but patient reports he does not use an assistive device to move around his home but has used cane when out of house. Has 1+ bilateral foot/ankle edema. Bilateral calf SCD's have been applied. Denies having had any falls but has been weak according to and mainly just lies about when at home. Denies pain. Fall risk score is high and bed alarm is activated.
[2021-11-04 21:58] LABS: Hemoglobin A1C% w Est Avg Glu 6.8 % (4.0-6.0)
[2021-11-05] VITALS (10 sets, daily range): BP systolic 112–128; BP diastolic 44–61; PULSE 51–58; RESP 16–22; TEMP 35.7–36.6; O2SAT 95–100
[2021-11-05 06:28] LABS: Add Manual Diff / Slide Review NO; Basophils Absolute Auto 0 /uL (0-100); Basophils Percent Auto 0.5 % (0-2); Eosinophils Absolute Auto 100 /uL (0-450); Eosinophils Percent Auto 1.7 % (2-4); Hematocrit 25.2 % (41-53); Hemoglobin 8.2 g/dL (13.5-17.5); Lymphocytes Absolute Auto 1400 /uL (1100-4500); Lymphocytes Percent Auto 17.8 % (25-40); Mean Corpuscular HGB Conc 32.4 % (30-36); Mean Corpuscular Hemoglobin 29.9 PG (26-34); Mean Corpuscular Volume 92.2 fL (80-100); Monocytes Absolute Auto 1100 /uL (0-900); Neutrophils Absolute Auto 5400 /uL (1500-7000); Platelet Count 189 X10^3/uL (150-400); Red Blood Cell Count 2.74 X10^6/uL (4.5-5.9); White Blood Cell Count 8.1 X10^3/uL (4.5-11.0)
[2021-11-05 06:41] LABS: Alanine Aminotransferase 37 IU/L (<50); Albumin 3.5 g/dL (3.5-5.0); Alkaline Phosphatase 72 U/L (38-126); Aspartate Aminotransferase 46 IU/L (17-59); Bilirubin Unconjugated 0.7 mg/dL (0.0-1.1); Globulin 3.6 g/dL (1.7-4.1); HEMOLYSIS < 15 (0-50); Total Protein 7.1 g/dL (6.3-8.2)
[2021-11-05 06:42] LABS: BUN Creatinine Ratio 22.2 (6-22); Blood Urea Nitrogen 76 mg/dL (9-20); Calcium 9.2 mg/dL (8.4-10.2); Carbon Dioxide 25 mmol/L (22-32); Chloride 103 mmol/L (98-107); Estimated Glomerular Filt Rate 17.2 mL/min (>60); Glucose 133 mg/dL (80-110); HEMOLYSIS < 15 (0-50); Magnesium 2.6 mg/dL (1.6-2.3); Potassium 5.1 mmol/L (3.4-5.1); Sodium 136 mmol/L (137-145)
[2021-11-05 07:06] LABS: Troponin I 0.031 ng/mL (0.01-0.034)
[2021-11-05] MEDS: cefTRIAXone 1,000 MG in SODIUM CHLORIDE 0.9% 100 ML 200 ML IV (08:49)
[2021-11-05] MEDS: METOPROLOL ER 50 MG TABLET 100 MG PO (08:49)
[2021-11-05] MEDS: HEPARIN 5,000 UNIT/ML VIAL 5000 UNIT SUBCUT ×2 (08:49→21:57)
[2021-11-05] MEDS: CLOPIDOGREL 75 MG TABLET PO (08:49)
[2021-11-05] MEDS: HYDRALAZINE 10 MG TABLET 25 MG PO (08:50)
[2021-11-05] MEDS: SODIUM CHLORIDE 0.9% FLUSH 10 ML IV ×2 (08:54→21:58)
[2021-11-05] MEDS: TORSEMIDE 10 MG TABLET 5 MG PO (08:58)
[2021-11-05] MEDS: ISOSORBIDE DINITRATE 10 MG TABLET PO ×2 (08:58→21:58)
[2021-11-05] MEDS: INSULIN GLARGINE 100 UNIT/ML 3ML PEN 25 UNIT SUBCUT (09:54)
[2021-11-05] MEDS: COLCHICINE 0.6 MG TABLET PO (09:55)
--- NOTE | 2021-11-05 09:58 | PT.IIE ---
Medical History (This Medical Record has been edited. Action required.) Acute on chronic kidney failure CKD (chronic kidney disease) Congestive heart failure Coronary artery disease COVID-19 Diabetes Hypertension Physical Therapy Inpatient Evaluation/Re-Eval M1 PT/OT-IP Prior Functional Status Start: 11/05/21 08:52 Freq: NEEDED Status: Active Protocol: Document 11/05/21 09:58 AW (Rec: 11/05/21 10:12 AW [id number]) Medical Review Prior Functional Status Medical History Reviewed Yes Communication Pt's alertness waxes and wanes but he is oriented x 3 when more alert. Mobility and Gait Pt states he uses a SPC to walk outside the house. He tends to stay close to objects for support when walking inside but states he can walk around the house with HH PT without AD and with minimal SOB. Activities of Daily Living and IADL's Independent with ADL's. Pt assists when he can with cooking and cleaning but admits his does most of the housework. His drives and does the shopping. Prior Functional Level (Other details) PMH includes CHFrEF (17-42% last EKG), CKD IV. He was hospitalized with NSTEMI in August of last year and then hospitalized again with COVID in September. Pt currently has home health RN, PT, and OT through [facility]. Social History Household Members spouse Living Arrangements House Number of Floors (Floors) One Floor Number of Stairs To Enter/Railing? Level entrance Home Environment Standard Height Toilet,Tub/ Shower,Built-In Shower Seat Home Equipment Front Wheel Walker,Straight Cane Additional Social History Comment Pt has lived on [facility] for 20 years with his , Kirk. Per pt, his is able to provide the assist he needs at this time. M2 PT-IP Current Condition Start: 11/05/21 08:52 Freq: NEEDED Status: Active Protocol: Document 11/05/21 09:58 AW (Rec: 11/05/21 10:15 AW [id number]) Physical Therapy Current Condition Current Condition Evaluation Date 11/05/21 Treatment Diagnosis B pneumonia, impaired mobility and gait, decreased activity tolerance Onset Date 11/04/21 M3 PT-IP Subjective Start: 11/05/21 08:52 Freq: NEEDED Status: Active Protocol: Document 11/05/21 09:58 AW (Rec: 11/05/21 10:15 AW [id number]) Subjective Physical Therapy Visit Type Type Initial Evaluation Visit Start Time 09:30 Visit Stop Time 09:58 Total Visit Minutes 28 Number of ELECTRONIC MASKING SYSTEM OPERATOR Visits 0 Physical Therapy Visit Comments Patient Comments Pt is willing to participate with PT Patient Goals Return home with spouse support and resume HH Therapy Pain Assessment Pain When Pain Assessed During Mobility Pain Present Pain Present Denied Pain M4 PT-IP Mobility and Gait Start: 11/05/21 08:52 Freq: NEEDED Status: Active Protocol: Document 11/05/21 09:58 AW (Rec: 11/05/21 10:57 AW [id number]) PT-Bed Mobility Assessment Supine to Sit Supine to Sit Standby Assistance Sit to Supine Sit to Supine Standby Assistance Scooting Scooting to Edge of Bed Standby Assistance PT-Transfer Assessment Sit to and From Stand Sit to and from Stand Contact Guard Assistance,Use of Upper Extremities Equipment Transfer Assistive Device Gait Belt,Straight Cane,Front Wheeled Walker Orthotic/Prosthetic Devices or Brace: No Transfers Transfer Destination Bed,Chair Transfer Technique amb with SPC or FWW Transfer Ability Level of Assist Contact Guard Assistance Comments Mobility Comments Pt was lying in bed as PT arrived. BP 117/54 HR 52 SpO2 96% on room air. He agreed to get up, completing bed mobility SBA. He was immediately SOB EOB but SpO2 was stable. After two minutes, pt eb from the bed CGA with initial and persisting unsteadiness. He ambulated around the room with SPC, requiring CGA/Nicole for balance assist. He sat on the chair CGA. Standing again CGA, he used FWW to ambulate around the room SBA/CGA. He returned to supine SBA. BP was 118/46 HR 56 SpO2 86% RA. SpO2 recovered to 94% within two minutes. Gait Assessment Gait Gait Assistance Required: Standby Assistance,Contact Guard Assist,Minimum Assistance Distance (Feet) 25 Assistive Devices Assistive Device Gait Belt,Straight Cane,Front Wheeled Walker Orthotic/Prosthetic Devices or Brace: No Gait Deviations General Gait Pattern Decreased Stride Length, Decreased Feet Clearance, Flexed Trunk,Lateral Trunk Lean,Wide Based Gait Factors Limiting Gait Function Factors Limiting Gait Function Decreased Activity Tolerance, Decreased Sensation,Poor Balance,Poor Safety Awareness, Respiratory Distress Comments Gait Comments See mobility comments for details. Stair Climbing Assessment Comments Stair Climbing Comments Not assessed. No stairs at home. PT-Balance Assessment Sitting Balance and Reactions Static Sitting Balance Ability Normal Dynamic Sitting Balance Ability Good Standing Balance and Reactions Static Standing Balance Ability Fair Dynamic Standing Balance Ability Poor Device Used poor with SPC; fair with FWW M5 PT-IP Objective Assessments Start: 11/05/21 08:52 Freq: NEEDED Status: Active Protocol: Document 11/05/21 09:58 AW (Rec: 11/05/21 10:20 AW [id number]) Orientation Orientation/Cognition Level of Alertness Lethargic Orientation Name,Year,Day of Week,Place, Situation Safety Awareness Decreased Safety Awareness Gross Range of Motion Upper Extremity ROM Assessment Within Functional Limits Lower Extremity ROM Assessment Within Functional Limits Strength Lower Extremity Strength Assessment Within Functional Limits Hip 4+/5 Knee 5/5 Ankle 4+/5 Sensation Assessment Sensation Gross Sensation Right LE Impaired,Left LE Impaired Light Touch Impaired Proprioception (Position) Impaired Comments Sensation Comments Neuropathy affects bilateral feel Muscle Tone Muscle Tone WNL Yes M6 PT-IP Treatment Start: 11/05/21 08:52 Freq: NEEDED Status: Active Protocol: Document 11/05/21 09:58 AW (Rec: 11/05/21 10:18 AW [id number]) Physical Therapy Treatment Education Education Provided Safety Other Treatments Other Treatment Performed Educated pt on PT plan of care and energy conservation techniques for home. M7 PT-IP Assessment and Plan Start: 11/05/21 08:52 Freq: NEEDED Status: Active Protocol: Document 11/05/21 09:58 AW (Rec: 11/05/21 10:57 AW [id number]) PT Summary Assessment and Plan Potential Rehabilitation Potential Good Status of Condition at Evaluation Evolving Summary Impairments Strength,Balance,Sensation,Bed Mobility,Transfers,Gait, Activity Tolerance Assessment Summary Thaddeus is an 86 yo man with history of NSTEMI, CKD4, and CHF who is admitted now with bilateral pneumonia. He was hospitalized recently with NSTEMI and then with COVID pneumonia. He is currently COVID negative. PLOF: Pt ambulates outside his house with SPC. Inside, he ambulates with or without SPC. He is independent with ADL's per his report and his spouse assists with all IADL's. He currently has home health services including PT. CLOF: Pt requires min assist for short distance ambulation with SPC and CGA for same distance with FWW. SOB limits pt's tolerance and SpO2 does drop from 96% to 86% with 25 feet ambulation. He would benefit from continued acute PT and resumed HH services at discharge once medically stable. Goals Bed Mobility Goal Independent Transfer Goal Standby Assistance,Front Wheeled Walker Gait Goal Standby Assistance,Front Wheel Walker Gait Distance 75 Other Goals LTG: improve transfers and gait to SBA with SPC Days to Meet Goals 6 Frequency of Treatment Frequency Of Treatment Once a Day Treatment Plan Physical Therapy Treatment Plan Bed Mobility Training,Transfer Training,Gait Training, Therapeutic Exercise,Balance Retraining,Discharge Planning, Neuromuscular Re-ed Other Recommendations and Next Treatment progress gait with FWW; sit to Focus stands; ther ex seated or standing as tolerated Precautions Other Precautions monitor SpO2 Recommendations To Nursing Amount of Assist Needed 1 Person Assist Discharge Recommendations PT Discharge Recommendations Home with Assistance,Home Health Transportation Needs at Discharge Private Vehicle
--- NOTE | 2021-11-05 10:35 | PM.PN.1 ---
Subjective Subjective Date Patient Seen: 11/05/21 Interval history: THIS IS A 86-YEAR-OLD MALE ADMITTED OVERNIGHT PNEUMONIA, ACUTE KIDNEY INJURY ON CHRONIC KIDNEY DISEASE WELL ELEVATED TROPONIN WHICH APPEARED TO BE CHRONIC THIS MORNING HE REPORTED SOME INCREASING COUGH NO FEVER. NO CHILLS. NO CHEST PAIN OR CHEST PRESSURE. NO NAUSEA/ VOMITING NO DIARRHEA NO OTHER SIGNIFICANT ISSUES OVERNIGHT Exam Vital Signs (past 8 hours): - 11/05/21 03:10 11/05/21 04:51 11/05/21 08:00 Temperature 97.0 F L 97.4 F L Pulse Rate 55 L 55 L 54 L Respiratory Rate 16 Blood Pressure 123/49 L 114/44 L Pulse Oximetry 100 100 98 11/05/21 10:01 Temperature Pulse Rate 51 L Respiratory Rate Blood Pressure 118/46 L Pulse Oximetry Oxygen Delivery Method Room Air Oxygen Flow Rate 0 Narrative Exam Narrative: NO ACUTE DISTRESS. APPEARS DECONDITIONED. OBESE HEAD ATRAUMATIC NORMOCEPHALIC NECK : SUPPLE WITHOUT ADENOPATHY NO CAROTID BRUITS EYE: EOMI, PERRLA, NORMAL CONJUNCTIVA; NO JAUNDICE CHEST: REGULAR RATE. NO RUBS. PMI IS NON DISPLACED. NO MURMURS; NORMAL S1-S2 PULMONARY: NO WHEEZING. NO PLEURAL RUBS. DECREASED BS OVER THE BASES. MILD BIBASILAR CRACKLES NOTED; NO INCREASED DULLNESS TO PERCUSSION ABDOMEN: OBESE BUT SOFT. NONTENDER. NONDISTENDED. BOWEL SOUNDS ARE PRESENT IN ALL 4 QUADRANTS. NO MASS. EXTREMITIES: 2+ NONPITTING BILATERAL EXTREMITY EDEMA.. NO CYANOSIS OR CLUBBING NOTED. NEURO: CRANIAL NERVES 2-12 GROSSLY INTACT. NO FOCAL NEUROLOGICAL DEFICIT NOTED. MSK: NORMAL RANGE OF MOTION FOR AGE. NO JOINT EFFUSION. SOME DEFORMITIES NOTED CHRONICALLY DUE TO FEET SKIN: FAIR SKIN TURGOR.; NO RASHES : NORMAL EXTERNAL GENITALIA. PSYCH : APPROPRIATE MOOD AND AFFECT. ALERT AWAKE ORIENTED X3. CALM. COOPERATIVE Objective Labs Result Diagrams: 11/05/21 06:00 11/05/21 06:00 Labs: Laboratory Results - last 24 hr 11/04/21 11/04/21 11/04/21 13:30 13:30 13:30 WBC 7.7 RBC 2.87 L Hgb 8.7 L Hct 26.8 L MCV 93.4 MCH 30.2 MCHC 32.3 RDW 17.7 H Plt Count 207 Neut % (Auto) 69.8 Lymph % (Auto) 17.1 L [place] % (Auto) 11.0 Eos % (Auto) 1.3 L Baso % (Auto) 0.8 Neut # (Auto) 5400 Lymph # (Auto) 1300 [place] # (Auto) 900 Eos # (Auto) 100 Baso # (Auto) 100 Sodium Potassium Chloride Carbon Dioxide BUN Creatinine Estimated GFR BUN/Creatinine Ratio Glucose Hemoglobin A1c 6.8 H Lactate 4.0 H Calcium Magnesium Total Bilirubin Conjugated Bilirubin Unconjugated Bilirubin AST ALT Alkaline Phosphatase Troponin I NT-Pro-B Natriuret Pep Total Protein Albumin Globulin Albumin/Globulin Ratio Procalcitonin Chlamy pneumoniae PCR Adenovirus (PCR) B. pertussis DNA (PCR) B.parapertussis DNA PCR Coronavirus OC43 (PCR) Coronavirus HKU1 (PCR) Coronavirus 229E (PCR) SARS-CoV-2 (PCR) Coronavirus NL63 (PCR) Human Metapneumovir PCR Influenza Type A (PCR) Influenza Type B (PCR) M. pneumoniae (PCR) Parainfluenza 1 (PCR) Parainfluenza 2 (PCR) Parainfluenza 3 (PCR) Parainfluenza 4 (PCR) RSV (PCR) Entero/Rhino (PCR) 11/04/21 11/04/21 11/04/21 13:50 14:15 14:15 WBC RBC Hgb Hct MCV MCH MCHC RDW Plt Count Neut % (Auto) Lymph % (Auto) [place] % (Auto) Eos % (Auto) Baso % (Auto) Neut # (Auto) Lymph # (Auto) [place] # (Auto) Eos # (Auto) Baso # (Auto) Sodium 135 L Potassium 4.7 Chloride 100 Carbon Dioxide 25 BUN 75 H Creatinine 3.54 H Estimated GFR 16.6 L BUN/Creatinine Ratio 21.2 Glucose 210 H Hemoglobin A1c Lactate Calcium 9.4 Magnesium Total Bilirubin 1.0 Conjugated Bilirubin Unconjugated Bilirubin AST 45 ALT 35 Alkaline Phosphatase 88 Troponin I 0.036 H NT-Pro-B Natriuret Pep 63182 H Total Protein 7.6 Albumin 3.8 Globulin 3.8 Albumin/Globulin Ratio 1.0 Procalcitonin Chlamy pneumoniae PCR Adenovirus (PCR) B. pertussis DNA (PCR) B.parapertussis DNA PCR Coronavirus OC43 (PCR) Coronavirus HKU1 (PCR) Coronavirus 229E (PCR) SARS-CoV-2 (PCR) Negative Coronavirus NL63 (PCR) Human Metapneumovir PCR Influenza Type A (PCR) Influenza Type B (PCR) M. pneumoniae (PCR) Parainfluenza 1 (PCR) Parainfluenza 2 (PCR) Parainfluenza 3 (PCR) Parainfluenza 4 (PCR) RSV (PCR) Entero/Rhino (PCR) 11/04/21 11/04/21 11/04/21 14:15 14:15 16:35 WBC RBC Hgb Hct MCV MCH MCHC RDW Plt Count Neut % (Auto) Lymph % (Auto) [place] % (Auto) Eos % (Auto) Baso % (Auto) Neut # (Auto) Lymph # (Auto) [place] # (Auto) Eos # (Auto) Baso # (Auto) Sodium Potassium Chloride Carbon Dioxide BUN Creatinine Estimated GFR BUN/Creatinine Ratio Glucose Hemoglobin A1c Lactate 1.9 Calcium Magnesium 2.7 H Total Bilirubin Conjugated Bilirubin Unconjugated Bilirubin AST ALT Alkaline Phosphatase Troponin I NT-Pro-B Natriuret Pep Total Protein Albumin Globulin Albumin/Globulin Ratio Procalcitonin 1.40 H Chlamy pneumoniae PCR Adenovirus (PCR) B. pertussis DNA (PCR) B.parapertussis DNA PCR Coronavirus OC43 (PCR) Coronavirus HKU1 (PCR) Coronavirus 229E (PCR) SARS-CoV-2 (PCR) Coronavirus NL63 (PCR) Human Metapneumovir PCR Influenza Type A (PCR) Influenza Type B (PCR) M. pneumoniae (PCR) Parainfluenza 1 (PCR) Parainfluenza 2 (PCR) Parainfluenza 3 (PCR) Parainfluenza 4 (PCR) RSV (PCR) Entero/Rhino (PCR) 11/04/21 11/05/21 11/05/21 18:15 06:00 06:00 WBC 8.1 RBC 2.74 L Hgb 8.2 L Hct 25.2 L MCV 92.2 MCH 29.9 MCHC 32.4 RDW 17.0 H Plt Count 189 Neut % (Auto) 67.0 Lymph % (Auto) 17.8 L [place] % (Auto) 13.0 Eos % (Auto) 1.7 L Baso % (Auto) 0.5 Neut # (Auto) 5400 Lymph # (Auto) 1400 [place] # (Auto) 1100 H Eos # (Auto) 100 Baso # (Auto) 0 Sodium 136 L Potassium 5.1 Chloride 103 Carbon Dioxide 25 BUN 76 H Creatinine 3.43 H Estimated GFR 17.2 L BUN/Creatinine Ratio 22.2 H Glucose 133 H Hemoglobin A1c Lactate Calcium 9.2 Magnesium 2.6 H Total Bilirubin Conjugated Bilirubin Unconjugated Bilirubin AST ALT Alkaline Phosphatase Troponin I NT-Pro-B Natriuret Pep Total Protein Albumin Globulin Albumin/Globulin Ratio Procalcitonin Chlamy pneumoniae PCR Not detected Adenovirus (PCR) Not detected B. pertussis DNA (PCR) Not detected B.parapertussis DNA PCR Not detected Coronavirus OC43 (PCR) Not detected Coronavirus HKU1 (PCR) Not detected Coronavirus 229E (PCR) Not detected SARS-CoV-2 (PCR) Not detected Coronavirus NL63 (PCR) Not detected Human Metapneumovir PCR Not detected Influenza Type A (PCR) Not detected Influenza Type B (PCR) Not detected M. pneumoniae (PCR) Not detected Parainfluenza 1 (PCR) Not detected Parainfluenza 2 (PCR) Not detected Parainfluenza 3 (PCR) Not detected Parainfluenza 4 (PCR) Not detected RSV (PCR) Not detected Entero/Rhino (PCR) Not detected 11/05/21 11/05/21 06:00 06:00 WBC RBC Hgb Hct MCV MCH MCHC RDW Plt Count Neut % (Auto) Lymph % (Auto) [place] % (Auto) Eos % (Auto) Baso % (Auto) Neut # (Auto) Lymph # (Auto) [place] # (Auto) Eos # (Auto) Baso # (Auto) Sodium Potassium Chloride Carbon Dioxide BUN Creatinine Estimated GFR BUN/Creatinine Ratio Glucose Hemoglobin A1c Lactate Calcium Magnesium Total Bilirubin 1.0 Conjugated Bilirubin 0.0 Unconjugated Bilirubin 0.7 AST 46 ALT 37 Alkaline Phosphatase 72 Troponin I 0.031 NT-Pro-B Natriuret Pep Total Protein 7.1 Albumin 3.5 Globulin 3.6 Albumin/Globulin Ratio 1.0 Procalcitonin Chlamy pneumoniae PCR Adenovirus (PCR) B. pertussis DNA (PCR) B.parapertussis DNA PCR Coronavirus OC43 (PCR) Coronavirus HKU1 (PCR) Coronavirus 229E (PCR) SARS-CoV-2 (PCR) Coronavirus NL63 (PCR) Human Metapneumovir PCR Influenza Type A (PCR) Influenza Type B (PCR) M. pneumoniae (PCR) Parainfluenza 1 (PCR) Parainfluenza 2 (PCR) Parainfluenza 3 (PCR) Parainfluenza 4 (PCR) RSV (PCR) Entero/Rhino (PCR) [facility] Medical History Acute on chronic kidney failure CKD (chronic kidney disease) Congestive heart failure Coronary artery disease COVID-19 Diabetes Hypertension Surgical History No pertinent past surgical history Family History Father Diabetes mellitus Sister CAD (coronary artery disease) Son Myocardial infarction Brother Myocardial infarction Social History (System 11/05/21 @ 09:24 by Lady Macie Tony) household members: spouse Smoking Status: Former smoker Assessment & Plan Assessment & Plan narrative: PROBLEM LIST BILATERAL PNEUMONIA. LIKELY COMMUNITY ACQUIRED. POSSIBLE GRAM-NEGATIVE BACTERIAL INFECTION. ON ANTIBIOTICS ACUTE ON CHRONIC KIDNEY DISEASE STAGE 4-5 ELEVATED TROPONIN. THIS APPEARED TO BE CHRONIC. ACS NOT SUSPECTED CAD PER HISTORY. AWARE ANEMIA CHRONIC DISEASE FAIRLY CONTROLLED DIABETES TYPE 2. INSULIN DEPENDENT HYPERMAGNESEMIA. MONITOR ONLY FOR NOW CHRONIC SYSTOLIC HEART FAILURE PER HISTORY. ELEVATED BNP. HOWEVER NO SIGNS OF OBVIOUS ACUTE CARDIAC DECOMPENSATION. HYPERTENSION PER HISTORY HYPERLIPIDEMIA PER HISTORY PHYSICAL DECONDITIONING/DEBILITY. PT AND OT CONSULTED PLAN IN REGARD TO HIS PNEUMONIA PATIENT WILL BE ON ROCEPHIN AND DOXYCYCLINE FOR NOW DUONEB TREATMENTS NEEDED WILL GET A SPUTUM CULTURE OXYGEN SUPPLEMENT TO MAINTAIN PROPER OXYGEN SATURATION ABOVE 88% AGGRESSIVE PULMONARY TOILETING SERIAL CHEST X-RAY AND ABG TO FOLLOW INCENTIVE SPIROMETER WILL BE ORDERED FOR PATIENT TO USE WHILE AWAKE KEEP ON TELE AT ALL TIMES NO INDICATION TO TREND TROPONIN AT THIS TIME SINCE PATIENT HAS NOTED TO HAVE TROPONIN ELEVATED PER PRIOR LABS REPEAT EKG IF INDICATED REPEAT ECHO IF INDICATED WELL CONTINUE HOME MEDS PREVIOUSLY ORDERED REGARD TO HIS HIGH BLOOD PRESSURE AND DIABETES CONTINUE PLAVIX WELL FOR NOW WILL ADD ASPIRIN IF INDICATED CLINICALLY MONITOR CLOSELY FOR SIGNS HEMORRHAGE WHILE ON ANTI-PLATELET THERAPY AVOID ALL NEPHROTOXINS PHARMACY TO DOSE ALL MEDICATIONS FOR GFR DAILY LAB TO FOLLOW STRICT INPUT AND OUTPUT CONSULT WITH NEPHROLOGY TEAM AT THE TERTIARY FACILITY IF INDICATED AEIOU ADDITIONAL MANAGEMENT PER CLINICAL COURSE Time Spent With Patient Critical Care time: I spent a total of [] minutes of critical care time on this patient's care today; this time is exclusive of procedural time. Quality VTE Deep Vein Thrombosis/Pulmonary Embolism Present on Admission: No
[2021-11-05] MEDS: BENZONATATE 100 MG CAPSULE 200 MG PO ×2 (11:10→21:55)
[2021-11-05] MEDS: DOXYCYCLINE HYCLATE 100 MG TABLET PO ×2 (11:10→21:55)
--- NOTE | 2021-11-05 11:10 | PC.NURSE ---
Patient notes cough is very dry and nothing comes up.
--- NOTE | 2021-11-05 11:47 | OT.IPNOTE ---
Pt states too tired to work with OT for Ot eval at this time as just got back to bed.
--- NOTE | 2021-11-05 16:19 | CM.DANOTE ---
Addendum entered by Ninfa Lemus 11/05/21 16:26: Patient seen by PT today and current recommendation is for patient to return home with home health? CM team to determine if patient already on HH? MINOR Original Note: DCP/Assessment: Reviewed chart. Patient is a 86yr old male admitted to . with SOB and swelling of his lower extremities. PCP is Dr. Salcedo. Primary payor is [email or web address] [facility]. Attempted to meet with patient this afternoon. Patient sleepy at time of visit. Patient reports that he resides with his spouse/Kirk in [place]. Patient resting in bed with [address] at time of visit. Patient denies using home 02. Patient hospitalized in August 2021 for cardiac issues then again in September 2021 with COVID. Patient has h/o kidney disease. Notified patient that CM team would follow up with him and spouse in AM on 11-06-21. Patient appreciative. P: Anticipate home when stable pending needs. [facility] Discharge Planning/Care Management CM Discharge Assessment Start: 11/05/21 16:12 Freq: Status: Active Protocol: Document 11/05/21 16:12 ERIK (Rec: 11/05/21 16:19 [facility] [id number]) Discharge Planning Assessment Assigned Branch Operations Coordinator OSWALDO Mack Contact Information Kirk Chilel (spouse) ph# [phone] Advance Directives? No History Provided By Patient,Medical Record Prior Living Arrangements House Household Members spouse Independent with ADL's Unsure at this time. Is patient alert and oriented? Yes: Sleepy at time of visit Discharge Plan Home Transportation Arrangement Family to provide transport. Additional Comment Will access patient tomorrow . Patient very sleepy at time of initial assessment. Patient reports that he resides with his spouse/ Kirk in [place]. Review Status In Process Next Review Type Continued Stay Review
[2021-11-05 17:03] LABS: Troponin I 0.039 ng/mL (0.01-0.034)
[2021-11-05] MEDS: INSULIN LISPRO 100 UNIT/ML 3ML VIAL SUBCUT (18:19)
[2021-11-05] MEDS: TRAZODONE 50 MG TABLET 100 MG PO (21:58)
--- NOTE | 2021-11-05 23:25 | PC.NURSE ---
Addendum entered by Agustina Wyatt R.N. 11/06/21 06:33: Patient refused to have lab drawn for troponin earlier this shift but per MD progress note no indication to trend troponin at this time. Dr Carl informed of patient's refusal last evening. Original Note: Patient is alert and oriented although reportedly can be forgetful. Breath sounds CTA with RA sat of 97%; remains on continuous oximetry. Does have occasional cough and did have small amount sputum expectorated on previous shift and was sent to lab for culture. HRR but bradycardic mostly in 50's. Telemetry reading was SB w/BBB and prolonged QT so did discuss with Dr Carl who ordered to have hs dose of Apresoline held. Denied nausea. BT present and is passing flatus. Indwelling catheter is patent; urine is clear yellow. Is able to move himself in bed. Reports he was up with PT earlier today and they advised he use the walker for more stability but states he did not try walker as was too fatiqued by that time. Gait not assessed tonight. Denied pain. Is wearing bilateral OPAL stockings but declines use of SCD's as not able to sleep with them on. Still has 1+ bilateral foot/ankle edema. Fall risk score is high and bed alarm is activated.
[2021-11-06] VITALS (13 sets, daily range): BP systolic 113–139; BP diastolic 41–61; PULSE 54–72; RESP 16–18; TEMP 35.9–36.6; O2SAT 94–100
[2021-11-06] MEDS: INSULIN GLARGINE 100 UNIT/ML 3ML PEN 25 UNIT SUBCUT (08:36)
--- NOTE | 2021-11-06 08:42 | DI.RAD.S_ITS ---
PROCEDURE: XR CHEST 1V INDICATIONS: PNEUMONIA TECHNIQUE: One view of the chest was acquired. COMPARISON: Located Within [facility], CR, XR CHEST 2V, 09/13/2021, 9:45. Located Within [facility], CR, XR CHEST 2V, 11/04/2021, 12:58. FINDINGS: Surgical changes and devices: None. Lungs and pleura: Low lung volumes and bilateral patchy type can be seen. The infiltrates are slightly improved compared to the prior study dated 11/04/2021. No pleural effusions or pneumothorax. Mediastinum: Mediastinal contours appear normal. Heart size is normal. Atherosclerotic calcification of the aortic arch is noted. Bones and chest wall: No suspicious bony lesions. Age-appropriate bony degenerative changes are seen. Overlying soft tissues appear unremarkable. IMPRESSION: Bilateral patchy type infiltrates are seen which are slightly improved compared to the prior study 11/04/2021. Please consider COVID pneumonia. Dictated by: Peter Riggs M.D. on 11/06/2021 at 8:14 Approved by: Peter Riggs M.D. on 11/06/2021 at 8:15
--- NOTE | 2021-11-06 08:58 | P.PN_ITS ---
Subjective Subjective Date Patient Seen: 11/06/21 Interval history: ?THIS IS A 86-YEAR-OLD MALE ADMITTED OVERNIGHT? PNEUMONIA, ACUTE KIDNEY INJURY ON CHRONIC KIDNEY DISEASE WELL ELEVATED TROPONIN WHICH APPEARED TO BE CHRONIC ?THIS MORNING REPORTED THAT THE REPORTED COUGH YESTERDAY IT IS MUCH BETTER STILL HAVING FEVER.? NO CHILLS. NO CHEST PAIN OR CHEST PRESSURE. NO NAUSEA/ VOMITING NO DIARRHEA Exam Vital Signs (past 8 hours): - 11/06/21 04:00 11/06/21 08:33 Temperature 97.9 F Pulse Rate 58 L Respiratory Rate 18 Blood Pressure 139/52 L Pulse Oximetry 96 96 Oxygen Delivery Method Room Air Oxygen Flow Rate 0 Narrative Exam Narrative: NO ACUTE DISTRESS. ? APPEARS DECONDITIONED.? OBESE HEAD ATRAUMATIC NORMOCEPHALIC NECK : SUPPLE WITHOUT ADENOPATHY NO CAROTID BRUITS EYE:? EOMI, PERRLA, NORMAL CONJUNCTIVA; NO JAUNDICE CHEST:? REGULAR RATE.? ? NO RUBS.? PMI IS NON DISPLACED.? NO MURMURS; NORMAL S1- S2 PULMONARY: ? NO WHEEZING.? NO PLEURAL RUBS. DECREASED BS OVER THE BASES.? MILD BIBASILAR CRACKLES NOTED; NO INCREASED D ULLNESS TO PERCUSSION ABDOMEN: ? OBESE BUT SOFT.? NONTENDER.? NONDISTENDED.? BOWEL SOUNDS ARE PRESENT IN ALL 4 QUADRANTS.? NO MASS. EXTREMITIES:? 2+ NONPITTING BILATERAL EXTREMITY EDEMA..? NO CYANOSIS OR CLUBBING NOTED. NEURO:? CRANIAL NERVES 2-12 GROSSLY INTACT. NO FOCAL NEUROLOGICAL DEFICIT NOTED. MSK:? NORMAL RANGE OF MOTION FOR AGE.? NO JOINT EFFUSION. SOME DEFORMITIES NOTED CHRONICALLY DUE TO FEET SKIN:? FAIR SKIN TURGOR.; NO RASHES :? NORMAL EXTERNAL GENITALIA. PSYCH :? APPROPRIATE MOOD AND AFFECT.? ALERT AWAKE ORIENTED X3.? CALM.? COOPERATIVE Objective Labs Result Diagrams: 11/06/21 12:52 11/06/21 12:52 Labs: Laboratory Results - last 24 hr 11/05/21 16:10 Troponin I 0.039 [facility] Medical History Acute on chronic kidney failure CKD (chronic kidney disease) Congestive heart failure Coronary artery disease COVID-19 Diabetes Hypertension Surgical History No pertinent past surgical history Family History Father Diabetes mellitus Sister CAD (coronary artery disease) Son Myocardial infarction Brother Myocardial infarction Social History (System 11/05/21 @ 09:24 by Macie Vibha Tony) household members: spouse Smoking Status: Former smoker Assessment & Plan Assessment & Plan narrative: PROBLEM LIST ?BILATERAL PNEUMONIA.? LIKELY COMMUNITY ACQUIRED.? ? ? POSSIBLE GRAM-NEGATIVE? BACTERIAL INFECTION.? ON ANTIBIOTICS ? ACUTE? ON CHRONIC KIDNEY DISEASE STAGE 4-5 ?ELEVATED TROPONIN.? THIS APPEARED TO BE CHRONIC.? ACS NOT SUSPECTED ?CAD PER HISTORY.? AWARE ?ANEMIA CHRONIC DISEASE ?FAIRLY CONTROLLED DIABETES TYPE 2.? 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 MONITOR ONLY FOR NOW ?CHRONIC SYSTOLIC HEART FAILURE PER HISTORY. ELEVATED BNP.? ? HOWEVER NO SIGNS OF OBVIOUS? ACUTE CARDIAC DECOMPENSATION. ?HYPERTENSION PER HISTORY ?HYPERLIPIDEMIA PER HISTORY ?PHYSICAL DECONDITIONING/DEBILITY.? PT AND OT? CONSULTED ?PLAN 11/06 IMPROVING PNEUMONIA SEEN ON X-RAY CONTINUE CURRENT ANTIBIOTICS FOR NOW CONTINUE AGGRESSIVE PULMONARY TOILETING ASPIRATION PRECAUTIONS SPOKE TO MACHINE SORTER REGARD TO DISCHARGE PLANNING POSSIBLE DISCHARGE IN NEXT 24 HOURS TO HOME IF PATIENT CONTINUES TO SHOW IMPROVEMENT 11/05 ?IN REGARD TO HIS PNEUMONIA ?PATIENT WILL BE ON ROCEPHIN AND DOXYCYCLINE FOR NOW ?DUONEB TREATMENTS? NEEDED ?WILL GET A SPUTUM CULTURE ?OXYGEN SUPPLEMENT TO MAINTAIN PROPER OXYGEN SATURATION ABOVE 88% ?AGGRESSIVE PULMONARY TOILETING ?SERIAL CHEST X-RAY AND ABG TO FOLLOW ?INCENTIVE SPIROMETER WILL BE ORDERED FOR PATIENT TO USE WHILE AWAKE ?KEEP ON TELE AT ALL TIMES ?NO INDICATION TO TREND TROPONIN AT THIS TIME SINCE PATIENT HAS? NOTED TO HAVE TROPONIN? ELEVATED PER PRIOR LABS ?REPEAT EKG IF INDICATED ?REPEAT ECHO IF INDICATED WELL ?CONTINUE HOME MEDS PREVIOUSLY ORDERED REGARD TO HIS HIGH BLOOD PRESSURE AND DIABETES ?CONTINUE PLAVIX WELL FOR NOW ?WILL ADD ASPIRIN IF INDICATED CLINICALLY ?MONITOR? CLOSELY FOR? SIGNS HEMORRHAGE WHILE ON? ANTI-PLATELET THERAPY ?AVOID ALL NEPHROTOXINS ?PHARMACY TO DOSE ALL MEDICATIONS FOR GFR ?DAILY LAB TO FOLLOW ?STRICT INPUT AND OUTPUT ?CONSULT WITH NEPHROLOGY TEAM AT THE TERTIARY FACILITY IF INDICATED AEIOU ? ADDITIONAL MANAGEMENT PER CLINICAL COURSE Time Spent With Patient Critical Care time: I spent a total of [] minutes of critical care time on this patient's care today; this time is exclusive of procedural time. Quality VTE Deep Vein Thrombosis/Pulmonary Embolism Present on Admission: No
--- NOTE | 2021-11-06 09:30 | OT.IP.EVAL ---
Current Diagnoses Pneumonia, unspecified organism (11/04/21) Past Medical History (This Medical Record has been edited. Action required.) Acute on chronic kidney failure CKD (chronic kidney disease) Congestive heart failure Coronary artery disease COVID-19 Diabetes Hypertension No pertinent past surgical history Surgical History (This Medical Record has been edited. Action required.) No pertinent past surgical history Occupational Therapy Inpatient Evaluation/Re-Eval M1 PT/OT-IP Prior Functional Status Start: 11/05/21 08:52 Freq: NEEDED Status: Active Protocol: Document 11/06/21 09:30 [facility] (Rec: 11/06/21 11:26 [facility] [id number]) Medical Review Prior Functional Status Medical History Reviewed Yes Communication Pt's alertness waxes and wanes but he is oriented x 3 when more alert. Mobility and Gait Pt states he uses a SPC to walk outside the house. He tends to stay close to objects for support when walking inside but states he can walk around the house with HH PT without AD and with minimal SOB. Activities of Daily Living and IADL's Independent with ADL's. Pt assists when he can with cooking and cleaning but admits his does most of the housework. His drives and does the shopping. Prior Functional Level (Other details) PMH includes CHFrEF (17-42% last EKG), CKD IV. He was hospitalized with NSTEMI in August of last year and then hospitalized again with COVID in September. Pt currently has home health RN, PT, and OT through [facility]. Social History Household Members spouse Living Arrangements House Number of Floors (Floors) One Floor Number of Stairs To Enter/Railing? Level entrance Home Environment Standard Height Toilet,Tub/ Shower,Built-In Shower Seat Home Equipment Front Wheel Walker,Straight Cane Additional Social History Comment Pt has lived on [facility] for 20 years with his , Kirk. Per pt, his is able to provide the assist he needs at this time. M2 OT-IP Current Condition Start: 11/06/21 11:15 Freq: Status: Active Protocol: Document 11/06/21 09:30 [facility] (Rec: 11/06/21 11:26 [facility] [id number]) Occupational Therapy Current Condition Current Condition Evaluation Date 11/06/21 Treatment Diagnosis Bilateral PNA Diagnosis Onset Date 11/04/21 M3 OT- IP Subjective and Pain Start: 11/06/21 11:15 Freq: Status: Active Protocol: Document 11/06/21 09:30 [facility] (Rec: 11/06/21 11:26 [facility] [id number]) OT- Subjective Occupational Therapy Visit Type Type Initial Evaluation Visit Start Time 09:00 Visit Stop Time 09:30 Total Visit Minutes 30 Occupational Therapy Visit Comments Patient Comments Pt agreed to get up and brush his teeth. Patient/Caregiver Goals TO go home and have home health. OT Pain Assessment Pain When Pain Assessed At Rest Pain Present Pain Present Denied Pain M4 OT- IP ADL's Start: 11/06/21 11:15 Freq: Status: Active Protocol: Document 11/06/21 09:30 [facility] (Rec: 11/06/21 11:26 [facility] [id number]) OT PBS-Cuyd-Tnwhvfi Comments OT Self-Feeding Comments NOt at meal time. OT ADL-Grooming General Evaluation Grooming Ability Standby Assistance Comments OT Grooming Comments Pt able to stand at the sink for grooming needs. OT ADL-Oral Care General Eval Oral Care Ability Independent OT ADL-Dressing General Eval Lower Body Dressing Ability Moderate Assistance Comments OT Dressing Comments Assist to nabila/doff his left sock and pt getting very SOB. Able to issue and go over sock aid with pt to help increased his ease to nabila his socks. OT ADL-Toileting Comments OT Toileting Comments Pt has catheter in. OT ADL-Bathing Comments OT Bathing Comments Pt too tired to attempt at this time. M5 OT- IP IADL's Start: 11/06/21 11:15 Freq: Status: Active Protocol: Document 11/06/21 09:30 [facility] (Rec: 11/06/21 11:26 [facility] [id number]) OT-Instrumental Activities of Daily Living Home Safety Awareness Awareness of Need for Assistance at Home Good Awareness Ability to Problem Solve Emergency Able to Problem Solve Situations Meal Preparation Meal Preparation Caregiver Provides Assist Middleware Architect Middleware Architect Caregiver Provides Assist Driving Driving Caregiver Provides Assist M6 OT- IP Functional Cognition Start: 11/06/21 11:15 Freq: Status: Active Protocol: Document 11/06/21 09:30 [facility] (Rec: 11/06/21 11:26 [facility] [id number]) Cognitive Factors Limiting Selfcare Function Cognitive Ability Level of Alertness Alert Patient Orientation Name,Place,Situation Attention Span Ability Capable of Focused Attention, Capable of Sustained Attention Ability to Follow Commands Able to Follow Multi-Step Commands Cognitive Comments Cognitive Assessment Comments Pt appears intact and at baseline for cognitive needs. OT- Vision and Hearing OT- Hearing Assessment OT- Hearing Assessment WFL M7 OT- IP Mobility and Balance Start: 11/06/21 11:15 Freq: Status: Active Protocol: Document 11/06/21 09:30 [facility] (Rec: 11/06/21 11:26 [facility] [id number]) OT- Bed Mobility Assessment Rolling Level of Assistance Standby Assistance Supine to Sit Supine to Sit Assist Standby Assistance OT-Transfer Assessment Sit to and From Stand Sit to and from Stand Contact Guard Assistance Transfers Transfer Ability Standby Assistance Technique Transfer Destination Bed,Chair Transfer Technique Stand Step Pivot Devices Transfer Assistive Devices Gait Belt,Front Wheeled Walker Comments Mobility Comments Assist to stand from lower surfaces , but once up on his feet SBA with FWW. OT- Balance Assessment Sitting Balance and Reactions Static Sitting Balance Ability Good Dynamic Sitting Balance Ability Fair Standing Balance and Reactions Static Standing Balance Ability Fair M8 OT- IP Objective Assessments Start: 11/06/21 11:15 Freq: Status: Active Protocol: Document 11/06/21 09:30 [facility] (Rec: 11/06/21 11:26 [facility] [id number]) OT Gross Range of Motion Upper Extremity Range of Motion ROM Impairments Grossly WFL for needs. OT Strength Upper Extremity Strength Assessment Within Functional Limits OT-Muscle Tone Assessment Muscle Tone WNL Yes M9 OT- IP Assessment and Plan Start: 11/06/21 11:15 Freq: Status: Active Protocol: Document 11/06/21 09:30 [facility] (Rec: 11/06/21 11:26 [facility] [id number]) OT Summary Assessment and Plan Potential Rehabilitation Potential Good Analytic Complexity at Evaluation Low Summary OT Impairments Balance,Functional Mobility, Dressing,Toileting,Bathing, Toilet Transfers,Shower Transfers,Activity Tolerance Progress Towards Goals Progressing Toward Goals Assessment Summary Pt main barrier is decreased activity tolerance due to bilateral PNA and now needing increased time and some assist for ADL needs and mobility needs. Pt issued a sock aid to help improve his ability to nabila his socks without getting SOB. Pt to go home with his to assist and home health when medically stable. Goals Grooming Goal Independent Dressing Goal Independent Toileting Goal Independent Bathing Goal Independent Toilet Transfer Goal Independent Shower Transfer Goal Independent Patient/Caregiver Education Goal Demonstrate Energy Conservation and Pacing Days to Meet Goals 7 Frequency of Treatment Frequency Of Treatment Once a Day Treatment Plan OT Treatment Plan ADL Training,Functional Mobility,Patient/Family Education,Discharge Planning Other Treatment Recommendations and Next shower Treatment Focus Discharge Recommendations OT Discharge Recommendations Home with Assistance,Home Health Transportation Needs at Discharge Private Vehicle
[2021-11-06] MEDS: BENZONATATE 100 MG CAPSULE 200 MG PO ×3 (09:32→20:36)
[2021-11-06] MEDS: ISOSORBIDE DINITRATE 10 MG TABLET PO ×2 (09:32→20:36)
[2021-11-06] MEDS: CEFDINIR 300 MG CAPSULE PO ×2 (09:32→20:36)
[2021-11-06] MEDS: CLOPIDOGREL 75 MG TABLET PO (09:32)
[2021-11-06] MEDS: FAMOTIDINE 20 MG TABLET PO (09:32)
[2021-11-06] MEDS: DOXYCYCLINE HYCLATE 100 MG TABLET PO ×2 (09:32→20:36)
[2021-11-06] MEDS: TORSEMIDE 10 MG TABLET 5 MG PO (09:32)
[2021-11-06] MEDS: HYDRALAZINE 25 MG TABLET PO ×3 (09:33→21:42)
[2021-11-06] MEDS: METOPROLOL ER 50 MG TABLET PO ×2 (09:39→21:41)
[2021-11-06] MEDS: HEPARIN 5,000 UNIT/ML VIAL 5000 UNIT SUBCUT ×2 (09:39→20:37)
[2021-11-06] MEDS: SODIUM CHLORIDE 0.9% FLUSH 10 ML IV ×2 (09:39→20:37)
--- NOTE | 2021-11-06 11:46 | CM.DPNOTE ---
Called [facility] and spoke with Pearl to resume home health once pt. is discharged. Anticipating dc 11/07/20 per Ninfa. Vinita Mosley CM Asst.
[2021-11-06] MEDS: INSULIN LISPRO 100 UNIT/ML 3ML VIAL SUBCUT ×2 (12:22→17:10)
[2021-11-06] MEDS: LACTOBACILLUS ACIDOPHILUS TABLET 1 EACH PO ×2 (12:22→17:12)
[2021-11-06 13:05] LABS: Add Manual Diff / Slide Review NO; Basophils Absolute Auto 0 /uL (0-100); Basophils Percent Auto 0.7 % (0-2); Eosinophils Absolute Auto 100 /uL (0-450); Eosinophils Percent Auto 2.2 % (2-4); Hematocrit 26.2 % (41-53); Hemoglobin 8.6 g/dL (13.5-17.5); Lymphocytes Absolute Auto 1100 /uL (1100-4500); Lymphocytes Percent Auto 16.5 % (25-40); Mean Corpuscular HGB Conc 32.8 % (30-36); Mean Corpuscular Hemoglobin 30.3 PG (26-34); Mean Corpuscular Volume 92.4 fL (80-100); Monocytes Absolute Auto 800 /uL (0-900); Monocytes Percent Auto 12.7 % (3-14); Neutrophils Absolute Auto 4400 /uL (1500-7000); Neutrophils Percent Auto 67.9 % (50-75); Platelet Count 197 X10^3/uL (150-400); Red Blood Cell Count 2.84 X10^6/uL (4.5-5.9); White Blood Cell Count 6.5 X10^3/uL (4.5-11.0)
[2021-11-06 13:19] LABS: Alanine Aminotransferase 40 IU/L (<50); Albumin 3.5 g/dL (3.5-5.0); Alkaline Phosphatase 94 U/L (38-126); Aspartate Aminotransferase 57 IU/L (17-59); BUN Creatinine Ratio 25.1 (6-22); Bilirubin Total 0.7 mg/dL (0.2-1.3); Blood Urea Nitrogen 76 mg/dL (9-20); Calcium 8.8 mg/dL (8.4-10.2); Carbon Dioxide 22 mmol/L (22-32); Chloride 104 mmol/L (98-107); Estimated Glomerular Filt Rate 19.8 mL/min (>60); Globulin 3.4 g/dL (1.7-4.1); Glucose 248 mg/dL (80-110); HEMOLYSIS < 15 (0-50); Magnesium 2.4 mg/dL (1.6-2.3); Potassium 4.9 mmol/L (3.4-5.1); Sodium 136 mmol/L (137-145); Total Protein 6.9 g/dL (6.3-8.2)
[2021-11-06 13:20] LABS: Alanine Aminotransferase 40 IU/L (<50); Albumin 3.4 g/dL (3.5-5.0); Alkaline Phosphatase 95 U/L (38-126); Aspartate Aminotransferase 48 IU/L (17-59); Bilirubin Total 0.7 mg/dL (0.2-1.3); Bilirubin Unconjugated 0.4 mg/dL (0.0-1.1); Globulin 3.4 g/dL (1.7-4.1); HEMOLYSIS < 15 (0-50); Total Protein 6.8 g/dL (6.3-8.2)
--- NOTE | 2021-11-06 13:40 | PT-IP ANOTE ---
Attempted to see pt at 13:40, unable to arouse pt and per RN, hold until tomorrow due to pt increased fatigue.
[2021-11-06] MEDS: CODEINE/GUAIFENESIN LIQUID 5ML UDC 5 ML PO ×2 (15:01→20:36)
--- NOTE | 2021-11-06 15:29 | CM.DANOTE ---
DCP/Continued: Reviewed chart. Per provider in AM rounds it is anticipated that patient will be medically stable for discharge within the next 24-48hrs. With patient's permission placed call to patient's spouse/Kirk. Spouse confirms that she would like HH services resumed through [facility]. Placed call to Pearl at [facility] and she confirms that they can resume services once orders received. Pearl requested HH resume orders be faxed to [phone]. Requested that Pearl put patient on HH schedule for end of the week. P: Home with home health services resume through [facility]. Order will need to be faxed and Pearl from [facility] will be to be notified. MINOR
[2021-11-06] MEDS: TRAZODONE 50 MG TABLET 100 MG PO (20:36)
[2021-11-07] VITALS (12 sets, daily range): BP systolic 130–149; BP diastolic 47–75; PULSE 57–73; RESP 16–24; TEMP 35.8–36.8; O2SAT 95–100
--- NOTE | 2021-11-07 07:28 | PC.NURSE ---
Pt had a 4 beat run of VTACH at 22:57 and a 5 beat run at 23:34. Both times pt denied any symptoms, VS WNL for pt, heart rate and rhythm returned to sinus le w/ BBB and prolonged QT interval after VTACH runs. On-call provider notified.
[2021-11-07 07:37] LABS: Add Manual Diff / Slide Review NO; Basophils Absolute Auto 0 /uL (0-100); Basophils Percent Auto 0.6 % (0-2); Eosinophils Absolute Auto 200 /uL (0-450); Eosinophils Percent Auto 3.3 % (2-4); Hematocrit 27.4 % (41-53); Lymphocytes Absolute Auto 1300 /uL (1100-4500); Lymphocytes Percent Auto 19.9 % (25-40); Mean Corpuscular HGB Conc 32.7 % (30-36); Mean Corpuscular Hemoglobin 30.5 PG (26-34); Mean Corpuscular Volume 93.2 fL (80-100); Monocytes Absolute Auto 800 /uL (0-900); Neutrophils Absolute Auto 4100 /uL (1500-7000); Neutrophils Percent Auto 64.2 % (50-75); Platelet Count 196 X10^3/uL (150-400); Red Blood Cell Count 2.94 X10^6/uL (4.5-5.9); Red Cell Distribution Width 17.8 % (11.6-14.8); White Blood Cell Count 6.4 X10^3/uL (4.5-11.0)
[2021-11-07 07:54] LABS: Alanine Aminotransferase 36 IU/L (<50); Albumin 3.4 g/dL (3.5-5.0); Alkaline Phosphatase 92 U/L (38-126); Aspartate Aminotransferase 37 IU/L (17-59); Aspartate Aminotransferase 43 IU/L (17-59); BUN Creatinine Ratio 25.8 (6-22); Bilirubin Total 0.6 mg/dL (0.2-1.3); Bilirubin Total 0.7 mg/dL (0.2-1.3); Bilirubin Unconjugated 0.3 mg/dL (0.0-1.1); Blood Urea Nitrogen 73 mg/dL (9-20); Carbon Dioxide 21 mmol/L (22-32); Chloride 108 mmol/L (98-107); Estimated Glomerular Filt Rate 21.4 mL/min (>60); Globulin 3.5 g/dL (1.7-4.1); Glucose 145 mg/dL (80-110); HEMOLYSIS < 15 (0-50); Potassium 4.8 mmol/L (3.4-5.1); Sodium 139 mmol/L (137-145); Total Protein 6.9 g/dL (6.3-8.2)
[2021-11-07 07:55] LABS: Magnesium 2.4 mg/dL (1.6-2.3)
[2021-11-07] MEDS: HYDRALAZINE 25 MG TABLET PO ×3 (08:16→21:43)
[2021-11-07] MEDS: ISOSORBIDE DINITRATE 10 MG TABLET PO ×2 (08:16→21:43)
[2021-11-07] MEDS: LACTOBACILLUS ACIDOPHILUS TABLET 1 EACH PO ×2 (08:17→16:53)
[2021-11-07] MEDS: CLOPIDOGREL 75 MG TABLET PO (08:17)
[2021-11-07] MEDS: CEFDINIR 300 MG CAPSULE PO ×2 (08:17→21:42)
[2021-11-07] MEDS: FAMOTIDINE 20 MG TABLET PO (08:17)
[2021-11-07] MEDS: HEPARIN 5,000 UNIT/ML VIAL 5000 UNIT SUBCUT ×2 (08:17→21:43)
[2021-11-07] MEDS: TORSEMIDE 10 MG TABLET 5 MG PO (08:17)
[2021-11-07] MEDS: DOXYCYCLINE HYCLATE 100 MG TABLET PO ×2 (08:18→21:43)
[2021-11-07] MEDS: INSULIN GLARGINE 100 UNIT/ML 3ML PEN 25 UNIT SUBCUT (08:19)
[2021-11-07] MEDS: BENZONATATE 100 MG CAPSULE 200 MG PO ×3 (09:30→21:42)
--- NOTE | 2021-11-07 09:54 | PT-IP ANOTE ---
Pt refused due to fatigue and coughing. Will check back in afternoon.
[2021-11-07] MEDS: CODEINE/GUAIFENESIN LIQUID 5ML UDC 5 ML PO ×2 (10:14→21:43)
[2021-11-07] MEDS: METOPROLOL ER 50 MG TABLET PO ×2 (10:20→21:43)
[2021-11-07] MEDS: SODIUM CHLORIDE 0.9% FLUSH 10 ML IV ×2 (10:20→21:44)
[2021-11-07] MEDS: COLCHICINE 0.6 MG TABLET PO (10:24)
--- NOTE | 2021-11-07 13:40 | OT.IPNOTE ---
Pt still eating lunch and insisting that he is going home and refused to shower at this time.
--- NOTE | 2021-11-07 13:55 | PC.NURSE ---
Addendum entered by No Springer R.N. 11/07/21 18:21: Pt received discharge orders. Smith cath D/C'd 1630 No void as per yet. Bladder scan shows 175 Pt refuses smith to be replaced. Will continue to try. Condition remains essentially unchanged. Call light w/in reach, bed alarm on for pt safety. Continue w/plan of care. Original Note: Pt resting @ intervals, denies discomfort. SpO2 94% continues w/dry,m non productive cough. HL RH intact/patent Smith cath patent clear, yellow urine. Had large soft stool Call light w/in reach, bed alarm on fpor pt safety. Continue w/plan of care.
--- NOTE | 2021-11-07 14:17 | P.DS_ITS ---
History of Present Illness History of Present Illness Date Patient Seen: 11/07/21 Chief complaint: DIFFICULTY BREATHING/EATING, FEET SWELLING Narrative: Thaddeus Chilel is an 86-year-old male with history of coronary artery disease, recent NSTEMI hospitalized at [facility] in August 2021, type 2 diabetes, hypertension, Stage IV chronic kidney disease, congestive heart failure and recent COVID diagnosis is brought in by his noting significantly increased fatigue for the last week, decreased p.o. intake, no weight changes he has been taking his usual 5 mg of torsemide, she is concerned that he is overall weaker and is worried that he is developing a pneumonia.? Per his nurse who is also his across the street neighbor, he refused to have EMS bring him in today, but negotatiated her bringing him in via private vehicle necessitating the crew having to dig out their car from the snow. Patient states he was discharged on October 09 for COVID pneumonia and has been having home health seeing him daily.? He states he was doing well until they discharged him 2 days ago. He states they were working on his ambulation and doing balance exercises which he states he continued. He says he understands he has a pneumonia. He endorses having a cough which is sometimes productive with yellow sputum, Denies fever or chills, he does endorse having no appetite and having no sense of taste.? During his COVID episode he lost his sense of taste for week and then it came back.? He denies difficulty swallowing, chest pain, nausea or vomiting, abdominal pain, dysuria, diarrhea or constipation, or lower extremity swelling. Chest x-ray ordered in the emergency department indicated bilateral pneumonia.? He is afebrile, blood pressure 119/39, heart rate 57, respiratory rate 16, oxyg en saturation of 97% on room air, he weighs 102 kg with a BMI of 31.1.? He is mildly anemic with a hemoglobin and hematocrit of 8.7 and 26.8 which is lower than his baseline, platelet count 207, sodium 135, creatinine is 3.54 which is close to his baseline with the EGFR of 16.6, glucose 210 though spot reading while was in the room was 162, his troponin was 0.036 which is [place] [address] which appears to be common for him.? Viral PCR is negative including COVID-19 PCR. Patient has a recent hospitalization history most notable for having had a STEMI for which he was seen in August 10 2021.? He left Against Medical Advice and returned to the emergency department 2 days later where he was determined to be having an active STEMI initiated on a heparin drip and transferred over to [facility] in [place] on August 12, 2021.? There were several mentions of a need for cardiac catheterization but given his high level of chronic kidney disease is likely they would not have been able to perform the procedure.? He was evaluated at [facility] and per their notes was noted to have a LE VF of 17-42% and previously had been 20%.? At that time he was taking and traced 0 as well as torsemide as needed.? He then returned to the hospital in September, was COVID positive and admitted for an acute kidney injury and at that time the Entresto was discontinued.? He was also determined to have developed pre-renal azotemia related to diarrhea, diuretics and use of Entresto.? 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 In early September he was seen by Dr. Hidalgo, optical glass silverer in [place] who recommended scheduled torsemide, initially at 10 mg and now has been reduced to 5 mg daily.? Patient is adamant about not undergoing hemodialysis. Discharge Providers Provider Date of admission: 11/04/21 17:28 Discharge Date: 11/07/21 Primary care physician: Henrik Salcedo MD Consults: 11/04/21 20:38 Consult to Physical Therapy Evaluate & Treat Comment: Weakness, was on N Physician Instructions: Evaluate and Treat 11/05/21 10:33 Consult to Occupational Therapy Evaluate & Treat Comment: Physician Instructions: Evaluate and treat Discharge provider: Marilee Hernandez, Summary Hospital Course Discharge Diagnosis: ?BILATERAL PNEUMONIA.? LIKELY COMMUNITY ACQUIRED.? STAPHYLOCOCCUS AUREUS AND YEAST GROWING IN URINE CULTURE ? ACUTE? ON CHRONIC KIDNEY DISEASE STAGE 4-5 STABLE ?ELEVATED TROPONIN.? THIS APPEARED TO BE CHRONIC.? ACS NOT SUSPECTED ?CAD PER HISTORY.? AWARE ?ANEMIA CHRONIC DISEASE ?FAIRLY CONTROLLED DIABETES TYPE 2.? 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 MONITOR ONLY FOR NOW ?CHRONIC SYSTOLIC HEART FAILURE PER HISTORY. ELEVATED BNP.? ? HOWEVER NO SIGNS OF OBVIOUS? ACUTE CARDIAC DECOMPENSATION. ?HYPERTENSION PER HISTORY ?HYPERLIPIDEMIA PER HISTORY ?PHYSICAL DECONDITIONING/DEBILITY.? PT AND OT? CONSULTED Hospital Course: PATIENT TREATED WITH ANTIBIOTICS DUE TO SOME PNEUMONIA NOTED ON X-RAY ON A DMISSION. SPUTUM CULTURE SENT AND GREW STAPHYLOCOCCUS AUREUS WELL YEAST PATIENT WILL BE DISCHARGED ON DOXYCYCLINE, OMNICEF WELL DIFLUCAN FOR A 14 DAY COURSE. DUONEB TREATMENTS WELL ALBUTEROL INHALER WAS ORDERED. PATIENT STARTED ON VITAMIN SUPPLEMENT WELL HE HAS NOT SHOWED ANY SIGN OF WORSENING RESPIRATORY STATUS OVER THE LAST 24-48 HOURS. NOT REQUIRE ANY OXYGEN SUPPLEMENT TO MAINTAIN PROPER OXYGEN SATURATION. HIS LABS IN FAIRLY STABLE WELL. HE WILL BE DISCHARGED TO HOME WITH HOME HEALTH. ADDITIONAL MANAGEMENT WILL BE DEFERRED TO HIS OUTPATIENT PROVIDERS Status at Discharge Cognitive/behavioral status at discharge: oriented Functional status at discharge: uses cane/walker Overall status at discharge: patient is progressing back to baseline Time Spent with Patient Time spent: Greater than 30 minutes Exam Vital Signs (past 8 hours): - 11/07/21 08:00 11/07/21 08:16 11/07/21 10:20 Temperature 96.5 F L Pulse Rate 60 Respiratory Rate 22 Blood Pressure 143/61 H 141/56 H 141/75 H Pulse Oximetry 100 11/07/21 13:00 Temperature 96.4 F L Pulse Rate 64 Respiratory Rate 20 Blood Pressure 130/47 L Pulse Oximetry 98 Oxygen Delivery Method Room Air Oxygen Flow Rate 0 Narrative Exam Narrative: NO ACUTE DISTRESS. ? APPEARS DECONDITIONED.? OBESE HEAD ATRAUMATIC NORMOCEPHALIC NECK : SUPPLE WITHOUT ADENOPATHY NO CAROTID BRUITS EYE:? EOMI, PERRLA, NORMAL CONJUNCTIVA; NO JAUNDICE CHEST:? REGULAR RATE.? ? NO RUBS.? PMI IS NON DISPLACED.? NO MURMURS; NORMAL S1- S2 PULMONARY: ? NO WHEEZING.? NO PLEURAL RUBS. DECREASED BS OVER THE BASES.? MILD BIBASILAR CRACKLES NOTED; NO INCREASED DULLNESS TO PERCUSSION ABDOMEN: ? OBESE BUT SOFT.? NONTENDER.? NONDISTENDED.? BOWEL SOUNDS ARE PRESENT IN ALL 4 QUADRANTS.? NO MASS. EXTREMITIES:? 2+ NONPITTING BILATERAL EXTREMITY EDEMA..? NO CYANOSIS OR CLUBBING NOTED. NEURO:? CRANIAL NERVES 2-12 GROSSLY INTACT. NO FOCAL NEUROLOGICAL DEFICIT NOTED. MSK:? NORMAL RANGE OF MOTION FOR AGE.? NO JOINT EFFUSION. SOME DEFORMITIES NOTED CHRONICALLY DUE TO FEET SKIN:? FAIR SKIN TURGOR.; NO RASHES :? NORMAL EXTERNAL GENITALIA. PSYCH :? APPROPRIATE MOOD AND AFFECT.? ALERT AWAKE ORIENTED X3.? CALM.? C OOPERATIVE Objective Labs Result Diagrams: 11/07/21 07:08 11/07/21 07:08 Labs: Laboratory Results - last 24 hr 11/07/21 11/07/21 11/07/21 07:08 07:08 07:08 WBC 6.4 RBC 2.94 L Hgb 9.0 L Hct 27.4 L MCV 93.2 MCH 30.5 MCHC 32.7 RDW 17.8 H Plt Count 196 Neut % (Auto) 64.2 Lymph % (Auto) 19.9 L Mccormick % (Auto) 12.0 Eos % (Auto) 3.3 Baso % (Auto) 0.6 Neut # (Auto) 4100 Lymph # (Auto) 1300 Mccormick # (Auto) 800 Eos # (Auto) 200 Baso # (Auto) 0 Sodium 139 Potassium 4.8 Chloride 108 H Carbon Dioxide 21 L BUN 73 H Creatinine 2.83 H Estimated GFR 21.4 L BUN/Creatinine Ratio 25.8 H Glucose 145 H D Calcium 9.0 Magnesium 2.4 H Total Bilirubin 0.7 Conjugated Bilirubin Unconjugated Bilirubin AST 43 ALT 36 Alkaline Phosphatase 92 Total Protein 6.9 Albumin 3.4 L Globulin 3.5 Albumin/Globulin Ratio 1.0 11/07/21 07:08 WBC RBC Hgb Hct MCV MCH MCHC RDW Plt Count Neut % (Auto) Lymph % (Auto) Mccormick % (Auto) Eos % (Auto) Baso % (Auto) Neut # (Auto) Lymph # (Auto) Mccormick # (Auto) Eos # (Auto) Baso # (Auto) Sodium Potassium Chloride Carbon Dioxide BUN Creatinine Estimated GFR BUN/Creatinine Ratio Glucose Calcium Magnesium Total Bilirubin 0.6 Conjugated Bilirubin 0.0 Unconjugated Bilirubin 0.3 AST 37 ALT 36 Alkaline Phosphatase 92 Total Protein 6.9 Albumin 3.4 L Globulin 3.5 Albumin/Globulin Ratio 1.0 [facility] Medical History Acute on chronic kidney failure CKD (chronic kidney disease) Congestive heart failure Coronary artery disease COVID-19 Diabetes Hypertension Surgical History No pertinent past surgical history Family History Father Diabetes mellitus Sister CAD (coronary artery disease) Son Myocardial infarction Brother Myocardial infarction Social History (System 11/05/21 @ 09:24 by Lady Macie Tony) household members: spouse Smoking Status: Former smoker Discharge Plan Discharge Plan Patient Disposition: Home Health Service Discharge orders & Medications Prescriptions: New metoprolol succinate 50 mg Tablet Extended Release 24 Hr 25 mg PO BID Qty: 30 0RF ipratropium-albuterol 0.5 mg-3 mg(2.5 mg base)/3 mL solution for nebulization 3 ml inhalation Q6-8H Qty: 90 2RF benzonatate 100 mg Capsule 200 mg PO TID PRN (Reason: Cough) Qty: 30 0RF codeine-guaifenesin 10-100 mg/5 mL Liquid 5 ml PO Q6H PRN (Reason: Cough) Qty: 120 0RF cefdinir 300 mg Capsule 300 mg PO BID Qty: 20 0RF doxycycline hyclate 100 mg Tablet 100 mg PO BID Qty: 28 0RF famotidine 40 mg tablet 40 mg PO DAILY Qty: 30 2RF fluconazole [Diflucan] 100 mg Tablet 200 mg PO DAILY Qty: 10 0RF hydralazine 25 mg Tablet 25 mg PO TID Qty: 90 2RF nifedipine 30 mg tablet extended release 30 mg PO DAILY Qty: 30 2RF isosorbide mononitrate 30 mg tablet extended release 24 hr 30 mg PO DAILY Qty: 30 2RF albuterol sulfate 90 mcg/actuation HFA aerosol inhaler 2 puff inhalation Q4-6H PRN (Reason: shortness of breath or wheezing) Qty: 6.7 2RF Continued insulin NPH and regular human 100 unit/mL (70-30) insulin pen See Rx Instructions .ROUTE .COMPLEX 0RF Label Comments: 25 units am Rx Instructions: 25 units am torsemide 5 mg tablet 5 mg PO DAILY Qty: 60 0RF colchicine 0.6 mg tablet 0.6 mg PO Q OTHER DAY Qty: 180 0RF clopidogrel [Plavix] 75 mg Tablet 75 mg PO DAILY Qty: 30 6RF coQ10 (ubiquinol) 100 mg capsule 100 mg PO BID 0RF Label Comments: 1 tab a day Daily Probiotic 2.5 billion cell Capsule 1 cap PO DAILY 0RF trazodone 50 mg tablet 100 mg PO BEDTIME PRN (Reason: sleep) 0RF calcium carbonate-vitamin D3 5,000 units PO BID 0RF Discontinued hydralazine 10 mg tablet 25 mg PO BID 0RF isosorbide dinitrate 10 mg tablet 10 mg PO BID 0RF Rx Instructions: allow nitrate-free interval of 12-14 hrs per 24-hr period metoprolol succinate 100 mg tablet extended release 24 hr 100 mg PO DAILY 0RF Follow up/Referrals: Henrik Salcedo MD [Primary Care Provider] - Diet/Activity/Treatments Diet: Carb-consistent/Diabetic, Low-fat and Low-cholesterol Diet comment: GI /MECHANICAL SOFT Activity: TOLERATED Discharge Data Primary Care Provider: Henrik Salcedo Quality VTE Deep Vein Thrombosis/Pulmonary Embolism Present on Admission: No
--- NOTE | 2021-11-07 14:43 | PT.IPTN ---
Current Diagnoses Pneumonia, unspecified organism (11/04/21) Physical Therapy Treatment Note M2 PT-IP Current Condition Start: 11/05/21 08:52 Freq: NEEDED Status: Active Protocol: Document 11/05/21 09:58 AW (Rec: 11/05/21 10:15 AW [id number]) Physical Therapy Current Condition Current Condition Evaluation Date 11/05/21 Treatment Diagnosis B pneumonia, impaired mobility and gait, decreased activity tolerance Onset Date 11/04/21 M3 PT-IP Subjective Start: 11/05/21 08:52 Freq: NEEDED Status: Active Protocol: Document 11/07/21 14:26 LJ (Rec: 11/07/21 14:42 LJ [id number]) Subjective Physical Therapy Visit Type Type Treatment Note Visit Start Time 14:06 Visit Stop Time 14:23 Total Visit Minutes 17 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 1 Physical Therapy Visit Comments Patient Comments Pt is willing to participate with PT Patient Goals Return home with spouse support and resume HH Therapy Pain Assessment Pain When Pain Assessed During Mobility Pain Present Pain Present Denied Pain M4 PT-IP Mobility and Gait Start: 11/05/21 08:52 Freq: NEEDED Status: Active Protocol: Document 11/07/21 14:26 LJ (Rec: 11/07/21 14:42 LJ [id number]) PT-Bed Mobility Assessment Supine to Sit Supine to Sit Standby Assistance Scooting Scooting to Edge of Bed Standby Assistance PT-Transfer Assessment Sit to and From Stand Sit to and from Stand Contact Guard Assistance,Use of Upper Extremities Equipment Transfer Assistive Device Gait Belt,Front Wheeled Walker Orthotic/Prosthetic Devices or Brace: No Transfers Transfer Destination Chair Transfer Technique amb with FWW Transfer Ability Level of Assist Contact Guard Assistance Comments Mobility Comments Pt lying in bed. SPO2 98% RA. Pt able to scoot LEs over side of bed SBA and scoot to side of bed using UEs and bed cane. Pt rested for ~1 minute before standing. Sit<> stand CGA. Pt took 5 small steps to chair and lowered himself into chair using UEs. Made a controlled descent. Pt began coughing and SPO2 decreased to 87% very briefly. Several breaths and SPO2 returned to 93% then slowly over several minutes of breathing SPO@ returned to 98%. Pt unwilling to get up and ambulate in room . Gait Assessment Gait Gait Assistance Required: Standby Assistance,Contact Guard Assist Distance (Feet) 5 Assistive Devices Assistive Device Gait Belt,Front Wheeled Walker Orthotic/Prosthetic Devices or Brace: No Gait Deviations General Gait Pattern Decreased Stride Length, Decreased Feet Clearance, Flexed Trunk,Lateral Trunk Lean,Wide Based Gait Factors Limiting Gait Function Factors Limiting Gait Function Decreased Activity Tolerance, Decreased Sensation,Poor Balance,Poor Safety Awareness, Respiratory Distress Comments Gait Comments See mobility comments for details. Stair Climbing Assessment Comments Stair Climbing Comments Not assessed. No stairs at home. M5 PT-IP Objective Assessments Start: 11/05/21 08:52 Freq: NEEDED Status: Active Protocol: Document 11/05/21 09:58 AW (Rec: 11/05/21 10:20 AW [id number]) Orientation Orientation/Cognition Level of Alertness Lethargic Orientation Name,Year,Day of Week,Place, Situation Safety Awareness Decreased Safety Awareness Gross Range of Motion Upper Extremity ROM Assessment Within Functional Limits Lower Extremity ROM Assessment Within Functional Limits Strength Lower Extremity Strength Assessment Within Functional Limits Hip 4+/5 Knee 5/5 Ankle 4+/5 Sensation Assessment Sensation Gross Sensation Right LE Impaired,Left LE Impaired Light Touch Impaired Proprioception (Position) Impaired Comments Sensation Comments Neuropathy affects bilateral feel Muscle Tone Muscle Tone WNL Yes M6 PT-IP Treatment Start: 11/05/21 08:52 Freq: NEEDED Status: Active Protocol: Document 11/07/21 14:26 DEON (Rec: 11/07/21 14:42 LJ [id number]) Physical Therapy Treatment Education Education Provided Safety M7 PT-IP Assessment and Plan Start: 11/05/21 08:52 Freq: NEEDED Status: Active Protocol: Document 11/07/21 14:26 LJ (Rec: 11/07/21 14:42 LJ [id number]) PT Summary Assessment and Plan Potential Rehabilitation Potential Good Status of Condition at Evaluation Evolving Summary Impairments Strength,Balance,Sensation,Bed Mobility,Transfers,Gait, Activity Tolerance Assessment Summary Pt unable/unwilling to ambulate in room due to coughing. He was able to get himself out of bed and transfer to the chair without mobility issues but he experienced a bout of coughing due to the activity and it took several minutes to increase SPO2. Pt replied several times that he was fine even though coughing and having difficulty breathing. He was left in the chair with all his needs within reach and SPO2 level at 100% with ear monitor. Pt will benefit from services to inprove mobility and stamina. Goals Bed Mobility Goal Independent Transfer Goal Standby Assistance,Front Wheeled Walker Gait Goal Standby Assistance,Front Wheel Walker Gait Distance 75 Other Goals LTG: improve transfers and gait to SBA with SPC Days to Meet Goals 6 Frequency of Treatment Frequency Of Treatment Once a Day Treatment Plan Physical Therapy Treatment Plan Bed Mobility Training,Transfer Training,Gait Training, Therapeutic Exercise,Balance Retraining,Discharge Planning, Neuromuscular Re-ed Other Recommendations and Next Treatment progress gait with FWW; sit to Focus stands; ther ex seated or standing as tolerated Precautions Other Precautions monitor SpO2 Recommendations To Nursing Amount of Assist Needed 1 Person Assist Discharge Recommendations PT Discharge Recommendations Home with Assistance,Home Health Transportation Needs at Discharge Private Vehicle
--- NOTE | 2021-11-07 15:37 | CM.DPC ---
DCP Discharge Home with HH Per MD, pt is medically stable to d/c home with [facility] HH and per PT recommending safe d/c home with spouse assist and HH. ALISHA faxed d/c summary and Resume Orders to [facility] and called [facility] and updated on d/c today and she will alert their team. Plan: Patient to d/c home this evening via spouse POV and [facility]. OSWALDO Ambrocio
[2021-11-07] MEDS: FLUCONAZOLE 100 MG TABLET 200 MG PO (17:09)
[2021-11-07] MEDS: TRAZODONE 50 MG TABLET 100 MG PO (21:43)
[2021-11-08] VITALS (8 sets, daily range): BP systolic 130–142; BP diastolic 51–62; PULSE 62–65; RESP 18–24; TEMP 36.3–37; O2SAT 97–98
--- NOTE | 2021-11-08 06:19 | PC.NURSE ---
Pt able to void 200 mL urine on own in urinal. Bladder scan revealed approx 400-500 mL urine retained. This RN discussed catheterization per provider order. Pt adamantly refused, stating I never wanted one in the first place, referring to his prior cath. This RN educated the patient on importance of fully emptying the bladder and the negative effects of retaining urine from physical discomfort to sepsis and further damage to kidneys and bladder. Patient verbalized understanding and refused cath once again, stating he may be amenable to it later after a discussion with his . This RN urged the patient to consider the cath to be in his best interest. Provider made aware. Will continue to monitor.
[2021-11-08 06:49] LABS: Alanine Aminotransferase 31 IU/L (<50); Albumin 3.3 g/dL (3.5-5.0); Albumin Globulin Ratio 0.9 (1.0-2.8); Alkaline Phosphatase 73 U/L (38-126); Aspartate Aminotransferase 34 IU/L (17-59); Bilirubin Total 0.7 mg/dL (0.2-1.3); Blood Urea Nitrogen 66 mg/dL (9-20); Carbon Dioxide 23 mmol/L (22-32); Chloride 108 mmol/L (98-107); Estimated Glomerular Filt Rate 23.2 mL/min (>60); Globulin 3.5 g/dL (1.7-4.1); Glucose 98 mg/dL (80-110); HEMOLYSIS < 15 (0-50); Potassium 4.5 mmol/L (3.4-5.1); Sodium 137 mmol/L (137-145); Total Protein 6.8 g/dL (6.3-8.2)
--- NOTE | 2021-11-08 08:26 | CM.DPNOTE ---
Faxed DC sum to [facility] and received confirm. Vinita Mosley CM Asst.
[2021-11-08] MEDS: BENZONATATE 100 MG CAPSULE 200 MG PO (08:53)
[2021-11-08] MEDS: METOPROLOL ER 50 MG TABLET PO (08:53)
[2021-11-08] MEDS: FAMOTIDINE 20 MG TABLET PO (08:53)
[2021-11-08] MEDS: CLOPIDOGREL 75 MG TABLET PO (08:53)
[2021-11-08] MEDS: CEFDINIR 300 MG CAPSULE PO (08:53)
[2021-11-08] MEDS: HEPARIN 5,000 UNIT/ML VIAL 5000 UNIT SUBCUT (08:53)
[2021-11-08] MEDS: LACTOBACILLUS ACIDOPHILUS TABLET 1 EACH PO (09:16)
[2021-11-08] MEDS: FLUCONAZOLE 100 MG TABLET 200 MG PO (09:16)
[2021-11-08] MEDS: TORSEMIDE 10 MG TABLET 5 MG PO (09:16)
[2021-11-08] MEDS: ISOSORBIDE DINITRATE 10 MG TABLET PO (09:16)
[2021-11-08] MEDS: DOXYCYCLINE HYCLATE 100 MG TABLET PO (09:17)
[2021-11-08] MEDS: HYDRALAZINE 25 MG TABLET PO (09:17)
--- NOTE | 2021-11-08 11:35 | PT-IP ANOTE ---
Attempted to see pt at 11:35 AM, pt appeared frustrated and refused therapy until after lunch. Will try in PM.
--- NOTE | 2021-11-08 12:47 | PT-IP ANOTE ---
Pt refused therapy at 12:47, stating I got out of bed once and I am not doing it again and states his is picking him up at 14:00.
--- NOTE | 2021-11-08 14:16 | PC.NURSE ---
Pt had smith cath replaced this am w/ 850cc clear yellow urine returned. Orders for discharge received. Tele discontinued HL D/C'd intact. Pt discharged to . Home health set up, pt discharged w/smith cath. D/C instructions given to pt w/apparent understanding Escorted by staff via W/C to waiting vehicle. D/C in stable condition.
== END 2021-11-08 13:57 | disposition home health service (06) | DRG 177 ==
LOC: ED 13:45 → AC 17:29
PROVIDERS: Nurse Practitioner Family; Admitting Provider Hospitalist; Emergency Provider Emergency Medicine; Family Provider Internal Medicine; PCP Family Medicine; Referring Provider Emergency Medicine; Visit Provider Hospitalist
DX: B37.1 Pulmonary candidiasis (principal); J15.4 Pneumonia due to other streptococci; I13.0 Hypertensive heart and chronic kidney disease with heart failure and stage 1 through stage 4 chronic kidney disease, or unspecified chronic kidney disease; N18.4 Chronic kidney disease, stage 4 (severe); I50.22 Chronic systolic (congestive) heart failure; E11.22 Type 2 diabetes mellitus with diabetic chronic kidney disease; D63.1 Anemia in chronic kidney disease; R33.9 Retention of urine, unspecified; I25.10 Atherosclerotic heart disease of native coronary artery without angina pectoris; Z86.16 Personal history of COVID-19; Z79.4 Long term (current) use of insulin; Z87.891 Personal history of nicotine dependence; Z20.822 Contact with and (suspected) exposure to COVID-19; Z66 Do not resuscitate
CPT/HCPCS: 36415; 71045; 71046; 80048; 80053; 80076; 82962; 83036; 83605; 83735; 83880; 84145; 84484; 85025; 87070; 87077; 87147; 87205; 87633; 87635; 93005; 94762; 96365; 96366; 96367; 97162; 97165; 97530; 97535; 99284; 99285; C9803; A9270; J0696; J1644; J1815; J2543